=== PATIENT | female | born 1995 | race Caucasian/White ===

== ENCOUNTER 2020-04-13 20:21 | Emergency (ER) | payer OTHER, SELFPAY ==
[2020-04-13 20:23] VITALS: BP 130/91; PULSE 79; RESP 18; TEMP 36.7; O2SAT 99
--- NOTE | 2020-04-13 20:32 | ED.GENADULT ---
HPI - General Adult General Chief complaint: Dental/Oral Stated complaint: facial swelling Time Seen by Provider: 04/13/20 20:31 Source: patient Mode of arrival: ambulatory Limitations: no limitations History of Present Illness HPI narrative: Patient is here for evaluation of left jaw swelling after a lower molar extraction 8 days ago. She states she called her dentist and they told her they could not see her for a month and that swelling was normal. She has not had any fever but feels that there are bone fragments and excessive pain. She is been treating her pain with Tylenol and ibuprofen that was prescribed by the dentist. She states the tooth was abscess prior to the extraction. Onset (ago): day(s) Location: face Associated symptoms: denies other symptoms Treatments prior to arrival: NSAID Related Data Allergies Allergy/AdvReac Type Severity Reaction Status Date / Time amoxicillin Allergy Unknown Verified 12/09/18 13:06 codeine Allergy Unknown GI UPSET Verified 12/09/18 13:06 hydrocodone Allergy Unknown Verified 12/09/18 13:06 Penicillins Allergy Unknown Unverified 12/09/18 13:06 [place] Allergy Severe THROAT Uncoded 12/09/18 13:06 SWELLING [place] Allergy Severe THROAT Uncoded 12/09/18 13:06 SWELLING Review of Systems Review of Systems: All systems reviewed & are unremarkable except as noted in HPI and below PMFSH Social History Social History (Updated 04/13/20 @ 21:04 by Mignon Chen PA-C) Smoking status: Never smoker Alcohol intake: never Substance use: never Living arrangements: with family Occupation/Education: unemployed Exam Const: General: no acute distress and alert Orientation/consciousness: patient oriented x3 HENMT: Teeth and gingiva: caries Teeth image: 1. extracted. mild swelling of gum. Neck: Neck: no lymphadenopathy Resp: Effort & Inspection: normal respiratory effort Skin: General skin exam: normal color Psych: Mental Status: mental status grossly normal Course Course Emergency Course: Patient instructed to continue the ibuprofen every 6-8 hours as prescribed by the dentist, continue warm salt water swish and spit. We will do 5-day course of Keflex. Instructed to call the oral surgeon and as before and waiting was for cancellation if pain problem persists. Vital Signs Vital signs: Vital Signs Temperature 36.7 C 04/13/20 20:23 Pulse Rate 79 04/13/20 20:23 Respiratory Rate 18 11/04/20 20:23 Blood Pressure 130/91 H 04/13/20 20:23 Pulse Oximetry 99 04/13/20 20:23 Temperature 36.7 C 04/13/20 20:23 Pulse Rate 79 04/13/20 20:23 Respiratory Rate 18 04/13/20 20:23 Blood Pressure 130/91 H 04/13/20 20:23 Pulse Oximetry 99 04/13/20 20:23 Medical Decision Making Vital Signs Vital Signs: Vital Signs Temperature 36.7 C 04/13/20 20:23 Pulse Rate 79 04/13/20 20:23 Respiratory Rate 18 04/13/20 20:23 Blood Pressure 130/91 H 04/13/20 20:23 Pulse Oximetry 99 04/13/20 20:23 Temperature 36.7 C 04/13/20 20:23 Pulse Rate 79 04/13/20 20:23 Respiratory Rate 18 04/13/20 20:23 Blood Pressure 130/91 H 04/13/20 20:23 Pulse Oximetry 99 04/13/20 20:23 Discharge Plan Discharge Clinical Impression: Dental caries H/O tooth extraction Qualifiers: Tooth loss class: unspecified tooth loss Qualified Code(s): K08.409 - Partial loss of teeth, unspecified cause, unspecified class Patient Disposition: Home, Self-Care Condition: Stable Instructions: Antibiotic Form, Toothache (ED) Additional Instructions: Continue the ibuprofen as prescribed by the dentist, please take with food to avoid GI upset. Continue warm salt water swish and spit with 1/2 teaspoon of table salt and 4 ounces of warm water, do that 4 times a day. Do not drink with a straw in order to avoid causing a dry socket. Apply ice to your face 20 minutes at a time several times a day. Complete antibiotics as prescribed. Call t
== END 2020-04-13 21:25 | disposition home or self-care (01) ==
PROVIDERS: Emergency Provider Emergency Medicine; PCP Physician Assistant
DX: K02.9 Dental caries, unspecified (principal); Z98.818 Other dental procedure status
CPT/HCPCS: 99283

== ENCOUNTER 2020-05-26 18:05 | Emergency (ER) | payer OTHER, SELFPAY ==
[2020-05-26 18:06] VITALS: BP 158/96; PULSE 94; RESP 29; TEMP 37.2; O2SAT 99
[2020-05-26 18:13] VITALS: PULSE 88
[2020-05-26 18:14] VITALS: O2SAT 97
--- NOTE | 2020-05-26 18:15 | ECG_ITS ---
Measurements Intervals [place] Rate: 97 P: 25 [place]: 147 QRS: 36 QRSD: 93 T: 23 QT: 350 QTc: 446 Interpretive Statements SINUS RHYTHM BASELINE ARTIFACT- I, II, III, V1, V4 NORMAL ECG Electronically Signed On 05-27-2020 7:57:00 ELECTRICAL PRODUCTS ENGINEER by Mike Stallings D.O.
--- NOTE | 2020-05-26 18:16 | ED.GENADULT ---
HPI - General Adult General Chief complaint: Shortness of Breath/Dyspnea Stated complaint: SOB,CP,Anxiety Time Seen by Provider: 05/26/20 18:15 Source: patient and EMS Mode of arrival: EMS Limitations: no limitations History of Present Illness HPI narrative: Patient is 25 years old white female presents with anxiety related symptoms started in the last few days since her boyfriend on May 17. Patient complaining of hyperventilation, jittery feeling inside, shaking outside, lightheadedness, stomach upset, spasm and pain of the hands and toes. Patient reports having the above symptoms intermittently today Currently feeling much better. Patient denies any fever, chills, nausea, vomiting, sore throat, headache, back pain or chest pain. Patient denies exposure to anybody known having COVID-19 Currently patient on Celexa Related Data Allergies Allergy/AdvReac Type Severity Reaction Status Date / Time amoxicillin Allergy Unknown Verified 12/09/18 13:06 codeine Allergy Unknown GI UPSET Verified 12/09/18 13:06 hydrocodone Allergy Unknown Verified 12/09/18 13:06 Penicillins Allergy Unknown Unverified 12/09/18 13:06 [place] Allergy Severe THROAT Uncoded 12/09/18 13:06 SWELLING [place] Allergy Severe THROAT Uncoded 12/09/18 13:06 SWELLING Review of Systems Review of Systems: Narrative: CONSTITUTIONAL: Denies fever, chills, or sweats. EYES: Denies visual changes, redness, or discharge. ENT: Denies rhinorrhea, congestion, sore throat, or otalgia. CARDIOVASCULAR: Denies chest pain, palpitations, or edema. RESPIRATORY: Denies cough or dyspnea. GASTROINTESTINAL: Denies abdominal pain, nausea, vomiting, or diarrhea. GENITOURINARY: Denies dysuria or hematuria. SKIN: Denies rash or itching. MUSCULOSKELETAL: Denies back pain, joint pain, or myalgia. NEUROLOGIC: Denies headache, numbness, or weakness. PSYCHIATRIC: Anxiety and depression PMFSH Past Medical History Medical History (Updated 05/26/20 @ 18:32 by Perla Seals MD) Anxiety Depression Social History Social History Smoking status: Never smoker Alcohol intake: never Substance use: never Gender identity (if verbalized by the patient): Female Exam Narrative: Exam Narrative: General appearance: Well-developed, well-nourished, looks depressed Skin: Normal color Head: Normocephalic, nontraumatic Eyes: Clear conjunctiva ENT: Oropharynx normal, ears normal, nose normal Neck: Supple, nontender Chest and respiratory: Airway patent, no respiratory distress, no accessory muscle use Heart: Regular rate/rhythm Abdomen: Soft, nontender, no organomegaly, quiet bowel sounds Vascular: Normal peripheral pulses, normal capillary refill. 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 is normal as tested, no gross motor deficit Course Course Emergency Course: Improving Vital Signs Vital signs: Vital Signs Temperature 37.2 C 05/26/20 18:06 Pulse Rate 94 05/26/20 18:06 Respiratory Rate 29 H 05/26/20 18:06 Blood Pressure 158/96 H 05/26/20 18:06 Pulse Oximetry 99 05/26/20 18:06 Temperature 37.2 C 05/26/20 18:06 Pulse Rate 88 05/26/20 18:13 Respiratory Rate 29 H 05/26/20 18:06 Blood Pressure 158/96 H 05/26/20 18:06 Pulse Oximetry 97 05/26/20 18:14 Medical Decision Making [facility] Narrative Medical decision making narrative: Panic attack, grief reaction is my concern Ativan 1 mg orally ordered. Further plan to follow Differential Diagnosis Differential Diagnosis: Anxiety, depression, grief reaction Vital Signs Vital Signs: Vital Signs Temperature 3
[2020-05-26] MEDS: LORazepam (*CRX) 0.5 MG TABLET 1 MG PO (18:45)
--- NOTE | 2020-05-26 18:46 | PC.NURSE ---
patient medicated as ordered. alert. sitting on stretcher. family member in room. denies needs at this time but does want IVF. will discuss with provider.
== END 2020-05-26 19:30 | disposition home or self-care (01) ==
LOC: ANHED 18:48
PROVIDERS: Emergency Provider Emergency Medicine; PCP Physician Assistant
DX: F43.22 Adjustment disorder with anxiety (principal)
CPT/HCPCS: 93005; 99283; A9270

== ENCOUNTER 2020-06-16 02:37 | Emergency (ER) | payer OTHER, SELFPAY ==
--- NOTE | ~2020-06-16 | XR_ITS ---
EXAMINATION: XR chest 2V 06/16/2020 03:15 INDICATION: Chest pain PROCEDURE: PA and lateral views of the chest COMPARISON: 02/11/2019 FINDINGS: The lungs are clear. The cardiomediastinal silhouette is within normal limits. There are no pleural effusions. There is no pneumothorax suspected. IMPRESSION: 1: NO ACUTE CARDIOPULMONARY DISEASE. Reviewed, dictated and finalized at location [facility]. 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
[2020-06-16 02:36] VITALS: BP 157/93; PULSE 105; RESP 16; TEMP 36.5; O2SAT 99
--- NOTE | 2020-06-16 02:41 | ECG_ITS ---
Measurements Intervals [place] Rate: 109 P: 33 NE: 166 QRS: 18 QRSD: 89 T: -13 QT: 363 QTc: 489 Interpretive Statements SINUS TACHYCARDIA NONSPECIFIC ST & T-WAVE ABNORMALITY- ANT/INF LEADS BASELINE ARTIFACT- V1-V2 ABNORMAL ECG Electronically Signed On 06-16-2020 7:15:50 GIFTS OFFICER by Mike Stallings D.O.
[2020-06-16 03:04] VITALS: BP 125/74; PULSE 105; RESP 12; O2SAT 100
[2020-06-16] MEDS: KETOROLAC 30 MG/ML VIAL (*BKC) IV PUSH (03:09)
--- NOTE | 2020-06-16 03:10 | PC.NURSE ---
Pt. to XR
--- NOTE | 2020-06-16 03:45 | PC.NURSE ---
Pt. re-stuck for blood draw due to pulling arm away w/ needle in place
[2020-06-16 03:55] LABS: Basophils Percent Auto 0.4 % (0.2-1.2); Eosinophils Absolute Auto 0.3 K/mm3 (0-0.3); Eosinophils Percent Auto 4.1 % (0-4.4); Hematocrit 38.2 % (37.0-47.0); Immature Granulocyte Absolute 0.01 K/mm3 (0.00-0.031); Immature Granulocyte Percent A 0.1 % (0-0.5); Lymphocytes Absolute Auto 2.06 K/mm3 (0.9-3.2); Lymphocytes Percent Auto 25.8 % (18.3-44.2); Mean Corpuscular Volume 88.2 fl (80-100); Mean Platelet Volume 10.3 fl (7.4-10.4); Monocytes Absolute Auto 0.7 K/mm3 (0.1-0.6); Monocytes Percent Auto 8.5 % (2.6-8.5); Neutrophils Absolute Auto 4.9 K/mm3 (1.3-6.7); Neutrophils Percent Auto 61.1 % (45.5-73.1); Platelet Count Result 284 k/mm3 (150-375); Red Blood Count 4.33 M/mm3 (4.2-5.4); Red Cell Distribution Width 13.1 % (11.5-14.5)
--- NOTE | 2020-06-16 04:03 | ED.ARRPALP ---
HPI - Arrhythmia/Palpitations General Chief Complaint: Arrhythmia/Palpitations Stated Complaint: anxiety Time Seen by Provider: 06/16/20 02:39 History of Present Illness HPI narrative: Patient is a 25-year-old female who presents ER with chest pain. Ongoing for a week. Began in her left lateral chest and has moved across to the right anterior chest wall. Reports it feels like her heart is racing and is occasionally sharp. Typically gets better when she takes clonazepam. No fevers or chills or sweats. No productive cough. Reports she has seen a custom frame assembler in the past who told her that she does not have any cardiac issues. She does have diagnosis of POTS. She reports family history significant of mother dying from a cardiac issue although it is unknown what. Patient became more symptomatic at work tonight and opted to come to the hospital. Patient reports feeling significant stress due to her boyfriend/fianc? having recently. Related Data Allergies Allergy/AdvReac Type Severity Reaction Status Date / Time amoxicillin Allergy Unknown Unknown Verified 06/16/20 03:10 codeine Allergy Unknown GI UPSET Verified 06/16/20 03:10 hydrocodone Allergy Unknown Unknown Verified 06/16/20 03:10 Penicillins Allergy Unknown Unknown Verified 06/16/20 03:10 [place] Allergy Severe THROAT Uncoded 06/16/20 03:10 SWELLING [place] Allergy Severe THROAT Uncoded 06/16/20 03:10 SWELLING Review of Systems Review of Systems: All systems reviewed & are unremarkable except as noted in HPI and below Constitutional: Constitutional: Denies chills, Denies fever(s) and Denies weakness ENT: Denies nasal congestion and Denies sore throat Cardiovascular: Cardiovascular: Reports chest pain, Reports rapid heart rate and Denies radiating jaw, neck or arm pain Respiratory: Respiratory: Denies cough and Denies dyspnea Gastrointestinal: Gastrointestinal: Denies abdominal pain, Denies nausea and Denies vomiting Psychiatric: Psychiatric: Reports anxiety PMFSH Past Medical History Medical History (Updated 06/16/20 @ 05:09 by Jackson Lee MD) Anxiety Depression Social History Social History Smoking status: Never smoker Alcohol intake: never Substance use: never Gender identity (if verbalized by the patient): Female Exam Narrative: Exam Narrative: GENERAL: Well-appearing, well-nourished, and in no acute distress. HEAD: Normocephalic, atraumatic. CHEST: Clear to auscultation. No respiratory distress. HEART: Tachycardic and regular. Normal peripheral pulses. ABDOMEN: Soft, nontender, nondistended. EXTREMITIES: Normal range of motion. No edema. SKIN: Warm, dry, no rash. NEURO: Alert and oriented x3. PSYCH: Normal mood and affect. Course Course Emergency Course: Pain resolved with Toradol. Informed results. Discharge home. Vital Signs Vital signs: Vital Signs Temperature 97.7 F 06/16/20 02:36 Pulse Rate 105 H 06/16/20 02:36 Respiratory Rate 16 06/16/20 02:36 Blood Pressure 157/93 H 06/16/20 02:36 Pulse Oximetry 99 06/16/20 02:36 Temperature 97.7 F 06/16/20 02:36 Pulse Rate 94 06/16/20 04:33 Respiratory Rate 12 06/16/20 04:33 Blood Pressure 133/88 06/16/20 04:33 Pulse Oximetry 100 06/16/20 04:33 MDM - Arrhythmia/Palpitations Lab Data Result diagrams: 06/16/20 03:45 06/16/20 03:43 Labs: Lab Results 06/16/20 06/16/20 06/16/20 Range/Units 03:43 03:45 03:45 WBC 8.0 (4.5-10.0) K/mm3 RBC 4.33 (4.2-5.4) M/mm3 Hgb 13.0 (12.0-15.0) g/dL Hct 38.2 (37.0-47.0) % MCV 88.2 (80-100) fl MCH 30.0 (26-34) pg MCHC 34.0 (32-36) g/dl RDW 13.1 (11.5-14.5) % Plt Count 284 (150-375) k/mm3 MPV 10.3 (7.4-10.4) fl Immature Gran % (Auto) 0.1 (0-0.5) % Neut % (Auto) 61.1 (45.5-73.1) % Lymph % (Auto) 25.8 (18.3-44.2) % [place] % (Auto) 8.5 (2.6-8.5) %
[2020-06-16 04:05] LABS: D Dimer 0.32 ug/mL (<0.48)
[2020-06-16 04:07] LABS: Anion Gap 7 mmol/L (8-16); Blood Urea Nitrogen 12 mg/dL (7-17); Calcium 8.8 mg/dL (8.4-10.2); Carbon Dioxide 26 mmol/L (22-30); Chloride 108 mmol/L (98-107); Estimated CRCL calculation 125 ml/min; Estimated Glomerular Filt Rate > 60; Glucose 91 mg/dL (65-105); Potassium 3.6 mmol/L (3.4-5.0); Sodium 141 mmol/L (137-145)
[2020-06-16 04:19] LABS: Troponin I < 0.012 ng/mL (0.000-0.034)
[2020-06-16 04:33] VITALS: BP 133/88; PULSE 94; RESP 12; O2SAT 100
[2020-06-16 05:30] VITALS: BP 128/77; PULSE 88; RESP 14; O2SAT 99
== END 2020-06-16 05:30 | disposition home or self-care (01) ==
PROVIDERS: Emergency Provider Emergency Medicine; PCP Physician Assistant
DX: R07.89 Other chest pain (principal); F41.9 Anxiety disorder, unspecified; R94.31 Abnormal electrocardiogram [ECG] [EKG]
CPT/HCPCS: 36415; 71046; 80048; 84484; 85025; 85380; 93005; 96374; 99284; J1885

== ENCOUNTER 2020-09-07 22:50 | Emergency (ER) | payer OTHER, SELFPAY ==
--- NOTE | ~2020-09-07 | XR_ITS ---
EXAMINATION: XR chest 1V portable DATE: 09/08/2020 00:51 INDICATION: Left-sided chest pain TECHNIQUE: frontal view of the chest was obtained. COMPARISON: Chest radiograph dated 06/16/2020 FINDINGS: The lungs remain clear with no focal airspace opacities, pulmonary edema, pleural effusion or pneumot horax. The cardiomediastinal silhouette is normal. Visualized bones and soft tissues are unremarkable . IMPRESSION: 1. No acute cardiopulmonary disease. Reviewed, dictated and finalized at location A.
[2020-09-07 22:53] VITALS: BP 151/93; PULSE 79; RESP 18; TEMP 35.4; O2SAT 97
--- NOTE | 2020-09-07 23:03 | ECG_ITS ---
Measurements Intervals [place] Rate: 76 P: 28 [place]: 153 QRS: 55 QRSD: 88 T: 33 QT: 386 QTc: 435 Interpretive Statements SINUS RHYTHM WITH SINUS ARRHYTHMIA BASELINE ARTIFACT- I, II, AVR NORMAL ECG Electronically Signed On 09-08-2020 7:10:25 CDT by Mike Stallings D.O.
--- NOTE | 2020-09-08 00:04 | ED.GENADULT ---
HPI - General Adult General Chief complaint: Unspecified Stated complaint: chest tightness x 6 hours Time Seen by Provider: 09/07/20 23:09 History of Present Illness HPI narrative: 25 yo presents to the ED with multiple complaints. She reports that she has had sharp left sided chest pain radiating to the left shoulder for 6 hours. She has also had nausea and light headedness. Additionally she has urinry frequency and dysuria. Related Data Home Medications Medication Instructions Recorded Confirmed albuterol sulfate INHALATION 09/07/20 citalopram mg 09/07/20 clonazepam 09/07/20 ferrous sulfate mg 09/07/20 fludrocortisone mg 09/07/20 hydroxyzine HCl 09/07/20 ibuprofen 09/07/20 lamotrigine 09/07/20 rosuvastatin mg 09/07/20 Allergies Allergy/AdvReac Type Severity Reaction Status Date / Time amoxicillin Allergy Unknown Unknown Verified 09/07/20 22:56 codeine Allergy Unknown GI UPSET Verified 09/07/20 22:56 hydrocodone Allergy Unknown Unknown Verified 09/07/20 22:56 Penicillins Allergy Unknown Unknown Verified 09/07/20 22:56 [place] Allergy Difficulty Verified 09/07/20 22:56 Swallowing [place] Allergy Severe THROAT Uncoded 09/07/20 22:56 SWELLING [place] Allergy Severe THROAT Uncoded 09/07/20 22:56 SWELLING Review of Systems Review of Systems: All systems reviewed & are unremarkable except as noted in HPI and below Constitutional: Constitutional: Denies chills and Denies fever(s) Eyes: Eyes: Reports no additional eye complaints ENT: Reports system reviewed and no additional complaints, except as documented Cardiovascular: Cardiovascular: Reports chest pain Respiratory: Respiratory: Reports dyspnea Gastrointestinal: Gastrointestinal: Reports nausea Genitourinary: Genitourinary: Reports as per HPI Neurologic: Reports as per HPI [facility] Past Medical History Medical History Anxiety Depression Social History Social History Smoking status: Never smoker Alcohol intake: never Substance use: never Gender identity (if verbalized by the patient): Female Sexual Orientation (if Verbalized by the Patient): Straight or Heterosexual Exam Const: General: healthy appearing, no acute distress and alert Orientation/consciousness: patient oriented x3 HENMT: Head: normal to inspection Neck: Neck: normal visual inspection and no lymphadenopathy Chest: Chest palpation & inspection: tenderness Resp: Effort & Inspection: normal respiratory effort Auscultation: clear to auscultation bilaterally, no rales, no rhonchi and no wheezes Cardio: Jugular venous distension: no JVD Rate: regular rate Rhythm: regular rhythm Heart sounds: no murmurs GI: Inspection: non-distended GI Palp: Yes Soft to palpation and Yes Tenderness to palpation present (GI) (epigastric) Skin: General skin exam: normal color Neuro: General: patient oriented x3 and moves all extremities Speech: normal speech Extrem: General: no edema Psych: Appearance: well kempt Affect: normal affect Course Vital Signs Vital signs: Vital Signs Temperature 35.4 C L 09/07/20 22:53 Pulse Rate 79 09/07/20 22:53 Respiratory Rate 18 09/07/20 22:53 Blood Pressure 151/93 H 09/07/20 22:53 Pulse Oximetry 97 09/07/20 22:53 Temperature 36.8 C 09/08/20 02:56 Pulse Rate 76 09/08/20 02:56 Respiratory Rate 16 09/08/20 02:56 Blood Pressure 129/85 09/08/20 02:56 Pulse Oximetry 100 09/08/20 02:56 Medical Decision Making Vital Signs Vital Signs: Vital Signs Temperature 35.4 C L 09/07/20 22:53 Pulse Rate 79 09/07/20 22:53 Respiratory Rate 18 09/07/20 22:53 Blood Pressure 151/93 H 09/07/20 22:53 Pulse Oximetry 97 09/07/20 22:53 Temperature 36.8 C 09/08/20 02:56 Pulse Rate 76 09/08/20 02:56 Respiratory Rate 16 09/08/20 02:56 Blood Pressure 129/85
[2020-09-08] MEDS: KETOROLAC 30 MG/ML VIAL (*BKC) IV PUSH (00:22)
[2020-09-08 00:46] LABS: Alanine Aminotransferase 20 U/L (4-35); Albumin Level 4.5 g/dL (3.5-5.1); Alkaline Phosphatase 49 U/L (38-126); Anion Gap 5 mmol/L (8-16); Aspartate Amino Transferase 25 U/L (14-36); Bilirubin,Total 0.2 mg/dL (0.2-1.3); Blood Urea Nitrogen 11 mg/dL (7-17); Calcium 9.5 mg/dL (8.4-10.2); Carbon Dioxide 30 mmol/L (22-30); Chloride 107 mmol/L (98-107); Estimated CRCL calculation 102 ml/min; Estimated Glomerular Filt Rate > 60; Glucose 74 mg/dL (65-105); Sodium 142 mmol/L (137-145)
[2020-09-08 00:47] LABS: Basophils Percent Auto 0.4 % (0.2-1.2); Eosinophils Absolute Auto 0.4 K/mm3 (0-0.3); Eosinophils Percent Auto 4.3 % (0-4.4); Hematocrit 44.7 % (37.0-47.0); Hemoglobin 14.9 g/dL (12.0-15.0); Immature Granulocyte Absolute 0.01 K/mm3 (0.00-0.031); Immature Granulocyte Percent A 0.1 % (0-0.5); Lymphocytes Absolute Auto 2.43 K/mm3 (0.9-3.2); Lymphocytes Percent Auto 29.2 % (18.3-44.2); Mean Corpuscular HGB Conc 33.3 g/dl (32-36); Mean Corpuscular Volume 90.1 fl (80-100); Mean Platelet Volume 10.9 fl (7.4-10.4); Monocytes Absolute Auto 0.7 K/mm3 (0.1-0.6); Monocytes Percent Auto 7.9 % (2.6-8.5); Neutrophils Absolute Auto 4.8 K/mm3 (1.3-6.7); Neutrophils Percent Auto 58.1 % (45.5-73.1); Platelet Count Result 305 k/mm3 (150-375); Red Blood Count 4.96 M/mm3 (4.2-5.4); Red Cell Distribution Width 13.4 % (11.5-14.5); White Blood Count 8.3 K/mm3 (4.5-10.0)
[2020-09-08 00:56] LABS: Add Urine Microscopic? YES; Appearance Urine Cloudy (Clear); Bilirubin Urine Negative (Negative); Blood Urine Negative (Negative); Color Urine Yellow (Yellow); Glucose Urine UA Negative (Negative); Ketones Urine Negative (Negative); Leukocyte Esterase Ur 1+ LEU/UL (Negative); Mucus Urine Rare /lpf; Nitrate Urine Negative (Negative); Protein Urine 1+ mg/dL (Negative); Specific Grav Ur 1.027 (1.001-1.035); Squamous Epithelial Cell Urine Rare /hpf (Few); Urobilinogen Urine Negative mg/dL (<2.0); WBC Urine 21-30 /hpf
[2020-09-08 00:57] LABS: Troponin I < 0.012 ng/mL (0.000-0.034)
[2020-09-08] MEDS: NITROFURANTOIN MONOHYD MACROCR 100 MG CAP PO (01:38)
[2020-09-08 02:01] VITALS: BP 118/72; PULSE 78; RESP 16; O2SAT 99
[2020-09-08 02:56] VITALS: BP 129/85; PULSE 76; RESP 16; TEMP 36.8; O2SAT 100
== END 2020-09-08 02:57 | disposition home or self-care (01) ==
PROVIDERS: Emergency Provider Emergency Medicine; PCP Physician Assistant
DX: N30.90 Cystitis, unspecified without hematuria (principal); R07.89 Other chest pain; F41.9 Anxiety disorder, unspecified; F32.9 Major depressive disorder, single episode, unspecified
CPT/HCPCS: 36415; 71045; 80053; 81001; 84484; 85025; 87077; 87086; 87088; 87186; 93005; 96374; 99284; A9270; J1885

== ENCOUNTER 2020-09-29 23:14 | Emergency (ER) | payer OTHER, SELFPAY ==
--- NOTE | ~2020-09-29 | CT_ITS ---
EXAMINATION: CT brain wo con DATE: 09/30/2020 01:57 INDICATION: Dizziness. Head injury. TECHNIQUE: Computed tomography (CT) of the head was performed without intravenous contrast. The mA wa s adjusted according to patient size. Iterative reconstruction technique was employed. Exam dose: 60 5.33 mGy-cm total exam DLP. COMPARISON: 12/09/2018 CT head FINDINGS: No intracranial mass lesion or hemorrhage, midline shift or mass effect or cerebrovascular accident. Normal ventricular size. Normal hinds-white matter differentiation. No subdural or epidural hematoma. There is an approximately 1.5 cm polyp or mucous retention cyst of the lateral left maxillary sinus, mild mucoperiosteal thickening of the right maxillary sinus and patchy soft tissue thickening in the ethmoid air cells. The mastoid air cells are normally developed and aerated. IMPRESSION: No significant intracranial abnormality Reviewed, dictated and finalized at [facility]. Reviewed, dictated and finalized at location A.
[2020-09-29 23:44] VITALS: BP 137/103; PULSE 90; RESP 16; TEMP 36.4; O2SAT 100
[2020-09-30 01:04] VITALS: BP 122/71; PULSE 86; RESP 17; O2SAT 100
[2020-09-30] MEDS: SODIUM CHLORIDE 0.9% IV 1,000 ML 999 ML IV CONT (02:12)
[2020-09-30] MEDS: KETOROLAC 30 MG/ML VIAL (*BKC) IV PUSH (02:13)
[2020-09-30] MEDS: PROCHLORPERAZINE EDISYLATE 10 MG/2 ML VIAL IV PUSH (02:13)
[2020-09-30] MEDS: diphenhydrAMINE HCl INJ 50 MG/ML VIAL IV PUSH (02:13)
[2020-09-30] MEDS: MECLIZINE HCL 25 MG TABLET PO (02:14)
--- NOTE | 2020-09-30 02:29 | ED.GENADULT ---
HPI - General Adult General Chief complaint: Head Injury Stated complaint: head injury Time Seen by Provider: 09/30/20 01:37 History of Present Illness HPI narrative: Patient a 25-year-old female who presents the emergency department with chief complaint of headache and dizziness. Patient reports that she has prior history of pots syndrome and was feeling dizzy and struck her head. Patient states she fell 2 more times while was at work and struck her head patient reports that she has history of vertigo and also reports that she has episodes of POTS. Patient states that since then she has had a headache that she describes as diffuse worse in the front of her head where she had struck the back of her head. Patient reports is also had nausea and vomiting reports that she has photophobia. Patient states she also has a rotational vertigo type symptoms. Related Data Home Medications Medication Instructions Recorded Confirmed albuterol sulfate INHALATION 09/07/20 citalopram mg 09/07/20 clonazepam 09/07/20 ferrous sulfate mg 09/07/20 fludrocortisone mg 09/07/20 hydroxyzine HCl 09/07/20 ibuprofen 09/07/20 lamotrigine 09/07/20 rosuvastatin mg 09/07/20 Allergies Allergy/AdvReac Type Severity Reaction Status Date / Time amoxicillin Allergy Unknown Unknown Verified 09/30/20 02:37 codeine Allergy Unknown GI UPSET Verified 09/30/20 02:37 hydrocodone Allergy Unknown Unknown Verified 09/30/20 02:37 Penicillins Allergy Unknown Unknown Verified 09/30/20 02:37 [place] Allergy Difficulty Verified 09/30/20 02:37 Swallowing [place] Allergy Severe THROAT Uncoded 09/30/20 02:37 SWELLING [place] Allergy Severe THROAT Uncoded 09/30/20 02:37 SWELLING Review of Systems Review of Systems: Narrative: A 10 system review of systems was completed on the patient and is negative except for what is stated in the HPI. Nursing and ancillary documentation was reviewed. PMFSH Past Medical History Medical History Anxiety Depression Social History Social History Smoking status: Never smoker Alcohol intake: never Substance use: never Gender identity (if verbalized by the patient): Female Comments Patient has past medical history significant for pots Social history the patient denies illicit drug use Exam Narrative: Exam Narrative: GENERAL: Well-appearing, well-nourished, and in no acute distress. HEAD: Normocephalic, atraumatic. EYES: PERRLA and EOMI. ENT: Nares clear, no rhinorrhea or epistaxis. Mucous membranes moist. NECK: Supple. CHEST: Clear to auscultation. No respiratory distress. HEART: Regular rate and rhythm. No murmur heard. Normal peripheral pulses. ABDOMEN: Soft, nontender, nondistended, normal active bowel sounds. EXTREMITIES: Normal range of motion. No edema. SKIN: Warm, dry, no rash. NEURO: No focal deficits. Alert and oriented x3. PSYCH: Normal mood and affect. Course Vital Signs Vital signs: Vital Signs Temperature 36.4 C 09/29/20 23:44 Pulse Rate 90 09/29/20 23:44 Respiratory Rate 16 09/29/20 23:44 Blood Pressure 137/103 H 09/29/20 23:44 Pulse Oximetry 100 09/29/20 23:44 Temperature 36.8 C 09/30/20 02:36 Pulse Rate 88 09/30/20 02:36 Respiratory Rate 20 09/30/20 02:36 Blood Pressure 130/66 09/30/20 02:36 Pulse Oximetry 100 09/30/20 02:36 Medical Decision Making Vital Signs Vital Signs: Vital Signs Temperature 36.4 C 09/29/20 23:44 Pulse Rate 90 09/29/20 23:44 Respiratory Rate 16 09/29/20 23:44 Blood Pressure 137/103 H 09/29/20 23:44 Pulse Oximetry 100 09/29/20 23:44 Temperature 36.8 C 09/30/20 02:36 Pulse Rate 88 09/30/20 02:36 Respiratory Rate 20 09/30/20 02:36 Blood Pressure 130/66 09/30/20 02:36 Pulse Oximetry 100 09/30/20 02:36 Lab Data Result diagrams: 09/30/20 0
[2020-09-30 02:36] VITALS: BP 130/66; PULSE 88; RESP 20; TEMP 36.8; O2SAT 100
[2020-09-30 02:38] LABS: Basophils Percent Auto 0.3 % (0.2-1.2); Eosinophils Absolute Auto 0.4 K/mm3 (0-0.3); Eosinophils Percent Auto 4.3 % (0-4.4); Hematocrit 44.8 % (37.0-47.0); Hemoglobin 15.5 g/dL (12.0-15.0); Immature Granulocyte Absolute 0.02 K/mm3 (0.00-0.031); Immature Granulocyte Percent A 0.2 % (0-0.5); Lymphocytes Percent Auto 34.7 % (18.3-44.2); Mean Corpuscular HGB Conc 34.6 g/dl (32-36); Mean Corpuscular Hemoglobin 30.8 pg (26-34); Mean Corpuscular Volume 89.1 fl (80-100); Mean Platelet Volume 10.7 fl (7.4-10.4); Monocytes Absolute Auto 0.6 K/mm3 (0.1-0.6); Neutrophils Absolute Auto 5.2 K/mm3 (1.3-6.7); Neutrophils Percent Auto 54.5 % (45.5-73.1); Platelet Count Result 336 k/mm3 (150-375); Red Blood Count 5.03 M/mm3 (4.2-5.4); Red Cell Distribution Width 13.2 % (11.5-14.5); White Blood Count 9.5 K/mm3 (4.5-10.0)
[2020-09-30 02:46] LABS: Add Urine Microscopic? YES; Appearance Urine Cloudy (Clear); Bilirubin Urine Negative (Negative); Color Urine Amber (Yellow); Glucose Urine UA Negative (Negative); Ketones Urine Negative (Negative); Leukocyte Esterase Ur 1+ LEU/UL (Negative); Mucus Urine Moderate /lpf; Nitrate Urine Negative (Negative); Protein Urine 1+ mg/dL (Negative); Squamous Epithelial Cell Urine Few /hpf (Few)
[2020-09-30 02:47] LABS: Blood Urine Negative (Negative); Specific Grav Ur 1.031 (1.001-1.035)
[2020-09-30 02:50] LABS: Alanine Aminotransferase 32 U/L (4-35); Albumin Level 5.1 g/dL (3.5-5.1); Alkaline Phosphatase 75 U/L (38-126); Anion Gap 8 mmol/L (8-16); Aspartate Amino Transferase 35 U/L (14-36); Bilirubin,Total 0.3 mg/dL (0.2-1.3); Blood Urea Nitrogen 13 mg/dL (7-17); Calcium 9.8 mg/dL (8.4-10.2); Carbon Dioxide 29 mmol/L (22-30); Chloride 107 mmol/L (98-107); Estimated CRCL calculation 120 ml/min; Estimated Glomerular Filt Rate > 60; Glucose 84 mg/dL (65-105); Potassium 3.6 mmol/L (3.4-5.0); Sodium 144 mmol/L (137-145)
[2020-09-30 03:21] VITALS: BP 124/78; PULSE 98; RESP 20; O2SAT 100
== END 2020-09-30 03:25 | disposition home or self-care (01) ==
PROVIDERS: Emergency Provider Emergency Medicine; PCP Physician Assistant
DX: R51.9 Headache, unspecified (principal); R42 Dizziness and giddiness; S09.90XA Unspecified injury of head, initial encounter; F41.9 Anxiety disorder, unspecified; F32.9 Major depressive disorder, single episode, unspecified; I49.8 Other specified cardiac arrhythmias; W01.10XA Fall on same level from slipping, tripping and stumbling with subsequent striking against unspecified object, initial encounter
CPT/HCPCS: 36415; 70450; 80053; 81001; 81025; 85025; 87077; 87086; 87088; 87186; 96361; 96374; 96375; 99284; A9270; J0780; J1200; J1885; J7030

== ENCOUNTER 2020-10-15 20:29 | Emergency (ER) | payer OTHER, SELFPAY ==
--- NOTE | ~2020-10-15 | XR_ITS ---
XR hand RT min 3V 10/15/2020 21:40 INDICATION: Right hand pain PROCEDURE: 3 views right hand COMPARISON: 12/01/2009 FINDINGS: Fracture, dislocation or subluxation is not identified. The soft tissues appear within norm al limits. No foreign bodies are identified. IMPRESSION: 1: NO ACUTE BONE OR JOINT ABNORMALITY IDENTIFIED. Reviewed, dictated and finalized at location A.
--- NOTE | ~2020-10-15 | XR_ITS ---
XR ankle LT min 3V 10/15/2020 21:40 Indication: Status post fall down concrete stairs. Left ankle pain. Procedure: 4 views left ankle Comparison: 05/02/2010 Findings: No acute fracture or traumatic malalignment. There is a cannulated lag screw in the distal aspect of the tibia. Ankle mortise intact. No significant soft tissue abnormality. No radiopaque fore ign bodies. Impression: 1: No acute fracture. Reviewed, dictated and finalized at location A. Impression: 1: No acute fracture.
--- NOTE | ~2020-10-15 | XR_ITS ---
LUMBAR SPINE INDICATION: Low back pain after fall TECHNIQUE: 3 views lumbar spine COMPARISON: None FINDINGS: No fracture, subluxation or dislocation. No evidence for spondylolysis or spondylolisthesi s. Vertebral bodies and disk spaces are preserved. IMPRESSION: 1: No significant abnormality of the lumbar spine identified. Reviewed, dictated and finalized at location A.
--- NOTE | ~2020-10-15 | CT_ITS ---
EXAMINATION: CT cervical spine wo con DATE: 10/15/2020 21:22 INDICATION: Head injury. TECHNIQUE: Computed tomography (CT) of the cervical spine was performed without intravenous contrast. Automated exposure control and iterative reconstruction technique were employed. The dose-length pro duct was 184.92 mGy-cm. COMPARISON: CT cervical spine 11/28/2018 FINDINGS: There is mild kyphosis of cervical spine. Vertebral body heights and intervertebral disc he ights are normal. At C7-T1, there is mild bilateral facet joint osteoarthritis. No central canal sten osis or neural foraminal stenosis. IMPRESSION: 1. No fracture. Reviewed, dictated and finalized at location A. IMPRESSION: 1. No fracture.
--- NOTE | ~2020-10-15 | XR_ITS ---
EXAMINATION: XR chest 1V 10/15/2020 21:40 INDICATION: Chest pain after fall PROCEDURE: AP view of the chest COMPARISON: 09/08/2020 FINDINGS: The lungs are clear. The cardiomediastinal silhouette is within normal limits. There are no pleural effusions. There is no pneumothorax suspected. IMPRESSION: 1: NO ACUTE CARDIOPULMONARY DISEASE. Reviewed, dictated and finalized at location A.
--- NOTE | ~2020-10-15 | CT_ITS ---
EXAMINATION: CT brain wo con DATE: 10/15/2020 21:15 INDICATION: Head injury. TECHNIQUE: Computed tomography (CT) of the head was performed without intravenous contrast. The mA wa s adjusted according to patient size. Iterative reconstruction technique was employed. The dose-lengt h product was 605.33 mGy-cm. COMPARISON: Head CT 09/30/2020 FINDINGS: There is acute subarachnoid hemorrhage in right sylvian fissure and anterior interhemispher ic fissure. There is acute hemorrhage at the right cerebellar tentorium that may be subdural or subar achnoid. There is no acute ischemic infarct or abnormal mass lesion. The ventricles are normal in si ze. There is mild mucosal thickening in the paranasal sinuses. There is a trace right mastoid effusio n. There is a left posterior scalp hematoma. IMPRESSION: 1. Acute subarachnoid hemorrhage in right sylvian fissure and anterior interhemispheric fissure. 2. Acute hemorrhage at the right cerebellar tentorium that may be subdural or subarachnoid. 3. I discussed this case with Dr. Seals. Reviewed, dictated and finalized at location A. IMPRESSION: 1. Acute subarachnoid hemorrhage in right sylvian fissure and anterior interhem ispheric fissure. 2. Acute hemorrhage at the right cerebellar tentorium that may be subdural or s ubarachnoid. 3. I discussed this case with Dr. Seals.
--- NOTE | ~2020-10-15 | XR_ITS ---
XR thoracic spine 3V 10/15/2020 21:40 Indication: Back pain Procedure: 3 views thoracic spine Comparison: No prior studies for comparison. Findings: Vertebral body heights are maintained. Mild levoscoliosis. No fracture or traumatic malalig nment. Pedicles intact. Surrounding osseous structures within normal limits. No paraspinal soft tissu e abnormality. Impression: 1: No acute fracture. Reviewed, dictated and finalized at location A. Impression: 1: No acute fracture.
--- NOTE | ~2020-10-15 | XR_ITS ---
XR elbow RT min 3V 10/15/2020 21:40 INDICATION: Right elbow pain PROCEDURE: 3 views right elbow COMPARISON: No prior studies for comparison. FINDINGS: Fracture, dislocation or subluxation is not identified. The soft tissues appear within norm al limits. No foreign bodies are identified. IMPRESSION: 1: NO ACUTE BONE OR JOINT ABNORMALITY IDENTIFIED. Reviewed, dictated and finalized at location A.
--- NOTE | ~2020-10-15 | XR_ITS ---
XR pelvis 1-2V 10/15/2020 21:40 INDICATION: Pelvic pain PROCEDURE: AP pelvis COMPARISON: No prior studies for comparison. FINDINGS: Fracture, dislocation or subluxation is not identified. Pelvic rings are intact. Sacral for amen are symmetric. The soft tissues appear within normal limits. No foreign bodies are identified. IMPRESSION: 1: NO ACUTE BONE OR JOINT ABNORMALITY IDENTIFIED. Reviewed, dictated and finalized at location A.
[2020-10-15 20:35] VITALS: BP 167/100; PULSE 120; RESP 15; TEMP 36.8; O2SAT 99
--- NOTE | 2020-10-15 20:48 | PC.NURSE ---
CCollar placed on pt at this time.
--- NOTE | 2020-10-15 20:55 | ECG_ITS ---
Measurements Intervals [place] Rate: 84 P: 34 [place]: 145 QRS: 28 QRSD: 92 T: 32 QT: 355 QTc: 421 Interpretive Statements SINUS RHYTHM BASELINE ARTIFACT- I, II, III, AVR, AVL NORMAL ECG Electronically Signed On 10-16-2020 7:54:07 CDT by Mike Stallings D.O.
--- NOTE | 2020-10-15 21:02 | ED.FALL ---
HPI - Fall General Chief Complaint: Fall Stated Complaint: fell down stair and hit head Time Seen by Provider: 10/15/20 20:36 Source: patient and RN notes reviewed Limitations: no limitations History of Present Illness HPI Narrative: Patient is 25 years old white female brought to the emergency room by her boyfriend because of falling down flight of stairs of 15 steps prior to arrival to the emergency room. No loss of consciousness. Patient under the influence of alcohol, complaining of pain from head to toes. Related Data Home Medications Medication Instructions Recorded Confirmed albuterol sulfate INHALATION 09/07/20 citalopram mg 09/07/20 clonazepam 09/07/20 ferrous sulfate mg 09/07/20 fludrocortisone mg 09/07/20 hydroxyzine HCl 09/07/20 ibuprofen 09/07/20 lamotrigine 09/07/20 rosuvastatin mg 09/07/20 Allergies Allergy/AdvReac Type Severity Reaction Status Date / Time amoxicillin Allergy Unknown Unknown Verified 09/30/20 02:37 codeine Allergy Unknown GI UPSET Verified 09/30/20 02:37 hydrocodone Allergy Unknown Unknown Verified 09/30/20 02:37 Penicillins Allergy Unknown Unknown Verified 09/30/20 02:37 coconut Allergy Difficulty Verified 09/30/20 02:37 Swallowing [place] Allergy Severe THROAT Uncoded 09/30/20 02:37 SWELLING [place]ec[place] Allergy Severe THROAT Uncoded 09/30/20 02:37 SWELLING Review of Systems Review of Systems: Narrative: CONSTITUTIONAL: Denies fever, chills, or sweats. EYES: Denies visual changes, redness, or discharge. ENT: Denies rhinorrhea, congestion, sore throat, or otalgia. CARDIOVASCULAR: Denies chest pain, palpitations, or edema. RESPIRATORY: Denies cough or dyspnea. GASTROINTESTINAL: Denies abdominal pain, nausea, vomiting, or diarrhea. GENITOURINARY: Denies dysuria or hematuria. SKIN: Denies rash or itching. MUSCULOSKELETAL: Denies back pain, joint pain, or myalgia. NEUROLOGIC: Denies headache, numbness, or weakness. PSYCHIATRIC: Denies anxiety or depression. REPLACED BY [facility] Past Medical History Medical History Anxiety Depression Social History Social History Smoking status: Never smoker Alcohol intake: never Substance use: never Gender identity (if verbalized by the patient): Female Exam Narrative: Exam Narrative: General appearance: Well-developed, well-nourished Skin: Normal color Head: Normocephalic, occipital laceration Eyes: Clear conjunctiva ENT: Oropharynx normal, ears normal, nose normal Neck: Diffuse tenderness posteriorly Chest and respiratory: Airway patent, no respiratory distress, no accessory muscle use Heart: Regular rate/rhythm Abdomen: Soft, nontender, no organomegaly, quiet bowel sounds Vascular: Normal peripheral pulses, normal capillary refill. Musculoskeletal: Diffuse pain in the right elbow, with abrasion, diffuse pain left ankle laterally with limited range of motion, bruises and abrasion of the right hand are dorsally with pain mainly right index and limited range of motion. Neurologic: Alert and oriented ?3, [employer] is normal as tested, no gross motor deficit Course Course Emergency Course: Stable Vital Signs Vital signs: Vital Signs Temperature 36.8 C 10/15/20 20:35 Pulse Rate 120 H 10/15/20 20:35 Respiratory Rate 15 10/15/20 20:35 Blood Pressure 167/100 H 10/15/20 20:35 Pulse Oximetry 99 10/15/20 20:35 Temperature 36.8 C 10/15/20 20:35 Pulse Rate 120 H 10/15/20 20:35 Respiratory Rate 15 10/15/20 20:35 Blood Pressure 167/100 H 10/15/20 20:35 Pulse Oximetry 99 10/15/20 20:35 MDM - Fall MDM Narrative Medical d
--- NOTE | 2020-10-15 21:44 | PC.NURSE ---
called [facility] to request transport. ETA 2230 Called [facility] - they do not have any truck available for transfers tonight. Called [facility] - no trucks for transfers tonight. Called [facility] ETA would be 1 to 2 hours.
[2020-10-15] MEDS: SODIUM CHLORIDE 0.9% IV 1,000 ML 999 ML IV CONT (21:51)
--- NOTE | 2020-10-15 21:53 | PC.NURSE ---
Called [facility]. ETA 15 minutes.
--- NOTE | 2020-10-15 21:55 | PC.NURSE ---
C-collar removed per verbal order read back by Dr. Seals.
[2020-10-15 21:58] LABS: Basophils Percent Auto 0.2 % (0.2-1.2); Eosinophils Absolute Auto 0.2 K/mm3 (0-0.3); Eosinophils Percent Auto 2.3 % (0-4.4); Hematocrit 40.7 % (37.0-47.0); Hemoglobin 13.7 g/dL (12.0-15.0); Immature Granulocyte Absolute 0.03 K/mm3 (0.00-0.031); Immature Granulocyte Percent A 0.3 % (0-0.5); Lymphocytes Absolute Auto 2.06 K/mm3 (0.9-3.2); Lymphocytes Percent Auto 21.4 % (18.3-44.2); Mean Corpuscular HGB Conc 33.7 g/dl (32-36); Mean Corpuscular Volume 89.3 fl (80-100); Mean Platelet Volume 10.3 fl (7.4-10.4); Monocytes Absolute Auto 0.7 K/mm3 (0.1-0.6); Monocytes Percent Auto 7.3 % (2.6-8.5); Neutrophils Absolute Auto 6.6 K/mm3 (1.3-6.7); Neutrophils Percent Auto 68.5 % (45.5-73.1); Platelet Count Result 294 k/mm3 (150-375); Red Blood Count 4.56 M/mm3 (4.2-5.4); Red Cell Distribution Width 13.2 % (11.5-14.5); White Blood Count 9.6 K/mm3 (4.5-10.0)
[2020-10-15] MEDS: ONDANSETRON INJ 4 MG/2 ML VIAL IV PUSH (22:00)
[2020-10-15 22:04] LABS: Add Urine Microscopic? YES; Appearance Urine Cloudy (Clear); Bacteria Urine Trace /hpf; Bilirubin Urine Negative (Negative); Blood Urine Negative (Negative); Color Urine Yellow (Yellow); Glucose Urine UA Negative (Negative); Ketones Urine Negative (Negative); Leukocyte Esterase Ur 3+ LEU/UL (Negative); Mucus Urine Few /lpf; Nitrate Urine Negative (Negative); Protein Urine Negative (Negative); Specific Grav Ur 1.011 (1.001-1.035); Squamous Epithelial Cell Urine Many /hpf (Few); Urobilinogen Urine Negative mg/dL (<2.0); WBC Urine 31-50 /hpf
[2020-10-15 22:08] LABS: Alanine Aminotransferase 19 U/L (4-35); Albumin Level 4.3 g/dL (3.5-5.1); Alkaline Phosphatase 58 U/L (38-126); Anion Gap 7 mmol/L (8-16); Aspartate Amino Transferase 26 U/L (14-36); Bilirubin,Total 0.2 mg/dL (0.2-1.3); Blood Urea Nitrogen 6 mg/dL (7-17); Calcium 9.3 mg/dL (8.4-10.2); Carbon Dioxide 26 mmol/L (22-30); Chloride 110 mmol/L (98-107); Estimated Glomerular Filt Rate > 60; Glucose 101 mg/dL (65-105); Potassium 3.7 mmol/L (3.4-5.0); Sodium 143 mmol/L (137-145)
[2020-10-15 22:09] LABS: Ethanol < 10 mg/dL (<10)
== END 2020-10-15 22:25 | disposition short-term general hospital (02) ==
PROVIDERS: Emergency Provider Emergency Medicine; PCP Physician Assistant
DX: S06.6X0A Traumatic subarachnoid hemorrhage without loss of consciousness, initial encounter (principal); F41.9 Anxiety disorder, unspecified; F32.9 Major depressive disorder, single episode, unspecified; S50.311A Abrasion of right elbow, initial encounter; S60.221A Contusion of right hand, initial encounter; M25.572 Pain in left ankle and joints of left foot; W10.9XXA Fall (on) (from) unspecified stairs and steps, initial encounter
CPT/HCPCS: 36415; 70450; 71045; 72072; 72100; 72125; 72170; 73080; 73130; 73610; 80053; 80307; 81001; 81025; 85025; 87086; 87088; 93005; 96361; 96374; 99291; J2405; J7030; L0140

== ENCOUNTER 2020-12-07 19:36 | Emergency (ER) | payer OTHER, SELFPAY ==
--- NOTE | ~2020-12-07 | US_ITS ---
EXAMINATION: US OB <=14 wk fetus w TV EXAM DATE: 12/07/2020 22:45 INDICATION: Abdominal pain, . 1st trimester. TECHNIQUE: Pelvic obstetrical transabdominal and transvaginal sonogram was performed by a technologryan pimentel. There are multiple grayscale and Doppler images available for interpretation. There are no александр ier studies of this gestation for comparison. FINDINGS: Uterus measures 7.4 x 4.6 x 6.0 cm. There is intrauterine gestation sac with normal-appear ing yolk sac identified. No pole identified at this time. Technologist did not obtain a mean sa c diameter, but gestation sac is approximately 10 mm in size. There is no subchorionic hemorrhage. Right ovary has a complex cystic region most likely the corpus luteal cyst. Left ovary was morphologi hany normal. Technologist did note that patient demonstrated right adnexal tenderness. Ultrasound c an sometimes identify, but never exclude an ectopic in the setting of positive beta hCG. F ollow up as warranted clinically with serial beta hCG levels or ultrasound. IMPRESSION: 1. Early intrauterine gestation sac, could not confirm viability at this time. 2. Right ovarian complex cystic region probably corpus luteal cyst but technologist did report regio nal tenderness. Follow-up as indicated clinically. Reviewed, dictated and finalized at location A. IMPRESSION: 1. Early intrauterine gestation sac, could not confirm viability at this time. 2. Right ovarian complex cystic region probably corpus luteal cyst but technol ogist did report regional tenderness. Follow-up as indicated clinically.
[2020-12-07 19:38] VITALS: BP 107/74; PULSE 84; RESP 18; TEMP 36.6; O2SAT 98
--- NOTE | 2020-12-07 20:50 | ED.NAVMDI ---
HPI - Nausea/Vomiting/Diarrhea General Chief complaint: Nausea/Vomiting/Diarrhea Stated complaint: , N/V Time Seen by Provider: 12/07/20 20:44 Source: RN notes reviewed History of Present Illness HPI Narrative: Patient presents emergency department from home for nausea vomiting. Patient states symptoms been ongoing for the past 3 days. States she is approximately 6 weeks and is followed by Dr. Dial. States she has not had an ultrasound documenting intrauterine . Patient states that she has had a history of hyperemesis gravidarum with previous pregnancies she has any fevers or chills, chest pain, shortness of breath diarrhea vaginal bleeding vaginal discharge or any other symptoms. States that she had Zofran at home but was not sure if she could take it so did not take it Related Data Home Medications Medication Instructions Recorded Confirmed No Home Medications 12/07/20 12/07/20 Allergies Allergy/AdvReac Type Severity Reaction Status Date / Time amoxicillin Allergy Unknown Unknown Verified 12/07/20 21:19 codeine Allergy Unknown GI UPSET Verified 12/07/20 21:19 hydrocodone Allergy Unknown Unknown Verified 12/07/20 21:19 Penicillins Allergy Unknown Unknown Verified 12/07/20 21:19 coconut Allergy Difficulty Verified 12/07/20 21:19 Swallowing [place] Allergy Severe THROAT Uncoded 12/07/20 21:19 SWELLING [place]ecan Allergy Severe THROAT Uncoded 12/07/20 21:19 SWELLING Review of Systems Review of Systems: Narrative: Gen.: Denies fevers or chills ENT: Denies congestion Respiratory: Denies shortness of breath or cough CV: Denies chest pain or palpitations GI: See HPI reports Musculoskeletal: Denies back pain or muscle pain Neuro: Denies numbness, tingling, weakness or focal weakness Skin: Denies rash Except as documented, all other systems reviewed and negative PMFSH Past Medical History Medical History Anxiety Depression Social History Social History Smoking status: Never smoker Alcohol intake: never Substance use: never Gender identity (if verbalized by the patient): Female Exam Narrative: Exam Narrative: APPEARANCE: No acute distress, nontoxic, resting in bed EYES: EOMI HEENT: Normocephalic, atraumatic, OMM RESPIRATORY: No respiratory distress Clear to auscultation bilaterally with no rhonchi wheezing or rales. CARDIOVASCULAR: Regular rate and rhythm without murmurs rubs or gallops. ABDOMINAL: Soft, nondistended mild diffuse tenderness palpation no rebound or guarding MUSCULOSKELETAl: Moves all extremities. No clubbing, cyanosis or edema. NEURO: Awake and alert. Following commands, speech normal, no focal deficits SKIN:: Warm, dry. No rashes lesions or abrasions PSYCHIATRIC: Normal affect/mood, Course Course Emergency Course: Patient states she is doing much better at this time states abdominal pain has resolved Patient able to drink in ED with no emesis Called and discussed with Dr. Dial presentation work-up recommends patient be discharged with Reglan 10 mg every 6 hours as needed as well as to use the Zofran she has at home and will follow as an outpatient Patient states that they are feeling much better at this time. States abdominal pain has resolved. Repeat abdominal exam shows the patient's abdomen to be soft and nontender. Discussed with patient results of workup and diagnosis. Discussed need for follow-up with primary care physician, reasons to return to the emergency department in proper use of medication. Patient understands and agrees to current treatment plan. Patient states she does have Zofran at home Vital Signs Vital signs: Vital Signs Temperature 97.8 F 12/07/20 19:38 Pulse Rate 84 12/07/20 19:38 Respiratory Rate 18 12/07/20 19:38 Blood Pressure 107/74 12/07/20 19:38 Pulse Oximetry 98 12/07/20 19:3
[2020-12-07 21:02] VITALS: O2SAT 84
[2020-12-07 21:03] VITALS: BP 109/70; O2SAT 93
[2020-12-07 21:09] LABS: Basophils Percent Auto 0.6 % (0.2-1.2); Eosinophils Absolute Auto 0.2 K/mm3 (0-0.3); Eosinophils Percent Auto 3.3 % (0-4.4); Hematocrit 39.9 % (37.0-47.0); Hemoglobin 13.4 g/dL (12.0-15.0); Immature Granulocyte Absolute 0.01 K/mm3 (0.00-0.031); Immature Granulocyte Percent A 0.2 % (0-0.5); Lymphocytes Absolute Auto 1.49 K/mm3 (0.9-3.2); Lymphocytes Percent Auto 28.6 % (18.3-44.2); Mean Corpuscular HGB Conc 33.6 g/dl (32-36); Mean Corpuscular Hemoglobin 30.1 pg (26-34); Mean Corpuscular Volume 89.7 fl (80-100); Mean Platelet Volume 10.2 fl (7.4-10.4); Monocytes Absolute Auto 0.6 K/mm3 (0.1-0.6); Monocytes Percent Auto 11.9 % (2.6-8.5); Neutrophils Absolute Auto 2.9 K/mm3 (1.3-6.7); Neutrophils Percent Auto 55.4 % (45.5-73.1); Platelet Count Result 212 k/mm3 (150-375); Red Blood Count 4.45 M/mm3 (4.2-5.4); Red Cell Distribution Width 13.5 % (11.5-14.5); White Blood Count 5.2 K/mm3 (4.5-10.0)
[2020-12-07 21:15] VITALS: BP 107/68; PULSE 90; RESP 18; O2SAT 100
[2020-12-07] MEDS: PROMETHAZINE HCL 25 MG/ML AMPUL 12.5 MG IV PUSH (21:15)
[2020-12-07] MEDS: SODIUM CHLORIDE 0.9% IV 1,000 ML 999 ML IV CONT ×2 (21:15→22:43)
[2020-12-07 21:16] VITALS: BP 107/68; PULSE 90; RESP 18; TEMP 36.7; O2SAT 100
[2020-12-07 21:16] LABS: Add Urine Microscopic? YES; Appearance Urine Cloudy (Clear); Bilirubin Urine Negative (Negative); Blood Urine Negative (Negative); Color Urine Yellow (Yellow); Glucose Urine UA Negative (Negative); Ketones Urine Trace mg/dL (Negative); Leukocyte Esterase Ur Negative LEU/UL (Negative); Mucus Urine Heavy /lpf; Nitrate Urine Negative (Negative); Protein Urine Negative (Negative); RBC Urine 0-2 /hpf (0-2); Specific Grav Ur 1.021 (1.001-1.035); Squamous Epithelial Cell Urine Few /hpf (Few); Urobilinogen Urine Negative mg/dL (<2.0); WBC Urine 0-3 /hpf
[2020-12-07 21:19] LABS: Alanine Aminotransferase 53 U/L (4-35); Albumin Level 4.8 g/dL (3.5-5.1); Alkaline Phosphatase 59 U/L (38-126); Anion Gap 13 mmol/L (8-16); Aspartate Amino Transferase 42 U/L (14-36); Bilirubin,Total 0.7 mg/dL (0.2-1.3); Blood Urea Nitrogen 6 mg/dL (7-17); Calcium 9.6 mg/dL (8.4-10.2); Carbon Dioxide 23 mmol/L (22-30); Chloride 107 mmol/L (98-107); Estimated CRCL calculation 120 ml/min; Estimated Glomerular Filt Rate > 60; Glucose 89 mg/dL (65-105); Lipase 72 U/L (23-300); Sodium 143 mmol/L (137-145)
[2020-12-07 23:46] VITALS: BP 93/65; PULSE 80; RESP 18; O2SAT 100
== END 2020-12-07 23:53 | disposition home or self-care (01) ==
PROVIDERS: Emergency Provider Emergency Medicine; PCP Physician Assistant
DX: O21.9 Vomiting of pregnancy, unspecified (principal); N83.201 Unspecified ovarian cyst, right side; Z3A.01 Less than 8 weeks gestation of pregnancy
CPT/HCPCS: 36415; 76801; 76817; 80053; 81001; 81025; 83690; 84702; 85025; 96361; 96374; 96375; 99284; J0131; J2550; J7030

== ENCOUNTER 2021-01-17 11:45 | Emergency (ER) | payer OTHER, SELFPAY ==
[2021-01-17 11:52] VITALS: BP 113/68; PULSE 108; RESP 16; TEMP 37.1; O2SAT 99
[2021-01-17 11:56] VITALS: BP 113/68; PULSE 108; RESP 16; TEMP 37.1; O2SAT 99
--- NOTE | 2021-01-17 12:49 | ED.URI ---
HPI - URI/Sore Throat General Chief Complaint: Upper Respiratory Infection Stated Complaint: NASAL CONGESTION Time Seen by Provider: 01/17/21 12:02 Source: patient and RN notes reviewed Mode of arrival: ambulatory Limitations: no limitations History of Present Illness HPI Narrative: Patient presents today with a 3 to 4-day history of nasal congestion, cough, sneezing, postnasal drip, sore throat, chest wall pain. Denies shortness of breath, fever. She has been taking ibuprofen and using an inhaler. Currently rates her pain 02/17. Denies sick contacts. Denies asthma or COPD history. She is a non-smoker. MD elicited complaint: cough, sore throat and nasal congestion Related Data Home Medications Medication Instructions Recorded Confirmed citalopram mg 01/17/21 lamotrigine 01/17/21 Allergies Allergy/AdvReac Type Severity Reaction Status Date / Time amoxicillin Allergy Unknown Unknown Verified 12/07/20 21:19 codeine Allergy Unknown GI UPSET Verified 12/07/20 21:19 hydrocodone Allergy Unknown Unknown Verified 12/07/20 21:19 Penicillins Allergy Unknown Unknown Verified 12/07/20 21:19 coconut Allergy Difficulty Verified 12/07/20 21:19 Swallowing [place] Allergy Severe THROAT Uncoded 12/07/20 21:19 SWELLING Pecan Allergy Severe THROAT Uncoded 12/07/20 21:19 SWELLING Review of Systems Review of Systems: CONSTITUTIONAL: Denies body aches, fever, chills, or sweats. EYES: Denies visual changes, redness, or discharge. ENT: Denies rhinorrhea, or otalgia.+ Congestion, sneezing, postnasal drip, sore throat CARDIOVASCULAR: Denies chest pain, palpitations, or edema. RESPIRATORY: Denies dyspnea.+ Cough, chest wall pain GASTROINTESTINAL: Denies abdominal pain, nausea, vomiting, or diarrhea. GENITOURINARY: Denies dysuria or hematuria. SKIN: Denies rash, itching, or wounds. MUSCULOSKELETAL: Denies back pain, joint pain, or myalgia. NEUROLOGIC: Denies headache, numbness, tingling, or weakness. PSYCH: Denies depression or anxiety. [facility] Past Medical History Medical History (Updated 01/17/21 @ 12:55 by Josephine Bella, [facility], ) Anxiety Depression Subarachnoid hemorrhage Social History Social History Smoking status: Never smoker Alcohol intake: never Substance use: never Gender identity (if verbalized by the patient): Female Comments At time of signature, I have reviewed and agree with nursing past medical, surgical, social and family history unless otherwise noted. Please see nursing chart for further information. There is no relevant family history pertinent to the presenting complaint Exam Narrative: GENERAL: Well-appearing, well-nourished, and in no acute distress. HEAD: Normocephalic, atraumatic. EYES: EOMI. No redness or drainage. Conjunctivae normal. ENT: Mucous membranes pink and moist. Nares congested with rhinorrhea. TMs normal bilaterally. Throat without erythema or edema. Tonsils 3+ without exudate. Uvula midline. NECK: Normal AROM. Supple. Left posterior cervical chain lymphadenopathy. CHEST: No respiratory distress. Clear to auscultation. HEART: Regular rate and rhythm. No murmur appreciated. Normal peripheral pulses. EXTREMITIES: Normal range of motion. No edema. SKIN: Warm, dry, no rash. Capillary refill normal. Normal skin turgor. NEURO: No focal deficits. Alert and oriented x3. Gait steady. PSYCH: Normal affect. No signs of depression or anxiety. Course Vital Signs Vital signs: Vital Signs Temperature 98.7 F 01/17/21 11:52 Pulse Rate 108 H 01/17/21 11:52 Respiratory Rate 16 01/17/21 11:52 Blood Pressure 113/68 01/17/21 11:52 Pulse Oximetry 99 01/17/21 11:52 Temperature 98.7 F 01/17/21 11:56 Pulse Rate 108 H 01/17/21 11:56 Respiratory Rate 16 01/17/21 11:56 Blood Pressure 113/68 01/17/21 11:56 Pulse Oximetry 99 01/17/21 11:56 Reviewed MDM - URI/Sore Throat Differe
== END 2021-01-17 12:57 | disposition home or self-care (01) ==
PROVIDERS: Emergency Provider Nurse Practitioner; PCP Physician Assistant
DX: J40 Bronchitis, not specified as acute or chronic (principal); J06.9 Acute upper respiratory infection, unspecified; F41.9 Anxiety disorder, unspecified; F32.9 Major depressive disorder, single episode, unspecified
CPT/HCPCS: 87081; 87880; 99213; G0463

== ENCOUNTER 2021-01-21 23:12 | Emergency (ER) | payer OTHER, SELFPAY ==
--- NOTE | ~2021-01-21 | XR_ITS ---
EXAMINATION: XR chest 2V DATE: 01/21/2021 23:45 INDICATION: Shortness of breath TECHNIQUE: PA and lateral views of the chest are obtained. COMPARISON: 10/27/2020 FINDINGS: The lungs are free of acute opacities. There is no pleural effusion or pneumothorax. The ca rdiomediastinal silhouette is normal. The visualized bones and soft tissues are unremarkable. IMPRESSION: 1. No acute cardiopulmonary abnormality. Reviewed, dictated and finalized at location A.
--- NOTE | 2021-01-21 23:15 | ECG_ITS ---
Measurements Intervals [place] Rate: 108 P: 25 FL: 144 QRS: 27 QRSD: 94 T: 5 QT: 321 QTc: 432 Interpretive Statements SINUS TACHYCARDIA NONSPECIFIC T-WAVE ABNORMALITY- ANT/INF LEADS BASELINE ARTIFACT- I, III, AVL ABNORMAL ECG Electronically Signed On 01-22-2021 6:53:24 CDT by Mike Stallings D.O.
[2021-01-21 23:21] VITALS: BP 109/73; PULSE 107; RESP 18; TEMP 36.9; O2SAT 100
[2021-01-22 01:17] VITALS: BP 116/68; PULSE 107; RESP 20; O2SAT 100
[2021-01-22] MEDS: BENZONATATE 100 MG CAPSULE 200 MG PO (01:42)
[2021-01-22] MEDS: ALBUTEROL SULFATE (*SP) INHALER 2 PUFF INHALATION (01:45)
[2021-01-22 02:53] VITALS: BP 115/77; PULSE 118; RESP 20; O2SAT 98
--- NOTE | 2021-01-22 03:39 | ED.GENADULT ---
HPI - General Adult General Chief complaint: Shortness of Breath/Dyspnea Stated complaint: URI, seen at urgent care, cp, sob Time Seen by Provider: 01/22/21 01:16 History of Present Illness HPI narrative: Is a 25-year-old female presents to emergency department with chief complaint of cough. The patient reports she was seen at urgent care diagnosed with bronchitis given course of steroids and reports that she is still been coughing and not feeling well. Patient reports that she was not tested for Covid at that time reports has not been vaccinated for Covid. Patient reports that she is almost out of her inhaler at home. Patient states that she has had no fevers with this. Patient reports symptoms are not improved by anything or they worsened by. Related Data Home Medications Medication Instructions Recorded Confirmed citalopram mg 01/17/21 lamotrigine 01/17/21 Allergies Allergy/AdvReac Type Severity Reaction Status Date / Time amoxicillin Allergy Unknown Unknown Verified 12/07/20 21:19 codeine Allergy Unknown GI UPSET Verified 12/07/20 21:19 hydrocodone Allergy Unknown Unknown Verified 12/07/20 21:19 Penicillins Allergy Unknown Unknown Verified 12/07/20 21:19 coconut Allergy Difficulty Verified 12/07/20 21:19 Swallowing [place] Allergy Severe THROAT Uncoded 12/07/20 21:19 SWELLING Pecan Allergy Severe THROAT Uncoded 12/07/20 21:19 SWELLING Review of Systems Review of Systems: A 10 system review of systems was completed on the patient and is negative except for what is stated in the HPI. Nursing and ancillary documentation was reviewed. REPLACED BY [facility] Past Medical History Medical History Anxiety Depression Subarachnoid hemorrhage Social History Social History Smoking status: Never smoker Alcohol intake: never Substance use: never Gender identity (if verbalized by the patient): Female Exam Narrative: GENERAL: Well-appearing, well-nourished, and in no acute distress. HEAD: Normocephalic, atraumatic. EYES: PERRLA and EOMI. ENT: Nares clear, no rhinorrhea or epistaxis. Mucous membranes moist. NECK: Supple. CHEST: Clear to auscultation. No respiratory distress. HEART: Regular rate and rhythm. No murmur heard. Normal peripheral pulses. ABDOMEN: Soft, nontender, nondistended, normal active bowel sounds. EXTREMITIES: Normal range of motion. No edema. SKIN: Warm, dry, no rash. NEURO: No focal deficits. Alert and oriented x3. PSYCH: Normal mood and affect. Course Vital Signs Vital signs: Vital Signs Temperature 36.9 C 01/21/21 23:21 Pulse Rate 107 H 01/21/21 23:21 Respiratory Rate 18 01/21/21 23:21 Blood Pressure 109/73 01/21/21 23:21 Pulse Oximetry 100 01/21/21 23:21 Temperature 36.9 C 01/21/21 23:21 Pulse Rate 118 H 01/22/21 02:53 Respiratory Rate 20 01/22/21 02:53 Blood Pressure 115/77 01/22/21 02:53 Pulse Oximetry 98 01/22/21 02:53 Medical Decision Making Vital Signs Vital Signs: Vital Signs Temperature 36.9 C 01/21/21 23:21 Pulse Rate 107 H 01/21/21 23:21 Respiratory Rate 18 01/21/21 23:21 Blood Pressure 109/73 01/21/21 23:21 Pulse Oximetry 100 01/21/21 23:21 Temperature 36.9 C 01/21/21 23:21 Pulse Rate 118 H 01/22/21 02:53 Respiratory Rate 20 01/22/21 02:53 Blood Pressure 115/77 01/22/21 02:53 Pulse Oximetry 98 01/22/21 02:53 Lab Data Labs: Lab Results 01/22/21 Range/Units 02:52 SARS-CoV-2 RNA (RT-PCR) Pending Discharge Plan Discharge Clinical Impression: URI (upper respiratory infection) Qualifiers: URI type: unspecified viral URI Qualified Code(s): J06.9 - Acute upper respiratory infection, unspecified Patient Disposition: Home, Self-Care Condition: Stable Instructions: Antibiotic Form, Upper Respiratory Infection (ED) Prescriptions: New
[2021-01-22 04:49] VITALS: BP 112/69; PULSE 89; RESP 18; O2SAT 98
[2021-01-23 18:31] LABS: SARS-CoV-2 RNA PCR Positive
== END 2021-01-22 04:57 | disposition home or self-care (01) ==
PROVIDERS: Emergency Provider Emergency Medicine; PCP Physician Assistant
DX: U07.1 COVID-19 (principal); J06.9 Acute upper respiratory infection, unspecified; F41.9 Anxiety disorder, unspecified; F32.9 Major depressive disorder, single episode, unspecified; R00.0 Tachycardia, unspecified; R94.31 Abnormal electrocardiogram [ECG] [EKG]
CPT/HCPCS: 71046; 93005; 99284; A9270; C9803; U0003; U0005

== ENCOUNTER 2021-01-24 14:02 | Outpatient (CLI) | payer OTHER, SELFPAY ==
--- NOTE | ~2021-01-24 | CT_ITS ---
EXAMINATION: CT brain wo con DATE: 01/24/2021 14:21 INDICATION: Traumatic subarachnoid hemorrhage. TECHNIQUE: Computed tomography (CT) of the head was performed without intravenous contrast. The mA wa s adjusted according to patient size. Iterative reconstruction technique was employed. The dose-lengt h product was 605.33 mGy-cm. COMPARISON: Head CT 10/15/2020 FINDINGS: There is no intracranial hemorrhage, acute infarction, or abnormal intracranial mass lesion . The ventricles are normal in size. The orbits are normal. There is near complete opacification of t he paranasal sinuses and nasal cavity. The mastoid air cells are normal. The orbits are normal. IMPRESSION: 1. Normal brain. Reviewed, dictated and finalized at location B. IMPRESSION: 1. Normal brain.
== END 2021-01-24 14:03 | disposition home or self-care (01) ==
PROVIDERS: PCP Physician Assistant; Visit Provider Physician Assistant
DX: S06.6X0D Traumatic subarachnoid hemorrhage without loss of consciousness, subsequent encounter (principal)
CPT/HCPCS: 70450

== ENCOUNTER 2021-01-29 18:36 | Emergency (ER) | payer OTHER, SELFPAY ==
[2021-01-29 18:43] VITALS: BP 118/66; PULSE 91; RESP 16; TEMP 37.2; O2SAT 99
--- NOTE | 2021-01-29 18:45 | ED.DENTAL ---
HPI - Dental/Oral General Chief complaint: Dental/Oral Stated complaint: tooth inf Time Seen by Provider: 01/29/21 18:42 Source: patient and RN notes reviewed History of Present Illness HPI Narrative: Patient is a 26-year-old female who presents the urgent care with complaints of a 2-day history of right upper dental pain and facial swelling. Patient states that she has been taking ibuprofen for the pain without much improvement. Patient did test positive for Covid on January 22 and states that when she followed up on her testing through the emergency room that they told her she was negative . Patient has not been quarantined. Patient denies of any fever, chills, nausea, vomiting. No other acute complaints. No acute distress noted. Patient read the plan of care. Some parts of this dictation were generated by voice recognition software and may contain typographical and/or grammatical inaccuracies. Related Data Home Medications Medication Instructions Recorded Confirmed citalopram mg 01/17/21 lamotrigine 01/17/21 Allergies Allergy/AdvReac Type Severity Reaction Status Date / Time amoxicillin Allergy Unknown Unknown Verified 12/07/20 21:19 codeine Allergy Unknown GI UPSET Verified 12/07/20 21:19 hydrocodone Allergy Unknown Unknown Verified 12/07/20 21:19 Penicillins Allergy Unknown Unknown Verified 12/07/20 21:19 coconut Allergy Difficulty Verified 12/07/20 21:19 Swallowing [place] Allergy Severe THROAT Uncoded 12/07/20 21:19 SWELLING [place] Allergy Severe THROAT Uncoded 12/07/20 21:19 SWELLING Review of Systems Review of Systems: CONSTITUTIONAL: Denies fever, chills, or sweats. EYES: Denies visual changes, redness, or discharge. ENT: Denies rhinorrhea, congestion, sore throat, or otalgia. Reports of upper right dental pain and swelling CARDIOVASCULAR: Denies chest pain, palpitations, or edema. RESPIRATORY: Denies cough or dyspnea. GASTROINTESTINAL: Denies abdominal pain, nausea, vomiting, or diarrhea. GENITOURINARY: Denies dysuria or hematuria. SKIN: Denies rash or itching. MUSCULOSKELETAL: Denies back pain, joint pain, or myalgia. NEUROLOGIC: Denies headache, numbness, or weakness. All other systems reviewed are negative, except as documented in HPI. [facility] Past Medical History Medical History Anxiety Depression Subarachnoid hemorrhage Social History Social History Smoking status: Never smoker Alcohol intake: never Substance use: never Gender identity (if verbalized by the patient): Female Comments At the time of my signature, I reviewed and agree with the nursing past medical, surgical, social, and family history. There is no relevant family history pertinent to the patient complaint. Exam Narrative: GENERAL: This is a well-nourished, well-developed patient, in no apparent distress. HEAD: normocephalic, atraumatic. EYES: PERRL. Sclera clear/white. Vision is grossly intact. EARS: External ears normal NOSE: External nose normal with no obvious nasal discharge, nares without redness, no rhinorrhea. THROAT: Mucous membranes moist, posterior pharynx clear. DENTAL: Caries noted throughout dentition. Poor dental hygiene. Notable erythema and edema surrounding the upper right quadrant and more localized around the upper right first and second premolar NECK: Neck supple SKIN: warm, intact with no suspicious lesions or rash, good texture and turgor. NEURO: awake, alert, and oriented to person, place and time. There were no obvious focal neurologic abnormalities. EXTREMITIES: No clubbing, cyanosis, or edema. Course Vital Signs Vital signs: Vital Signs Temperature 99 F 01/29/21 18:43 Pulse Rate 91 01/29/21 18:43 Respiratory Rate 16 01/29/21 18:43 Blood Pressure 118/66 01/29/21 18:43 Pulse Oximetry 99 01/29/21 18:43 Temperature 99 F
== END 2021-01-29 18:59 | disposition home or self-care (01) ==
PROVIDERS: Emergency Provider Nurse Practitioner Family
DX: K02.9 Dental caries, unspecified (principal); K04.7 Periapical abscess without sinus; F32.9 Major depressive disorder, single episode, unspecified; F41.9 Anxiety disorder, unspecified
CPT/HCPCS: 99213; G0463

== ENCOUNTER 2021-05-05 12:31 | Emergency (ER) | payer OTHER, SELFPAY ==
[2021-05-05 12:39] VITALS: BP 114/69; PULSE 130; RESP 16; TEMP 36.7; O2SAT 100
--- NOTE | 2021-05-05 12:43 | ED.URI ---
HPI - URI/Sore Throat General Chief Complaint: Upper Respiratory Infection Stated Complaint: boogie,head pressure,chest pain Time Seen by Provider: 05/05/21 12:56 Source: patient, RN notes reviewed and old records reviewed Mode of arrival: ambulatory Limitations: no limitations History of Present Illness HPI Narrative: Mis is a 26-year-old female patient who ambulated into the [facility]. Patient states she has sinus congestion, runny nose, sore throat and pain with inspiration for the last 2 days. Patient states she has taken Tylenol at home without relief. Patient patient has a history of a subarachnoid hemorrhage, cook disease. Patient states she is 5 weeks ; patient states she had a miscarriage 6 weeks ago. MD elicited complaint: nasal congestion Related Data Home Medications Medication Instructions Recorded Confirmed lamotrigine 01/17/21 folic acid 1 mg PO DAILY 05/05/21 05/05/21 vit no.[id number] 1 tablet PO DAILY 05/05/21 [Classic ] progesterone micronized 200 mg PO DAILY 05/05/21 05/05/21 sertraline 50 mg PO DAILY 05/05/21 05/05/21 Allergies Allergy/AdvReac Type Severity Reaction Status Date / Time amoxicillin Allergy Unknown Unknown Verified 05/05/21 12:44 codeine Allergy Unknown GI UPSET Verified 05/05/21 12:44 hydrocodone Allergy Unknown Unknown Verified 05/05/21 12:44 Penicillins Allergy Unknown Unknown Verified 05/05/21 12:44 coconut Allergy Difficulty Verified 05/05/21 12:44 Swallowing [place] Allergy Severe THROAT Uncoded 05/05/21 12:44 SWELLING [place] Allergy Severe THROAT Uncoded 05/05/21 12:44 SWELLING Review of Systems Review of Systems: CONSTITUTIONAL: Denies body aches, fever, chills, or sweats. EYES: Denies visual changes, redness, or discharge. ENT: + rhinorrhea,+ congestion, +sore throat, denies otalgia. CARDIOVASCULAR: Denies chest pain, palpitations, or edema. RESPIRATORY: Denies cough or dyspnea. GASTROINTESTINAL: Denies abdominal pain, nausea, vomiting, or diarrhea. GENITOURINARY: Denies dysuria or hematuria. SKIN: Denies rash, itching, or wounds. MUSCULOSKELETAL: Denies back pain, joint pain, or myalgia. NEUROLOGIC: Denies headache, numbness, tingling, or weakness. PSYCH: Denies depression or anxiety. All systems reviewed & are unremarkable except as noted in HPI and below PMFSH Past Medical History Medical History Anxiety Depression Subarachnoid hemorrhage Social History Social History Smoking status: Never smoker Alcohol intake: never Substance use: never Gender identity (if verbalized by the patient): Female Sexual Orientation (if Verbalized by the Patient): Straight or Heterosexual Comments At time of signature, I have reviewed and agree with nursing past medical, surgical, social and family history unless otherwise noted. Please see nursing chart for further information. There is no relevant family history pertinent to the presenting complaint Exam Narrative: GENERAL: Well-appearing, well-nourished, and in no acute distress. HEAD: Normocephalic, atraumatic. EYES: EOMI. No redness or drainage. Conjunctivae normal. ENT: Mucous membranes pink and moist. Nasal membranes are erythemic with clear rhinorrhea. Bilateral tympanic membranes are dull with moderate bulging no erythema. Posterior pharynx is erythemic with mild edema and no exudate. Uvula midline. NECK: Normal AROM. Supple. No lymphadenopathy. CHEST: No respiratory distress. Clear to auscultation. HEART: Regular rate and rhythm. No murmur appreciated. Normal peripheral pulses. ABDOMEN: Soft, nontender, nondistended, normal active bowel sounds. MUSCULOSKELETAL: No bony tenderness. EXTREMITIES: Normal range of motion. No edema. SKIN: Warm, dry, no rash. Capillary refill normal. Normal skin turgor. NEURO: No focal deficits. Alert and orient
== END 2021-05-05 13:00 | disposition home or self-care (01) ==
PROVIDERS: Emergency Provider Nurse Practitioner Family; PCP Physician Assistant
DX: J06.9 Acute upper respiratory infection, unspecified (principal); F41.9 Anxiety disorder, unspecified; F32.9 Major depressive disorder, single episode, unspecified
CPT/HCPCS: 99211; G0463

== ENCOUNTER 2021-05-07 10:48 | Emergency (ER) | payer OTHER, SELFPAY ==
[2021-05-07 10:59] VITALS: BP 120/64; PULSE 102; RESP 16; TEMP 36.8; O2SAT 98
--- NOTE | 2021-05-07 11:08 | ED.FEMALEGU ---
HPI - Female Genitourinary General Chief complaint: Urogenital-Female Stated complaint: POS UTI Time Seen by Provider: 05/07/21 11:08 Source: patient, RN notes reviewed and old records reviewed Mode of arrival: ambulatory Limitations: no limitations History of Present Illness HPI Narrative: 26-year-old female who presents to [facility] with complaints of burning and feeling uncomfortable in the vaginal area for the past 2-3 weeks and reports burning with urination. Patient reports that she just finished Macrobid for UTI 2 days ago which she took for 10 days, Patient denies any fevers, chills or sweats, denies any nausea vomiting or diarrhea. She also reports that she has no supra pubic discomfort or any flank pain, denies any odor to urine. Patient denies any vaginal discharge or itching states she is changing OB doctor and has visit on the May with new physician. Patient reports that she is 5 weeks . MD elicited complaint: dysuria Related Data Home Medications Medication Instructions Recorded Confirmed lamotrigine 100 mg PO DAILY 01/17/21 05/05/21 folic acid 1 mg PO DAILY 05/05/21 05/05/21 vit no.[id number] 1 tablet PO DAILY 05/05/21 [Classic ] progesterone micronized 200 mg PO DAILY 05/05/21 05/05/21 sertraline 50 mg PO DAILY 05/05/21 05/05/21 Allergies Allergy/AdvReac Type Severity Reaction Status Date / Time amoxicillin Allergy Unknown Unknown Verified 05/05/21 12:44 codeine Allergy Unknown GI UPSET Verified 05/05/21 12:44 hydrocodone Allergy Unknown Unknown Verified 05/05/21 12:44 Penicillins Allergy Unknown Unknown Verified 05/05/21 12:44 [place] Allergy Difficulty Verified 05/05/21 12:44 Swallowing [place] Allergy Severe THROAT Uncoded 05/05/21 12:44 SWELLING [place] Allergy Severe THROAT Uncoded 05/05/21 12:44 SWELLING Review of Systems Review of Systems: CONSTITUTIONAL: Denies fever, chills, or sweats. EYES: Denies visual changes, redness, or discharge. ENT: Denies rhinorrhea, congestion, sore throat, or otalgia. CARDIOVASCULAR: Denies chest pain, palpitations, or edema. RESPIRATORY: Denies cough or dyspnea. GASTROINTESTINAL: Denies abdominal pain, nausea, vomiting, or diarrhea. GENITOURINARY: positive dysuria no hematuria.irritation in vaginal area SKIN: Denies rash or itching, burning with urination and in vaginal area. MUSCULOSKELETAL: Denies back pain, joint pain, or myalgia. NEUROLOGIC: Denies headache, numbness, or weakness. PSYCHIATRIC: Positive for anxiety or depression. All systems reviewed & are unremarkable except as noted in HPI and below PMFSH Past Medical History Medical History (Updated 05/07/21 @ 17:23 by Aishwarya Pope NP) ADHD (attention deficit hyperactivity disorder) Anxiety Depression Fracture of ankle, left, closed Fracture of right elbow Insomnia Subarachnoid hemorrhage Family History Family History (Updated 05/07/21 @ 17:22 by Aishwarya Pope NP) Mother Asthma Grandparent Cancer Social History Social History Smoking status: Never smoker Alcohol intake: never Substance use: never Gender identity (if verbalized by the patient): Female Sexual Orientation (if Verbalized by the Patient): Straight or Heterosexual Comments At time of signature, agree with nursing past medical, surgical, social and family history. There is no relevant family history pertinent to the presenting complaint Exam Narrative: GENERAL: Well-appearing, well-nourished, and in no acute distress. HEAD: Normocephalic, atraumatic. EYES: PERRLA and EOMI. ENT: Nares clear, no rhinorrhea or epistaxis. Mucous membranes moist.TM's normal with good light reflex, throat pink with no lesions or exudates, no tonsil enlargement. NECK: Supple.no lymphadenopathy CHEST: Clear to auscultation. No respiratory distress.SAO2 98% on room air HEART: Regular rate and rhythm. No murmur heard. Normal
== END 2021-05-07 11:35 | disposition home or self-care (01) ==
PROVIDERS: Emergency Provider Registered Nurse; PCP Physician Assistant
DX: O90.89 Other complications of the puerperium, not elsewhere classified (principal); R30.0 Dysuria; O99.341 Other mental disorders complicating pregnancy, first trimester; Z3A.01 Less than 8 weeks gestation of pregnancy; F90.9 Attention-deficit hyperactivity disorder, unspecified type; F41.9 Anxiety disorder, unspecified; F32.9 Major depressive disorder, single episode, unspecified
CPT/HCPCS: 81003; 99212; G0463

== ENCOUNTER 2021-05-12 04:41 | Emergency (ER) | payer OTHER, SELFPAY ==
--- NOTE | ~2021-05-12 | US_ITS ---
EXAMINATION: US OB <=14 wk fetus w TV DATE: 05/12/2021 08:35 INDICATION: Stricture of miscarriage. Rule out appendicitis. TECHNIQUE: Real-time transabdominal and transvaginal obstetric ultrasound. FINDINGS: No prior studies for comparison. The uterus measures 9.7 x 5.2 x 6.3 cm. There is an intrauterine gestational sac, with pole terrence ntified. The crown rump length measures 0.63 cm, which correlates with a estimated gestational age o f 6 weeks 3 days. heart tones are identified measuring 127 BPM. Small subchorionic hemorrhage measures 1.3 x 0.8 x 0.9 cm. Right ovary within normal limits. Left ovary not visualized. The append ix is not visualized. No right lower abdominal pain fluid collections or masses are seen. IMPRESSION: 1. SL IUP with an EGA of 6 weeks, 3 days (EDC by current ultrasound of 01/02/2022). 2: Small subchorionic hemorrhage. 3: No sonographic evidence for appendicitis, although the appendix is not identified. Reviewed, dictated and finalized at location A. [facility] IMPRESSION: 1. SL IUP with an EGA of 6 weeks, 3 days (EDC by current ultrasound of ). 2: Small subchorionic hemorrhage. 3: No sonographic evidence for appendicitis, although the appendix is not ident ified.
[2021-05-12 06:43] LABS: Basophils Percent Auto 0.3 % (0.2-1.2); Eosinophils Absolute Auto 0.1 K/mm3 (0-0.3); Eosinophils Percent Auto 1.6 % (0-4.4); Hematocrit 40.6 % (37.0-47.0); Hemoglobin 13.8 g/dL (12.0-15.0); Immature Granulocyte Absolute 0.03 K/mm3 (0.00-0.031); Immature Granulocyte Percent A 0.4 % (0-0.5); Lymphocytes Absolute Auto 1.95 K/mm3 (0.9-3.2); Lymphocytes Percent Auto 28.6 % (18.3-44.2); Mean Corpuscular Hemoglobin 30.7 pg (26-34); Mean Corpuscular Volume 90.2 fl (80-100); Mean Platelet Volume 10.4 fl (7.4-10.4); Monocytes Absolute Auto 0.5 K/mm3 (0.1-0.6); Monocytes Percent Auto 6.7 % (2.6-8.5); Neutrophils Absolute Auto 4.3 K/mm3 (1.3-6.7); Neutrophils Percent Auto 62.4 % (45.5-73.1); Platelet Count Result 230 k/mm3 (150-375); Red Cell Distribution Width 13.4 % (11.5-14.5); White Blood Count 6.8 K/mm3 (4.5-10.0)
[2021-05-12 06:53] LABS: Add Urine Microscopic? YES; Appearance Urine Cloudy (Clear); Bilirubin Urine Negative (Negative); Blood Urine Negative (Negative); Color Urine Yellow (Yellow); Glucose Urine UA Negative (Negative); Ketones Urine Negative (Negative); Leukocyte Esterase Ur Negative LEU/UL (Negative); Mucus Urine Rare /lpf; Nitrate Urine Negative (Negative); Protein Urine Negative (Negative); Specific Grav Ur 1.017 (1.001-1.035); Squamous Epithelial Cell Urine Moderate /hpf (Few); Urobilinogen Urine Negative mg/dL (<2.0); WBC Urine 0-3 /hpf
[2021-05-12 06:54] LABS: Alanine Aminotransferase 30 U/L (4-35); Albumin Level 4.8 g/dL (3.5-5.1); Alkaline Phosphatase 54 U/L (38-126); Anion Gap 8 mmol/L (8-16); Aspartate Amino Transferase 26 U/L (14-36); Bilirubin,Total 0.6 mg/dL (0.2-1.3); Blood Urea Nitrogen 10 mg/dL (7-17); Calcium 9.7 mg/dL (8.4-10.2); Carbon Dioxide 24 mmol/L (22-30); Chloride 102 mmol/L (98-107); Estimated CRCL calculation 144 ml/min; Estimated Glomerular Filt Rate > 60; Glucose 87 mg/dL (65-110); Potassium 4.2 mmol/L (3.4-5.0); Sodium 134 mmol/L (137-145)
--- NOTE | 2021-05-12 11:26 | ED.ABDPAIN ---
HPI - Abdominal Pain General Chief Complaint: Abdominal Pain Stated Complaint: 7 weeks , abdominal pain Time Seen by Provider: 05/12/21 07:27 Source: patient and RN notes reviewed Mode of arrival: ambulatory Limitations: no limitations History of Present Illness HPI narrative: Patient presents with sharp right lower quadrant pain started 3 PM last night, constant, worse with movement, better laying down still. Patient had similar pain 4 months ago with miscarriage at the same duration of her which is 6 weeks. Patient is 3 para 1 1. Patient denies any vaginal bleeding or discharge. Intermittent nausea and vomiting. Patient does not smoke or drink or uses drugs. Patient denies any fever, chills. Patient would like a prescription of Reglan because that was only medicine working for her vomiting with her previous pregnancies. Patient has been off sertraline since the beginning of her Related Data Home Medications Medication Instructions Recorded Confirmed lamotrigine 100 mg PO DAILY 01/17/21 05/05/21 folic acid 1 mg PO DAILY 05/05/21 05/05/21 vit no.[id number] 1 tablet PO DAILY 05/05/21 [Classic ] progesterone micronized 200 mg PO DAILY 05/05/21 05/05/21 sertraline 50 mg PO DAILY 05/05/21 05/05/21 Allergies Allergy/AdvReac Type Severity Reaction Status Date / Time amoxicillin Allergy Unknown Unknown Verified 05/05/21 12:44 codeine Allergy Unknown GI UPSET Verified 05/05/21 12:44 hydrocodone Allergy Unknown Unknown Verified 05/05/21 12:44 Penicillins Allergy Unknown Unknown Verified 05/05/21 12:44 coconut Allergy Difficulty Verified 05/05/21 12:44 Swallowing [place] Allergy Severe THROAT Uncoded 05/05/21 12:44 SWELLING [place] Allergy Severe THROAT Uncoded 05/05/21 12:44 SWELLING Review of Systems Review of Systems: CONSTITUTIONAL: Denies fever, chills, or sweats. EYES: Denies visual changes, redness, or discharge. ENT: Denies rhinorrhea, congestion, sore throat, or otalgia. CARDIOVASCULAR: Denies chest pain, palpitations, or edema. RESPIRATORY: Denies cough or dyspnea. GASTROINTESTINAL: Denies abdominal pain, nausea, vomiting, or diarrhea. GENITOURINARY: Denies dysuria or hematuria. SKIN: Denies rash or itching. MUSCULOSKELETAL: Denies back pain, joint pain, or myalgia. NEUROLOGIC: Denies headache, numbness, or weakness. PSYCHIATRIC: Denies anxiety or depression. [facility] Past Medical History Medical History ADHD (attention deficit hyperactivity disorder) Anxiety Depression Fracture of ankle, left, closed Fracture of right elbow Insomnia Subarachnoid hemorrhage Family History Family History Mother Asthma Grandparent Cancer Social History Social History Smoking status: Never smoker Alcohol intake: never Substance use: never Gender identity (if verbalized by the patient): Female Sexual Orientation (if Verbalized by the Patient): Straight or Heterosexual Exam Narrative: General appearance: Well-developed, well-nourished Skin: Normal color Head: Normocephalic, nontraumatic Eyes: Clear conjunctiva ENT: Oropharynx normal, ears normal, nose normal Neck: Supple, nontender Chest and respiratory: Airway patent, no respiratory distress, no accessory muscle use Heart: Regular rate/rhythm Abdomen: Soft, mild diffuse tenderness,, no organomegaly, quiet bowel sounds Vascular: Normal peripheral pulses, normal capillary refill. Musculoskeletal: Normal range of motion, nontender back Neurologic: Alert and oriented ?3, RECORD CHANGER is normal as tested, no gross motor deficit
[2021-05-12 11:54] VITALS: BP 111/76; PULSE 98; RESP 18; O2SAT 100
== END 2021-05-12 12:45 | disposition home or self-care (01) ==
PROVIDERS: Emergency Medicine; Emergency Provider Emergency Medicine; PCP Physician Assistant
DX: O26.891 Other specified pregnancy related conditions, first trimester (principal); R10.9 Unspecified abdominal pain; O99.341 Other mental disorders complicating pregnancy, first trimester; F41.9 Anxiety disorder, unspecified; F32.A Depression, unspecified; Z3A.01 Less than 8 weeks gestation of pregnancy; Z87.59 Personal history of other complications of pregnancy, childbirth and the puerperium
CPT/HCPCS: 36415; 76801; 76817; 80053; 81001; 81025; 84702; 85025; 85461; 99284

== ENCOUNTER 2021-05-28 12:27 | Emergency (ER) | payer OTHER, SELFPAY ==
[2021-05-28 12:36] VITALS: BP 118/69; PULSE 96; RESP 16; TEMP 36.7; O2SAT 100
--- NOTE | 2021-05-28 12:58 | ED.FEMALEGU ---
HPI - Female Genitourinary General Chief complaint: Urogenital-Female Stated complaint: UTI Source: patient and RN notes reviewed Limitations: no limitations History of Present Illness HPI Narrative: The gravid patient, EDC mid December by ultrasound, presents with urinary symptoms. Patient states she has had prior E. coli UTIs in the past. She now has a 1 week history of typical urinary frequency and dysuria; no fever, vomiting/diarrhea, blood, back pain. Symptoms are mild most most noticeable with micturition; no vaginal bleeding, pelvic pain-but she does have suprapubic discomfort, and a.m. vomiting-no worse than usual. [id number] urinalysis remarkable only for mild leukocytosis; she comments she has unknown childhood penicillin allergy Related Data Home Medications Medication Instructions Recorded Confirmed folic acid 1 mg PO DAILY 05/05/21 05/28/21 vit no.[id number] 1 tablet PO DAILY 05/05/21 05/28/21 [Classic ] progesterone micronized 200 mg PO DAILY 05/05/21 05/28/21 Allergies Allergy/AdvReac Type Severity Reaction Status Date / Time amoxicillin Allergy Unknown Unknown Verified 05/28/21 12:34 codeine Allergy Unknown GI UPSET Verified 05/28/21 12:34 hydrocodone Allergy Unknown Unknown Verified 05/28/21 12:34 Penicillins Allergy Unknown Unknown Verified 05/28/21 12:34 coconut Allergy Difficulty Verified 05/28/21 12:34 Swallowing fentanyl Allergy Rash Verified 05/28/21 12:34 [place] Allergy Severe THROAT Uncoded 05/28/21 12:34 SWELLING [place] Allergy Severe THROAT Uncoded 05/28/21 12:34 SWELLING Review of Systems Review of Systems: General/Constitutional: No weight loss,fever Eyes: N0: Redness,discharge Ears/Nose/Throat: No: Epistaxis,ear discharge Respiratory: Denies: Hemoptysis Gastrointestinal: No Vomiting, Bleeding-rectal Skin: No Lumps, eruption Neurologic: No Focal Weakness,Sz Hematologic: Denies: Petechiae/Purpura Psychiatric: No: Suicida ideationl All Other Systems: Reviewed and Negative [facility] Past Medical History Medical History (Updated 05/28/21 @ 13:19 by Omar Cerda MD) ADHD (attention deficit hyperactivity disorder) Anemia Anxiety Asthma Depression Fracture of ankle, left, closed Fracture of right elbow History of miscarriage Insomnia Migraine POTS (postural orthostatic tachycardia syndrome) Seasonal allergies Subarachnoid hemorrhage Surgical History Surgical History (Updated 05/17/21 @ 15:29 by Federica Monet MD) H/O elbow surgery History of delivery History of laparoscopy Family History Family History (Updated 05/17/21 @ 11:38 by Katie Heath MA) Mother Asthma Hypertension Depression Heart disease Grandparent Cancer Malignant neoplasm of prostate Cerebrovascular accident Father Alcoholism Heart disease Social History Social History Smoking status: Never smoker Alcohol intake: never Substance use: never Gender identity (if verbalized by the patient): Female Sexual Orientation (if Verbalized by the Patient): Straight or Heterosexual Comments At time of signature, agree with nursing past medical, surgical, social and family history. There is no relevant family history pertinent to the presenting complaint Exam Narrative: General Appearance: Well appearing, No distress EYE: PERRLA, Conjunctiva clear Ears: External ear normal Nose: Normal nose Mouth/Throat: Normal appearing, Normal lips Neck: Supple Respiratory: Airway patent, No respiratory distress Cardiovascular: RRR Abdomen: Soft, no CVAT, mild suprapubic tenderness Musculoskeletal: Full ROM Skin: Warm, Dry Neurological: A&O x3, CN II-X intact Psychiatric: Normal mood, Normal affect Course Vital Signs Vital signs: Vital Signs Temperature 98.1 F 05/28/21 12:36 Pulse Rate 96 05/28/21 12:36 Respiratory Rate 16 05/28/21 12:36 Blood Pre
== END 2021-05-28 13:13 | disposition home or self-care (01) ==
PROVIDERS: Emergency Provider Emergency Medicine; PCP Physician Assistant
DX: O23.10 Infections of bladder in pregnancy, unspecified trimester (principal); N30.00 Acute cystitis without hematuria; Z3A.00 Weeks of gestation of pregnancy not specified
CPT/HCPCS: 81003; 87077; 87086; 87088; 87186; 99213; G0463

== ENCOUNTER 2021-06-06 18:06 | Emergency (ER) | payer OTHER, SELFPAY ==
--- NOTE | 2021-06-06 18:08 | ED.URI ---
HPI - URI/Sore Throat General Chief Complaint: Nausea/Vomiting/Diarrhea Stated Complaint: vomiting/headache/chest pain Time Seen by Provider: 06/06/21 18:10 Source: patient and RN notes reviewed Mode of arrival: ambulatory Limitations: no limitations History of Present Illness HPI Narrative: 26-year-old female who is 10 weeks presents with concern for cough, pain with breathing, rhinorrhea, nasal congestion, sore throat, postnasal drainage, vomiting. She denies known sick contacts. Reports she tried Robitussin without relief. MD elicited complaint: cough, sore throat and other (Vomiting) Related Data Home Medications Medication Instructions Recorded Confirmed folic acid 1 mg PO DAILY 05/05/21 05/28/21 vit no.[id number] 1 tablet PO DAILY 05/05/21 05/28/21 [Classic ] progesterone micronized 200 mg PO DAILY 05/05/21 05/28/21 Allergies Allergy/AdvReac Type Severity Reaction Status Date / Time amoxicillin Allergy Unknown Unknown Verified 05/28/21 12:34 codeine Allergy Unknown GI UPSET Verified 05/28/21 12:34 hydrocodone Allergy Unknown Unknown Verified 05/28/21 12:34 Penicillins Allergy Unknown Unknown Verified 05/28/21 12:34 [place] Allergy Difficulty Verified 05/28/21 12:34 Swallowing fentanyl Allergy Rash Verified 05/28/21 12:34 [place] Allergy Severe THROAT Uncoded 05/28/21 12:34 SWELLING [place] Allergy Severe THROAT Uncoded 05/28/21 12:34 SWELLING Review of Systems Review of Systems: CONSTITUTIONAL: Reports malaise. Denies chills, sweats, or fever. EYES: Denies visual changes, redness, or discharge. ENT: Reports rhinorrhea, congestion, and sore throat. Denies sinus pain, otalgia CARDIOVASCULAR: Denies chest pain, palpitations, or edema. RESPIRATORY: Reports cough, pain with coughing. Denies dyspnea. GASTROINTESTINAL: Denies abdominal pain, diarrhea. Reports vomiting and diarrhea SKIN: Denies rash or itching. MUSCULOSKELETAL: Denies myalgia. NEUROLOGIC: Denies headache. All systems reviewed & are unremarkable except as noted in HPI and below PMFSH Past Medical History Medical History (Updated 06/06/21 @ 18:38 by Christa Leyva NP) ADHD (attention deficit hyperactivity disorder) Anemia Anxiety Asthma Depression Fracture of ankle, left, closed Fracture of right elbow History of miscarriage Insomnia Migraine POTS (postural orthostatic tachycardia syndrome) Seasonal allergies Subarachnoid hemorrhage Surgical History Surgical History (Updated 05/17/21 @ 15:29 by Federica Monet MD) H/O elbow surgery History of delivery History of laparoscopy Family History Family History (Updated 05/17/21 @ 11:38 by Katie Heath MA) Mother Asthma Hypertension Depression Heart disease Grandparent Cancer Malignant neoplasm of prostate Cerebrovascular accident Father Alcoholism Heart disease Social History Social History Smoking status: Never smoker Alcohol intake: never Substance use: never Gender identity (if verbalized by the patient): Female Sexual Orientation (if Verbalized by the Patient): Straight or Heterosexual Comments At time of signature, agree with nursing past medical, surgical, social and family history. There is no relevant family history pertinent to the presenting complaint Exam Narrative: GENERAL: Well-appearing, well-nourished, and in no acute distress. HEAD: Normocephalic EYES: PERRLA, conjunctivae clear ENT: Nares clear, clear discharge. Mucous membranes moist. TM pearly hinds with sharp light reflex bilaterally; no tragal tenderness. Oropharynx not erythematous without lesions. Tonsils not enlarged and without exudate, no drooling, no hoarseness, no trismus, uvula midline. NECK: Supple. No lymphadenopathy CHEST: Clear to auscultation, breath sounds equal. No wheezing, rhonchi, rales, or stridor. No respiratory distress, speaks in full sentences. HEART: Re
[2021-06-06 18:09] VITALS: BP 108/64; PULSE 112; RESP 16; TEMP 37.7; O2SAT 99
== END 2021-06-06 18:49 | disposition home or self-care (01) ==
PROVIDERS: Emergency Provider Nurse Practitioner
DX: B34.9 Viral infection, unspecified (principal); Z20.822 Contact with and (suspected) exposure to COVID-19
CPT/HCPCS: 87081; 87426; 87880; 99213; C9803; G0463

== ENCOUNTER 2021-06-10 07:10 | Emergency (ER) | payer OTHER, SELFPAY ==
--- NOTE | ~2021-06-10 | XR_ITS ---
EXAMINATION: XR chest 1V portable DATE: 06/10/2021 09:04 INDICATION: Cough. TECHNIQUE: A single frontal view of the chest was obtained. COMPARISON: Chest 2 views 01/21/2021 FINDINGS: There is no pneumonia, pleural effusion, or pneumothorax. The heart size is normal. IMPRESSION: 1. No acute cardiopulmonary disease. Reviewed, dictated and finalized at location A. [employer]
[2021-06-10 07:24] VITALS: BP 112/63; PULSE 102; RESP 16; TEMP 36.5; O2SAT 99
--- NOTE | 2021-06-10 10:31 | ED.GENADULT ---
HPI - General Adult General Chief complaint: Upper Respiratory Infection Stated complaint: congestion, sore throat Time Seen by Provider: 06/10/21 07:53 Source: RN notes reviewed History of Present Illness HPI narrative: Patient presents emergency department from home for sore throat and sinus pain. Patient states for the past 2 weeks she has had a sore throat has been associated with sinus congestion and pressure in the bilateral face states is been associate with a cough this been nonproductive she denies any fevers or chills chest pain shortness of breath states she is approximately [address] weeks is followed by Dr. Monet states she has a subchorionic hemorrhage that they are following she notes some intermittent left lower quadrant dull pain is been ongoing for the past several weeks she denies any new pain she denies any vaginal bleeding states she had a negative Covid test at urgent care approximately 3 days ago Related Data Home Medications Medication Instructions Recorded Confirmed folic acid 1 mg PO DAILY 05/05/21 05/28/21 vit no.[id number] 1 tablet PO DAILY 05/05/21 05/28/21 [Classic ] progesterone micronized 200 mg PO DAILY 05/05/21 05/28/21 Allergies Allergy/AdvReac Type Severity Reaction Status Date / Time amoxicillin Allergy Unknown Unknown Verified 05/28/21 12:34 codeine Allergy Unknown GI UPSET Verified 05/28/21 12:34 hydrocodone Allergy Unknown Unknown Verified 05/28/21 12:34 Penicillins Allergy Unknown Unknown Verified 05/28/21 12:34 coconut Allergy Difficulty Verified 05/28/21 12:34 Swallowing fentanyl Allergy Rash Verified 05/28/21 12:34 [place] Allergy Severe THROAT Uncoded 05/28/21 12:34 SWELLING Pecan Allergy Severe THROAT Uncoded 05/28/21 12:34 SWELLING Review of Systems Review of Systems: Gen.: Denies fevers or chills Eyes: Denies eye pain or visual change ENT: See HPI Respiratory: Denies shortness of breath reports cough CV: Denies chest pain or palpitations GI: Denies abdominal pain nausea, emesis or diarrhea Musculoskeletal: Denies back pain or muscle pain Neuro: Denies numbness, tingling, weakness or focal weakness Skin: Denies rash Except as documented, all other systems reviewed and negative PMFSH Past Medical History Medical History ADHD (attention deficit hyperactivity disorder) Anemia Anxiety Asthma Depression Fracture of ankle, left, closed Fracture of right elbow History of miscarriage Insomnia Migraine POTS (postural orthostatic tachycardia syndrome) Seasonal allergies Subarachnoid hemorrhage Surgical History Surgical History (Updated 05/17/21 @ 15:29 by Federica Monet MD) H/O elbow surgery History of delivery History of laparoscopy Family History Family History (Updated 05/17/21 @ 11:38 by Katie Heath MA) Mother Asthma Hypertension Depression Heart disease Grandparent Cancer Malignant neoplasm of prostate Cerebrovascular accident Father Alcoholism Heart disease Social History Social History Smoking status: Never smoker Alcohol intake: never Substance use: never Gender identity (if verbalized by the patient): Female Sexual Orientation (if Verbalized by the Patient): Straight or Heterosexual Exam Narrative: APPEARANCE: No acute distress, nontoxic, resting in bed EYES: EOMI HEENT: Normocephalic, atraumatic, TMs clear bilaterally bilateral turbinates boggy mild tenderness over the bilateral maxillary sinuses oromucosa moist erythema the posterior pharynx bilateral tonsils no exudate tonsils 3+ uvula midline tolerating own secretions voice normal RESPIRATORY: No respiratory distress Clear to auscultation bilaterally with no rhonchi wheezing or rales. CARDIOVASCULAR: Regular rate and rhythm without murmurs rubs or gallops. ABDOMINAL: Soft, nontender, nondistended, no leonila
== END 2021-06-10 11:58 | disposition home or self-care (01) ==
PROVIDERS: Emergency Provider Emergency Medicine; PCP Physician Assistant
DX: O26.891 Other specified pregnancy related conditions, first trimester (principal); J06.9 Acute upper respiratory infection, unspecified; Z3A.10 10 weeks gestation of pregnancy
CPT/HCPCS: 71045; 87081; 87804; 87880; 99283

== ENCOUNTER 2021-06-16 11:15 | Outpatient (CLI) | payer OTHER, SELFPAY ==
[2021-06-16 18:51] LABS: Add Urine Microscopic? YES; Appearance Urine Clear (Clear); Bacteria Urine Trace /hpf; Bilirubin Urine Negative (Negative); Blood Urine Negative (Negative); Calcium Oxalate Crystals Urine Present /hpf; Color Urine Yellow (Yellow); Glucose Urine UA Negative (Negative); Ketones Urine Negative (Negative); Leukocyte Esterase Ur Negative LEU/UL (NEGATIVE); Mucus Urine Heavy /lpf; Nitrate Urine Negative (Negative); Protein Urine 1+ mg/dL (Negative); Specific Grav Ur 1.024 (1.001-1.035); Squamous Epithelial Cell Urine Moderate /hpf (Few); Urobilinogen Urine Negative mg/dL (<2.0); WBC Urine 0-3 /hpf (0-3)
[2021-06-16 19:12] LABS: Basophils Percent Auto 0.2 % (0.2-1.2); Eosinophils Absolute Auto 0.2 K/mm3 (0-0.3); Eosinophils Percent Auto 2.7 % (0-4.4); Hematocrit 38.3 % (37.0-47.0); Hemoglobin 13.1 g/dL (12.0-15.0); Immature Granulocyte Absolute 0.04 K/mm3 (0.00-0.031); Immature Granulocyte Percent A 0.5 % (0-0.5); Lymphocytes Absolute Auto 1.98 K/mm3 (0.9-3.2); Lymphocytes Percent Auto 24.3 % (18.3-44.2); Mean Corpuscular HGB Conc 34.2 g/dl (32-36); Mean Corpuscular Hemoglobin 30.4 pg (26-34); Mean Corpuscular Volume 88.9 fl (80-100); Mean Platelet Volume 10.2 fl (7.4-10.4); Monocytes Absolute Auto 0.5 K/mm3 (0.1-0.6); Monocytes Percent Auto 6.4 % (2.6-8.5); Neutrophils Absolute Auto 5.4 K/mm3 (1.3-6.7); Neutrophils Percent Auto 65.9 % (45.5-73.1); Platelet Count Result 318 k/mm3 (150-375); Red Blood Count 4.31 M/mm3 (4.2-5.4); Red Cell Distribution Width 13.2 % (11.5-14.5); White Blood Count 8.2 K/mm3 (4.5-10.0)
[2021-06-16 19:40] LABS: Vitamin D 25 Hydroxy 38.8 ng/mL
[2021-06-16 19:47] LABS: Thyroid Stimulating Hormone 0.029 uIU/mL (0.465-4.680)
[2021-06-16 19:56] LABS: Hepatitis B Surface Antigen Negative (Negative); Rubella IgG Antibody 12.9 IU/ML
[2021-06-16 20:04] LABS: HIV 1/2 Ab P24 Ag Result Negative (Negative)
[2021-06-16 20:12] LABS: Hepatitis C Virus Antibody Negative (Negative)
[2021-06-19 11:22] LABS: Rapid Plasma Reagin Non-Reactive (NonReactive)
[2021-06-20 04:47] LABS: Amphetamines NEGATIVE ng/mL (<500); Barbiturates NEGATIVE ng/mL (<300); Benzodiazepines NEGATIVE ng/mL (<100); Cocaine Metabolite NEGATIVE ng/mL (<100); Marijuana Metabolite NEGATIVE ng/mL (<20); Methadone Metabolite NEGATIVE ng/mL (<100); Opiates NEGATIVE ng/mL (<100); Oxidant NEGATIVE mcg/mL (<200); pH 7.5 (4.5-9.0)
[2021-06-21 20:03] LABS: Hematocrit 38.4 % (35.0-45.0); Hemoglobin 12.8 g/dL (11.7-15.5); MCH 30.7 pg (27.0-33.0); MCV 92.1 fL (80.0-100.0); RDW 14.4 % (11.0-15.0); Red Blood Cell Count 4.17 Mill/uL (3.80-5.10)
[2021-06-29 18:41] LABS: CF Result NEGATIVE (NEGATIVE); Ethnicity NG
== END 2021-06-16 11:16 | disposition home or self-care (01) ==
PROVIDERS: PCP Physician Assistant; Visit Provider Student in an Organized Health Care Education/Training Program
DX: Z34.91 Encounter for supervision of normal pregnancy, unspecified, first trimester (principal); Z3A.09 9 weeks gestation of pregnancy
CPT/HCPCS: 36415; 80299; 81001; 81220; 81243; 82306; 83021; 84443; 85025; 86592; 86703; 86762; 86787; 86803; 86850; 86900; 86901; 87077; 87086; 87088; 87186; 87340; G0432

== ENCOUNTER 2021-06-20 09:22 | Outpatient (CLI) | payer OTHER, SELFPAY ==
[2021-06-20 11:31] LABS: Free T4 Free Thyroxine 0.96 ng/mL (0.78-2.19)
== END 2021-06-20 09:23 | disposition home or self-care (01) ==
LOC: ANHLAB 09:24
PROVIDERS: PCP Physician Assistant; Visit Provider Obstetrics & Gynecology
DX: R79.89 Other specified abnormal findings of blood chemistry (principal)
CPT/HCPCS: 36415; 84439

== ENCOUNTER 2021-07-02 17:12 | Emergency (ER) | payer OTHER, SELFPAY ==
--- NOTE | 2021-07-02 17:15 | ED.GENADULT ---
HPI - General Adult General Chief complaint: Urogenital-Female Stated complaint: BURNING URINATION Time Seen by Provider: 07/02/21 17:15 Source: patient Mode of arrival: ambulatory Limitations: no limitations History of Present Illness HPI narrative: 26-year-old female patient presents to the [facility] with complaints of burning with urination. Patient was seen on June 19 by her OB and was placed on Macrobid for UTI. Patient states that she finished the antibiotics but feels like her symptoms did not resolve. Patient is 14 weeks . Patient states she does get UTIs frequently. Patient did have a miscarriage last year. Patient denies fevers, body aches or chills. Denies any low back pain. Denies any abdominal pain. Related Data Home Medications Medication Instructions Recorded Confirmed folic acid 1 mg PO DAILY 05/05/21 07/02/21 vit no.[id number] 1 tablet PO DAILY 05/05/21 07/02/21 [Classic ] polyethylene glycol 3350 17 17 g PO DAILY 06/16/21 07/02/21 gram/dose oral powder Allergies Allergy/AdvReac Type Severity Reaction Status Date / Time amoxicillin Allergy Unknown Unknown Verified 07/02/21 17:25 codeine Allergy Unknown GI UPSET Verified 07/02/21 17:25 hydrocodone Allergy Unknown Unknown Verified 07/02/21 17:25 Penicillins Allergy Unknown Unknown Verified 07/02/21 17:25 coconut Allergy Difficulty Verified 07/02/21 17:25 Swallowing fentanyl Allergy Rash Verified 07/02/21 17:25 [place] Allergy Severe THROAT Uncoded 07/02/21 17:25 SWELLING Pecan Allergy Severe THROAT Uncoded 07/02/21 17:25 SWELLING Review of Systems Review of Systems: CONSTITUTIONAL: Denies fever, chills, or sweats. EYES: Denies visual changes, redness, or discharge. ENT: Denies rhinorrhea, congestion, sore throat, or otalgia. CARDIOVASCULAR: Denies chest pain, palpitations, or edema. RESPIRATORY: Denies cough or dyspnea. GASTROINTESTINAL: Denies abdominal pain, nausea, vomiting, or diarrhea. GENITOURINARY: Positive dysuria denies hematuria. SKIN: Denies rash or itching. MUSCULOSKELETAL: Denies back pain, joint pain, or myalgia. NEUROLOGIC: Denies headache, numbness, or weakness. PSYCHIATRIC: Denies anxiety or depression. [facility] Past Medical History Medical History ADHD (attention deficit hyperactivity disorder) Anemia Anxiety Asthma Depression Fracture of ankle, left, closed Fracture of right elbow History of miscarriage Insomnia Migraine POTS (postural orthostatic tachycardia syndrome) Seasonal allergies Subarachnoid hemorrhage Surgical History Surgical History H/O elbow surgery History of delivery History of laparoscopy Family History Family History Mother Asthma Hypertension Depression Heart disease Grandparent Cancer Malignant neoplasm of prostate Cerebrovascular accident Father Alcoholism Heart disease Social History Social History Smoking status: Never smoker Alcohol intake: never Substance use: never Gender identity (if verbalized by the patient): Female Sexual Orientation (if Verbalized by the Patient): Straight or Heterosexual Comments At the time of my signature I agree with nursing past medical history, surgical, social, and family history. There is no relevant family history pertinent to the presenting complaint. Exam Narrative: GENERAL: Well-appearing, well-nourished, and in no acute distress. HEAD: Normocephalic, atraumatic. EYES: PERRLA and EOMI. ENT: Nares clear, no rhinorrhea or epistaxis. Mucous membranes moist. NECK: Supple. No lymphadenopathy CHEST: Clear to auscultation. No respiratory distress. HEART: Regular rate and rhythm. No murmur heard. Normal peripheral pulses. ABDOMEN: Soft, nontender, nondis
[2021-07-02 17:16] VITALS: BP 129/70; PULSE 94; RESP 16; TEMP 35.9; O2SAT 100
== END 2021-07-02 17:50 | disposition home or self-care (01) ==
PROVIDERS: Emergency Provider Nurse Practitioner Family
DX: O23.42 Unspecified infection of urinary tract in pregnancy, second trimester (principal); N39.0 Urinary tract infection, site not specified; Z3A.14 14 weeks gestation of pregnancy
CPT/HCPCS: 81003; 87077; 87086; 87088; 87186; 99213; G0463

== ENCOUNTER 2021-07-02 19:48 | Emergency (ER) | payer OTHER, SELFPAY ==
[2021-07-02 19:54] VITALS: BP 116/75; PULSE 94; RESP 18; TEMP 36.5; O2SAT 100
--- NOTE | 2021-07-02 21:18 | ED.GENADULT ---
HPI - General Adult General Chief complaint: Urogenital-Female Stated complaint: UTI symptoms, 14 weeks Time Seen by Provider: 07/02/21 20:10 Source: patient Mode of arrival: ambulatory Limitations: no limitations History of Present Illness HPI narrative: Patient presents for evaluation of urinary symptoms for last 3 weeks. She reports burning, urinary frequency, hesitancy, incomplete emptying. She indicates she contacted her [employer] WORK[employer] HELPER was placed on Macrobid. She did take the medication but missed doses and took doses late. She states she had no improvement in her symptoms while or after taking medication. She has experienced lower abdominal pain for the last 6 weeks that is constant, sometimes alleviated after having a bowel movement. Typical bowel pattern is once every 1-1.5 weeks. Last bowel movement was today. She has experienced nausea and vomiting. No fever or chills. She is currently , 14 weeks gestation. . She had U/S during this on 05/12/21 that showed single live IUP with small subchorionic hemorrhage. She informs me that she went to urgent care earlier today for her abdominal pain and urinary symptoms. She states she was told that she had protein in her urine, she was high risk , and was directed to come to the ER. Upon chart review, it appears that she was told to take keflex, call her OBGYN tomorrow and go to ER for worsening symptoms. It appears that I am the tenth provider evaluating pt within the [place] system in the past two months. Pt states she has underlying anxiety, depression and bipolar disorder. She states her anxiety has not been well controlled as she miscarried with her last and is concerned that she may miscarry again. She states she did note some blood on tissue when wiping after urinating earlier, however this did occur after she had receptive vaginal intercourse. She has otherwise not had any vaginal bleeding. She denies any vaginal discharge. Blood type is B negative. No additional complaints or concerns. Surgical history positive for c section. Related Data Home Medications Medication Instructions Recorded Confirmed folic acid 1 mg PO DAILY 05/05/21 07/02/21 vit no.[id number] 1 tablet PO DAILY 05/05/21 07/02/21 [Classic ] polyethylene glycol 3350 17 17 g PO DAILY 06/16/21 07/02/21 gram/dose oral powder Allergies Allergy/AdvReac Type Severity Reaction Status Date / Time amoxicillin Allergy Unknown Unknown Verified 07/02/21 17:25 codeine Allergy Unknown GI UPSET Verified 07/02/21 17:25 hydrocodone Allergy Unknown Unknown Verified 07/02/21 17:25 Penicillins Allergy Unknown Unknown Verified 07/02/21 17:25 coconut Allergy Difficulty Verified 07/02/21 17:25 Swallowing fentanyl Allergy Rash Verified 07/02/21 17:25 [place] Allergy Severe THROAT Uncoded 07/02/21 17:25 SWELLING Pecan Allergy Severe THROAT Uncoded 07/02/21 17:25 SWELLING Review of Systems Review of Systems: CONSTITUTIONAL: Denies fever, chills, or sweats. EYES: Denies visual changes, redness, or discharge. ENT: Denies rhinorrhea, congestion, sore throat, or otalgia. CARDIOVASCULAR: Denies chest pain, palpitations, or edema. RESPIRATORY: Denies cough or dyspnea. GASTROINTESTINAL: Reports abdominal pain. Reports nausea and vomiting during , but not currently GENITOURINARY: Reports urinary frequency, hesitancy, incomplete emptying and dysuria. Reports light pink tinge on tissue when wiping after urination s/p receptive vaginal intercourse. Denies vaginal bleeding otherwise. SKIN: Denies rash or itching. MUSCULOSKELETAL: Denies back pain, joint pain, or myalgia. NEUROLOGIC: Denies headache, numbness, dizziness, or weakness. PSYCHIATRIC: Denies anxiety or depression. [facility] Past Medical History Medical History ADHD (attention deficit hyperactivity disorder) Anemia Anxiety Asthma De
[2021-07-02 22:01] LABS: Basophils Percent Auto 0.2 % (0.2-1.2); Eosinophils Absolute Auto 0.2 K/mm3 (0-0.3); Eosinophils Percent Auto 2.6 % (0-4.4); Hematocrit 36.4 % (37.0-47.0); Hemoglobin 12.8 g/dL (12.0-15.0); Immature Granulocyte Absolute 0.02 K/mm3 (0.00-0.031); Immature Granulocyte Percent A 0.2 % (0-0.5); Lymphocytes Absolute Auto 2.44 K/mm3 (0.9-3.2); Lymphocytes Percent Auto 28.8 % (18.3-44.2); Mean Corpuscular HGB Conc 35.2 g/dl (32-36); Mean Corpuscular Hemoglobin 31.2 pg (26-34); Mean Corpuscular Volume 88.8 fl (80-100); Mean Platelet Volume 9.8 fl (7.4-10.4); Monocytes Absolute Auto 0.5 K/mm3 (0.1-0.6); Neutrophils Absolute Auto 5.3 K/mm3 (1.3-6.7); Neutrophils Percent Auto 62.2 % (45.5-73.1); Platelet Count Result 219 k/mm3 (150-375); Red Cell Distribution Width 13.9 % (11.5-14.5); White Blood Count 8.5 K/mm3 (4.5-10.0)
[2021-07-02 22:12] LABS: Alanine Aminotransferase 16 U/L (4-35); Albumin Level 4.1 g/dL (3.5-5.1); Alkaline Phosphatase 58 U/L (38-126); Anion Gap 8 mmol/L (8-16); Aspartate Amino Transferase 22 U/L (14-36); Bilirubin,Total 0.4 mg/dL (0.2-1.3); Blood Urea Nitrogen 7 mg/dL (7-17); Calcium 9.4 mg/dL (8.4-10.2); Carbon Dioxide 24 mmol/L (22-30); Chloride 105 mmol/L (98-107); Estimated Glomerular Filt Rate > 60; Glucose 102 mg/dL (65-110); Lipase 58 U/L (23-300); Potassium 3.7 mmol/L (3.4-5.0); Sodium 137 mmol/L (137-145)
[2021-07-02] MEDS: CEPHALEXIN 500 MG CAPSULE PO (23:39)
[2021-07-03 00:29] VITALS: BP 112/71; PULSE 90; RESP 18; TEMP 36.6; O2SAT 100
[2021-07-03] MEDS: RHO(D) IMMUNE GLOBULIN 300 MCG/2 ML SYRINGE IM (00:39)
--- NOTE | 2021-07-03 01:06 | PC.NURSE ---
c/o feeling dizzy pos rhophylac injection erp notified request patient rest for a little while
[2021-07-03 01:08] VITALS: BP 125/84; PULSE 68; RESP 18; O2SAT 100
[2021-07-03 02:08] VITALS: BP 100/62; PULSE 88; RESP 18; O2SAT 100
--- NOTE | 2021-07-03 02:08 | PC.NURSE ---
states feels better denies any dizziness at this time
== END 2021-07-03 02:09 | disposition home or self-care (01) ==
PROVIDERS: Emergency Provider Nurse Practitioner; PCP Physician Assistant
DX: O23.42 Unspecified infection of urinary tract in pregnancy, second trimester (principal); O26.892 Other specified pregnancy related conditions, second trimester; R10.9 Unspecified abdominal pain; O12.12 Gestational proteinuria, second trimester; O99.012 Anemia complicating pregnancy, second trimester; Z3A.14 14 weeks gestation of pregnancy; D64.9 Anemia, unspecified; O99.512 Diseases of the respiratory system complicating pregnancy, second trimester; J45.909 Unspecified asthma, uncomplicated
CPT/HCPCS: 36415; 80053; 81003; 83690; 85025; 85461; 87077; 87086; 87088; 87186; 90384; 96372; 99213; 99284; A9270; G0463; J2790

== ENCOUNTER 2021-09-08 19:42 | Emergency (ER) | payer OTHER, SELFPAY ==
--- NOTE | 2021-09-08 19:45 | ED.URI ---
HPI - URI/Sore Throat General Chief Complaint: Upper Respiratory Infection Stated Complaint: URI SYMPTOMS Time Seen by Provider: 09/08/21 19:45 Source: patient, RN notes reviewed and old records reviewed Mode of arrival: ambulatory Limitations: no limitations History of Present Illness HPI Narrative: 26-year-old female who presents to [facility] with complaints of 4-day history of nasal congestion, cough,and sneezing with stated burning in chest with cough and some wheezing. Patient is 23 weeks and states history of asthma, reports has used her inhaler a couple of times for the cough but present inhaler is low and also has taken Robitussin, Benadryl and Tylenol for her symptoms. Patient states she called her doctor 2 days ago and never received return call about her symptoms. Patient states that she had CIVUD in fall of 2020, has not had COVID vaccinations or flu shot. Patient denies any known fevers, chills or sweats or any body aches. MD elicited complaint: cough, rhinorrhea and nasal congestion Pertinent past history: asthma Related Data Home Medications Medication Instructions Recorded Confirmed folic acid 1 mg PO DAILY 05/05/21 07/02/21 vit no.[id number] 1 tablet PO DAILY 05/05/21 07/02/21 [Classic ] Allergies Allergy/AdvReac Type Severity Reaction Status Date / Time amoxicillin Allergy Unknown Unknown Verified 08/16/21 10:17 codeine Allergy Unknown GI UPSET Verified 08/16/21 10:17 hydrocodone Allergy Unknown Unknown Verified 08/16/21 10:17 Penicillins Allergy Unknown Unknown Verified 08/16/21 10:17 coconut Allergy Difficulty Verified 08/16/21 10:17 Swallowing fentanyl Allergy Rash Verified 08/16/21 10:17 [place] Allergy Severe THROAT Uncoded 07/18/21 12:40 SWELLING Pecan Allergy Severe THROAT Uncoded 07/18/21 12:40 SWELLING Review of Systems Review of Systems: CONSTITUTIONAL: Denies fever, chills, or sweats. EYES: Denies visual changes, redness, or discharge. ENT: positive for rhinorrhea, congestion,no sore throat, or otalgia. CARDIOVASCULAR: Denies chest pain, palpitations, or edema. RESPIRATORY: Positive cough denies any acute dyspnea., reports some wheezing and states burning in chest with cough GASTROINTESTINAL: Denies abdominal pain, nausea, vomiting, or diarrhea. GENITOURINARY: Denies dysuria or hematuria. SKIN: Denies rash or itching. MUSCULOSKELETAL: Denies back pain, joint pain, or myalgia. NEUROLOGIC: Denies headache, numbness, or weakness. PSYCHIATRIC: Positive for history of anxiety or depression. All systems reviewed & are unremarkable except as noted in HPI and below PMFSH Past Medical History Medical History ADHD (attention deficit hyperactivity disorder) Anemia Anxiety Asthma Depression Fracture of ankle, left, closed Fracture of right elbow History of miscarriage Insomnia Migraine POTS (postural orthostatic tachycardia syndrome) Seasonal allergies Subarachnoid hemorrhage Surgical History Surgical History H/O elbow surgery History of delivery History of laparoscopy Family History Family History Mother Asthma Hypertension Depression Heart disease Grandparent Cancer Malignant neoplasm of prostate Cerebrovascular accident Father Alcoholism Heart disease Social History Social History Smoking status: Never smoker Alcohol intake: never Substance use: never Gender identity (if verbalized by the patient): Female Sexual Orientation (if Verbalized by the Patient): Straight or Heterosexual Spiritual care concerns: No Comments At time of signature, agree with nursing past medical, surgical, social and family history. There is no relevant family history pertinent to the presenting complaint
[2021-09-08 19:47] VITALS: BP 121/69; PULSE 107; RESP 16; TEMP 36.4; O2SAT 97
== END 2021-09-08 20:02 | disposition home or self-care (01) ==
PROVIDERS: Emergency Provider Registered Nurse
DX: O99.512 Diseases of the respiratory system complicating pregnancy, second trimester (principal); Z3A.23 23 weeks gestation of pregnancy; J06.9 Acute upper respiratory infection, unspecified; O90.89 Other complications of the puerperium, not elsewhere classified; R05.9 Cough, unspecified; J45.909 Unspecified asthma, uncomplicated
CPT/HCPCS: 99213; G0463

== ENCOUNTER 2021-09-20 08:58 | Observation (INO) | payer OTHER, SELFPAY ==
[2021-09-20 09:05] VITALS: TEMP 36.6
[2021-09-20 09:26] VITALS: PULSE 94; O2SAT 99
--- NOTE | 2021-09-20 09:30 | PC.NURSE ---
Patient states she has had pain in low abdomen since a short time ago Pt states she is 25 weeks gestation and that 2 days ago she had sharp pain in right low abdomen every 20-30 sec which lasted 6 seconds. States pain went away on its own but noted to start having pain again this AM so decided to get checked out. Pt states was also feeling like she increase in vaginal discharge which was like clear fluid. Pt was seen in [facility] care 2 days ago and diagnosed with UTI.
[2021-09-20 09:31] VITALS: BP 107/60; PULSE 83; PULSE 86; O2SAT 100
--- NOTE | 2021-09-20 09:32 | PC.NURSE ---
Spoke with Dr. Monet regarding pt admission and assessment. WIll monitor and if no contractions and appropriate FHT discharge home.
[2021-09-20 09:36] VITALS: PULSE 90; O2SAT 100
[2021-09-20 09:41] VITALS: PULSE 91; O2SAT 100
--- NOTE | 2021-09-20 09:42 | PC.NURSE ---
FHT appropriate for gestational age. No contractions seen. Monitor off.
--- NOTE | 2021-09-20 10:00 | PC.NURSE ---
Went to room to take pt water and pt is making a whining sound as if she is crying. Pt states she is having pain. Abdomen palpated and is soft. NO contractions noted palpated. Pt almost immediately states Will you hand me my purse and is no longer crying or appear to be in pain.
--- NOTE | 2021-10-16 10:42 | PM.OBTRLD ---
OB - Triage/Final Diagnosis Visit Information Comments/Additional reasons for admission: I have assessed the risk for this patient, Faustina Montielrand, and determined that she would benefit from observation care. Final Diagnosis (1) Lower abdominal pain: Code(s): R10.30 - Lower abdominal pain, unspecified Status: Acute
== END 2021-09-20 10:40 | disposition home or self-care (01) ==
PROVIDERS: Admitting Provider Student in an Organized Health Care Education/Training Program; Visit Provider Student in an Organized Health Care Education/Training Program
DX: O26.892 Other specified pregnancy related conditions, second trimester (principal); Z3A.24 24 weeks gestation of pregnancy; R10.30 Lower abdominal pain, unspecified
CPT/HCPCS: 84112; G0378; G0379

== ENCOUNTER 2021-10-10 09:45 | Outpatient (RCR) | payer OTHER, SELFPAY ==
[2021-10-10 11:01] LABS: Basophils Percent Auto 0.3 % (0.2-1.2); Eosinophils Absolute Auto 0.2 K/mm3 (0-0.3); Eosinophils Percent Auto 2.6 % (0-4.4); Hematocrit 34.6 % (37.0-47.0); Immature Granulocyte Absolute 0.05 K/mm3 (0.00-0.031); Immature Granulocyte Percent A 0.7 % (0-0.5); Lymphocytes Absolute Auto 1.39 K/mm3 (0.9-3.2); Lymphocytes Percent Auto 18.7 % (18.3-44.2); Mean Corpuscular HGB Conc 31.8 g/dl (32-36); Mean Corpuscular Hemoglobin 28.6 pg (26-34); Mean Corpuscular Volume 90.1 fl (80-100); Mean Platelet Volume 10.3 fl (7.4-10.4); Monocytes Absolute Auto 0.4 K/mm3 (0.1-0.6); Monocytes Percent Auto 5.2 % (2.6-8.5); Neutrophils Absolute Auto 5.4 K/mm3 (1.3-6.7); Neutrophils Percent Auto 72.5 % (45.5-73.1); Platelet Count Result 225 k/mm3 (150-375); Red Blood Count 3.84 M/mm3 (4.2-5.4); Red Cell Distribution Width 12.7 % (11.5-14.5); White Blood Count 7.5 K/mm3 (4.5-10.0)
[2021-10-10 11:12] LABS: Glucose 1 Hour PP 50gm Dose 121 mg/dL
[2021-10-11] MEDS: RHO(D) IMMUNE GLOBULIN 300 MCG/2 ML SYRINGE IM (10:00)
== END 2022-01-08 23:59 | disposition home or self-care (01) ==
LOC: ANHLAB 09:45
PROVIDERS: PCP Physician Assistant; Visit Provider Student in an Organized Health Care Education/Training Program
DX: Z29.13 Encounter for prophylactic Rho(D) immune globulin (principal); O36.0190 Maternal care for anti-D [Rh] antibodies, unspecified trimester, not applicable or unspecified; Z3A.00 Weeks of gestation of pregnancy not specified
CPT/HCPCS: 36415; 82947; 85025; 85461; 90384; 96372; J2790

== ENCOUNTER 2021-11-06 10:05 | Observation (INO) | payer OTHER, SELFPAY ==
[2021-11-06 10:36] VITALS: TEMP 36.6
[2021-11-06 10:37] VITALS: BP 116/68; PULSE 108
--- NOTE | 2021-11-06 10:40 | OBADM ---
This patient, Faustina Hoffman, admitted to the OB room 117 for observation for diarrhea, back, abdominal, and leg pain. Patient/family oriented to hospital policies and general routines including ID bracelet, bed and alarms, visiting hours, pain management, procedures, bathroom and other care routines, personal items, smoking policy, room service/diet, and visiting hours. Patient/Family are encouraged to report perceived risks to care and to ask questions if they do not understand what they are told or what they should do.
[2021-11-06 10:45] VITALS: BP 102/73; PULSE 101
[2021-11-06 11:00] VITALS: BP 111/70; PULSE 93
[2021-11-06 11:15] VITALS: BP 105/69; PULSE 95
[2021-11-06] MEDS: LOPERAMIDE HCL 2 MG CAPSULE PO (11:20)
[2021-11-06 11:30] VITALS: BP 111/73; PULSE 93
[2021-11-06 11:30] LABS: Appearance Urine Slightly Cloudy (Clear); Bilirubin Urine Negative (Negative); Blood Urine Negative (Negative); Color Urine Yellow (Yellow); Glucose Urine UA Negative (Negative); Ketones Urine Negative (Negative); Leukocyte Esterase Ur 1+ LEU/UL (Negative); Nitrate Urine Negative (Negative); Protein Urine Negative (Negative); Urobilinogen Urine 0.2 mg/dL (<2.0); pH Urine 6.5 (5.0-9.0)
[2021-11-06 11:33] LABS: Add Urine Microscopic? YES; Bacteria Urine Trace /hpf; RBC Urine 0-2 /hpf (0-2); Squamous Epithelial Cell Urine Moderate /hpf (Few); WBC Urine 16-20 /hpf
[2021-11-06 12:09] VITALS: BMI 29.7
--- NOTE | 2021-11-06 12:54 | PC.NURSE ---
Spoke with Kaley VINES in ED and informed this pt has been evaluated in OB for her diarrhea and abdominal pain. Pt is not in labor, cervix is closed, Imodium was given for her diarrhea. Dr. Monet aware of pt's UA with 16-20 WBC's, but waiting on culture results to know what antibiotic to given. Dr. Monet sending pt to ED for further evaluation of her back and leg pain that also causes some intermittent heaviness, numbness, and tingling in her right foot.
--- NOTE | 2021-12-07 08:33 | PN_ITS ---
This report was moved to the correct visit on 12/07/21. Original report was signed by Federica Monet MD on 12/07/21832. OB - Triage/Final Diagnosis Visit Information Comments/Additional reasons for admission: I have assessed the risk for this patient, Faustina Hoffman, and determined that she would benefit from observation care. Evaluation Laboratory results: Laboratory Tests 11/06/21 11/06/21 14:09 14:09 WBC 8.7 RBC 3.78 L Hgb 10.3 L Hct 32.7 L MCV 86.5 MCH 27.2 MCHC 31.5 L RDW 13.7 Plt Count 205 MPV 10.9 H Immature Gran % (Auto) 0.7 H Neut % (Auto) 67.7 Lymph % (Auto) 21.1 Bowman % (Auto) 7.1 Eos % (Auto) 3.2 Baso % (Auto) 0.2 Lymph # (Auto) 1.83 [place]man # (Auto) 0.6 Eos # (Auto) 0.3 Baso # (Auto) 0.0 Abs Immat Gran (auto) 0.06 H Absolute Neuts (auto) 5.9 Absolute Nucleated RBC 0.0 Nucleated RBC % 0.0 Sodium 137 Potassium 3.5 Chloride 110 H Carbon Dioxide 22 Anion Gap 5 L BUN 3 L Creatinine 0.30 L Estim Creat Clear Calc 221 Estimated GFR > 60 Glucose 83 Calcium 8.4 Total Bilirubin 0.4 AST 21 ALT 12 Alkaline Phosphatase 119 Total Protein 7.0 Albumin 3.5 Final Diagnosis (1) Back pain affecting : Code(s): O99.891 - Other specified diseases and conditions complicating ; M54.9 - Dorsalgia, unspecified Status: Acute This dictation may have been done utilizing a voice recognition system. Attempts have been made to correct errors. However, there may be uncorrected grammatical, spelling, and recognition errors present. Report Initialized date/time: Federica Monet MD 12/07/21832 Electronically signed by: Federica Monet MD 12/07/21832 [facility]
== END 2021-11-06 12:59 | disposition home or self-care (01) ==
PROVIDERS: Admitting Provider Student in an Organized Health Care Education/Training Program; PCP Physician Assistant; Visit Provider Student in an Organized Health Care Education/Training Program
DX: O99.891 Other specified diseases and conditions complicating pregnancy (principal); R10.9 Unspecified abdominal pain; R19.7 Diarrhea, unspecified; M79.606 Pain in leg, unspecified; Z3A.00 Weeks of gestation of pregnancy not specified
CPT/HCPCS: 81001; 87086; 87088; A9270; G0378; G0379

== ENCOUNTER 2021-11-06 13:06 | Emergency (ER) | payer OTHER, SELFPAY ==
[2021-11-06 13:08] VITALS: BP 127/64; PULSE 104; RESP 20; TEMP 36.4; O2SAT 100
[2021-11-06 13:24] VITALS: BP 132/89; PULSE 86; RESP 18; TEMP 36.6
--- NOTE | 2021-11-06 13:53 | ED.FALL ---
HPI - Fall General Chief Complaint: Fall Stated Complaint: back and right leg pain Time Seen by Provider: 11/06/21 13:27 History of Present Illness HPI Narrative: 26-year-old female here for evaluation of low back pain for the past week, progressing in severity. Patient states the pain came on about 10 days ago after she fell down a flight of 10-15 stairs. States that she noted severe, right sided low back pain since incident, it is making it difficult to walk. The pain has progressed in severity since. Has been ambulatory since the incident. No saddle anesthesia but does note 3-4 episodes of incontinence of stool today, which is new for her. Denies incontinence of urine, vaginal bleeding, sudden leakage of fluids. Does note some intermittent abdominal pain over the past week that was attributed to round ligament pain by her OB. She was reportedly seen by OB today and normal there was no evidence of demise. Related Data Home Medications Medication Instructions Recorded Confirmed vits no.126-ferrous fum 1 tablet PO DAILY 05/05/21 11/06/21 28 mg iron-folic acid 800 mcg tablet (Classic ) cholecalciferol (vitamin D3) 1,250 50,000 unit PO WEEKLY 11/06/21 11/06/21 mcg (50,000 unit) capsule famotidine 20 mg tablet 20 mg PO DAILY PRN Heartburn 11/06/21 11/06/21 ferrous sulfate 325 mg (65 mg 325 mg PO DAILY 11/06/21 11/06/21 iron) tablet metoclopramide HCl 10 mg tablet 10 mg PO Q6H PRN Nausea And 11/06/21 11/06/21 Vomiting Allergies Allergy/AdvReac Type Severity Reaction Status Date / Time almond Allergy Severe Swelling Verified 11/06/21 11:08 of Lip/Tongue/Throat pecan nut Allergy Severe Swelling Verified 11/06/21 11:08 of Lip/Tongue/Throat codeine Allergy Unknown GI UPSET Verified 10/25/21 10:07 hydrocodone Allergy Unknown Unknown Verified 10/25/21 10:07 amoxicillin Allergy Swelling Verified 11/06/21 12:12 of Lip/Tongue/Throat coconut Allergy Difficulty Verified 10/25/21 10:07 Swallowing fentanyl Allergy Rash Verified 10/25/21 10:07 iodine Allergy Rash Verified 11/06/21 12:12 latex Allergy Rash Verified 11/06/21 12:12 Penicillins Allergy Swelling Verified 11/06/21 12:12 of Lip/Tongue/Throat Review of Systems Review of Systems: Gen.: Denies fevers or chills Eyes: Denies eye pain or visual change ENT: Denies congestion Respiratory: Denies shortness of breath or cough CV: Denies chest pain or palpitations GI: Reports incontinence of stool. Denies abdominal pain nausea, emesis denies burning, urgency, frequency or hematuria Musculoskeletal: Reports low back pain. Neuro: Denies numbness, tingling, weakness or focal weakness Skin: Denies rash Except as documented, all other systems reviewed and negative [facility] Past Medical History Medical History ADHD (attention deficit hyperactivity disorder) Anemia Anxiety Asthma Depression Fracture of ankle, left, closed Fracture of right elbow History of miscarriage Insomnia Migraine POTS (postural orthostatic tachycardia syndrome) Seasonal allergies Subarachnoid hemorrhage Surgical History Surgical History H/O elbow surgery History of delivery History of laparoscopy Family History Family History Mother Asthma Hypertension Depression Heart disease Grandparent Cancer Malignant neoplasm of prostate Cerebrovascular accident Father Alcoholism Heart disease Social History Social History Smoking status: Never smoker Alcohol intake: never Substance use: never Gender identity (if verbalized by the patient): Female Sexual Orientation (if Verbalized by the Patient): Straight or Heterosexual Spiritual care concerns: No
[2021-11-06 14:18] LABS: Basophils Percent Auto 0.2 % (0.2-1.2); Eosinophils Absolute Auto 0.3 K/mm3 (0-0.3); Eosinophils Percent Auto 3.2 % (0-4.4); Hematocrit 32.7 % (37.0-47.0); Hemoglobin 10.3 g/dL (12.0-15.0); Immature Granulocyte Absolute 0.06 K/mm3 (0.00-0.031); Immature Granulocyte Percent A 0.7 % (0-0.5); Lymphocytes Absolute Auto 1.83 K/mm3 (0.9-3.2); Lymphocytes Percent Auto 21.1 % (18.3-44.2); Mean Corpuscular HGB Conc 31.5 g/dl (32-36); Mean Corpuscular Hemoglobin 27.2 pg (26-34); Mean Corpuscular Volume 86.5 fl (80-100); Mean Platelet Volume 10.9 fl (7.4-10.4); Monocytes Absolute Auto 0.6 K/mm3 (0.1-0.6); Monocytes Percent Auto 7.1 % (2.6-8.5); Neutrophils Absolute Auto 5.9 K/mm3 (1.3-6.7); Neutrophils Percent Auto 67.7 % (45.5-73.1); Platelet Count Result 205 k/mm3 (150-375); Red Blood Count 3.78 M/mm3 (4.2-5.4); Red Cell Distribution Width 13.7 % (11.5-14.5); White Blood Count 8.7 K/mm3 (4.5-10.0)
[2021-11-06 14:27] LABS: Alanine Aminotransferase 12 U/L (6-35); Albumin Level 3.5 g/dL (3.5-5.1); Alkaline Phosphatase 119 U/L (38-126); Anion Gap 5 mmol/L (8-16); Aspartate Amino Transferase 21 U/L (14-36); Bilirubin,Total 0.4 mg/dL (0.2-1.3); Blood Urea Nitrogen 3 mg/dL (7-17); Calcium 8.4 mg/dL (8.4-10.2); Carbon Dioxide 22 mmol/L (22-30); Chloride 110 mmol/L (98-107); Estimated CRCL calculation 221 ml/min; Estimated Glomerular Filt Rate > 60; Glucose 83 mg/dL (65-110); Potassium 3.5 mmol/L (3.4-5.0); Sodium 137 mmol/L (137-145)
--- NOTE | 2021-11-06 16:27 | PC.NURSE ---
upon waiting for transport, patient states they need to use RR. pt refuses bedpan. pt refused to use bedside commode. discussion with mid-level about concerns. risks discussed with patient. patient adamant about using RR. voiced an understanding of risks. pt taken per WC to use RR
[2021-11-06 17:57] VITALS: BP 113/78; PULSE 82; RESP 18; O2SAT 98
--- NOTE | 2021-12-07 08:33 | PM.OBTRLD ---
OB - Triage/Final Diagnosis Visit Information Comments/Additional reasons for admission: I have assessed the risk for this patient, Faustina Hoffman, and determined that she would benefit from observation care. Evaluation Laboratory results: Laboratory Tests 11/06/21 11/06/21 14:09 14:09 WBC 8.7 RBC 3.78 L Hgb 10.3 L Hct 32.7 L MCV 86.5 MCH 27.2 MCHC 31.5 L RDW 13.7 Plt Count 205 MPV 10.9 H Immature Gran % (Auto) 0.7 H Neut % (Auto) 67.7 Lymph % (Auto) 21.1 [place] % (Auto) 7.1 Eos % (Auto) 3.2 Baso % (Auto) 0.2 Lymph # (Auto) 1.83 [place]ides # (Auto) 0.6 Eos # (Auto) 0.3 Baso # (Auto) 0.0 Abs Immat Gran (auto) 0.06 H Absolute Neuts (auto) 5.9 Absolute Nucleated RBC 0.0 Nucleated RBC % 0.0 Sodium 137 Potassium 3.5 Chloride 110 H Carbon Dioxide 22 Anion Gap 5 L BUN 3 L Creatinine 0.30 L Estim Creat Clear Calc 221 Estimated GFR > 60 Glucose 83 Calcium 8.4 Total Bilirubin 0.4 AST 21 ALT 12 Alkaline Phosphatase 119 Total Protein 7.0 Albumin 3.5 Final Diagnosis (1) Back pain affecting : Code(s): O99.891 - Other specified diseases and conditions complicating ; M54.9 - Dorsalgia, unspecified Status: Acute
== END 2021-11-06 17:58 | disposition short-term general hospital (02) ==
LOC: ANHED 13:41
PROVIDERS: Physician Assistant; Emergency Provider Emergency Medicine; PCP Student in an Organized Health Care Education/Training Program
DX: O26.92 Pregnancy related conditions, unspecified, second trimester (principal); G83.4 Cauda equina syndrome; Z3A.20 20 weeks gestation of pregnancy
CPT/HCPCS: 36415; 80053; 85025; 99285

== ENCOUNTER 2021-11-15 08:47 | Outpatient (CLI) | payer OTHER, SELFPAY ==
[2021-11-15 09:12] LABS: Basophils Percent Auto 0.2 % (0.2-1.2); Eosinophils Absolute Auto 0.3 K/mm3 (0-0.3); Eosinophils Percent Auto 3.6 % (0-4.4); Hematocrit 32.2 % (37.0-47.0); Hemoglobin 9.9 g/dL (12.0-15.0); Immature Granulocyte Absolute 0.06 K/mm3 (0.00-0.031); Immature Granulocyte Percent A 0.7 % (0-0.5); Lymphocytes Absolute Auto 1.66 K/mm3 (0.9-3.2); Lymphocytes Percent Auto 20.7 % (18.3-44.2); Mean Corpuscular HGB Conc 30.7 g/dl (32-36); Mean Corpuscular Hemoglobin 26.6 pg (26-34); Mean Corpuscular Volume 86.6 fl (80-100); Mean Platelet Volume 11.1 fl (7.4-10.4); Monocytes Absolute Auto 0.7 K/mm3 (0.1-0.6); Monocytes Percent Auto 9.1 % (2.6-8.5); Neutrophils Absolute Auto 5.3 K/mm3 (1.3-6.7); Neutrophils Percent Auto 65.7 % (45.5-73.1); Platelet Count Result 200 k/mm3 (150-375); Red Blood Count 3.72 M/mm3 (4.2-5.4)
[2021-11-15 10:03] LABS: HIV 1/2 Ab P24 Ag Result Negative (Negative)
[2021-11-16 07:29] LABS: Rapid Plasma Reagin Non-Reactive (NonReactive)
== END 2021-11-15 08:48 | disposition home or self-care (01) ==
LOC: ANHLAB 08:49
PROVIDERS: PCP Student in an Organized Health Care Education/Training Program; Visit Provider Student in an Organized Health Care Education/Training Program
DX: Z34.93 Encounter for supervision of normal pregnancy, unspecified, third trimester (principal); Z3A.35 35 weeks gestation of pregnancy
CPT/HCPCS: 36415; 85025; 86592; 86703; G0432

== ENCOUNTER 2021-12-28 07:32 | Inpatient (IN) | payer OTHER, SELFPAY ==
--- NOTE | 2021-12-25 16:16 | PC.NURSE ---
Verified with OR schedule and patient ---C/S on 12/28/21 at 0730 Patient instructed nothing by mouth at midnight the night before surgery, get pre-op labs drawn the day before surgery and be in OB 2 hours before surgery time. Patient states Dr Monet told her to be in OB at 0600 the day of surgery. Patient verbalized understanding of instructions
--- NOTE | 2021-12-27 13:15 | WPDANESEPPF ---
Anes - Initial Pre Proc Eval Procedure: Operation Date: 12/28/21 09:00 Proposed Procedures p Repeat Section - Federica Monet MD Date/Time: 12/27/21 13:15 Surgeon: Federica Monet MD Pre Op Diagnosis: c/s Patient Data Age: 26 Gender: F Height: Weight: Allergies Allergy/AdvReac Type Severity Reaction Status Date / Time almond Allergy Severe Swelling Verified 12/27/21 08:58 of Lip/Tongue/Throat pecan nut Allergy Severe Swelling Verified 12/27/21 08:58 of Lip/Tongue/Throat codeine Allergy Unknown GI UPSET Verified 12/27/21 08:58 hydrocodone Allergy Unknown Swelling Verified 12/27/21 08:58 of Lip/Tongue/Throat adhesive tape Allergy Rash Verified 12/27/21 08:58 amoxicillin Allergy Swelling Verified 12/27/21 08:58 of Lip/Tongue/Throat coconut Allergy Difficulty Verified 12/27/21 08:58 Swallowing fentanyl Allergy Rash Verified 12/27/21 08:58 iodine Allergy Rash Verified 12/27/21 08:58 latex Allergy Rash Verified 12/27/21 08:58 Penicillins Allergy Swelling Verified 12/27/21 08:58 of Lip/Tongue/Throat Home Medications Medication Instructions Recorded Confirmed Type vits no.126-ferrous fum 1 tablet PO DAILY 05/05/21 11/06/21 History 28 mg iron-folic acid 800 mcg tablet (Classic ) albuterol sulfate 90 mcg/actuation 2 puff inhalation QID PRN 09/08/21 11/06/21 Rx aerosol inhaler shortness of breath or wheezing #6.7 grams cholecalciferol (vitamin D3) 1,250 50,000 unit PO WEEKLY 11/06/21 11/06/21 History mcg (50,000 unit) capsule famotidine 20 mg tablet 20 mg PO DAILY PRN Heartburn 11/06/21 11/06/21 History ferrous sulfate 325 mg (65 mg 325 mg PO DAILY 11/06/21 11/06/21 History iron) tablet metoclopramide HCl 10 mg tablet 10 mg PO Q6H PRN Nausea And 11/06/21 11/06/21 History Vomiting Patient hx anesthesia problems: none Family hx anesthesia problems: none Results Review: All pre-operative results and documents have been reviewed as part of the pre-operative evaluation. PMFSH Past Medical History Medical History ADHD (attention deficit hyperactivity disorder) Anemia Anxiety Asthma Depression Fracture of ankle, left, closed Fracture of right elbow History of miscarriage Insomnia Migraine POTS (postural orthostatic tachycardia syndrome) Seasonal allergies Subarachnoid hemorrhage Surgical History Surgical History H/O elbow surgery History of delivery History of laparoscopy Family History Family History Mother Depression Heart disease Hypertension Asthma Bipolar 1 disorder Heart attack Grandparent Malignant neoplasm of prostate Cancer Cerebrovascular accident Father Alcoholism Heart disease Other Patient's mother is Social History Social History Smoking status: Never smoker Alcohol intake: never Substance use: never Gender identity (if verbalized by the patient): Female Sexual Orientation (if Verbalized by the Patient): Straight or Heterosexual Spiritual care concerns: No Anes - Eval Final PreProcedure Day of Procedure 12/27/21 13:15 Patient weight: obese Heart: regular rate and rhythm Lungs: clear to auscultation and normal air movement Airway: Mallampati scale class II Neurological: alert and oriented Last oral intake: >/= 8 hours ASA classification: III Emergent: no Anesthetic plan: proceed Anesthesia type and monitoring: regional spinal Results Review: All pre-operative results and documents have been reviewed as part of the pre-operative evaluation. Informed Consent: The patient's anesthetic plan and its attendant risks and benefits were discussed with the patient/family/POA. Questions were solicited
--- NOTE | 2021-12-27 16:05 | PM.IMHP ---
H&P: HPI History of Present Illness Date/Time: 12/28/2021 8:17 a.m. Chief Complaint: Repeat section Narrative: Patient 26-year-old LMP 03/28/2021 currently 39 weeks 2 days gestation with LOUIE 01/02/2022. Patient is dated by LMP consistent with ultrasound on 05/12/2021 at 6 weeks gestation. Patient presents for scheduled repeat section. Patient declined TOLAC and requested repeat section. In general, patient doing well. Reports occasional contractions. Denies any vaginal bleeding or leakage of fluid. Reports good movement. Review of Systems Review of Systems: All systems reviewed & are unremarkable except as noted in HPI and below Constitutional: Constitutional: Reports as per HPI and Reports no additional constitutional complaints Eyes: Eyes: Reports as per HPI and Reports no additional eye complaints ENT: Reports system reviewed and no additional complaints, except as documented and Reports as per HPI Cardiovascular: Cardiovascular: Reports as per HPI and Reports no additional cardiovascular complaints Respiratory: Respiratory: Reports as per HPI and Reports no additional respiratory complaints Gastrointestinal: Gastrointestinal: Reports as per HPI and Reports no additional gastrointestinal complaints Genitourinary: Genitourinary: Reports no additional female genitourinary complaints and Reports as per HPI Musculoskeletal: Musculoskeletal: Reports no additional musculoskeletal complaints and Reports as per HPI Integumentary/Breasts: Skin/Breast: Reports system reviewed and no additional complaints, except as docu and Reports as per HPI Neurologic: Reports system reviewed and no additional complaints, except as documented and Reports as per HPI Psychiatric: Psychiatric: Reports no additional psychiatric complaints and Reports as per HPI Endocrine: Endocrine: Reports no additional endocrine complaints and Reports as per HPI Hematologic/Lymphatic: Hematologic/Lymphatic: Reports no additional hematologic/lymphatic complaints and Reports as per HPI Allergic/Immunologic: Allergic/Immunologic: Reports no additional allergic/immunologic complaints and Reports as per HPI PMFSH Past Medical History Medical History ADHD (attention deficit hyperactivity disorder) Anemia Anxiety Asthma Depression Fracture of ankle, left, closed Fracture of right elbow History of miscarriage Insomnia Migraine POTS (postural orthostatic tachycardia syndrome) Seasonal allergies Subarachnoid hemorrhage Surgical History Surgical History H/O elbow surgery History of delivery History of laparoscopy Family History Family History Mother Depression Heart disease Hypertension Asthma Bipolar 1 disorder Heart attack Grandparent Malignant neoplasm of prostate Cancer Cerebrovascular accident Father Alcoholism Heart disease Other Patient's mother is Social History Social History Smoking status: Never smoker Alcohol intake: never Substance use: never Gender identity (if verbalized by the patient): Female Sexual Orientation (if Verbalized by the Patient): Straight or Heterosexual Spiritual care concerns: No Meds Home Medications and Allergies Home Medications Medication Instructions Recorded Confirmed Type vits no.126-ferrous fum 1 tablet PO DAILY 05/05/21 11/06/21 History 28 mg iron-folic acid 800 mcg tablet (Classic ) albuterol sulfate 90 mcg/actuation 2 puff inhalation QID PRN 09/08/21 11/06/21 Rx aerosol inhaler shortness of breath or wheezing #6.7 grams cholecalciferol (vitamin D3) 1,250 50,000 unit PO WEEKLY 11/06/21 11/06/21 History mcg (50,000 unit) capsule famotidine 20 mg tablet 20 mg PO TAYLOR
[2021-12-28] VITALS (48 sets, daily range): BP systolic 90–127; BP diastolic 49–82; PULSE 69–113; RESP 13–23; TEMP 36.1–37.5; O2SAT 85–100; BMI 30.2
[2021-12-28] MEDS: LACTATED RINGERS 1,000 ML 999 ML IV CONT (08:11)
[2021-12-28 08:13] LABS: Basophils Percent Auto 0.2 % (0.2-1.2); Eosinophils Absolute Auto 0.3 K/mm3 (0-0.3); Hematocrit 34.8 % (37.0-47.0); Hemoglobin 10.5 g/dL (12.0-15.0); Lymphocytes Absolute Auto 1.88 K/mm3 (0.9-3.2); Lymphocytes Percent Auto 18.8 % (18.3-44.2); Mean Corpuscular HGB Conc 30.2 g/dl (32-36); Mean Corpuscular Hemoglobin 23.7 pg (26-34); Mean Corpuscular Volume 78.6 fl (80-100); Mean Platelet Volume 10.9 fl (7.4-10.4); Monocytes Absolute Auto 0.9 K/mm3 (0.1-0.6); Monocytes Percent Auto 8.6 % (2.6-8.5); Neutrophils Absolute Auto 6.9 K/mm3 (1.3-6.7); Neutrophils Percent Auto 68.4 % (45.5-73.1); Platelet Count Result 236 k/mm3 (150-375); Red Blood Count 4.43 M/mm3 (4.2-5.4); Red Cell Distribution Width 15.4 % (11.5-14.5)
--- NOTE | 2021-12-28 08:17 | WPDHPUPDATE1 ---
History and Physical Update Update Date/Time: 12/28/21 08:17 History and Physical has been reviewed, including an updated exam of the patient. There are NO changes in the patient's condition. Risks, benefits, and alternatives have been discussed and questions answered. Patient agrees to proceed with procedure.
--- NOTE | 2021-12-28 08:27 | LDADM ---
This patient, Faustina Hoffman, was admitted to Labor/Delivery/Recovery 120 on 12/28/21 at 07:32. Plans for labor, pain management and were discussed with patient. Patient/family oriented to hospital policies and general routines including ID bracelet, bed and alarms, visiting hours, pain management, procedures, bathroom and other care routines, personal items, smoking policy, room service/diet and guest tray routines, infant security routines, and visiting hours. Patient/Family are encouraged to report perceived risks to care and to ask questions if they do not understand what they are told or what they should do. See OBIX for further documentation.
[2021-12-28] MEDS: CLINDAMYCIN 900 MG/D5W 50 ML 900 MG/50 ML PIGGYBACK 50 MG IVPB (09:29)
[2021-12-28] MEDS: ONDANSETRON INJ 4 MG/2 ML VIAL IV PUSH (10:33)
--- NOTE | 2021-12-28 10:36 | W.PM.PROC2 ---
Procedure Note - Detailed Date of Procedure 12/28/21 Pre-op Diagnosis Intrauterine at 39 weeks 2 days gestation Previous section x 1 Post-op Diagnosis Same Procedure Performed Repeat low transverse section via Pfannenstiel Surgeon Federica Monet MD Corporate Legal Manager Gisele Steiner Anesthesia Spinal Findings Live female in cephalic presentation, apgars 8/9, weighing 7 lbs. 7 oz., nuchal cord x 1, clear amniotic fluid; normal appearing uterus, ovaries, and fallopian tubes bilaterally Description of Procedure The patient was taken to the operating room, where she self-transferred to the operating room table. Spinal anesthesia was administered and found to be adequate. The patient was placed in dorsal supine position with a leftward tilt. She was prepped and draped in the usual sterile fashion. Spinal anesthesia was tested and found to be adequate. A Pfannenstiel skin incision was made with a scalpel and carried through to underlying layer of fascia with the Bovie. The fascia was incised in the midline and the incision was extended laterally with the use of forceps and Lei scissors. The inferior aspect of the fascial incision was grasped with Aron clamps, elevated, and the underlying rectus muscle were dissected off with Lei scissors. Attention was then turned to the superior aspect of the fascial incision, which in a similar manner, was grasped with Aron clamps, elevated, and the underlying rectus muscles were also dissected off with Lei scissors. The rectus muscles were in the midline and the peritoneal cavity was entered bluntly. This incision was extended superiorly and inferiorly with good visualization of the bladder and care was taken to avoid blood vessels. A bladder blade was inserted. The vesicouterine peritoneum was identified and incised sharply with Metzenbaum scissors. This incision was extended laterally with Metzenbaum scissors and a bladder flap was created digitally. The bladder blade was replaced. A low-transverse uterine incision was made with a scalpel. This incision was extended laterally with bandage scissors. Amniotomy was performed. Clear amniotic fluid was noted. The 's head was grasped and gently guided to the level of the uterine incision. The 's head was delivered easily and atraumatically without difficulty followed by the neck, shoulders, and rest of body with gentle fundal pressure. A nuchal cord x 1 was noted and reduced. The infant's nose and mouth were suctioned with bulb suction. The was crying spontaneously. The cord was clamped and cut and the was handed off to awaiting nursing staff. A segment of cord was collected for cord gases. Cord blood was also collected. The placenta was then delivered manually with gentle uterine massage. Uterus was exteriorized and cleared of all clots and debris. The uterine incision was reapproximated with 0 Vicryl in a running, locked fashion. A second imbricating layer using 0 Monocryl performed. Excellent hemostasis was noted. On inspection, the uterus, ovaries, and fallopian tubes appeared to be normal bilaterally. The uterus was replaced into the abdominal cavity. The gutters were cleared of all clots and debris. The uterine incision was inspected again and noted to be hemostatic. Hemaderm was applied across the uterine incision. Interceed was also applied across the uterine incision and anterior surface of the uterus. The peritoneum was reapproximated with 2-0 Monocryl. The fascia was then closed with 0 Vicryl in a running fashion. The subcutaneous layer was irrigated with water. Pinpoint areas of bleeding were made hemostatic with Bovie. The subcutaneous layer was reapproximated with 2-0 plain and the skin was then closed with 4-0 Monocryl in a subcuticular fashion. The skin was cleansed and dried. The remainder of the patient was cleansed and dried. The patient was transferred to the recovery room in stable condition. gina Jordan an
--- NOTE | 2021-12-28 10:43 | PM.OBPRVD ---
OB - Delivery Note Procedure Delivery date: 12/28/21 Procedure: Procedures Operation Date: 12/28/21 09:00 <No data on this case meets the specified criteria> Delivery monitor: External FHT and External Uterine Route of delivery: Prior to decision for section, ACOG/SMFM labor guidelines were considered and discussed with the patient and staff. Decision made to proceed with the section.: Yes Specimen: Yes (cord blood and cord gases) Quantitative Blood Loss (ml): 450 Anesthesia type: Spinal Disposition: PACU Complications: No immediate complications [place] Baby Date of : 12/28/21 Time of : 09:44 Weeks of gestation at delivery: 39 (39.2) gender: Female Weight (pounds): 7 Weight (ounces): 7 presentation: vertex Placenta delivery description: Manual Removal Cord Vessel Description: 3 Vessels and Nuchal Cord (x1) score one minute: 8 score five minutes: 9 AMG Delivery Billing Delivery Delivery: Delivery Charge
[2021-12-28] MEDS: KETOROLAC 30 MG/ML VIAL (*BKC) IV PUSH ×2 (11:32→17:08)
[2021-12-28] MEDS: LORATADINE 10 MG TABLET PO (11:35)
--- NOTE | 2021-12-28 13:11 | OBPPTRN ---
Patient transferred to post room # 290 via stretcher. Support person present. Oriented to unit, room, information board, rooming in, admission packet and security measures. Patient verbalizes understanding.
[2021-12-28] MEDS: DEXTROSE 5%/0.45% SOD CHL 1,000 ML 125 ML IV CONT (15:25)
--- NOTE | 2021-12-28 16:48 | PC.NURSE ---
1440 - Electric pump, kit, and wash basin were handed to primary RN Janet to take to the patient for educating related to separation from her and desires to breastfeed and/or make human milk.
[2021-12-28] MEDS: DOCUSATE SODIUM 100 MG CAPSULE PO (17:08)
[2021-12-29] MEDS: KETOROLAC 30 MG/ML VIAL (*BKC) IV PUSH ×2 (01:32→07:59)
[2021-12-29 05:10] VITALS: BP 86/46; PULSE 97; RESP 16; TEMP 36.9
[2021-12-29 05:36] LABS: Basophils Percent Auto 0.1 % (0.2-1.2); Eosinophils Absolute Auto 0.1 K/mm3 (0-0.3); Eosinophils Percent Auto 1.4 % (0-4.4); Hematocrit 23.5 % (37.0-47.0); Hemoglobin 7.4 g/dL (12.0-15.0); Immature Granulocyte Absolute 0.07 K/mm3 (0.00-0.031); Immature Granulocyte Percent A 0.8 % (0-0.5); Lymphocytes Absolute Auto 1.26 K/mm3 (0.9-3.2); Lymphocytes Percent Auto 13.8 % (18.3-44.2); Mean Corpuscular HGB Conc 31.5 g/dl (32-36); Mean Corpuscular Hemoglobin 24.4 pg (26-34); Mean Corpuscular Volume 77.6 fl (80-100); Mean Platelet Volume 11.3 fl (7.4-10.4); Monocytes Absolute Auto 0.9 K/mm3 (0.1-0.6); Monocytes Percent Auto 9.7 % (2.6-8.5); Neutrophils Absolute Auto 6.8 K/mm3 (1.3-6.7); Neutrophils Percent Auto 74.2 % (45.5-73.1); Platelet Count Result 153 k/mm3 (150-375); Red Blood Count 3.03 M/mm3 (4.2-5.4); Red Cell Distribution Width 15.2 % (11.5-14.5); White Blood Count 9.1 K/mm3 (4.5-10.0)
--- NOTE | 2021-12-29 06:21 | WPDANLDPN2 ---
Anes-Prog Note L&D Date/Time: 12/29/21 06:21 Comfortable throughout: labor and section Neuraxial method: epidural Epidural/Spinal procedure site: clean & non-tender Neuro status: Neuro function grossly intact. Cardiovascular status: normal Respiratory status: normal Airway patency: baseline Mental status: baseline Post-Op hydration status: normal Vital Signs: Last Vital Signs Temp 36.9 C 12/29/21 05:10 Pulse 97 12/29/21 05:10 Resp 16 12/29/21 05:10 BP 86/46 L 12/29/21 05:10 Pulse Ox 100 12/28/21 17:00 O2 Del Method Room Air 12/28/21 12:30 Pain score (VAS): 0 I/O: Intake & Output 12/28/21 12/28/21 12/29/21 15:59 23:59 07:59 Intake Total 800 1740 500 Output Total 853 753 6791 Balance -74 1315 -700 Post-procedural complaints: none Patient feedback: Patient satisfied with anesthetic care.
--- NOTE | 2021-12-29 06:24 | WPDANLDNPN2 ---
Anes-Prog Note L&D-Neuraxial Date/Time: 12/29/21 06:24 Neuraxial medications: epidural PF morphine Opiod-related complaints: none Patient feedback: Patient satisfied with post-operative pain management.
[2021-12-29 07:30] VITALS: BP 90/50; PULSE 96; RESP 16; TEMP 36.9; O2SAT 100
[2021-12-29 08:40] LABS: Rapid Plasma Reagin Non-Reactive (NonReactive)
[2021-12-29] MEDS: DOCUSATE SODIUM 100 MG CAPSULE PO ×2 (08:54→16:55)
[2021-12-29] MEDS: POLYSACCHARIDE IRON COMPLEX 150 MG CAPSULE PO ×2 (08:54→16:55)
[2021-12-29] MEDS: LORATADINE 10 MG TABLET PO (08:55)
[2021-12-29] MEDS: MULTIVIT/MIN/PREN/FOL AC/IRON TABLET 1 TAB PO (08:55)
--- NOTE | 2021-12-29 10:19 | PM.OBPNVD ---
OB - PN: Subj Subjective Date/time seen: 12/29/21 10:19 Patient doing well. Pain well controlled medication. Patient denies any headache, chest pain, shortness of breath, nausea, vomiting. Tolerating p.o. diet. Duff catheter removed. Voiding without difficulty. No flatus yet. Ambulating without difficulty. OB - PN: Obj Data Labs CBC & Chem 7: 12/29/21 05:08 Labs: Laboratory Results - last 24 hr 12/28/21 12/28/21 12/29/21 08:04 08:04 05:08 WBC RBC Hgb Hct MCV MCH MCHC RDW Plt Count MPV Immature Gran % (Auto) Neut % (Auto) Lymph % (Auto) [place] % (Auto) Eos % (Auto) Baso % (Auto) Lymph # (Auto) [place] # (Auto) Eos # (Auto) Baso # (Auto) Abs Immat Gran (auto) Absolute Neuts (auto) Absolute Nucleated RBC Nucleated RBC % RPR Non-reactive Blood Type B Negative Antibody Screen Negative Antibody Identification Inconclusive Antigen Identification TNP LYLE, IgG Interpret Not Performed LYLE, Poly Interpret Negative LYLE, Complement Interp Not Performed Screen Negative Baby's Blood Type A pos Baby's LYLE Negative Doses of RhIg Required 1 12/29/21 05:08 WBC 9.1 RBC 3.03 L Hgb 7.4 L D Hct 23.5 L MCV 77.6 L MCH 24.4 L MCHC 31.5 L RDW 15.2 H Plt Count 153 MPV 11.3 H Immature Gran % (Auto) 0.8 H Neut % (Auto) 74.2 H Lymph % (Auto) 13.8 L Vernon % (Auto) 9.7 H Eos % (Auto) 1.4 Baso % (Auto) 0.1 L Lymph # (Auto) 1.26 [place] # (Auto) 0.9 H Eos # (Auto) 0.1 Baso # (Auto) 0.0 Abs Immat Gran (auto) 0.07 H Absolute Neuts (auto) 6.8 H Absolute Nucleated RBC 0.0 Nucleated RBC % 0.0 RPR Blood Type Antibody Screen Antibody Identification Antigen Identification LYLE, IgG Interpret LYLE, Poly Interpret LYLE, Complement Interp Screen Baby's Blood Type Baby's LYLE Doses of RhIg Required OB - PN A/P Assessment and Plan (1) delivery delivered: Code(s): O82 - Encounter for delivery without indication Status: Acute Assessment and Plan: POD#1 doing well continue routine postoperative care encourage ambulation and use of IS (2) Anemia: Code(s): D64.9 - Anemia, unspecified Status: Acute Assessment and Plan: Hgb 7.4 asymptomatic iron supplementation Time Spent With Patient Time: Total time spent is greater than 50% in coordination of care (as documented) at patient's floor/unit and/or counseling patient: Exam Const: General: cooperative, healthy appearing, comfortable and no acute distress GI: Inspection: non-distended GI Palp: Yes Soft to palpation and No Tenderness to palpation present (GI) Other: inc c/d/i Extrem: Right lower extremity: no edema Left lower extremity: no edema Other: no calf tenderness
[2021-12-29] MEDS: ACETAMINOPHEN 325 MG TABLET 650 MG PO ×2 (11:41→18:43)
[2021-12-29] MEDS: RHO(D) IMMUNE GLOBULIN 300 MCG/2 ML SYRINGE IM (14:32)
[2021-12-29] MEDS: IBUPROFEN 600 MG TABLET PO ×2 (14:32→19:54)
--- NOTE | 2021-12-29 15:11 | PC.NURSE ---
[id number] RN returned to the room introduce and consult with patient to assess needs related to . Mother led the conversation with her experience feeding her so far. Mother states I just finished (referring to bottle feeding her infant). Mother works well with her infant and demonstrates interest in working with infant to attempt to breastfeed. Encouraged understanding of the benefits of skin to skin (unwrapping infant and placing vertically on her chest) and mother declines. Mother states she rotated breastfeed and bottle fed her first child. Reviewed how to watch for feeding signs, frequency of feeding on demand about every 8-12 times in 24 hours (every 2-3 hours), milk production, and signs of adequate intake/output. Reviewed supporting the breast and leading with the chin with a big open side gape.Assisted mother with football hold for practice and mother is not motivated at this time. Mother uses a nonconventional cradle hold, places nipple to infants mouth and states she isn't interested, then ask the father of the baby to get a bottle ready. Nipple care reviewed with optimal latch and good positioning. Reviewed milk production with , hand expression, or pumping. There is a pump in the room provided by another RN. Reviewed use, care and frequency of pumping for milk supply. Father of the baby states she pumped every two hours last night . Mother stopped pumping due to not seeing milk come out . Mother states she will pump when she gets home . Resources used to facilitate learning were used with the mom and baby guide and community resources provided. Mother voiced understanding of responsive feedings and to encourage if it has been 2 -3 hours since the start of the last , to call if does not latch or there is discomfort with .
[2021-12-29] MEDS: SIMETHICONE 80 MG TAB.CHEW PO ×2 (16:55→19:53)
[2021-12-29 19:00] VITALS: BP 115/66; PULSE 108; RESP 18; TEMP 36.4
--- NOTE | 2021-12-29 23:35 | PC.NURSE ---
Reviewed and verified medication allergies.
[2021-12-30] MEDS: HYDROmorphone HCL (*CRX) 2 MG TABLET PO ×4 (00:25→14:42)
[2021-12-30] MEDS: IBUPROFEN 600 MG TABLET PO (04:46)
[2021-12-30 09:00] VITALS: BP 104/73; PULSE 108; RESP 18; TEMP 36.3
[2021-12-30] MEDS: ACETAMINOPHEN 325 MG TABLET 650 MG PO (09:19)
[2021-12-30] MEDS: SIMETHICONE 80 MG TAB.CHEW PO (09:19)
[2021-12-30] MEDS: POLYSACCHARIDE IRON COMPLEX 150 MG CAPSULE PO (09:22)
[2021-12-30] MEDS: DOCUSATE SODIUM 100 MG CAPSULE PO (09:22)
[2021-12-30] MEDS: MULTIVIT/MIN/PREN/FOL AC/IRON TABLET 1 TAB PO (09:22)
--- NOTE | 2021-12-30 10:07 | P.PNOB_ITS ---
OB - PN: Subj Subjective Date/time seen: 12/30/21 10:07 Interval history: She states positive flatus. She has ambulated no problems. No lightheadedness or dizziness. Has adequate pain control with Dilaudid. She is tolerating regular food. No leg pain. Lochia decreasing. OB - PN: Obj Data Labs CBC & Chem 7: 12/29/21 05:08 Labs: Laboratory Results - last 24 hr 12/29/21 05:08 Blood Type B Negative Antibody Screen Negative Screen Negative Baby's Blood Type A pos Baby's LYLE Negative Doses of RhIg Required 1 OB - PN A/P Assessment and Plan (1) delivery delivered: Code(s): O82 - Encounter for delivery without indication Status: Acute Assessment and Plan: She is doing well. Adequate pain control. She request discharge. Discharge precautions discussed. Time Spent With Patient Time: Total time spent is greater than 50% in coordination of care (as documented) at patient's floor/unit and/or counseling patient: Exam 2 Const: General: comfortable and no acute distress Eyes: General: appearance normal, both eyes and all related structures Resp: Effort & Inspection: normal respiratory effort Cardio: Rate: regular rate GI: Inspection: normal to inspection Other: incision intact no drainage, fundus -1 umb firm appropriate tenderness Neuro: General: oriented to person, oriented to place and oriented to time Psych: Mental Status: mental status grossly normal Affect: normal affect
--- NOTE | 2021-12-30 15:50 | PC.NURSE ---
Patient left unit with wheel chair to personal car with spouse and baby. Abdominal binder in place. Discharge instructions reviewed. All patient questions answered.
--- NOTE | 2022-01-05 14:43 | PC.NURSE ---
1430--Patient came in to OB because she felt bumps in her incision. States she call Dr Monet's office and was told to come to OB and have the incision looked at. Incision well approximated,no redness,no drainage seen, directly under the incision line--feels hard like scar tissue. Patient states does not hurt when pressing on the incision. Call Dr Johnson ,informed of patient c/o and that the incision looks good but below the incision line feels hard, no drainage,no redness,no c/o pain and incision well approximated, Dr Johnson states sounds like just scar tissue forming. Explained to patient what Dr Johnson stated about the incision. Patient verbalized her understanding
--- NOTE | 2022-02-05 20:42 | PM.OBDSVD ---
DS: Admitting Diagnosis Discharge Date 12/30/21 Admitting Diagnosis Elective repeat section DS: Discharge Diagnosis Discharge Diagnosis (1) delivery delivered: Code(s): O82 - Encounter for delivery without indication Status: Acute OB - DS: Summary Hospital Course Hospital Course: She was admitted and had an uncomplicated repeat section. On POD1 she was doing well. Had adequate pain control. Hemoglobin 7.4, asymptomatic. On POD 2 she was ambulating, she did complain of headache, she had gotten evaluated by anesthesia per report on POD1 and headache was not attributed to spinal headache. Her headache did improve with Dilaudid. She was able to ambulate. She was tolerating regular food, no emesis, positive flatus. She was discharged to home. Dischare precautions discussed. OB Procedures : Ultrasound OB Procedures Intrapartum: OB Procedures: : None Peripartum Data Infant Delivery Method: Section Procedures: Procedures Operation Date: 12/28/21 09:00 Actual Procedure Side Surgeon p Repeat Section Not Applicable Federica Monet MD complications: none Status at Discharge Functional status at discharge: independent ambulation Time Spent with Patient Time attestation: Total time spent providing and/or coordinating discharge services: Exam Const: General: cooperative Orientation/consciousness: oriented to person, oriented to place and oriented to time HENMT: General nose exam: Normal external nose present Eyes: General: appearance normal, both eyes and all related structures Resp: Effort & Inspection: normal respiratory effort GI: Inspection: normal to inspection Skin: General skin exam: normal color Neuro: General: oriented to person, oriented to place and oriented to time Extrem: General: normal to inspection and no calf tenderness Psych: Appearance: grossly normal Mental Status: mental status grossly normal DS: Data Data Completed and Pending Completed studies during hospitalization: Pending at discharge 12/28/21 09:46 Surgical [PTH] Routine Discharge Plan Discharge Attending physician on discharge: Federica Moent Consulting providers: Diamond Prescott ; Eduard Saucedo Discharging Clinician: Polo Johnson Anticipated Discharge Date/Time: 12/30/21 12:00 Patient Disposition: Home, Self-Care Activity: may shower, no straining, may drive after 2 weeks and pelvic rest Diet: regular Discharge Instructions: Education: Mom and Baby Guide Given to: Mother Follow-Up: Call your delivering provider's office for an appointment to be seen in: 2 Weeks Mom and baby should come to the [facility] for the follow-up appointment. Appointment Date/Time: January 02, 2022 at 10:00 am What to expect at your follow-up visit: Blood Pressure Check Physical Assessment Call [phone] if you are unable to keep your appointment time. BREAST CARE: * Wear a snug supportive bra. * For engorgement discomfort: Breast Feeding: * Apply warm moist washcloths * Express milk as needed to relieve engorgement * Wear loose clothing Bottle Feeding: * May apply ice packs * For sore nipples: * Identify correct latch-on * Apply warm moist washcloths before and after nursing * Air dry nipples after nursing * May apply Lansinoh cream to nipples ABDOMINAL INCISION: (if applicable) * Allow incision to air dry * Do NOT use lotions for powders on your incision * When showering, allow soap and water to run over the incision, but do not wash incision PERINEAL CARE: * Until bleeding stops, use your river bottle after urinating * Change your pad frequently throughout the day * You may take sitz baths several times a day (fill your bathtub with warm water and soak for 20 minutes.) Do NOT ba
== END 2021-12-30 15:50 | disposition home or self-care (01) | DRG 540 ==
LOC: ANHOB2 12-30 14:28 → ANHLDR 01-02 08:11 → ANHOB2 01-02 08:11
PROVIDERS: Admitting Provider Student in an Organized Health Care Education/Training Program; Visit Provider Obstetrics & Gynecology
PROC: 10D00Z1 Extraction of Products of Conception, Low, Open Approach (ICD-10-PCS; CPT 59514; principal; 2021-12-28 09:00)
DX: O34.211 Maternal care for low transverse scar from previous cesarean delivery (principal); Z37.0 Single live birth; Z3A.39 39 weeks gestation of pregnancy; O69.81X0 Labor and delivery complicated by cord around neck, without compression, not applicable or unspecified; O99.02 Anemia complicating childbirth; D64.9 Anemia, unspecified
CPT/HCPCS: 36415; 85025; 85461; 86592; 86850; 86880; 86900; 86901; 86902; 88307; 90384; A9270; J1580; J1885; J2274; J2370; J2405; J2590; J2790; J7120

== ENCOUNTER 2022-02-02 11:10 | Outpatient (RCR) | payer OTHER, SELFPAY ==
--- NOTE | 2022-02-02 16:32 | PC.NURSE ---
In- 1110 Out- 1210 Reason for visit: Deep breast pain with and infant having a white tongue. History: AB 1. ADHD, anemia, anxiety, asthma, depression, fracture of the left ankle and right elbow, miscarriage, insomnia, migraine, POTS, allergies, and subarachnoid hemorrhage. Repeat C/S was completed on 12/28/2021. Per Dr's note. Infant History: Delivered by C/S at 39 2/7 weeks. Infant had been attempted at the breast in the hospital, then bottle fed, and resumed at home. TTN and CXR at . Blood culture negative per Dr's note. Observations: There's a white coating on the infants tongue prior to . breastfeeds with verbalizing during attaching on/off the breast. Mother takes the off the breast and RN encouraged without a time limit. 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 Mother educated on washing clothes with color safe bleach and vinegar. Follow up plans: Patient has appointments made with her HCP and the ICP. Patient voiced understanding of education, to follow up with RN with concerns and when to call the doctor per discharge instructions and the mom/baby guide.
== END 2022-05-03 23:59 | disposition home or self-care (01) ==
LOC: ANHOBOP 11:10
PROVIDERS: Visit Provider Pediatrics
DX: Z39.1 Encounter for care and examination of lactating mother (principal)
CPT/HCPCS: 99214; G0463

== ENCOUNTER 2022-06-27 08:09 | Emergency (ER) | payer OTHER, SELFPAY ==
[2022-06-27 08:26] VITALS: BP 108/73; PULSE 85; RESP 16; TEMP 36.9; O2SAT 100
--- NOTE | 2022-06-27 08:43 | ED.SKABFB ---
HPI - Skin/Abscess/Foreign Bdy General Chief complaint: Skin/Abscess/Foreign Body Stated complaint: RECTAL ITCHING/BURNING Time Seen by Provider: 06/27/22 08:44 Source: patient Mode of arrival: ambulatory Limitations: no limitations History of Present Illness HPI narrative: 27 y/o female presented for c/o anal itching for about one week. Itching worse at night. Spoke with her doctor and was instructed to perform the 'tape test' to check for pinworms, but states she did not find anything. Denies seeing any changes in undergarments such as strings or worms. Endorses hard stools prior to the itching, and endorses a few drops of blood on tissue after BMs the last couple of days. States her partner looked at her skin and thought he saw a 'tear.' Patient has applied hydrocortisone 2% to the site without significant change. She denies history of HSV or warts, denies changes to soap, detergent or products. Denies abdominal pain, nausea, vomiting, diarrhea or hemorrhoids. Denies urinary complaints. Related Data Home Medications Medication Instructions Recorded Confirmed vits no.[id number]-ferrous fum 1 tablet PO DAILY 05/05/21 11/06/21 28 mg iron-folic acid 800 mcg tablet (Classic ) cholecalciferol (vitamin D3) 1,250 50,000 unit PO WEEKLY 11/06/21 11/06/21 mcg (50,000 unit) capsule ferrous sulfate 325 mg (65 mg 325 mg PO DAILY 11/06/21 12/28/21 iron) tablet sertraline 50 mg tablet 50 mg PO DAILY 02/09/22 Allergies Allergy/AdvReac Type Severity Reaction Status Date / Time almond Allergy Severe Swelling Verified 06/27/22 08:25 of Lip/Tongue/Throat pecan nut Allergy Severe Swelling Verified 06/27/22 08:25 of Lip/Tongue/Throat codeine Allergy Unknown GI UPSET Verified 06/27/22 08:25 hydrocodone Allergy Unknown Swelling Verified 06/27/22 08:25 of Lip/Tongue/Throat adhesive tape Allergy Rash Verified 06/27/22 08:25 amoxicillin Allergy Swelling Verified 06/27/22 08:25 of Lip/Tongue/Throat coconut Allergy Difficulty Verified 06/27/22 08:25 Swallowing fentanyl Allergy Rash Verified 06/27/22 08:25 iodine Allergy Rash Verified 01/18/23 08:25 latex Allergy Rash Verified 06/27/22 08:25 Penicillins Allergy Swelling Verified 02/09/22 09:32 of Lip/Tongue/Throat Review of Systems Review of Systems: CONSTITUTIONAL: Denies body aches, fever, chills, or sweats. EYES: Denies visual changes, redness, or discharge. ENT: Denies rhinorrhea, congestion CARDIOVASCULAR: Denies chest pain, palpitations, or edema. RESPIRATORY: Denies cough or dyspnea. GASTROINTESTINAL: Denies abdominal pain, nausea, vomiting, or diarrhea. SKIN: per HPI MUSCULOSKELETAL: Denies back pain, joint pain, or myalgia. NEUROLOGIC: Denies headache, numbness, tingling, or weakness. [facility] Past Medical History Medical History ADHD (attention deficit hyperactivity disorder) Anemia Anxiety Asthma Depression Fracture of ankle, left, closed Fracture of right elbow History of miscarriage Insomnia Migraine POTS (postural orthostatic tachycardia syndrome) Seasonal allergies Subarachnoid hemorrhage Surgical History Surgical History H/O elbow surgery History of delivery History of laparoscopy Family History Family History Mother Depression Heart disease Hypertension Asthma Bipolar 1 disorder Heart attack Grandparent Malignant neoplasm of prostate Cancer Cerebrovascular accident Father Alcoholism Heart disease Other Patient's mother is Social History Social History Smoking status: Never smoker Alcohol intake: never Substance use: never Gender identity (if verbalized by the patient): Female Sexual Orientation (if Verb
== END 2022-06-27 09:13 | disposition home or self-care (01) ==
PROVIDERS: Emergency Provider Nurse Practitioner Family; PCP Physician Assistant
DX: L29.0 Pruritus ani (principal); D64.9 Anemia, unspecified; J45.909 Unspecified asthma, uncomplicated
CPT/HCPCS: 99211; G0463

== ENCOUNTER 2022-07-13 08:52 | Outpatient (CLI) | payer OTHER, SELFPAY ==
[2022-07-13 09:49] LABS: Appearance Urine Slightly Cloudy (Clear); Bilirubin Urine Negative (Negative); Blood Urine Trace-intact (Negative); Color Urine Yellow (Yellow); Glucose Urine UA Negative (Negative); Ketones Urine Negative (Negative); Leukocyte Esterase Ur 2+ LEU/UL (NEGATIVE); Nitrate Urine Positive (Negative); Protein Urine Negative (Negative); Specific Grav Ur 1.025 (1.001-1.035); Urobilinogen Urine 0.2 mg/dL (<2.0); pH Urine 5.5 (5.0-9.0)
[2022-07-13 10:05] LABS: Bacteria Urine Trace /hpf; Mucus Urine Rare /lpf; Squamous Epithelial Cell Urine Many /hpf (Few); WBC Urine 51-75 /hpf (0-3)
[2022-07-13 10:24] LABS: Add Urine Microscopic? YES
== END 2022-07-13 08:53 | disposition home or self-care (01) ==
PROVIDERS: PCP Physician Assistant; Visit Provider Obstetrics & Gynecology
DX: R39.9 Unspecified symptoms and signs involving the genitourinary system (principal)
CPT/HCPCS: 81001; 87077; 87086; 87186

== ENCOUNTER 2022-09-15 10:03 | Emergency (ER) | payer OTHER, SELFPAY ==
--- NOTE | 2022-09-15 10:11 | ED.URI ---
HPI - URI/Sore Throat General Chief Complaint: Upper Respiratory Infection Stated Complaint: SWOLLEN THROAT Source: patient, RN notes reviewed and old records reviewed Mode of arrival: ambulatory Limitations: no limitations History of Present Illness HPI Narrative: 27 year old female who presents to [facility] care with complaints of sore throat and feels like throat is swollen since yesterday. Patient reports that she has had some chills and sweats and has felt feverish has been taking Ibuprofen for her symptoms. Patient denies any sinus congestion or drainage or any cough or shortness of breath. Reports that throat is especially sore with swallowing. MD elicited complaint: sore throat and other (feels like throat swollen) Pertinent past history: asthma Onset (ago): day(s) (since yesterday) Pain scale (0-10): 8 Able to tolerate fluids by mouth: Yes Exacerbating factors: swallowing Treatments prior to arrival: ibuprofen Related Data Home Medications Medication Instructions Recorded Confirmed cholecalciferol (vitamin D3) 1,250 50,000 unit PO WEEKLY 11/06/21 09/15/22 mcg (50,000 unit) capsule ferrous sulfate 325 mg (65 mg 325 mg PO DAILY 11/06/21 09/15/22 iron) tablet sertraline 50 mg tablet 50 mg PO DAILY 02/09/22 09/15/22 fludrocortisone 0.1 mg tablet 0.1 mg PO DAILY 09/15/22 09/15/22 ibuprofen 800 mg tablet 800 mg PO Q6H PRN Pain 09/15/22 09/15/22 meclizine 25 mg tablet 25 mg PO USEASDIRECTD 09/15/22 09/15/22 Allergies Allergy/AdvReac Type Severity Reaction Status Date / Time almond Allergy Severe Swelling Verified 06/27/22 08:25 of Lip/Tongue/Throat pecan nut Allergy Severe Swelling Verified 06/27/22 08:25 of Lip/Tongue/Throat codeine Allergy Unknown GI UPSET Verified 06/27/22 08:25 hydrocodone Allergy Unknown Swelling Verified 06/27/22 08:25 of Lip/Tongue/Throat adhesive tape Allergy Rash Verified 06/27/22 08:25 amoxicillin Allergy Swelling Verified 06/27/22 08:25 of Lip/Tongue/Throat coconut Allergy Difficulty Verified 06/27/22 08:25 Swallowing fentanyl Allergy Rash Verified 06/27/22 08:25 iodine Allergy Rash Verified 06/27/22 08:25 latex Allergy Rash Verified 06/27/22 08:25 penicillin G Allergy Rash Verified 09/15/22 10:12 Penicillins Allergy Swelling Verified 02/09/22 09:32 of Lip/Tongue/Throat Review of Systems Review of Systems: CONSTITUTIONAL: Reports malaise, chills, sweats, has felt feverish EYES: Denies visual changes, redness, or discharge. ENT: Reports no rhinorrhea, congestion, sinus pain, no otalgia positive sore throat feels like throat swollen CARDIOVASCULAR: Denies chest pain, palpitations, or edema. RESPIRATORY: Reports no cough.? Denies dyspnea. GASTROINTESTINAL: Denies abdominal pain, nausea, vomiting, diarrhea SKIN: Denies rash or itching. MUSCULOSKELETAL: Denies myalgia. NEUROLOGIC: Denies headache. All systems reviewed & are unremarkable except as noted in HPI and below PMFSH Past Medical History Medical History ADHD (attention deficit hyperactivity disorder) Anemia Anxiety Asthma Depression Fracture of ankle, left, closed Fracture of right elbow History of miscarriage Insomnia Migraine POTS (postural orthostatic tachycardia syndrome) Seasonal allergies Subarachnoid hemorrhage Surgical History Surgical History H/O elbow surgery History of delivery History of laparoscopy Family History Family History Mother Depression Heart disease Hypertension Asthma Bipolar 1 disorder Heart attack Grandparent Malignant neoplasm of prostate Cancer Cerebrovascular accident Father Alcoholism Heart disease Other Patient's mother is Social History Social History (Reviewed 09/16/22 @ 20:00 by Aishwarya Pope
[2022-09-15 10:27] VITALS: BP 129/85; PULSE 107; RESP 16; TEMP 36.9; O2SAT 100
== END 2022-09-15 10:45 | disposition home or self-care (01) ==
PROVIDERS: Emergency Provider Registered Nurse; PCP Physician Assistant
DX: J02.0 Streptococcal pharyngitis (principal); F90.9 Attention-deficit hyperactivity disorder, unspecified type; J45.909 Unspecified asthma, uncomplicated; F41.9 Anxiety disorder, unspecified; F32.A Depression, unspecified
CPT/HCPCS: 87880; 99213; G0463

== ENCOUNTER 2022-10-06 08:05 | Emergency (ER) | payer OTHER, SELFPAY ==
--- NOTE | 2022-10-06 08:18 | ED.URI ---
HPI - URI/Sore Throat General Chief Complaint: Upper Respiratory Infection Stated Complaint: sore throat Time Seen by Provider: 10/06/22 08:30 Source: patient, RN notes reviewed and old records reviewed Mode of arrival: ambulatory Limitations: no limitations History of Present Illness HPI Narrative: 27 year old female who presents to [facility] care with complaints of sore throat, nasal congestion and drainage of greenish tinged mucous, headache since yesterday. Patient has not had any fevers is tolerated liquids and foods with no complaints of nausea, vomiting or diarrhea. Patient reports that throat is burning rates her pain 01/17, has not taken any OTC medications. MD elicited complaint: sore throat, rhinorrhea, nasal congestion and other (headache) Onset (ago): day(s) (since yesterday) Pain scale (0-10): 8 Treatments prior to arrival: none Related Data Home Medications Medication Instructions Recorded Confirmed cholecalciferol (vitamin D3) 1,250 50,000 unit PO WEEKLY 11/06/21 10/06/22 mcg (50,000 unit) capsule ferrous sulfate 325 mg (65 mg 325 mg PO DAILY 11/06/21 10/06/22 iron) tablet sertraline 50 mg tablet 50 mg PO DAILY 02/09/22 10/06/22 fludrocortisone 0.1 mg tablet 0.1 mg PO DAILY 09/15/22 10/06/22 ibuprofen 800 mg tablet 800 mg PO Q6H PRN Pain 09/15/22 10/06/22 meclizine 25 mg tablet 25 mg PO USEASDIRECTD 09/15/22 10/06/22 cetirizine 10 mg tablet 10 mg DAILY 10/06/22 10/06/22 Allergies Allergy/AdvReac Type Severity Reaction Status Date / Time almond Allergy Severe Swelling Verified 10/06/22 08:26 of Lip/Tongue/Throat pecan nut Allergy Severe Swelling Verified 10/06/22 08:26 of Lip/Tongue/Throat codeine Allergy Unknown GI UPSET Verified 10/06/22 08:26 hydrocodone Allergy Unknown Swelling Verified 10/06/22 08:26 of Lip/Tongue/Throat adhesive tape Allergy Rash Verified 10/06/22 08:26 amoxicillin Allergy Swelling Verified 10/06/22 08:26 of Lip/Tongue/Throat coconut Allergy Difficulty Verified 10/06/22 08:26 Swallowing fentanyl Allergy Rash Verified 10/06/22 08:26 iodine Allergy Rash Verified 10/06/22 08:26 latex Allergy Rash Verified 10/06/22 08:26 penicillin G Allergy Rash Verified 10/06/22 08:26 Penicillins Allergy Swelling Verified 10/06/22 08:26 of Lip/Tongue/Throat Review of Systems Review of Systems: CONSTITUTIONAL: Denies malaise, chills, sweats, or fever. EYES: Denies visual changes, redness, or discharge. ENT: Reports rhinorrhea, congestion, sinus pain, no otalgia, reports sore throat. CARDIOVASCULAR: Denies chest pain, palpitations, or edema. RESPIRATORY: Reports no cough.? Denies dyspnea. GASTROINTESTINAL: Denies abdominal pain, nausea, vomiting, diarrhea SKIN: Denies rash or itching. MUSCULOSKELETAL: Denies myalgia. NEUROLOGIC:Reports headache. All systems reviewed & are unremarkable except as noted in HPI and below PMFSH Past Medical History Medical History ADHD (attention deficit hyperactivity disorder) Anemia Anxiety Asthma Depression Fracture of ankle, left, closed Fracture of right elbow History of miscarriage Insomnia Migraine POTS (postural orthostatic tachycardia syndrome) Seasonal allergies Subarachnoid hemorrhage Surgical History Surgical History H/O elbow surgery History of delivery History of laparoscopy Family History Family History Mother Depression Heart disease Hypertension Asthma Bipolar 1 disorder Heart attack Grandparent Malignant neoplasm of prostate Cancer Cerebrovascular accident Father Alcoholism Heart disease Other Patient's mother is Social History Social History Smoking status: Never smoker Alcohol intake: nev
[2022-10-06 08:22] VITALS: BP 138/82; PULSE 102; RESP 16; TEMP 36.2; O2SAT 100
== END 2022-10-06 09:15 | disposition home or self-care (01) ==
PROVIDERS: Emergency Provider Registered Nurse; PCP Physician Assistant
DX: J02.9 Acute pharyngitis, unspecified (principal); J06.9 Acute upper respiratory infection, unspecified; J45.909 Unspecified asthma, uncomplicated; D64.9 Anemia, unspecified; F32.A Depression, unspecified; F41.9 Anxiety disorder, unspecified
CPT/HCPCS: 87081; 87880; 99213; G0463

== ENCOUNTER 2023-05-01 08:54 | Emergency (ER) | payer OTHER, SELFPAY ==
[2023-05-01 09:03] VITALS: BP 134/81; PULSE 98; RESP 16; TEMP 37; O2SAT 97
--- NOTE | 2023-05-01 09:16 | ED.URI ---
HPI - URI/Sore Throat General Chief Complaint: Upper Respiratory Infection Stated Complaint: cough/congestion Time Seen by Provider: 05/01/23 09:05 Source: patient Mode of arrival: ambulatory Limitations: no limitations History of Present Illness HPI Narrative: Rosa is a 28-year-old female patient presenting to the clinic today with complaints of coughing, sore throat, fever, chills, and congestion. She reports she does have a history of asthma. Is bringing up some green phlegm when she is coughing. MD elicited complaint: fever, cough, sore throat and nasal congestion Related Data Home Medications Medication Instructions Recorded Confirmed cholecalciferol (vitamin D3) 1,250 50,000 unit PO WEEKLY 11/06/21 05/01/23 mcg (50,000 unit) capsule ferrous sulfate 325 mg (65 mg 325 mg PO DAILY 11/06/21 05/01/23 iron) tablet epinephrine 0.3 mg/0.3 mL 0.3 mg IM ONCE 01/31/23 05/01/23 injection, auto-injector Allergies Allergy/AdvReac Type Severity Reaction Status Date / Time almond Allergy Severe Swelling Verified 05/01/23 09:18 of Lip/Tongue/Throat pecan nut Allergy Severe Swelling Verified 05/01/23 09:18 of Lip/Tongue/Throat codeine Allergy Unknown GI UPSET Verified 05/01/23 09:18 hydrocodone Allergy Unknown Swelling Verified 05/01/23 09:18 of Lip/Tongue/Throat adhesive tape Allergy Rash Verified 05/01/23 09:18 amoxicillin Allergy Swelling Verified 05/01/23 09:18 of Lip/Tongue/Throat coconut Allergy Difficulty Verified 05/01/23 09:18 Swallowing fentanyl Allergy Rash Verified 05/01/23 09:18 iodine Allergy Rash Verified 05/01/23 09:18 latex Allergy Rash Verified 05/01/23 09:18 penicillin G Allergy Rash Verified 01/31/23 10:03 Penicillins Allergy Swelling Verified 01/31/23 10:03 of Lip/Tongue/Throat Review of Systems Review of Systems: Pertinent positives per HPI. Patient denies any rash, headache, visual changes, dizziness, shortness of breath, chest pain, palpitations, nausea, vomiting, diarrhea, constipation, abdominal pain, or any urinary issues. [facility] Past Medical History Medical History ADHD (attention deficit hyperactivity disorder) Anemia Anxiety Asthma Depression Fracture of ankle, left, closed Fracture of right elbow History of miscarriage Insomnia Migraine POTS (postural orthostatic tachycardia syndrome) Seasonal allergies Subarachnoid hemorrhage Surgical History Surgical History H/O elbow surgery History of delivery History of laparoscopy Family History Family History Mother Depression Heart disease Hypertension Asthma Bipolar 1 disorder Heart attack Grandparent Malignant neoplasm of prostate Cancer Cerebrovascular accident Father Alcoholism Heart disease Other Patient's mother is Social History Social History Smoking status: Never smoker Alcohol intake: never Substance use: never Living arrangements: with family Occupation/Education: unemployed Gender identity (if verbalized by the patient): Female Sexual Orientation (if Verbalized by the Patient): Straight or Heterosexual Spiritual care concerns: No Comments At the time of my signature, I reviewed and agree with the nursing past medical, surgical, social, and family history. There is no relevant family history pertinent to the patient complaint. Exam Narrative: General: Well-developed, well nourished, in no apparent distress Head: Normocephalic, atraumatic Eyes: Pupils equally round and reactive to light bilaterally, EOM intact, sclera and conjunctive clear, no discharge, lids normal Ears: TMs intact and congested, ear canals clear, no drainage, grossly hearing normal. Nose: Nares patent, c
== END 2023-05-01 09:20 | disposition home or self-care (01) ==
PROVIDERS: Emergency Provider Nurse Practitioner Family; PCP Physician Assistant
DX: J40 Bronchitis, not specified as acute or chronic (principal); J02.9 Acute pharyngitis, unspecified; Z79.899 Other long term (current) drug therapy
CPT/HCPCS: 99213; G0463

== ENCOUNTER 2023-05-21 18:18 | Emergency (ER) | payer OTHER, SELFPAY ==
--- NOTE | ~2023-05-21 | XR_ITS ---
EXAM: XR ankle LT min 3V DATE: 05/21/2023 18:48 HISTORY: KNI. LAT. PAIN X 3 DAYS. PRIOR SURGERY. . COMPARISON: 10/15/2020. FINDINGS: Normal mineralization. Uncomplicated appearing distal tibial screw. No fracture or disloca tion. No lytic or blastic lesion. Joint spaces are maintained. No erosion or periosteal change. Soft tissues within normal limits. IMPRESSION: No acute osseous finding in the left ankle RT. Reviewed, dictated and finalized at location K. [employer]
[2023-05-21 18:26] VITALS: BP 142/86; PULSE 93; RESP 20; TEMP 36.8; O2SAT 98
--- NOTE | 2023-05-21 19:12 | ED.GENADULT ---
HPI - General Adult General Chief complaint: Extremity Problem,Nontraumatic Stated complaint: Left Ankle Pain Time Seen by Provider: 05/21/23 19:13 Source: patient, RN notes reviewed and old records reviewed Mode of arrival: ambulatory Limitations: no limitations History of Present Illness HPI narrative: 28 year old female who presents to [facility] care with complaints of pain to her left lateral ankle for the past 3 days with no recent trauma or injury known. Patient reports that she had fracture to left ankle and has screw to the ankle when she was 17 years old. 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 Patient reports that the pain in her ankle increases with weight bearing, She states that she has been taking Ibuprofen for her discomfort. MD complaint: left ankle pain Onset (ago): day(s) (3) Location: left and lower extremity (lateral ankle) Severity scale (1-10): 6 Exacerbating factors: other (weigt bearing) Treatments prior to arrival: NSAID Related Data Home Medications Medication Instructions Recorded Confirmed ferrous sulfate 325 mg (65 mg 325 mg PO DAILY 11/06/21 05/21/23 iron) tablet epinephrine 0.3 mg/0.3 mL 0.3 mg IM ONCE 01/31/23 05/21/23 injection, auto-injector norelgestromin 150 mcg-e.estradiol 1 patch topical WEEKLY 05/21/23 05/21/23 35 mcg/24 hr weekly transderm patch (Xulane) Allergies Allergy/AdvReac Type Severity Reaction Status Date / Time almond Allergy Severe Swelling Verified 05/21/23 18:39 of Lip/Tongue/Throat pecan nut Allergy Severe Swelling Verified 05/21/23 18:39 of Lip/Tongue/Throat codeine Allergy Unknown GI UPSET Verified 05/21/23 18:39 hydrocodone Allergy Unknown Swelling Verified 05/21/23 18:39 of Lip/Tongue/Throat adhesive tape Allergy Rash Verified 05/21/23 18:39 amoxicillin Allergy Swelling Verified 05/21/23 18:39 of Lip/Tongue/Throat coconut Allergy Difficulty Verified 05/21/23 18:39 Swallowing fentanyl Allergy Rash Verified 05/21/23 18:39 iodine Allergy Rash Verified 05/21/23 18:39 latex Allergy Rash Verified 05/21/23 18:39 penicillin G Allergy Rash Verified 05/21/23 18:40 Penicillins Allergy Swelling Verified 05/21/23 18:39 of Lip/Tongue/Throat Review of Systems Review of Systems: CONSTITUTIONAL: Denies fever, chills, or sweats. EYES: Denies visual changes, redness, or discharge. ENT: Denies rhinorrhea, congestion, sore throat, or otalgia. CARDIOVASCULAR: Denies chest pain, palpitations, or edema. RESPIRATORY: Denies cough or dyspnea. GASTROINTESTINAL: Denies abdominal pain, nausea, vomiting, or diarrhea. GENITOURINARY: Denies dysuria or hematuria. SKIN: Denies rash or itching. MUSCULOSKELETAL: Denies back pain,positive for pain to left lateral ankle , or myalgia. NEUROLOGIC: Denies headache, numbness, or weakness. PSYCHIATRIC: Reports history of anxiety or depression All systems reviewed & are unremarkable except as noted in HPI and below PMFSH Past Medical History Medical History ADHD (attention deficit hyperactivity disorder) Anemia Anxiety Asthma Depression Fracture of ankle, left, closed Fracture of right elbow History of miscarriage Insomnia Migraine POTS (postural orthostatic tachycardia syndrome) Seasonal allergies Subarachnoid hemorrhage Surgical History Surgical History H/O elbow surgery History of delivery History of laparoscopy Family History Family History Mother Depression Heart disease Hypertension Asthma Bipolar 1 disorder Heart attack Grandparent Malignant neoplasm of prostate Cancer Cerebrovascular accident Father Alcoholism Heart disease Other Patient's mother is Social History Social Histor
== END 2023-05-21 19:30 | disposition home or self-care (01) ==
PROVIDERS: Emergency Provider Registered Nurse; PCP Physician Assistant
DX: M25.572 Pain in left ankle and joints of left foot (principal); J45.909 Unspecified asthma, uncomplicated; D64.9 Anemia, unspecified
CPT/HCPCS: 73610; 99213; G0463

== ENCOUNTER 2023-07-02 08:08 | Emergency (ER) | payer OTHER, SELFPAY ==
[2023-07-02 08:16] VITALS: BP 135/71; PULSE 83; RESP 20; TEMP 36.9; O2SAT 100
--- NOTE | 2023-07-02 08:35 | ED.FEMALEGU ---
HPI - Female Genitourinary General Chief complaint: Urogenital-Female Stated complaint: Poss UTI Time Seen by Provider: 07/02/23 08:35 Source: patient, RN notes reviewed and old records reviewed Mode of arrival: ambulatory Limitations: no limitations History of Present Illness HPI Narrative: 28 year old female presents to [facility] care with complaints of vaginal itching about one week ago which has resolved. Patient reports that she also has had pain with intercourse, denies any vaginal drainage. Patient states that for the past few days she has pain and burning with urination and some burning to clitoris area. Patient denies any fevers, nausea or vomiting or any back pain. Patient has not taken any OTC medication for her symptoms. MD elicited complaint: UTI Onset (ago): day(s) (2) Location of symptoms: external genitalia and urethra Severity: mild Quality of pain: burning Vaginal discharge: none Treatment prior to arrival: none Related Data Home Medications Medication Instructions Recorded Confirmed norelgestromin 150 mcg-e.estradiol 1 patch topical WEEKLY 05/21/23 07/02/23 35 mcg/24 hr weekly transderm patch (Xulane) sertraline 25 mg tablet (Zoloft) 25 mg PO DAILY 07/02/23 07/02/23 Allergies Allergy/AdvReac Type Severity Reaction Status Date / Time almond Allergy Severe Swelling Verified 07/02/23 08:41 of Lip/Tongue/Throat pecan nut Allergy Severe Swelling Verified 07/02/23 08:41 of Lip/Tongue/Throat codeine Allergy Unknown GI UPSET Verified 07/02/23 08:41 hydrocodone Allergy Unknown Swelling Verified 07/02/23 08:41 of Lip/Tongue/Throat adhesive tape Allergy Rash Verified 07/02/23 08:41 amoxicillin Allergy Swelling Verified 07/02/23 08:41 of Lip/Tongue/Throat coconut Allergy Difficulty Verified 07/02/23 08:41 Swallowing fentanyl Allergy Rash Verified 07/02/23 08:41 iodine Allergy Rash Verified 07/02/23 08:41 latex Allergy Rash Verified 07/02/23 08:41 penicillin G Allergy Rash Verified 07/02/23 08:41 Penicillins Allergy Swelling Verified 07/02/23 08:41 of Lip/Tongue/Throat Review of Systems Review of Systems: CONSTITUTIONAL: Denies fever, chills, or sweats. CARDIOVASCULAR: Denies chest pain, palpitations, or edema. RESPIRATORY: Denies cough or dyspnea. GASTROINTESTINAL: Denies abdominal pain, nausea, vomiting, or diarrhea. GENITOURINARY: Reports dysuria,no frequency, urgency. Denies flank pain or hematuria. reports clitoris burning, denies any vaginal discharge SKIN: Denies rash or itching. MUSCULOSKELETAL: Denies back pain or myalgia. Denies CVA tenderness NEUROLOGIC: Denies headache All systems reviewed & are unremarkable except as noted in HPI and below PMFSH Past Medical History Medical History ADHD (attention deficit hyperactivity disorder) Anemia Anxiety Asthma Depression Fracture of ankle, left, closed Fracture of right elbow History of miscarriage Insomnia Migraine POTS (postural orthostatic tachycardia syndrome) Seasonal allergies Subarachnoid hemorrhage Surgical History Surgical History H/O elbow surgery History of delivery History of laparoscopy Family History Family History Mother Depression Heart disease Hypertension Asthma Bipolar 1 disorder Heart attack Grandparent Malignant neoplasm of prostate Cancer Cerebrovascular accident Father Alcoholism Heart disease Other Patient's mother is Social History Social History Smoking status: Never smoker Alcohol intake: never Substance use: never Living arrangements: with family Occupation/Education: unemployed Gender identity (if verbalized by the patient): Female Sexual Orientation (if Verbalized
== END 2023-07-02 08:48 | disposition home or self-care (01) ==
PROVIDERS: Emergency Provider Registered Nurse
DX: R30.0 Dysuria (principal); F41.9 Anxiety disorder, unspecified; J45.909 Unspecified asthma, uncomplicated; F32.A Depression, unspecified
CPT/HCPCS: 81003; 87086; 87088; 99213; G0463

== ENCOUNTER 2023-08-28 08:06 | Emergency (ER) | payer OTHER, SELFPAY ==
[2023-08-28 08:15] VITALS: BP 132/74; PULSE 125; RESP 20; TEMP 38.3; O2SAT 100
--- NOTE | 2023-08-28 08:19 | ED.URI ---
HPI - URI/Sore Throat General Chief Complaint: Upper Respiratory Infection Stated Complaint: Sore Throat Time Seen by Provider: 08/28/23 08:30 Source: patient and RN notes reviewed Mode of arrival: ambulatory Limitations: no limitations History of Present Illness HPI Narrative: 28-year-old female presents concern for sore throat, headache, fever for 3 days. Reports painful swallowing neck pain. MD elicited complaint: sore throat Related Data Home Medications Medication Instructions Recorded Confirmed sertraline 25 mg tablet (Zoloft) 25 mg PO DAILY 07/02/23 08/28/23 prazosin 5 mg capsule 5 mg PO HS 08/28/23 08/28/23 Allergies Allergy/AdvReac Type Severity Reaction Status Date / Time almond Allergy Severe Swelling Verified 08/28/23 08:26 of Lip/Tongue/Throat pecan nut Allergy Severe Swelling Verified 08/28/23 08:26 of Lip/Tongue/Throat codeine Allergy Unknown GI UPSET Verified 08/28/23 08:26 hydrocodone Allergy Unknown Swelling Verified 08/28/23 08:26 of Lip/Tongue/Throat adhesive tape Allergy Rash Verified 08/28/23 08:26 amoxicillin Allergy Swelling Verified 08/28/23 08:26 of Lip/Tongue/Throat coconut Allergy Difficulty Verified 08/28/23 08:26 Swallowing fentanyl Allergy Rash Verified 08/28/23 08:26 iodine Allergy Rash Verified 08/28/23 08:26 latex Allergy Rash Verified 08/28/23 08:26 penicillin G Allergy Rash Verified 07/02/23 08:41 Penicillins Allergy Swelling Verified 07/02/23 08:41 of Lip/Tongue/Throat Review of Systems Review of Systems: CONSTITUTIONAL: Reports malaise, fever. EYES: Denies visual changes, redness, or discharge. ENT: Reports rhinorrhea, and sore throat. CARDIOVASCULAR: Denies chest pain, palpitations, or edema. RESPIRATORY: Denies cough. Denies dyspnea. GASTROINTESTINAL: Denies abdominal pain, nausea, vomiting, diarrhea SKIN: Denies rash or itching. MUSCULOSKELETAL: Denies myalgia. NEUROLOGIC: Reports headache. All systems reviewed & are unremarkable except as noted in HPI and below PMFSH Past Medical History Medical History ADHD (attention deficit hyperactivity disorder) Anemia Anxiety Asthma Depression Fracture of ankle, left, closed Fracture of right elbow History of miscarriage Insomnia Migraine POTS (postural orthostatic tachycardia syndrome) Seasonal allergies Subarachnoid hemorrhage Surgical History Surgical History H/O elbow surgery History of delivery History of laparoscopy Family History Family History Mother Depression Heart disease Hypertension Asthma Bipolar 1 disorder Heart attack Grandparent Malignant neoplasm of prostate Cancer Cerebrovascular accident Father Alcoholism Heart disease Other Patient's mother is Social History Social History Smoking status: Never smoker Alcohol intake: never Substance use: never Living arrangements: with family Occupation/Education: unemployed Gender identity (if verbalized by the patient): Female Sexual Orientation (if Verbalized by the Patient): Straight or Heterosexual Spiritual care concerns: No Comments At time of signature, agree with nursing past medical, surgical, social and family history. There is no relevant family history pertinent to the presenting complaint Exam Narrative: GENERAL: Well-appearing, well-nourished, and in no acute distress. HEAD: Normocephalic EYES: PERRLA, conjunctivae clear ENT: Nares clear, turbinates edematous and erythematous, clear discharge. Mucous membranes moist. TM pearly hinds with dull light reflex bilaterally; no tragal tenderness. Oropharynx erythematous without lesions. Tonsils enlarged with exudate, no drooling, no hoarseness, no tr
== END 2023-08-28 08:44 | disposition home or self-care (01) ==
PROVIDERS: Emergency Provider Nurse Practitioner; PCP Physician Assistant
DX: J02.0 Streptococcal pharyngitis (principal); J45.909 Unspecified asthma, uncomplicated; F41.9 Anxiety disorder, unspecified; F32.A Depression, unspecified
CPT/HCPCS: 87880; 99213; G0463

== ENCOUNTER 2023-11-12 08:46 | Emergency (ER) | payer OTHER, SELFPAY ==
[2023-11-12 08:51] VITALS: BP 120/73; PULSE 101; RESP 16; TEMP 37.2; O2SAT 99
--- NOTE | 2023-11-12 09:03 | ED.GENADULT ---
HPI - General Adult General Chief complaint: Urogenital-Female Stated complaint: Urinary Problem Source: patient Mode of arrival: ambulatory Limitations: no limitations History of Present Illness HPI narrative: Presents for evaluation of urinary symptoms for last 3 days. Symptoms include dysuria, urinary frequency, hesitancy, and incomplete emptying. She denies any fever, chills, abdominal pain, low back pain, vaginal bleeding or discharge. She is not on contraception. LMP on 10/21/23. She is not taking OTC meds for her symptoms. She has had similar symptoms in the past with UTI. Related Data Home Medications Medication Instructions Recorded Confirmed sertraline 25 mg tablet (Zoloft) 25 mg PO DAILY 07/02/23 08/28/23 prazosin 5 mg capsule 5 mg PO HS 08/28/23 08/28/23 buspirone 15 mg tablet mg 11/12/23 venlafaxine 150 mg mg PO 11/12/23 capsule,extended release 24 hr Allergies Allergy/AdvReac Type Severity Reaction Status Date / Time almond Allergy Severe Swelling Verified 08/28/23 08:26 of Lip/Tongue/Throat pecan nut Allergy Severe Swelling Verified 08/28/23 08:26 of Lip/Tongue/Throat codeine Allergy Unknown GI UPSET Verified 08/28/23 08:26 hydrocodone Allergy Unknown Swelling Verified 08/28/23 08:26 of Lip/Tongue/Throat adhesive tape Allergy Rash Verified 08/28/23 08:26 amoxicillin Allergy Swelling Verified 08/28/23 08:26 of Lip/Tongue/Throat coconut Allergy Difficulty Verified 08/28/23 08:26 Swallowing fentanyl Allergy Rash Verified 08/28/23 08:26 iodine Allergy Rash Verified 08/28/23 08:26 latex Allergy Rash Verified 08/28/23 08:26 penicillin G Allergy Rash Verified 07/02/23 08:41 Penicillins Allergy Swelling Verified 07/02/23 08:41 of Lip/Tongue/Throat Review of Systems Review of Systems: CONSTITUTIONAL: Denies fever, chills, or sweats. EYES: Denies visual changes, redness, or discharge. ENT: Denies rhinorrhea, congestion, sore throat, or otalgia. CARDIOVASCULAR: Denies chest pain, palpitations, or edema. RESPIRATORY: Denies cough or dyspnea. GASTROINTESTINAL: Denies abdominal pain, nausea, vomiting, or diarrhea. GENITOURINARY: Reports urinary frequency, hesitancy, incomplete emptying and dysuria. Denies any vaginal bleeding/discharge or hematuria. SKIN: Denies rash or itching. MUSCULOSKELETAL: Denies back pain, joint pain, or myalgia. NEUROLOGIC: Denies headache, numbness, dizziness, or weakness. PSYCHIATRIC: Denies anxiety or depression. PMF Past Medical History Medical History ADHD (attention deficit hyperactivity disorder) Anemia Anxiety Asthma Depression Fracture of ankle, left, closed Fracture of right elbow History of miscarriage Insomnia Migraine POTS (postural orthostatic tachycardia syndrome) Seasonal allergies Subarachnoid hemorrhage Surgical History Surgical History H/O elbow surgery History of delivery History of laparoscopy Family History Family History Mother Depression Heart disease Hypertension Asthma Bipolar 1 disorder Heart attack Grandparent Malignant neoplasm of prostate Cancer Cerebrovascular accident Father Alcoholism Heart disease Other Patient's mother is Social History Social History Smoking status: Never smoker Alcohol intake: never Substance use: never Living arrangements: with family Occupation/Education: unemployed Gender identity (if verbalized by the patient): Female Sexual Orientation (if Verbalized by the Patient): Straight or Heterosexual Spiritual care concerns: No Exam Narrative: GENERAL: Well-appearing, well-nourished, and in no acute distress. HEAD: Normocephalic, atraumatic.
== END 2023-11-12 09:12 | disposition home or self-care (01) ==
PROVIDERS: Emergency Provider Nurse Practitioner
DX: N39.0 Urinary tract infection, site not specified (principal); B96.20 Unspecified Escherichia coli [E. coli] as the cause of diseases classified elsewhere; J45.909 Unspecified asthma, uncomplicated; F41.9 Anxiety disorder, unspecified; F32.A Depression, unspecified; F90.9 Attention-deficit hyperactivity disorder, unspecified type
CPT/HCPCS: 81003; 81025; 87077; 87086; 87088; 87186; 99213; G0463

== ENCOUNTER 2023-11-27 08:59 | Outpatient (CLI) | payer OTHER, SELFPAY ==
[2023-11-28 06:44] LABS: Progesterone 25.7 ng/mL
== END 2023-11-27 09:00 | disposition home or self-care (01) ==
LOC: ANHLAB 09:01
PROVIDERS: Visit Provider Nurse Practitioner Obstetrics & Gynecology
DX: O09.299 Supervision of pregnancy with other poor reproductive or obstetric history, unspecified trimester (principal); Z3A.00 Weeks of gestation of pregnancy not specified
CPT/HCPCS: 36415; 84144; 84702

== ENCOUNTER 2023-11-29 09:22 | Outpatient (CLI) | payer OTHER, SELFPAY | END 2023-11-29 09:23 | disposition home or self-care (01) | LOC: ANHLAB 09:24 | PROVIDERS: Visit Provider Nurse Practitioner Obstetrics & Gynecology | DX: O09.299 Supervision of pregnancy with other poor reproductive or obstetric history, unspecified trimester (principal); Z3A.00 Weeks of gestation of pregnancy not specified | CPT/HCPCS: 36415; 84702 ==

== ENCOUNTER 2023-12-10 18:48 | Emergency (ER) | payer OTHER, SELFPAY ==
[2023-12-10] VITALS (10 sets, daily range): BP systolic 110–124; BP diastolic 63–73; PULSE 68–98; RESP 14–16; TEMP 36.6; O2SAT 96–100
--- NOTE | ~2023-12-10 | US_ITS ---
EXAMINATION: US OB <= 14 weeks fetus INDICATION: abdominal pain, TECHNIQUE: Sonography of the pelvis was performed by transabdominal and transvaginal techniques. COMPARISON: None. RESULT: Uterus: 9.5 x 5.5 x 6.9 cm. Anteverted. Homogenous myometrium. Intrauterine gestational sac: Single present. Mean Sac Diameter: cm, corresponding gestational age w chemehuevi days. Yolk sac: 0.3 cm . Embryo: Single present. New Site rump length: 0.8 cm, corresponding gestational age 6 weeks, 5 days. G estational heart rate: present 138 bpm. Subgestational hematoma: 1.2 x 1.1 x 0.6 cm . Right ovary: 4.3 x 2.5 x 2.5 cm. Vascular flow is present. No adnexal mass. Left ovary: 2.9 x 1.6 x 1.6 cm. Vascular flow is present. No adnexal mass. Pelvis free fluid: Small volume free fluid is likely physiologic. IMPRESSION: Single, live intrauterine gestation. Estimated Gestational Age: 6 weeks, 5 days by crown rump length. LOUIE by ultrasound 07/12/2024. Small subchorionic hemorrhage. Reviewed, dictated and finalized at location [facility]. IMPRESSION: Single, live intrauterine gestation. Estimated Gestational Age: 6 weeks, 5 days by crown rump length. LOUIE by ultras ound 07/12/2024. Small subchorionic hemorrhage.
--- NOTE | 2023-12-10 19:08 | ED.PREGNANCY ---
HPI - General Chief complaint: Nausea/Vomiting/Diarrhea Stated complaint: 7 wks preg, vomiting Time Seen by Provider: 12/10/23 18:59 History of Present Illness HPI Narrative: Patient is a 28 year old female , LMP 10/22/23, estimated 7 weeks gestational age here with lower abdominal pain x3 days. Patient notes abdominal pain is located in the lower abdomen bilaterally, worse on the right than the left. She notes the pain is worse with standing and movement. She has been dealing with nausea and vomiting all day throughout this and having difficulty tolerating any PO intake at this time. She attempted Unisom and B6 at home per recommendations of her OBGYN Lotus Gaxiola without any relief of her nausea. She has noted decreased urinary output over the last couple of days. She contacted her OBGYN this morning who recommended she come into the ER for IVF. Patient denies diarrhea, cough, congestion, fever, chills. She notes some significant nausea similar to his during her first years ago. She has not had an ultrasound yet during this . No vaginal bleeding. She has had a slight increase in her vaginal discharge from baseline, it remains white without any associated pruritus. Related Data Home Medications Medication Instructions Recorded Confirmed prazosin 5 mg capsule 5 mg PO HS 08/28/23 12/04/23 buspirone 15 mg tablet mg 11/12/23 12/04/23 ferrous sulfate 325 mg (65 mg 325 mg PO DAILY 12/04/23 12/04/23 iron) tablet,delayed release folic acid 20 mg capsule 20 mg PO DAILY 12/04/23 12/04/23 vitamin#30 30 mg iron-10 cap PO 12/04/23 12/04/23 mg iron-folic acid 1 mg-omg3 capsule venlafaxine 225 mg tablet,extended 225 mg PO DAILY 12/04/23 12/04/23 release 24 hr Allergies Allergy/AdvReac Type Severity Reaction Status Date / Time almond Allergy Severe Swelling Verified 12/10/23 19:07 of Lip/Tongue/Throat pecan nut Allergy Severe Swelling Verified 12/10/23 19:07 of Lip/Tongue/Throat codeine Allergy Unknown GI UPSET Verified 12/10/23 19:07 hydrocodone Allergy Unknown Swelling Verified 12/10/23 19:07 of Lip/Tongue/Throat adhesive tape Allergy Rash Verified 12/10/23 19:07 amoxicillin Allergy Swelling Verified 12/10/23 19:07 of Lip/Tongue/Throat coconut Allergy Difficulty Verified 12/10/23 19:07 Swallowing fentanyl Allergy Rash Verified 12/10/23 19:07 iodine Allergy Rash Verified 12/10/23 19:07 latex Allergy Rash Verified 12/10/23 19:07 penicillin G Allergy Rash Verified 12/10/23 19:07 Penicillins Allergy Swelling Verified 12/10/23 19:07 of Lip/Tongue/Throat Review of Systems Review of Systems: All systems reviewed & are unremarkable except as noted in HPI and below PMFSH Past Medical History Medical History ADHD (attention deficit hyperactivity disorder) Anemia Anxiety Asthma Depression Fracture of ankle, left, closed Fracture of right elbow History of miscarriage Insomnia Migraine POTS (postural orthostatic tachycardia syndrome) Seasonal allergies Subarachnoid hemorrhage Surgical History Surgical History H/O elbow surgery History of delivery History of laparoscopy Family History Family History Mother Depression Heart disease Hypertension Asthma Bipolar 1 disorder Heart attack Grandparent Malignant neoplasm of prostate Cancer Cerebrovascular accident Father Alcoholism Heart disease Other Patient's mother is Social History Social History Smoking status: Never smoker Alcohol intake: never Substance use: never Living arrangements: with family Occupation/Education: unemployed Gender identity (if verbalized by the patient): Female Sexual René
[2023-12-10 19:13] LABS: Basophils Percent Auto 0.3 % (0.2-1.2); Eosinophils Absolute Auto 0.2 K/mm3 (0-0.3); Eosinophils Percent Auto 1.7 % (0-4.4); Hematocrit 38.5 % (37.0-47.0); Hemoglobin 12.6 g/dL (12.0-15.0); Immature Granulocyte Absolute 0.03 K/mm3 (0.00-0.031); Immature Granulocyte Percent A 0.3 % (0-0.5); Lymphocytes Absolute Auto 2.52 K/mm3 (0.9-3.2); Lymphocytes Percent Auto 25.8 % (18.3-44.2); Mean Corpuscular HGB Conc 32.7 g/dl (32-36); Mean Corpuscular Hemoglobin 27.7 pg (26-34); Mean Corpuscular Volume 84.6 fl (80-100); Mean Platelet Volume 10.8 fl (7.4-10.4); Monocytes Absolute Auto 0.6 K/mm3 (0.1-0.6); Monocytes Percent Auto 6.5 % (2.6-8.5); Neutrophils Absolute Auto 6.4 K/mm3 (1.3-6.7); Neutrophils Percent Auto 65.4 % (45.5-73.1); Platelet Count Result 253 k/mm3 (150-375); Red Blood Count 4.55 M/mm3 (4.2-5.4); Red Cell Distribution Width 16.7 % (11.5-14.5); White Blood Count 9.8 K/mm3 (4.5-10.0)
[2023-12-10 19:24] LABS: Alanine Aminotransferase 20 U/L (6-35); Albumin Level 4.5 g/dL (3.5-5.1); Alkaline Phosphatase 50 U/L (38-126); Anion Gap 9 mmol/L (4-12); Aspartate Amino Transferase 21 U/L (14-36); Bilirubin,Total 0.7 mg/dL (0.2-1.3); Blood Urea Nitrogen 7 mg/dL (7-17); Calcium 9.1 mg/dL (8.4-10.2); Carbon Dioxide 21 mmol/L (22-30); Chloride 109 mmol/L (98-107); Estimated CRCL calculation 172 ml/min; Estimated Glomerular Filt Rate > 60; Glucose 88 mg/dL (65-110); Lipase 57 U/L (23-300); Potassium 4.1 mmol/L (3.4-5.0); Sodium 139 mmol/L (137-145)
[2023-12-10 19:35] LABS: Appearance Urine Clear (Clear); Bacteria Urine None Seen /hpf; Bilirubin Urine Negative (Negative); Blood Urine Negative (Negative); Color Urine Yellow (Yellow); Glucose Urine UA Negative (Negative); Ketones Urine Negative (Negative); Leukocyte Esterase Ur Negative LEU/UL (Negative); Nitrate Urine Negative (Negative); Non Pathogenic Casts 0-2; Protein Urine Trace mg/dL (Negative); RBC Urine 0-2 /hpf (0-2); Specific Grav Ur 1.021 (1.001-1.035); Squamous Epithelial Cell Urine Occasional /hpf (Few); WBC Urine 0-5 /hpf (0-3); pH Urine 8.5 (5.0-9.0)
[2023-12-10 19:36] LABS: Add Urine Microscopic? YES
[2023-12-10] MEDS: METOCLOPRAMIDE HCL INJ 10 MG/2 ML VIAL 5 MG IV PUSH (20:00)
[2023-12-10] MEDS: DEXTROSE 5%/0.9% SOD CHL 1,000 ML 1000 ML IV CONT (20:01)
[2023-12-10 21:13] LABS: Trichomonas Vag PCR NOT DETECTED (NOT DETECTE)
[2023-12-10 21:35] LABS: Chlamydia trachomatis NOT DETECTED (NOT DETECTE); Neisseria gonorrhoeae PCR NOT DETECTED (NOT DETECTE)
== END 2023-12-10 22:49 | disposition home or self-care (01) ==
PROVIDERS: Emergency Provider Student in an Organized Health Care Education/Training Program
DX: O26.891 Other specified pregnancy related conditions, first trimester (principal); R10.32 Left lower quadrant pain; R10.31 Right lower quadrant pain; O21.9 Vomiting of pregnancy, unspecified; Z3A.01 Less than 8 weeks gestation of pregnancy; O99.511 Diseases of the respiratory system complicating pregnancy, first trimester; J45.909 Unspecified asthma, uncomplicated; O99.341 Other mental disorders complicating pregnancy, first trimester; F90.9 Attention-deficit hyperactivity disorder, unspecified type; F41.9 Anxiety disorder, unspecified; F32.A Depression, unspecified; Z86.2 Personal history of diseases of the blood and blood-forming organs and certain disorders involving the immune mechanism; Z79.899 Other long term (current) drug therapy
CPT/HCPCS: 36415; 76801; 80053; 81001; 81025; 83690; 84702; 85025; 86850; 86900; 86901; 87491; 87591; 87661; 96361; 96374; 99284; J2765; J7042

== ENCOUNTER 2023-12-18 08:41 | Emergency (ER) | payer OTHER, SELFPAY ==
[2023-12-18 08:49] VITALS: BP 127/67; PULSE 97; RESP 18; TEMP 36.8; O2SAT 100
--- NOTE | 2023-12-18 09:05 | ED.FEMALEGU ---
HPI - Female Genitourinary General Chief complaint: Urogenital-Female Stated complaint: uti symptoms Time Seen by Provider: 12/18/23 09:05 Source: patient, RN notes reviewed and old records reviewed Mode of arrival: ambulatory Limitations: no limitations History of Present Illness HPI Narrative: 28-year-old female who [facility] complaints of urinary tract infection symptoms which includes burning with urination, frequency, voiding in small amounts for the past 3 days.Patient states that she is 8 weeks and is having a lot of nausea and vomiting with her , has been to hospital twice for IV fluids. Patient reports some left lower suprapubic discomfort denies any CVA tenderness. MD elicited complaint: UTI Pertinent past history: other (patient is 8 weeks ) Onset (ago): day(s) (3) Quality of pain: burning and aching Vaginal discharge: none Vaginal bleeding: none Patient : Yes Date of Last Menstrual Period: 10/22/23 Expected Date of Delivery: 07/28/24 Related Data Home Medications Medication Instructions Recorded Confirmed buspirone 15 mg tablet 15 mg PO BID 11/12/23 12/18/23 ferrous sulfate 325 mg (65 mg 325 mg PO DAILY 12/04/23 12/18/23 iron) tablet,delayed release vitamin#30 30 mg iron-10 1 cap PO DAILY 12/04/23 12/18/23 mg iron-folic acid 1 mg-omg3 capsule budesonide-formoterol HFA 160 2 puff inhalation DAILY 12/18/23 12/18/23 mcg-4.5 mcg/actuation aerosol inhaler (Symbicort) folic acid 1 mg tablet 1 mg PO DAILY 12/18/23 12/18/23 prazosin 1 mg capsule 1 mg PO QHS 12/18/23 12/18/23 venlafaxine 150 mg 150 mg PO DAILY 12/18/23 12/18/23 capsule,extended release 24 hr Allergies Allergy/AdvReac Type Severity Reaction Status Date / Time almond Allergy Severe Swelling Verified 12/10/23 19:07 of Lip/Tongue/Throat pecan nut Allergy Severe Swelling Verified 12/18/23 08:56 of Lip/Tongue/Throat codeine Allergy Unknown GI UPSET Verified 12/18/23 08:56 hydrocodone Allergy Unknown Swelling Verified 12/18/23 08:56 of Lip/Tongue/Throat adhesive tape Allergy Rash Verified 12/18/23 08:56 amoxicillin Allergy Swelling Verified 12/18/23 08:56 of Lip/Tongue/Throat coconut Allergy Difficulty Verified 12/18/23 08:56 Swallowing fentanyl Allergy Rash Verified 12/18/23 08:56 iodine Allergy Rash Verified 12/18/23 08:56 latex Allergy Rash Verified 12/18/23 08:56 penicillin G Allergy Rash Verified 12/18/23 08:56 Penicillins Allergy Swelling Verified 12/18/23 08:56 of Lip/Tongue/Throat Review of Systems Review of Systems: CONSTITUTIONAL: Denies fever, chills, or sweats. CARDIOVASCULAR: Denies chest pain, palpitations, or edema. RESPIRATORY: Denies cough or dyspnea. GASTROINTESTINAL: Denies abdominal pain some left suprapubic discomfort, nausea, vomiting, no diarrhea. GENITOURINARY: Reports dysuria, frequency, urgency. Denies flank pain or hematuria. SKIN: Denies rash or itching. MUSCULOSKELETAL: Denies back pain or myalgia. Denies CVA tenderness NEUROLOGIC: Denies headache All systems reviewed & are unremarkable except as noted in HPI and below PMFSH Past Medical History Medical History ADHD (attention deficit hyperactivity disorder) Anemia Anxiety Asthma Depression Fracture of ankle, left, closed Fracture of right elbow History of miscarriage Insomnia Migraine POTS (postural orthostatic tachycardia syndrome) Seasonal allergies Subarachnoid hemorrhage Surgical History Surgical History H/O elbow surgery History of delivery History of laparoscopy Family History Family History Mother Depression Heart disease Hypertension Asthma Bipolar 1 disorder Heart attack Grandparent Malignant neoplasm of prostate Can
[2023-12-18 09:20] LABS: EDUAAPPEAR Cloudy; EDUABILI Negative; EDUABLOOD Trace; EDUACOLOR1 Tea Colored; EDUAGLUCOSE Negative; EDUAKETONE Negative; EDUALEUKO 2+; EDUANITRATE Positive; EDUAPH 5.5; EDUAPROTEIN Negative; EDUAUROBILI 0.2
== END 2023-12-18 09:25 | disposition home or self-care (01) ==
PROVIDERS: Emergency Provider Registered Nurse
DX: O23.91 Unspecified genitourinary tract infection in pregnancy, first trimester (principal); B96.20 Unspecified Escherichia coli [E. coli] as the cause of diseases classified elsewhere; Z3A.08 8 weeks gestation of pregnancy; O99.341 Other mental disorders complicating pregnancy, first trimester; F90.9 Attention-deficit hyperactivity disorder, unspecified type; F41.9 Anxiety disorder, unspecified; F32.A Depression, unspecified; O99.511 Diseases of the respiratory system complicating pregnancy, first trimester; J45.909 Unspecified asthma, uncomplicated; O99.891 Other specified diseases and conditions complicating pregnancy; D64.9 Anemia, unspecified
CPT/HCPCS: 81003; 87077; 87086; 87186; 99213; G0463

== ENCOUNTER 2023-12-20 08:22 | Outpatient (CLI) | payer OTHER, SELFPAY ==
--- NOTE | ~2023-12-20 | US_ITS ---
EXAMINATION: US OB <=14 wk fetus w TV DATE: 12/20/2023 09:02 INDICATION: Amenorrhea, unspecified. TECHNIQUE: Real-time transabdominal and transvaginal pelvic ultrasound was performed. COMPARISON: Ultrasound 12/10/2023 FINDINGS: TRANSABDOMINAL ULTRASOUND: The uterus measures 10.0 x 6.0 x 6.6 cm. TRANSVAGINAL ULTRASOUND: There is an intrauterine gestational sac. A yolk sac is identified. The fet al crown rump length measures 1.9 cm, which correlates with an estimated gestational age of 8 weeks a nd 2 day(s) (+/-) 5 day(s). heart motion is identified measuring 162 beats per minute (bpm) by M-mode Doppler. The right ovary measures 2.5 x 2.0 x 2.8 cm. The left ovary measures 2.1 x 1.5 x 1.4 cm. There is no free fluid in the pelvis. IMPRESSION: 1. Single living intrauterine gestation with estimated date of delivery of 07/30/2024 based on the ul trasound from 07/30/2024. Reviewed, dictated and finalized at location [facility]. IMPRESSION: 1. Single living intrauterine gestation with estimated date of delivery of 07/12 based on the ultrasound from 07/30/2024.
== END 2023-12-20 08:23 | disposition home or self-care (01) ==
PROVIDERS: PCP Nurse Practitioner Obstetrics & Gynecology; Visit Provider Nurse Practitioner Obstetrics & Gynecology
DX: N91.2 Amenorrhea, unspecified (principal)
CPT/HCPCS: 76801; 76817

== ENCOUNTER 2024-02-12 10:23 | Outpatient (CLI) | payer OTHER, SELFPAY ==
[2024-02-12 10:47] LABS: Basophils Percent Auto 0.4 % (0.2-1.2); Eosinophils Absolute Auto 0.2 K/mm3 (0-0.3); Eosinophils Percent Auto 2.9 % (0-4.4); Hematocrit 37.2 % (37.0-47.0); Hemoglobin 12.7 g/dL (12.0-15.0); Immature Granulocyte Absolute 0.04 K/mm3 (0.00-0.031); Immature Granulocyte Percent A 0.5 % (0-0.5); Lymphocytes Absolute Auto 2.28 K/mm3 (0.9-3.2); Lymphocytes Percent Auto 27.3 % (18.3-44.2); Mean Corpuscular HGB Conc 34.1 g/dl (32-36); Mean Corpuscular Hemoglobin 30.2 pg (26-34); Mean Corpuscular Volume 88.6 fl (80-100); Mean Platelet Volume 10.6 fl (7.4-10.4); Monocytes Absolute Auto 0.5 K/mm3 (0.1-0.6); Monocytes Percent Auto 5.9 % (2.6-8.5); Neutrophils Absolute Auto 5.3 K/mm3 (1.3-6.7); Platelet Count Result 247 k/mm3 (150-375); Red Cell Distribution Width 13.8 % (11.5-14.5); White Blood Count 8.4 K/mm3 (4.5-10.0)
[2024-02-12 10:55] LABS: Add Urine Microscopic? NO; Appearance Urine Clear (Clear); Bilirubin Urine Negative (Negative); Blood Urine Negative (Negative); Color Urine Yellow (Yellow); Glucose Urine UA Negative (Negative); Ketones Urine Negative (Negative); Leukocyte Esterase Ur Negative LEU/UL (Negative); Nitrate Urine Negative (Negative); Protein Urine Negative (Negative); Specific Grav Ur 1.032 (1.001-1.035); Urobilinogen Urine 0.2 mg/dL (<2.0); pH Urine 5.5 (5.0-9.0)
[2024-02-12 11:38] LABS: HIV 1/2 Ab P24 Ag Result Negative (Negative)
[2024-02-12 11:42] LABS: Hepatitis B Surface Antigen Negative (Negative); Rubella IgG Antibody 11.8 IU/ML
[2024-02-12 11:58] LABS: Hepatitis C Virus Antibody Negative (Negative)
[2024-02-12 18:31] LABS: Rapid Plasma Reagin Non-Reactive (NonReactive)
[2024-02-13 20:54] LABS: Hemoglobin 12.8 g/dL (11.7-15.5); MCH 29.6 pg (27.0-33.0); MCV 92.4 fL (80.0-100.0); RDW 14.1 % (11.0-15.0); Red Blood Cell Count 4.33 Million/uL (3.80-5.10)
== END 2024-02-12 10:24 | disposition home or self-care (01) ==
LOC: ANHLAB 10:24
PROVIDERS: PCP Nurse Practitioner Obstetrics & Gynecology; Visit Provider Obstetrics & Gynecology
DX: Z34.90 Encounter for supervision of normal pregnancy, unspecified, unspecified trimester (principal); Z3A.00 Weeks of gestation of pregnancy not specified
CPT/HCPCS: 36415; 81003; 83021; 85025; 86592; 86703; 86762; 86787; 86803; 86850; 86900; 86901; 87086; 87340; G0432

== ENCOUNTER 2024-04-10 13:43 | Outpatient (CLI) | payer OTHER, SELFPAY ==
[2024-04-10 15:07] LABS: Basophils Percent Auto 0.1 % (0.2-1.2); Eosinophils Absolute Auto 0.3 K/mm3 (0-0.3); Eosinophils Percent Auto 3.7 % (0-4.4); Hematocrit 34.5 % (37.0-47.0); Hemoglobin 11.2 g/dL (12.0-15.0); Immature Granulocyte Absolute 0.04 K/mm3 (0.00-0.031); Immature Granulocyte Percent A 0.5 % (0-0.5); Lymphocytes Absolute Auto 1.71 K/mm3 (0.9-3.2); Lymphocytes Percent Auto 19.9 % (18.3-44.2); Mean Corpuscular HGB Conc 32.5 g/dl (32-36); Mean Corpuscular Hemoglobin 28.2 pg (26-34); Mean Corpuscular Volume 86.9 fl (80-100); Mean Platelet Volume 10.8 fl (7.4-10.4); Monocytes Absolute Auto 0.5 K/mm3 (0.1-0.6); Monocytes Percent Auto 6.2 % (2.6-8.5); Neutrophils Percent Auto 69.6 % (45.5-73.1); Platelet Count Result 203 k/mm3 (150-375); Red Blood Count 3.97 M/mm3 (4.2-5.4); Red Cell Distribution Width 13.1 % (11.5-14.5); White Blood Count 8.6 K/mm3 (4.5-10.0)
[2024-04-10 15:18] LABS: Glucose 1 Hour PP 50gm Dose 135 mg/dL
== END 2024-04-10 13:44 | disposition home or self-care (01) ==
LOC: ANHLAB 13:44
PROVIDERS: PCP Nurse Practitioner Obstetrics & Gynecology; Visit Provider Obstetrics & Gynecology
DX: Z34.90 Encounter for supervision of normal pregnancy, unspecified, unspecified trimester (principal); Z3A.00 Weeks of gestation of pregnancy not specified
CPT/HCPCS: 36415; 82947; 85025

== ENCOUNTER 2024-04-18 07:52 | Outpatient (RCR) | payer OTHER, SELFPAY ==
[2024-04-17 09:47] LABS: Glucose Fasting Gestational 78 mg/dL (>/=95)
[2024-04-17 11:16] LABS: Glucose 1 Hour Gest 128 mg/dL (>/=180)
[2024-04-17 12:18] LABS: Glucose 2 Hour Gest 111 mg/dL (>/= 155)
[2024-04-17 13:17] LABS: Glucose 3 Hour Gest 105 mg/dL (>/=140)
[2024-04-18] MEDS: RHO(D) IMMUNE GLOBULIN 300 MCG/2 ML SYRINGE IM (14:35)
== END 2024-04-18 08:00 | disposition home or self-care (01) ==
LOC: ANHLAB 07:52
PROVIDERS: PCP Nurse Practitioner Obstetrics & Gynecology; Visit Provider Nurse Practitioner Family
DX: Z34.90 Encounter for supervision of normal pregnancy, unspecified, unspecified trimester (principal); Z3A.00 Weeks of gestation of pregnancy not specified
CPT/HCPCS: 36415; 82951; 82952; 85461; 86850; 86900; 86901; 90384; 96372; J2790

== ENCOUNTER 2024-07-21 09:14 | Outpatient (CLI) | payer OTHER, SELFPAY ==
[2024-07-21 09:47] LABS: Basophils Percent Auto 0.4 % (0.2-1.2); Eosinophils Absolute Auto 0.1 K/mm3 (0-0.3); Eosinophils Percent Auto 0.8 % (0-4.4); Hematocrit 32.5 % (37.0-47.0); Hemoglobin 9.5 g/dL (12.0-15.0); Immature Granulocyte Absolute 0.12 K/mm3 (0.00-0.031); Immature Granulocyte Percent A 1.5 % (0-0.5); Lymphocytes Absolute Auto 1.64 K/mm3 (0.9-3.2); Lymphocytes Percent Auto 19.9 % (18.3-44.2); Mean Corpuscular HGB Conc 29.2 g/dl (32-36); Mean Corpuscular Hemoglobin 22.4 pg (26-34); Mean Corpuscular Volume 76.7 fl (80-100); Mean Platelet Volume 10.6 fl (7.4-10.4); Monocytes Absolute Auto 0.6 K/mm3 (0.1-0.6); Monocytes Percent Auto 7.8 % (2.6-8.5); Neutrophils Absolute Auto 5.7 K/mm3 (1.3-6.7); Neutrophils Percent Auto 69.6 % (45.5-73.1); Platelet Count Result 186 k/mm3 (150-375); Red Blood Count 4.24 M/mm3 (4.2-5.4); Red Cell Distribution Width 17.1 % (11.5-14.5); White Blood Count 8.2 K/mm3 (4.5-10.0)
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
--- OUTSIDE RECORDS SUMMARY | 2024-07-21 09:57 | XMS_ITS | Clinical Summary ---
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 Name Role Phone Unavailable Primary Care Provider Unavailabl e Encounters Date Type Department Care Team Description 07/07/2024 External Device Data STL ABSTRACTION Provider, Abstract 07/01/2024 External Device Data [facility] ABSTRACTION Provider, Abstract 07/01/2024 External Device Data [facility] ABSTRACTION Provider, Abstract 06/22/2024 4:00 PM SPEECH LANGUAGE PATHOLOGY ASSISTANT - 06/22/2024 11:59 PM SPEECH LANGUAGE PATHOLOGY ASSISTANT Hospital Encounter [facility] and [facility] [address] [place] [address] Polo Mcintosh MD Discharge Disposition: Home or Self Care from Last 3 Months Social History Tobacco Use Types Packs/Day Years Used Date Smoking Tobacco: Never Assessed Comments Unknown Sex and Gender Information Value Date Recorded Sex Assigned at Not on file Legal Sex Female 2:17 PM CDT Gender Identity Not on file Sexual Orientation Not on file Plan of Treatment Health Maintenance Due Date Last Done Comments DTAP/TDAP/TD VACCINES (1 - Tdap) 01/29/2015 HEPATITIS B VACCINES (1 of 3 - 19+ 3-dose series) 01/29/2015 Preventative Visit-Managed Medicaid 01/29/2015 CERVICAL CANCER SCREENING 01/29/2017 INFLUENZA VACCINE (#1) 2024 HPV VACCINES Aged Out No longer eligi ble based on patient's age to complete this topic PNEUMOCOCCAL VACCINE 0-64 YEARS Aged Out No longer eligible based on patient's age to complete this topic Procedures Procedure Name Priority Date/Time Associated Diagnosis Comments US OB FOLLOW UP PER FETUS Routine 06/22/2024 5:05 PM SPEECH LANGUAGE PATHOLOGY ASSISTANT Encounter for ultrasound to assess anatomy and growth in twin , antepartum Obesity during , antepartum from Last 3 Months Results * US OB FOLLOW UP PER FETUS (06/22/2024 5:05 PM SPEECH LANGUAGE PATHOLOGY ASSISTANT) Anatomical Region Laterality Modality Pelvis Ultrasound 06/22/2024 4:28 PM SPEECH LANGUAGE PATHOLOGY ASSISTANT Narrative 06/22/2024 5:09 PM SPEECH LANGUAGE PATHOLOGY ASSISTANT STL FOLLOW UP ----- Pat. Name: FAUSTINA LUNDBERG Study Date: 06/22/2024 4:28pm Pat. NO: [id number] Referring MD: POLO MCINTOSH MD Site: [facility]ist: Fernanda Craig RDMS : 1995 Age: 29 ----- INDICATION ----- Screening Follow-Up Bipolar Disease Maternal Care for Low Transverse Scar from Previous Delivery (Previous ) Maternal Obesity (BMI<40) Complicating CODING ----- Diagnoses Z3A.34: Weeks of gestation O34.211: Maternal care for low transverse scar from previous delivery O99.343: Other mental disorders complicating Z36.3: Encounter for screening for malformations Z3A.34: Weeks of gestation O99.213: Obesity complicating O99.343: Other mental disorders complicating Z3A.34: Weeks of gestation O99.213: Obesity complicating O99.343: Other mental disorders complicating Z36.2: Encounter for other screening follow-up Procedures [id number]: Ultrasound, uterus, real time with image documentation, follow up, transabdominal approach per fetus HISTORY ----- OB History 4. Para 2 T2A1L2 METHOD ----- Transabdominal ultrasound examination ----- Weaver . Number of fetuses: 1 DATING ----- Cycle: regular cycle GA by prior assessment 34 w + 6 d LOUIE by prior assessment: 07/28/2024 Ultrasound examination on: 06/22/2024 GA by U/S based upon: AC, BPD, EFW, Femur, HC GA by U/S 35 w + 6 d LOUIE by U/S: 07/21/2024 Method of dating: Restore dating from previous exam Assigned: based on stated LOUIE, selected on 03/09/2024 Assigned GA 34 w + 6 d Assigned LOUIE: 07/28/2024 BIOMETRY ----- BPD 89.4 mm 36w 1d 85% Hadlock OFD 114.5 mm 39w 4d 98% Yessica HC 325.0 mm 36w 6d 65% Hadlock AC 313.2 mm 35w 2d 68% Hadlock Femur 68.9 mm 35w 3d 56% Hadlock HC / AC 1.04 54% Nicolaides Weight Calculation: EFW 2,706 g 35w 4d 66% Hadlock EFW (lb,oz) 5 lb 15 oz EFW by Hadlock ([id number]) Head / Face / Neck Biometry: Kineseologist 2.2 mm Extremities / Bony Struc Biometry: FL / BPD 0.77 FL / HC 0.21 FL / AC 0.22 GENERAL EVALUATION ----- Cardiac activity present. FHR 135 bpm. movements: present. Presentation: cephalic Placenta: Placental site: posterior Umbilical cord: Cord vessels: 3 vessel cord. Insertion site: placental insertion: normal Amniotic fluid: Amount of AF: normal amount. MVP 3.8 cm. MARIAH 13.5 cm. Q1 2.7 cm, Q2 3.7 cm, Q3 3.8 cm, Q4 3.4 cm ANATOMY ----- The following structures appear normal: Head / Neck Cranium. Lateral ventricles. Choroid plexus. Midline falx. Cavum septi pellucidi. Cerebellum. Cisterna magna. Heart / Thorax Diaphragm. Abdomen Stomach. Kidneys. Bladder. GROWTH OVERVIEW ----- Exam date GA BPD (mm) HC (mm) AC (mm) FL (mm) HL (mm) EFW (g) 03/09/2024 19w 6d 46.0 52% 173.6 44% 151.1 61% 33.1 61% 32.9 90% 344 69% 04/13/2024 24w 6d 60.5 34% 235.6 57% 201.3 38% 45.8 47% 757 46% 06/22/2024 34w 6d 89.4 85% 325.0 65% 313.2 68% 68.9 56% 2,706 66% COMMENT ----- Patient's name and date of were verified by the asbestos remover prior to the exam IMPRESSION ----- -Single living fetus with a gestational age of 34w 6d based on the reported dates. -cephalic presentation. -The EFW is 2706 g which is at the 66%. The abdominal circumference is at the 68%. -Unremarkable limited anatomy noted to extent of ultrasound views. -The amniotic fluid is normal for gestational age. (MARIAH of 13.5 cm, MVP of 3.8 cm) -The placenta is posterior Further sonogram follow up as clinically indicated Thank you for allowing us to participate in the care of this patient. Procedure Note Alice Naylor MD - 06/22/2024 STL FOLLOW UP ----- Pat. Name:Caleb LUNDBERG Date:06/22/2024 4:28pm Pat. NO: [id number] MD:POLO MCINTOSH MD [facility] [facility]:Fernanda Craig RDMS :1995Age:29 ----- INDICATION ----- Screening Follow-Up Bipolar Disease Maternal Care for Low Transverse Scar from Previous Delivery (Previous ) Maternal Obesity (BMI<40) Complicating CODING ----- Diagnoses Z3A.34: Weeks of gestation O34.211: Maternal care for low transverse scarfrom previous delivery O99.343: Other mental disorders complicatingpregnancy Z36.3: Encounter for screening formalformations Z3A.34: Weeks of gestation O99.213: Obesity complicating O99.343: Other mental disorders complicatingpregnancy Z3A.34: Weeks of gestation O99.213: Obesity complicating O99.343: Other mental disorders complicatingpregnancy Z36.2: Encounter for other screeningfollow-up Procedures [id number]: Ultrasound, uterus, real time withimage documentation, follow up, transabdominal approach per fetus HISTORY ----- OB History 4. Para 2 T2A1L2 METHOD ----- Transabdominal ultrasound examination ----- Weaver . Number of fetuses: 1 DATING ----- Cycle:regular cycle GA by prior [id number] w + 6 d LOUIE by prior assessment:07/28/2024 Ultrasound examination on:06/22/2024 GA by U/S based upon:AC, BPD, EFW, Femur, HC GA by U/S35 w + 6 d LOUIE by U/S:07/21/2024 Method of dating:Restore dating from previous exam Assigned:based on stated LOUIE, selected on 03/09/2024 Assigned GA34 w + 6 d Assigned LOUIE:07/28/2024 BIOMETRY ----- BPD 89.4 mm 36w 1d 85%Hadlock OFD 114.5 mm 39w 4d 98%Yessica HC 325.0 mm 36w 6d 65%Hadlock AC 313.2 mm 35w 2d 68%Hadlock Femur 68.9 mm 35w 3d 56%Hadlock HC / AC 1.04 54%Nicolaides Weight Calculation: EFW 2,706 g 35w 4d66% Hadlock EFW (lb,oz) 5 lb 15 oz EFW by Selena ([id number]) Head / Face / Neck Biometry: Kineseologist 2.2mm Extremities / Bony Struc Biometry: FL / BPD 0.77 FL / HC 0.21 FL / AC 0.22 GENERAL EVALUATION ----- Cardiac activity present. FHR 135 bpm. movements: present.Presentation: cephalic Placenta: Placental site: posterior Umbilical cord: Cord vessels: 3 vessel cord. Insertion site: placentalinsertion: normal Amniotic fluid: Amount of AF: normal amount. MVP 3.8 cm. MARIAH 13.5 cm. Q12.7 cm, Q2 3.7 cm, Q3 3.8 cm, Q4 3.4 cm ANATOMY ----- The following structures appear normal: Head / Neck Cranium. Lateral ventricles. Choroid plexus.Midline falx. Cavum septi pellucidi. Cerebellum. Cisterna magna. Heart / Thorax Diaphragm. Abdomen Stomach. Kidneys. Bladder. GROWTH OVERVIEW ----- Exam date GA BPD (mm) HC (mm) AC (mm) FL(mm) HL (mm) EFW (g) 03/09/2024 19w 6d 46.0 52% 173.6 44% 151.1 61%33.1 61% 32.9 90% 344 69% 04/13/2024 24w 6d 60.5 34% 235.6 57% 201.3 38%45.8 47% 757 46% 06/22/2024 34w 6d 89.4 85% 325.0 65% 313.2 68%68.9 56% 2,706 66% COMMENT ----- Patient's name and date of were verified by the asbestos remover prior tothe exam IMPRESSION ----- -Single living fetus with a gestational age of 34w 6d based on thereported dates. -cephalic presentation. -The EFW is 2706 g which is at the 66%. The abdominal circumference is atthe 68%. -Unremarkable limited anatomy noted to extent of ultrasound views. -The amniotic fluid is normal for gestational age. (MARIAH of 13.5 cm, MVP of3.8 cm) -The placenta is posterior Further sonogram follow up as clinically indicated Thank you for allowing us to participate in the care of this patient. us Polo Elizabeth MD ORDERABLES Final Result from Last 3 Months Insurance [employer]
--- OUTSIDE RECORDS SUMMARY | 2024-07-21 09:58 | XMS_ITS | Patient Health Record ---
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 11/26/2023 examinatio n or test, positive result (ICD-10 - Z32.01) 07/15/2024 Medication managemen t (ICD-10 - Z79.899) May self-administer medications or be administered own oral medications per [facility] protocols. Provided informed consent with understanding of side effects, adverse effects, risks and benefits as well as alternative treatments as previously discussed and with the above recommended medications & other aspects of the treatment program. Agrees to return sooner if symptoms worsen or suicidal or homicidal ideations occur. 11/26/2023 Hypercholesterolemia (ICD-10 - E78.00) 11/26/2023 Dorsalgia (ICD-10 - M54.9) 11/26/2023 Constipation (ICD-10 - K59.00) 11/26/2023 (ICD-10 - Z33.1) SEE FRANSISCO, OB, ENMANUEL DUE TO GLYCOSURIA 11/26/2023 UTI (urinary tract infection) (ICD-10 - N39.0) STOP CIPRO NOT SAFE DURING . NO SIGN OF INFECTION TODAY. 11/26/2023 Glucosuria (ICD-10 - R81) 07/23/2023 Other Continue couples counseling as scheduled. May self-administer medications or be administered own oral medications per [facility] protocols. Provided informed consent with understanding of side effects, adverse effects, risks and benefits as well as alternative treatments as previously discussed and with the above recommended medications & other aspects of the treatment program. Agrees to return sooner if symptoms worsen or suicidal or homicidal ideations occur. 08/06/2023 Other Continue psychotherapy as scheduled. May self-administer medications or be administered own oral medications per [facility] protocols. Provided informed consent with understanding of side effects, adverse effects, risks and benefits as well as alternative treatments as previously discussed and with the above recommended medications & other aspects of the treatment program. Agrees to return sooner if symptoms worsen or suicidal or homicidal ideations occur. 08/21/2023 Other Continue psychotherapy as scheduled. May self-administer medications or be administered own oral medications per [facility] protocols. Provided informed consent with understanding of side effects, adverse effects, risks and benefits as well as alternative treatments as previously discussed and with the above recommended medications & other aspects of the treatment program. Agrees to return sooner if symptoms worsen or suicidal or homicidal ideations occur. 09/18/2023 Other Continue psychotherapy as scheduled. May self-administer medications or be administered own oral medications per [facility] protocols. Provided informed consent with understanding of side effects, adverse effects, risks and benefits as well as alternative treatments as previously discussed and with the above recommended medications & other aspects of the treatment program. Agrees to return sooner if symptoms worsen or suicidal or homicidal ideations occur. 10/01/2023 Other Continue psychotherapy as scheduled. May self-administer medications or be administered own oral medications per [facility] protocols. Provided informed consent with understanding of side effects, adverse effects, risks and benefits as well as alternative treatments as previously discussed and with the above recommended medications & other aspects of the treatment program. Agrees to return sooner if symptoms worsen or suicidal or homicidal ideations occur. 10/08/2023 Other Continue psychotherapy as scheduled. May self-administer medications or be administered own oral medications per [facility] protocols. Provided informed consent with understanding of side effects, adverse effects, risks and benefits as well as alternative treatments as previously discussed and with the above recommended medications & other aspects of the treatment program. Agrees to return sooner if symptoms worsen or suicidal or homicidal ideations occur. 10/22/2023 Other Continue psychotherapy as scheduled. May self-administer medications or be administered own oral medications per [facility] protocols. Provided informed consent with understanding of side effects, adverse effects, risks and benefits as well as alternative treatments as previously discussed and with the above recommended medications & other aspects of the treatment program. Agrees to return sooner if symptoms worsen or suicidal or homicidal ideations occur. 11/06/2023 Other Continue psychotherapy as scheduled. May self-administer medications or be administered own oral medications per [facility] protocols. Provided informed consent with understanding of side effects, adverse effects, risks and benefits as well as alternative treatments as previously discussed and with the above recommended medications & other aspects of the treatment program. Agrees to return sooner if symptoms worsen or suicidal or homicidal ideations occur. 11/15/2023 Other Continue psychotherapy as scheduled. May self-administer medications or be administered own oral medications per [facility] protocols. Provided informed consent with understanding of side effects, adverse effects, risks and benefits as well as alternative treatments as previously discussed and with the above recommended medications & other aspects of the treatment program. Agrees to return sooner if symptoms worsen or suicidal or homicidal ideations occur. 11/29/2023 Other Continue psychotherapy as scheduled. May self-administer medications or be administered own oral medications per [facility] protocols. Provided informed consent with understanding of side effects, adverse effects, risks and benefits as well as alternative treatments as previously discussed and with the above recommended medications & other aspects of the treatment program. Agrees to return sooner if symptoms worsen or suicidal or homicidal ideations occur. 12/18/2023 Other Continue psychotherapy as scheduled. May self-administer medications or be administered own oral medications per [facility] protocols. Provided informed consent with understanding of side effects, adverse effects, risks and benefits as well as alternative treatments as previously discussed and with the above recommended medications & other aspects of the treatment program. Agrees to return sooner if symptoms worsen or suicidal or homicidal ideations occur. Hyperemesis gravidarum - [icd10: o21.0] - the patient is advised to continue taking her prescribed medications, including zofran, vitamin b6, and unisom. she should also ensure she stays hydrated and eats small, frequent meals. she should avoid triggers of nausea and vomiting, such as certain smells or foods. she should seek immediate medical attention if she is unable to keep anything down, if her symptoms worsen, or if she experiences severe abdominal pain or bleeding. Dehydration - [icd10: e86.0] - the patient should ensure she stays hydrated by drinking plenty of fluids. she should also avoid triggers of dehydration, such as excessive heat or strenuous exercise. she should seek immediate medical attention if she experiences symptoms of severe dehydration, such as extreme thirst, dark urine, or dizziness. Depression - [icd10: f32] - the patient should continue meeting with her counselor weekly. she should also consider joining a support group or seeking a mentor at her restoration. she should seek immediate medical attention if she experiences thoughts of self-harm or suicide. Anxiety - [icd10: f41] - the patient should continue meeting with her counselor weekly. she should also consider joining a support group or seeking a mentor at her restoration. she should seek immediate medical attention if her anxiety becomes unmanageable or if she experiences panic attacks. Urinary tract infection - [icd10: n39.0] - the patient should continue taking her prescribed medication for the uti. she should also ensure she stays hydrated and urinates regularly. she should seek immediate medical attention if her symptoms worsen or if she experiences severe abdominal pain or blood in her urine. 01/27/2024 Other Continue psychotherapy as scheduled. May self-administer medications or be administered own oral medications per [facility] protocols. Provided informed consent with understanding of side effects, adverse effects, risks and benefits as well as alternative treatments as previously discussed and with the above recommended medications & other aspects of the treatment program. Agrees to return sooner if symptoms worsen or suicidal or homicidal ideations occur. 02/19/2024 Other Continue curren t medications. Continue services as scheduled. Labs completed recently. May self-administer medications or be administered own oral medications per [facility] protocols. Provided informed consent with understanding of side effects, adverse effects, risks and benefits as well as alternative treatments as previously discussed and with the above recommended medications & other aspects of the treatment program. Agrees to return sooner if symptoms worsen or suicidal or homicidal ideations occur. 03/05/2024 Other May self-administer medications or be administered own oral medications per [facility] protocols. Provided informed consent with understanding of side effects, adverse effects, risks and benefits as well as alternative treatments as previously discussed and with the above recommended medications & other aspects of the treatment program. Agrees to return sooner if symptoms worsen or suicidal or homicidal ideations occur. 03/24/2024 Other Continue psychotherapy as scheduled. May self-administer medications or be administered own oral medications per [facility] protocols. Provided informed consent with understanding of side effects, adverse effects, risks and benefits as well as alternative treatments as previously discussed and with the above recommended medications & other aspects of the treatment program. Agrees to return sooner if symptoms worsen or suicidal or homicidal ideations occur. 04/07/2024 Other May self-administer medications or be administered own oral medications per [facility] protocols. Provided informed consent with understanding of side effects, adverse effects, risks and benefits as well as alternative treatments as previously discussed and with the above recommended medications & other aspects of the treatment program. Agrees to return sooner if symptoms worsen or suicidal or homicidal ideations occur. 04/21/2024 Other Continue psychotherapy as scheduled. May self-administer medications or be administered own oral medications per [facility] protocols. Provided informed consent with understanding of side effects, adverse effects, risks and benefits as well as alternative treatments as previously discussed and with the above recommended medications & other aspects of the treatment program. Agrees to return sooner if symptoms worsen or suicidal or homicidal ideations occur. Plan Of Treatment No Information Insurance Providers Payer Name Payer Address Payer Phone Subscriber Number Group Number Insured Name Patient Relationship to Insured Coverage Start Date Coverage End Date [facility] [employer] [facility] Att Claims Department [address] [place] [address] [phone] [id number] Faustina Hoffman Self - patient is the insured 1 [employer] [facility] Claims Department [address] [place] [address] [phone] [id number] Faustina Hoffman Self - patient is the insured 1 Medical (General) History Medical History History ICD Code POTS syndrome asthma multiple concussions throughout life nausea/vomiting diarrhea/constipation Surgical History Surgery Date(Month/Year) C section- 12/2021, 10/2017 Hospitalization History Reason Date(Month/Year) Hospital stays for of children in 2017 and 2021
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
[2024-07-21 10:36] LABS: HIV 1/2 Ab P24 Ag Result Negative (Negative)
[2024-07-21 11:05] LABS: Anisocytosis 1+; Hypochromasia 1+; Platelet Estimate Adequate (Adequate)
[2024-07-21 11:06] LABS: Schistocytes None Seen
[2024-07-21 13:33] LABS: Rapid Plasma Reagin Non-Reactive (NonReactive)
== END 2024-07-21 09:15 | disposition home or self-care (01) ==
LOC: ANHLAB 09:16
PROVIDERS: Visit Provider Obstetrics & Gynecology
DX: Z01.818 Encounter for other preprocedural examination (principal)
CPT/HCPCS: 36415; 85025; 86592; 86703; 86850; 86900; 86901; G0432

== ENCOUNTER 2024-07-22 09:10 | Inpatient (IN) | payer OTHER, SELFPAY ==
[2024-07-22] VITALS (56 sets, daily range): BP systolic 72–123; BP diastolic 41–78; PULSE 64–120; RESP 14–20; TEMP 36.4–36.7; O2SAT 85–100; BMI 30.2
--- OUTSIDE RECORDS SUMMARY | 2024-07-22 00:28 | XMS_ITS ---
Author Organization [facility] Address [address] [place] [address] Care Team Providers Care Fellmongery Worker Name Role Phone Bert Gómez Primary Care Provider [phone] Stephanie Novoa [phone] Allergies Allergen (clinical drug ingredient) Drug/Non Drug Allergy documented on EMR Reaction Allergy Type Onset Date Status amoxicillin Amoxicillin Unknown Drug Allergy Act nelsy codeine Codeine Sulfate Unknown Drug Allergy A ctive PENICILLIN Unknown Drug Allergy Active fentanyl Fentanyl Unknown Drug Allergy Active Tree Nuts Unknown Allergy Active REASON FOR VISIT 2 Week F/U Medications Medication SIG (Take, Route, Frequency, Duration) Notes Start Date End Date Status Folic Acid 1 MG TAKE 1 TABLET BY SANGEETHA EVERY DAY for 30 Active Famotidine 20 MG 1 tablet at bedtime as needed Orally Once a day for 30 days As needed HEARTBURN Active Venlafaxine HCl ER 75 MG 1 capsule with food (total 225 mg) Orally Once a day for 30 days 04/21/2024 Active Fluticasone Propionate 50 MCG/ACT 2 SPRAYS DAILY EACH NOSTRIL Nasally at night 03/02/2024 Active Cetirizine HCl 10 MG 1 tablet as needed Orally Once a day for 30 days 03/02/2024 Active QUEtiapine Fumarate 50 MG 0.5 - [...] hrs As needed SHORT OF BREATH Active Venlafaxine HCl ER 150 MG 1 capsule with food (total 225 mg) Orally Once a day for 30 days Active Melatonin 5 MG 1-2 tablets at bedti me as needed with food Orally Once a day for 30 days Active Fludrocortisone Acetate 0.1 MG 1 tablet Orally Once a day Unknown Budesonide-Formoterol Fumarate 160-4.5 MCG/ACT 2 PUFFS Inhalation DAILY 11/26/2023 Unknown Social History Sex Assigned At : Social History Observation Description Sex Assigned At Female Encounters Encounter Location Date Provider Diagnosis [address] [address] 04/21/2024 Stephanie Novoa PTSD (post-traumatic stress disorder) F43.10 ; MDD (major depressive disorder) F32.9 ; VIVIAN (generalized anxiety disorder) F41.1 ; Z33.1 and Sleep disturbances G47.9 Assessments Encounter Date Diagnosis (ICD Code) Assessment Notes Treatment Notes Treatment Clinical Notes Section Notes 04/21/2024 PTSD (post-traumatic stress disorder) (ICD-10 - F43.10) Continue psychotherapy as scheduled. 04/21/2024 MDD (major depressive disorder) (ICD-10 - F32.9) Sertraline and citalopram not effective for depression and anxiety. 04/21/2024 VIVIAN (generalized anxiety disorder) (ICD-10 - F41.1) Take venlafaxine as prescribed. 04/21/2024 (ICD-10 - Z33.1) Follow all recommendations of OB physician. 04/21/2024 Sleep disturbances (ICD-10 - G47.9) 04/21/2024 Other Continue psychotherapy as scheduled. May self-administer medications or be administered own oral medications per [facility] protocols. Provided informed consent with understanding of side effects, adverse effects, risks and benefits as well as alternative treatments as previously discussed and with the above recommended medications & other aspects of the treatment program. Agrees to return sooner if symptoms worsen or suicidal or homicidal ideations occur. Plan Of Treatment Medication Medication Name Sig Start Date Stop Date Notes Venlafaxine HCl ER 75 MG 1 capsule with food (total 225 mg) Orally Once a day for 30 days 04/21/2024 QUEtiapine Fumarate 50 MG 0.5 - 1 [...] Follow all recommend ations of OB physician. Other Continue psychotherapy as scheduled. May self-administer medications or be administered own oral medications per [facility] protocols. Provided informed consent with understanding of [...] Follow-up & Medication Management Progress Notes * Idalia DONATOYosefOB: [birth year] (29 yo F)Acc No.[id number]:04/21/2024 Patient: Faustina TIRADO Provider: Blanca Novoa DNP, DRY KILN LOADER, PMHNP- :1995 A ge:29 Y S ex:Female Date:04/21/2024 Address[id number] Pcp:Bert Gómez Check In:02:08 PM ORDER PACKER Subjective: * Chief Complaints: * 2 Week F/U * HPI: D epression Screening: PHQ-9 L ittle interest or pleasure in doing things?Several days F eeling down, depressed, or hopeless S everal days T rouble falling or staying asleep, or sleeping too much N ot at all F eeling tired or having little energy S everal days P oor appetite or overeating N ot at all F eeling bad about yourself or that you are a failure, or have let yourself or your family down S everal days T rouble concentrating on things, such as [...] or of hurting yourself in some way S everal days (Consider Suicide Assessment Risk) T otal Score 5 I nterpretation M ild Depression S creening: [place] Suicide Severity Rating Scale (LF) D o [...] sleep and not wake up? N o - Denies any currently, was having passive, intrusive SI last week. C SSRS Interpretation and Follow Up Plan: CSSRS Interpretation and Follow Up Plan C SSRS Screen documented using SF Y es M oderate or High risk requires selection of a follow up plan C SSRS No/Low: intervention not needed at this time P sych F/U: 28-year-old female client presents for follow-up psychiatric and medication management appointment. Client is being followed for the management of MDD and PTSD. She has a history of ADHD and being on Vyvanse but is not currently on ADHD medications. Client is amenable to appointment today. Client is currently at 26 weeks gestation in her . The patient, a 29-year-old female, has been experiencing anxiety and depression. She reported feeling better after her Venlafaxine dosage was increased to 150 mg. She rated her depression at 2 and her anxiety at 8 out of 10 at its highest. Rates anger/irritability at 5-6/10. She has been sleeping better after starting Quetiapine. She also mentioned being more patient with her children. She reported that her appetite is out of whack and she mostly snacks throughout the day with one large meal a day. She denied having any suicidal or homicidal thoughts. No reports or observations of psychotic symptoms/behaviors, manic behaviors, obsessive/compulsive behaviors or trauma/PTSD. She reported no substance use and no new medical concerns. She confirmed that she is still in therapy. * ROS: P sych ROS: Constitutional A ll systems negative unless indicated otherwise, No recent illness reported. R espiratory H x of A sthma. C ardiovascular P OTS Syndrome . G I R eports nausea/vomiting. G U C urrently . 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 MOOD: d ysthymic, anxious, irritable - but overall getting better. SPEECH: c lear , normal/R/V/R. PSYCHOMOTOR ACTIVITY: [...] a day, 30 days, 30, Refills 0; S tart Venlafaxine HCl ER Capsule Extended Release 24 [...] for sleep, 30 days, 30, Refills 0. 6. O thers Notes: Continue psychotherapy as scheduled. May self-administer medications or be administered own oral medications per [facility] protocols. Provided informed consent with understanding of [...] Psychiatric Follow-up & Medication Management) * * R PACKER Sign off status: Completed true * Provider: Blanca Novoa, JACINTA, DRY KILN LOADER, PMHNP-BC Date: 1 06/21/2023 Generated for Printing/Faxing/eTransmitting on: 0 07/22/2024 12:27 AM ORDER PACKER History and Physical Notes * HPI (History of Present Illness) Category Sub-Category Detail Notes Category Not es Depression Screening PHQ-9 Little inte rest or pleasure in doing things: Several days Feeling down, depressed, or hopeless: Se veral days Trouble falling or staying asleep, or sl eeping too much: Not at all Feeling tired or having little energy: S everal days Poor appetite or overeating: Not at all Feeling bad about yourself o r that you are a failure, or have let yourself or your family down: Several days Trouble concentrating on thi ngs, such as [...] or of hurting yourself in some way: Several days (Consider Suicide Assessment Risk) Total Score: 5 Interpretation: Mild Depression Psych F/U 28-year-old female client presents for follow-up psychiatric and medication management appointment. Client is being followed for the management of MDD and PTSD. She has a history of ADHD and being on Vyvanse but is not currently on ADHD medications. Client is amenable to appointment today. Client is currently at 26 weeks gestation in her . The patient, a 29-year-old female, has been experiencing anxiety and depression. She reported feeling better after her Venlafaxine dosage was increased to 150 mg. She rated her depression at 2 and her anxiety at 8 out of 10 at its highest. Rates anger/irritability at 5-6/10. She has been sleeping better after starting Quetiapine. She also mentioned being more patient with her children. She reported that her appetite is out of whack and she mostly snacks throughout the day with one large meal a day. She denied having any suicidal or homicidal thoughts. No reports or observations of psychotic symptoms/behaviors, manic behaviors, obsessive/compulsive behaviors or trauma/PTSD. She reported no substance use and no new medical concerns. She confirmed that she is still in therapy. Screening [place] Suicide Severity Rating Scale (LF) Do you [...] to sleep and not wake up?: No - Denies any currently, was having passive, intrusive SI last week. Do Not Use CSSRS Interpretation and Follow Up Plan CSSRS Interpretation and Follow Up Plan CSSRS Screen documented using SF: Yes Moderate or High risk requir es selection of a follow up plan: CSSRS No/Low: intervention not needed at this time Examination Category Sub-Category Detail Notes Category Not [...] - t elephone appointment, verbally full MOOD: dysthymic, anxious, irritable - but overall getting better SPEECH: clear , normal/R/V/R INSIGHT: fair JUDGEMENT: fair THOUGHT PROCESS: linear, goal-directe d THOUGHT CONTENT: unremarkable PERCEPTUAL DISORDERS: no perceptual diso rder noted CURRENT SUICIDALITY: denies CURRENT HOMICIDALITY: none INTELLIGENCE (estimate): average
--- OUTSIDE RECORDS SUMMARY | 2024-07-22 00:28 | XMS_ITS ---
Author Organization [facility] Address [address] [place] [address] Care Team Providers Care Map Editor Name Role Phone Bert Gómez Primary Care Provider [phone] Stephanie Novoa [phone] Allergies Allergen (clinical drug ingredient) Drug/Non Drug [...] Female Encounters Encounter Location Date Provider Diagnosis [address] [address] 07/15/2024 Stephanie Novoa PTSD (post-traumatic stress disorder) [...] or be administered own oral medications per [place] protocols. Provided informed consent with understanding of [...] or be administered own oral medications per [place] protocols. 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 D enies substance use. 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 Denies substance use. Denies any medical concerns at this time. Client is not currently engaged in individual therapy services. Screening Mora Suicide Severity Rating Scale (LF) Do you [...]
--- OUTSIDE RECORDS SUMMARY | 2024-07-22 00:28 | XMS_ITS | Clinical Summary ---
Author Organization [facility] Address [address] [place] [id number] Phone Care Team Providers Care Creative Services Designer Name Role Phone Unavailable Primary Care Provider Unavailabl e Encounters Date Type Department Care Team Description 07/07/2024 External Device Data [facility] ABSTRACTION Provider, Abstract 07/01/2024 External Device Data [facility] ABSTRACTION Provider, Abstract 07/01/2024 External Device Data [facility] ABSTRACTION Provider, Abstract 06/22/2024 4:00 PM MANAGER PAYMENT - 06/22/2024 11:59 PM MANAGER PAYMENT Hospital Encounter [facility] [address] [place] [address] Polo Mcintosh MD Discharge Disposition: [...] UP PER FETUS Routine 06/22/2024 5:05 PM MANAGER PAYMENT Encounter for ultrasound to assess anatomy and growth in twin , antepartum Obesity during , antepartum from Last 3 Months Results * US OB FOLLOW UP PER FETUS (06/22/2024 5:05 PM MANAGER PAYMENT) Anatomical Region Laterality Modality Pelvis Ultrasound 06/22/2024 4:28 PM MANAGER PAYMENT Narrative 06/22/2024 5:09 PM MANAGER PAYMENT STL FOLLOW UP ----- Pat. Name: FAUSTINA LUNDBERG Study Date: 06/22/2024 4:28pm Pat. NO: [id number] Referring MD: POLO MCINTOSH MD Site: [facility] Lab Technician: Fernanda Craig RDMS : 1995 Age: 29 [...] Z36.2: Encounter for other screening follow-up Procedures 89384: Ultrasound, uterus, real time with image documentation, [...] 5 lb 15 oz EFW by [employer] ([id number]) Head / Face / Neck Biometry: Instructional Technology Coordinator 2.2 mm Extremities / Bony Struc Biometry: [...] and date of were verified by the package liner prior to the exam IMPRESSION ----- -Single [...] Pat. Name:Caleb LUNDBERG Date:06/22/2024 4:28pm Pat. NO: [id number] MD:POLO MCINTOSH [facility]Fernanda Craig RDMS :1995Age:29 ----- INDICATION ----- [...] complicatingpregnancy Z36.2: Encounter for other screeningfollow-up Procedures [id number]: Ultrasound, uterus, real time withimage documentation, follow up, transabdominal approach per fetus HISTORY ----- OB History 4. Para 2 T2A1L2 METHOD ----- Transabdominal ultrasound examination ----- Weaver . Number of fetuses: 1 DATING ----- Cycle:regular cycle GA by prior w + 6 d LOUIE by prior [...] (lb,oz) 5 lb 15 oz EFW by eSlena ([id number]) Head / Face / Neck Biometry: Instructional Technology Coordinator 2.2mm Extremities / Bony Struc Biometry: FL [...] and date of were verified by the package liner prior tothe exam IMPRESSION ----- -Single living [...]
[2024-07-22] MEDS: ACETAMINOPHEN 500 MG TABLET 1000 MG PO (10:44)
[2024-07-22] MEDS: LACTATED RINGERS 1,000 ML 125 ML IV CONT ×2 (10:45→12:02)
[2024-07-22 10:51] LABS: Rapid Plasma Reagin Non-Reactive (NonReactive)
[2024-07-22 11:08] LABS: HIV 1/2 Ab P24 Ag Result Negative (Negative)
--- NOTE | 2024-07-22 12:06 | PM.IMHP ---
H&P: HPI History of Present Illness Date/Time: 07/22/24 12:06 Chief Complaint: Elective section Narrative: patient is a 29-year-old at 39 weeks with an EDC of 07/28/2024. She is admitted for elective repeat section and also sterilization due to satisfied parity and request sterilization. History significant for 2 prior C-sections. course also significant for history of anxiety and depression. She is under the care of a psychiatrist and is doing well on her medication. She is also in counseling. She has been counseled regarding nonpermanent options of contraception and risks benefits of those options to include vasectomy and continues to request permanent sterilization. she has been counseled regarding risks benefits of repeat section and also sterilization procedure. Review of Systems Review of Systems: All systems reviewed & are unremarkable except as noted in HPI and below Constitutional: Constitutional: Reports no additional constitutional complaints and Denies headache(s) Eyes: Eyes: Denies spots in vision ENT: Reports system reviewed and no additional complaints, except as documented and Denies headache(s) Cardiovascular: Cardiovascular: Denies chest pain and Denies dyspnea Respiratory: Respiratory: Denies dyspnea Gastrointestinal: Gastrointestinal: Reports no additional gastrointestinal complaints Genitourinary: Genitourinary: Reports amenorrhea Musculoskeletal: Musculoskeletal: Reports no additional musculoskeletal complaints Integumentary/Breasts: Skin/Breast: Denies breast mass and Denies rash Neurologic: Denies headache(s) Psychiatric: Psychiatric: Reports no additional psychiatric complaints [facility] Past Medical History Medical History History of miscarriage Migraine Anemia Asthma Seasonal allergies POTS (postural orthostatic tachycardia syndrome) Insomnia Fracture of right elbow Fracture of ankle, left, closed ADHD (attention deficit hyperactivity disorder) Subarachnoid hemorrhage Depression Anxiety Surgical History Surgical History History of laparoscopy History of delivery H/O elbow surgery Family History Family History Mother Depression Heart disease Hypertension Asthma Bipolar 1 disorder Heart attack Grandparent Malignant neoplasm of prostate Cancer Cerebrovascular accident Father Alcoholism Heart disease Other Patient's mother is Social History Social History Smoking status: Never smoker Second hand tobacco smoke exposure: No Alcohol intake: never Substance use: never Do You Feel Safe in your Home?: Yes Lack of Transportation: No Lack of Food: Never True Current Housing: Decline to Answer Concerned About Future Housing: No Difficulty Paying Gas/Electric Bills: No Difficulty Paying for Meds: No Currently Unemployed: No Education: High School Diploma/GED Difficulty w/ Childcare or Family Care: No Living arrangements: with family Occupation/Education: unemployed Gender identity (if verbalized by the patient): Female Sexual Orientation (if Verbalized by the Patient): Straight or Heterosexual Spiritual care concerns: No Meds Home Medications and Allergies Home Medications ?Medication ?Instructions ?Recorded ?Confirmed ?Type vitamin#30 30 mg iron-10 1 cap PO DAILY 12/04/23 07/16/24 History mg iron-folic acid 1 mg-omg3 capsule budesonide-formoterol HFA 160 2 puff inhalation DAILY 12/18/23 07/16/24 History mcg-4.5 mcg/actuation aerosol inhaler (Symbicort) folic acid 1 mg tablet 1 mg PO DAILY 12/18/23 07/16/24 History prazosin 1 mg capsule 1 mg PO QHS 12/18/23 07/16/24 History promethazine 12.5 mg rectal 12.5 mg RECTAL Q4H PRN nausea and 01/09/24 07/16/24 Rx suppository vomiting #12 ea ondansetron 4 mg disintegrating See Rx Instructions .Route 02/17/24 07/16/24 Rx tablet .COMPLEX #20 tabs docusate sodium 100 mg capsule 100 mg PO DAILY 03/17/24 07/16/24 History (Colace) polyethylene glycol 3350 17 17 g PO DAILY 03/17/24 07/16/24 History gram/dose oral powder (Miralax) venlafaxine 225 mg tablet,extended 225 mg PO DAILY 05/05/24 07/16/24 History release 24 hr ferrous sulfate 325 mg (65 mg 325 mg PO BID 06/30/24 07/16/24 History iron) tablet,delayed release Allergies Allergy/AdvReac Type Severity Reaction Status Date / Time almond Allergy Severe Swelling Verified 07/22/24 10:25 of Lip/Tongue/Throat pecan nut Allergy Severe Swelling Verified 07/22/24 10:25 of Lip/Tongue/Throat codeine Allergy Unknown GI UPSET Verified 07/22/24 10:25 hydrocodone Allergy Unknown Vomiting Verified 07/22/24 10:25 adhesive tape Allergy Rash Verified 07/22/24 10:25 amoxicillin Allergy Swelling Verified 07/22/24 10:25 of Lip/Tongue/Throat coconut Allergy Difficulty Verified 07/22/24 10:25 Swallowing fentanyl Allergy vomiting, Verified 07/22/24 10:25 increase in bp iodine Allergy Rash Verified 07/22/24 10:25 latex Allergy Rash Verified 07/22/24 10:25 penicillin G Allergy Rash Verified 07/22/24 10:25 Penicillins Allergy Swelling Verified 07/22/24 10:25 of Lip/Tongue/Throat Vital Signs Vital Signs - 24 hr 07/22/24 10:29 07/22/24 10:32 07/22/24 10:46 Pulse Rate 110 H 103 H Blood Pressure 115/62 98/60 L Oxygen Delivery Room Air 07/22/24 11:01 07/22/24 11:15 07/22/24 11:30 Pulse Rate 100 107 H 100 Blood Pressure 102/60 108/58 L 123/64 Oxygen Delivery 07/22/24 11:46 07/22/24 12:01 Pulse Rate 103 H 119 H Blood Pressure 111/64 121/62 Oxygen Delivery Exam Const: General: no acute distress Eyes: General: appearance normal, both eyes and all related structures Resp: Effort & Inspection: normal respiratory effort Cardio: Rate: regular rate GI: Other: Gravid no fundal tenderness no right upper quadrant pain Skin: General skin exam: no rashes or lesions noted Neuro: Cognition (Neuro): normal cognition Extrem: General: normal to inspection Psych: Mental Status: mental status grossly normal Assessment and Plan Assessment and plan (1) Delivery by elective section: Code(s): O82 - Encounter for delivery without indication Status: Acute Assessment and Plan: Will proceed with repeat section and tubal sterilization. (2) Request for sterilization: Code(s): Z30.2 - Encounter for sterilization Status: Acute
[2024-07-22 12:47] LABS: Glucose Point of Care 64 mg/dl (65-105)
[2024-07-22] MEDS: DEXTROSE 5%/LACTATED RINGERS 1,000 ML 125 ML IV CONT (13:04)
[2024-07-22] MEDS: FAMOTIDINE 20 MG/2 ML VIAL IV PUSH (13:05)
[2024-07-22] MEDS: ONDANSETRON INJ 4 MG/2 ML VIAL IV PUSH (13:05)
[2024-07-22] MEDS: ceFAZolin 2 GM/D5W 50 ML 2 GM/50 ML BAG IVPB (13:13)
--- NOTE | 2024-07-22 13:13 | WPDANESEPPF ---
Anes - Initial Pre Proc Eval Procedure: Operation Date: 07/22/24 12:00 Proposed Procedures p Repeat Section with Tubal Ligation - Polo Johnson MD Date/Time: 07/22/24 13:13 Surgeon: Polo Johnson MD Pre Op Diagnosis: c/s Patient Data Age: 29 Gender: F Height: 1.63 m Weight: 80 kg Last Vital Signs Pulse 91 07/22/24 12:45 BP 117/78 07/22/24 12:45 O2 Del Method Room Air 07/22/24 10:29 Allergies Allergy/AdvReac Type Severity Reaction Status Date / Time almond Allergy Severe Swelling Verified 07/22/24 10:25 of Lip/Tongue/Throat pecan nut Allergy Severe Swelling Verified 07/22/24 10:25 of Lip/Tongue/Throat codeine Allergy Unknown GI UPSET Verified 07/22/24 10:25 hydrocodone Allergy Unknown Vomiting Verified 07/22/24 10:25 adhesive tape Allergy Rash Verified 07/22/24 10:25 amoxicillin Allergy Swelling Verified 07/22/24 10:25 of Lip/Tongue/Throat coconut Allergy Difficulty Verified 07/22/24 10:25 Swallowing fentanyl Allergy vomiting, Verified 07/22/24 10:25 increase in bp iodine Allergy Rash Verified 07/22/24 10:25 latex Allergy Rash Verified 07/22/24 10:25 penicillin G Allergy Rash Verified 07/22/24 10:25 Penicillins Allergy Swelling Verified 07/22/24 10:25 of Lip/Tongue/Throat Home Medications ?Medication ?Instructions ?Recorded ?Confirmed ?Type vitamin#30 30 mg iron-10 1 cap PO DAILY 12/04/23 07/16/24 History mg iron-folic acid 1 mg-omg3 capsule budesonide-formoterol HFA 160 2 puff inhalation DAILY 12/18/23 07/16/24 History mcg-4.5 mcg/actuation aerosol inhaler (Symbicort) folic acid 1 mg tablet 1 mg PO DAILY 12/18/23 07/16/24 History prazosin 1 mg capsule 1 mg PO QHS 12/18/23 07/16/24 History promethazine 12.5 mg rectal 12.5 mg RECTAL Q4H PRN nausea and 01/09/24 07/16/24 Rx suppository vomiting #12 ea ondansetron 4 mg disintegrating See Rx Instructions .Route 02/17/24 07/16/24 Rx tablet .COMPLEX #20 tabs docusate sodium 100 mg capsule 100 mg PO DAILY 03/17/24 07/16/24 History (Colace) polyethylene glycol 3350 17 17 g PO DAILY 03/17/24 07/16/24 History gram/dose oral powder (Miralax) venlafaxine 225 mg tablet,extended 225 mg PO DAILY 05/05/24 07/16/24 History release 24 hr ferrous sulfate 325 mg (65 mg 325 mg PO BID 06/30/24 07/16/24 History iron) tablet,delayed release Laboratory Tests 07/22/24 07/22/24 09:56 12:44 POC Capillary Glucose 64 L mg/dl (65-105) RPR Non-reactive (NonReactive) HIV 1&2 Ab/P24 Ag 4thGn Negative (Negative) Patient hx anesthesia problems: none Family hx anesthesia problems: none Results Review: All pre-operative results and documents have been reviewed as part of the pre-operative evaluation. [facility] Past Medical History Medical History History of miscarriage Migraine Anemia Asthma Seasonal allergies POTS (postural orthostatic tachycardia syndrome) Insomnia Fracture of right elbow Fracture of ankle, left, closed ADHD (attention deficit hyperactivity disorder) Subarachnoid hemorrhage Depression Anxiety Surgical History Surgical History History of laparoscopy History of delivery H/O elbow surgery Family History Family History Mother Depression Heart disease Hypertension Asthma Bipolar 1 disorder Heart attack Grandparent Malignant neoplasm of prostate Cancer Cerebrovascular accident Father Alcoholism Heart disease Other Patient's mother is Social History Social History Smoking status: Never smoker Second hand tobacco smoke exposure: No Alcohol intake: never Substance use: never Do You Feel Safe in your Home?: Yes Lack of Transportation: No Lack of Food: Never True Current Housing: Decline to Answer Concerned About Future Housing: No Difficulty Paying Gas/Electric Bills: No Difficulty Paying for Meds: No Currently Unemployed: No Education: High School Diploma/GED Difficulty w/ Childcare or Family Care: No Living arrangements: with family Occupation/Education: unemployed Gender identity (if verbalized by the patient): Female Sexual Orientation (if Verbalized by the Patient): Straight or Heterosexual Spiritual care concerns: No Anes - Eval Final PreProcedure Day of Procedure 07/22/24 13:13 Patient weight: normal Lungs: normal air movement Airway: Mallampati scale class II and special considerations (L upper tooth w black chip noted. ) Neurological: alert and oriented Last oral intake: >/= 8 hours ASA classification: II Emergent: no Anesthetic plan: proceed Anesthesia type and monitoring: regional spinal and standard monitoring Results Review: All pre-operative results and documents have been reviewed as part of the pre-operative evaluation. Plts nml. Informed Consent: The patient's anesthetic plan and its attendant risks and benefits were discussed with the patient/family/POA. Questions were solicited and answers provided to the satisfaction of the patient/family/POA.
--- NOTE | 2024-07-22 16:03 | W.PM.OBCSD ---
OB - Delivery Note Procedure Delivery date: 07/22/24 Pre-op diagnosis: Previous Delivery and Other (request sterilization) Post-op Diagnosis: Same Prior to decision for section, ACOG/SMFM labor guidelines were considered and discussed with the patient and staff. Decision made to proceed with the section.: Yes Procedure Performed: Repeat and Tubal Ligation (bilateral salpingectomy) Surgeon: Polo Johnson MD Anesthesia type: Spinal Description of Procedure/Findings: Findings: female infant, normal fallopian tubes and ovaries bilaterally After informed consent, risks and benefits of the procedure was discussed with the patient. The patient was taken to the operating room where she was placed in the dorsal lithotomy position with leftward tilt. Spinal analgesia was placed. After anesthesia was found to be adequate, she was then prepped and draped in the usual sterile fashion. A Pfannenstiel skin incision was made with a scalpel and carried through to the underlying layer of fascia. The fascia was then nicked in the midline, extending bilaterally. The fascia was dissected off the rectus muscles bluntly and using cautery, superiorly and inferiorly. The rectus muscles were in the midline, and peritoneum was identified and entered bluntly. The pelvic organs were visualized. The bladder blade was then inserted. The low transverse uterine incision was then made with the scalpel and extended with bilateral index fingers in a crescent-shaped fashion. The head was delivered and the rest of the was delivered. The nose and mouth suctioned. The cord was clamped twice and cut. The infant was then handed off to the awaiting pediatric staff. The placenta was then delivered manually. The uterine cavity was sponge curetted. There was initial hypotonia of uterus which improved with uterine massage. The uterus was then exteriorized. The uterine incision was then closed with 0 vicryl in a running locked fashion. A second layer of closure with interrupted figure of eight with 0 vicryl. Hemostasis noted. The ligature was used to ligate the right and then the left fallopian tube to near its insertion in the uterus. The posterior cul de sac was irrigated and debris removed. The uterus was then returned to the abdomen. Bilateral gutters were cleared off all clots and debris. The uterine incision was inspected and noted to be hemostatic. The muscle bellies were inspected and noted to be hemostatic. The subfascial layer was noted to be hemostatic, and the fascia was closed with 0 Vicryl in a running fashion. The subcutaneous layer was irrigated and then approximated with 3.0 vicryl. The skin was closed with will. The incision was dressed. All instruments, needle, and lap counts were correct x3. The patient was taken to the recovery room in stable condition. Specimen: No Estimated Blood Loss: 500 Drains: No Packing: No Pathology: Yes (fallopian tubes right and left) Complications: No immediate complications Condition: Stable Disposition: Floor [place] Baby Date of : 07/22/24 Gestational Age by Date: 39 gender: Female Weight (pounds): 7 Weight (ounces): 1 presentation: vertex position: Right Occiput Transverse Placenta delivery description: Manual Removal
[2024-07-22] MEDS: OXYTOCIN 30 UNITS/NS 500 ML 30 UNITS/500 ML BAG 125 UNITS IV CONT (16:04)
[2024-07-22] MEDS: LORATADINE 10 MG TABLET PO (16:05)
--- NOTE | 2024-07-22 17:41 | PC.NURSE ---
pt significant other had a TBI during this . 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 Pt appears to be overwhelmed with the significant other being around the baby. Pt is very anxious herself. Pt stated there are more pros than cons to his TBI. (in reference to his behavior towards her)
--- NOTE | 2024-07-22 17:52 | OBPPTRN ---
1701-Patient transferred to post room #287 via stretcher. Support person present. Oriented to unit, room, information board, rooming in, admission packet and security measures. Patient verbalizes understanding.
[2024-07-22] MEDS: KETOROLAC 15 MG/ML VIAL (*BKC) IV PUSH (18:34)
[2024-07-22] MEDS: ACETAMINOPHEN 325 MG TABLET 650 MG PO (18:35)
[2024-07-22] MEDS: POLYSACCHARIDE IRON COMPLEX 150 MG CAPSULE PO (18:36)
[2024-07-22] MEDS: SIMETHICONE 80 MG TAB.CHEW PO (18:36)
[2024-07-22] MEDS: DEXTROSE 5%/0.45% SOD CHL 1,000 ML 125 ML IV CONT (20:30)
--- NOTE | 2024-07-22 20:40 | PC.NURSE ---
2039- pt stated she hadn't eaten and wasn't sure if her blood sugar needed to be checked. Pt stated it was checked earlier in the day and was low so she was concerned it might be low at this time. Pt asymptomatic at this time but BS checked to ease pt's mind. BS 130 at this time.
[2024-07-22 20:43] LABS: Glucose Point of Care 130 mg/dl (65-105)
[2024-07-23] MEDS: ACETAMINOPHEN 325 MG TABLET 650 MG PO ×4 (00:15→19:15)
[2024-07-23] MEDS: KETOROLAC 15 MG/ML VIAL (*BKC) IV PUSH ×3 (00:15→12:12)
[2024-07-23 03:20] VITALS: BP 96/57; PULSE 85; RESP 18; TEMP 36.3; O2SAT 98
[2024-07-23] MEDS: ONDANSETRON INJ 4 MG/2 ML VIAL IV PUSH (03:55)
[2024-07-23] MEDS: DEXTROSE 5%/0.45% SOD CHL 1,000 ML 125 ML IV CONT (03:57)
[2024-07-23 05:35] LABS: Basophils Percent Auto 0.2 % (0.2-1.2); Eosinophils Percent Auto 0.1 % (0-4.4); Hematocrit 24.3 % (37.0-47.0); Hemoglobin 7.1 g/dL (12.0-15.0); Immature Granulocyte Absolute 0.11 K/mm3 (0.00-0.031); Immature Granulocyte Percent A 0.8 % (0-0.5); Lymphocytes Absolute Auto 1.36 K/mm3 (0.9-3.2); Mean Corpuscular HGB Conc 29.2 g/dl (32-36); Mean Corpuscular Hemoglobin 22.9 pg (26-34); Mean Corpuscular Volume 78.4 fl (80-100); Mean Platelet Volume 11.7 fl (7.4-10.4); Monocytes Absolute Auto 1.3 K/mm3 (0.1-0.6); Monocytes Percent Auto 9.6 % (2.6-8.5); Neutrophils Absolute Auto 10.8 K/mm3 (1.3-6.7); Neutrophils Percent Auto 79.3 % (45.5-73.1); Platelet Count Result 175 k/mm3 (150-375); Red Cell Distribution Width 17.1 % (11.5-14.5); White Blood Count 13.6 K/mm3 (4.5-10.0)
[2024-07-23 06:28] LABS: Hypochromasia 1+; Large Platelets Present; Platelet Estimate Adequate (Adequate)
[2024-07-23 06:29] LABS: Anisocytosis 1+; Schistocytes None Seen
[2024-07-23 08:00] VITALS: PULSE 85; RESP 18; O2SAT 98
[2024-07-23] MEDS: POLYSACCHARIDE IRON COMPLEX 150 MG CAPSULE PO ×2 (08:13→17:06)
[2024-07-23] MEDS: MULTIVIT/MIN/PREN/FOL AC/IRON TABLET 1 TAB PO (08:13)
[2024-07-23] MEDS: VENLAFAXINE HCL XR 75 MG CAP.ER.24H 225 MG PO (08:13)
[2024-07-23] MEDS: SIMETHICONE 80 MG TAB.CHEW PO ×3 (08:13→17:06)
[2024-07-23 08:40] VITALS: BP 111/61; PULSE 92; RESP 18; TEMP 36.4; O2SAT 100
--- NOTE | 2024-07-23 11:14 | WPDANLDPN2 ---
Anes-Prog Note L&D Date/Time: 07/23/24 11:14 Comfortable throughout: section Neuraxial method: spinal Epidural/Spinal procedure site: clean & non-tender Neuro status: Neuro function grossly intact. Cardiovascular status: normal Respiratory status: normal Airway patency: baseline Mental status: baseline Post-Op hydration status: normal Vital Signs: Last Vital Signs Temp 97.3 F L 07/23/24 03:20 Pulse 85 07/23/24 08:00 Resp 18 07/23/24 08:00 BP 96/57 L 07/23/24 03:20 Pulse Ox 98 07/23/24 08:00 O2 Del Method Room Air 07/23/24 08:00 Pain score (VAS): 0/10 I/O: Intake & Output 07/22/24 07/23/24 07/23/24 23:59 07:59 15:59 Intake Total 740 1467.1 Output Total 650 950 Balance 90 517.1 Post-procedural complaints: none Patient feedback: Patient satisfied with anesthetic care.
--- NOTE | 2024-07-23 11:15 | WPDANLDNPN2 ---
Anes-Prog Note L&D-Neuraxial Date/Time: 07/23/24 11:15 Neuraxial medications: intrathecal PF morphine Opiod-related complaints: none Patient feedback: Patient satisfied with post-operative pain management.
[2024-07-23] MEDS: FLUTICASONE/SALMETEROL 115-21 MCG INHALER 1 PUFF 2 PUFF INHALATION ×2 (11:16→20:24)
--- NOTE | 2024-07-23 12:21 | PCCCNOTE ---
Care Coordination. Patient referred to CC for financial. Met with pt. and FOB. She reports FOB not working, but are able to qualify for some assistance with food. She is on maternity, but plans to return back to work. She reports having some money coming in from tax return to get them through until she can get back to work. Dad had TBI Apr and has not been able to get back to work due to TBI. She reports his family is supportive, but she doesn't talk with her own family. She has a former MIL figure that they call TT from her ex that who helps with baby supplies and cares for children many times while pt. works. Pt. reports they have 4 kids now with infant. Provided pt. with center resources and basket of baby care items. She is planning to also establish with WIC. She denies further needs.
[2024-07-23 12:50] VITALS: BP 103/57; PULSE 105; RESP 18; TEMP 37.2; O2SAT 100
[2024-07-23] MEDS: IRON SUCROSE COMPLEX 400 MG, IRON SUCROSE COMPLEX 100 MG in SODIUM CHLORIDE 0.9% IV 250 ML 78.57 MG IVPB (13:15)
[2024-07-23] MEDS: IBUPROFEN 600 MG TABLET PO (19:15)
--- NOTE | 2024-07-23 21:53 | PM.OBPNVD ---
OB - PN: Subj Subjective Date/time seen: 07/23/24 0900 Interval history: She states she has ambulated to restroom without problems. Baby is doing well. She tolerated regular food. No flatus. Denies chest pain or SOB. No dizziness. Lochia decreasing. OB - PN: Obj Data Labs 07/23/24 03:22 Labs: Laboratory Results - last 24 hr 07/23/24 03:22 WBC 13.6 H RBC 3.10 L Hgb 7.1 L Hct 24.3 L MCV 78.4 L MCH 22.9 L MCHC 29.2 L RDW 17.1 H Plt Count 175 MPV 11.7 H Immature Gran % (Auto) 0.8 H Neut % (Auto) 79.3 H Lymph % (Auto) 10.0 L [place] % (Auto) 9.6 H Eos % (Auto) 0.1 Baso % (Auto) 0.2 Lymph # (Auto) 1.36 [place] # (Auto) 1.3 H Eos # (Auto) 0.0 Baso # (Auto) 0.0 Abs Immat Gran (auto) 0.11 H Absolute Neuts (auto) 10.8 H Absolute Nucleated RBC 0.000 Nucleated RBC % 0.0 Platelet Estimate Adequate Large Platelets Present Hypochromasia 1+ Anisocytosis 1+ Schistocytes None seen OB - PN A/P Assessment and Plan (1) Delivery by section: Status: Acute Assessment and Plan: POD1 rpt c/s and btl. She is doing well. Asymptomatic anemia. Will give iron infusion. Continue routine post care. Continue oral iron. Time Spent With Patient Time: Total time spent is greater than 50% in coordination of care (as documented) at patient's floor/unit and/or counseling patient: Exam Const: General: comfortable Resp: Effort & Inspection: normal respiratory effort GI: Other: fundus firm -2umb, dressing removed, will intact, no drainage or erythema Neuro: General: patient oriented x3 Extrem: General: normal to inspection, no calf tenderness and edema (1+ LE bilat)
--- NOTE | 2024-07-23 21:59 | P.DS_ITS ---
DS: Admitting Diagnosis Discharge Date July 24, 2024. Admitting Diagnosis Repeat section Satisfied parity, request sterilization. DS: Discharge Diagnosis Discharge Diagnosis (1) Delivery by section: Status: Acute (2) Request for sterilization: Code(s): Z30.2 - Encounter for sterilization Status: Acute (3) Post-op pain: Code(s): G89.18 - Other acute postprocedural pain Status: Acute OB - DS: Summary Hospital Course Hospital Course: She was admitted for repeat section and sterilization. She had uncomplicated section. Post operatively she did well. She had pre and post delivery severe anemia. She was asymptomatic. She received iron infusion and was continued on oral iron therapy. Hemoglobin stable. She did complain of constant headache. It did improve with Sudafed. She requested discharge to home on day 2. Her kids are with a sitter and she wanted to get them home. She was informed of post section precautions. OB Procedures : Ultrasound OB Procedures Intrapartum: and Tubal ligation OB Procedures: : Other (iron infusion) Peripartum Data Delivery Method: Section Procedures: Procedures Operation Date: 07/22/24 13:00 Actual Procedure Side Surgeon p Section with bilateral tubal ligation Polo Johnson MD complications: none Status at Discharge Functional status at discharge: independent ambulation Time Spent with Patient Time attestation: Total time spent providing and/or coordinating discharge services: Exam Const: General: cooperative Orientation/consciousness: oriented to person, oriented to place and oriented to time HENMT: Face/Nose/Sinus: Normal external nose present Eyes: General: appearance normal, both eyes and all related structures Resp: Effort & Inspection: normal respiratory effort GI: Inspection: normal to inspection Skin: General skin exam: normal color Neuro: General: oriented to person, oriented to place and oriented to time Extrem: General: normal to inspection and no calf tenderness Psych: Appearance: grossly normal Mental Status: mental status grossly normal DS: Data Data Completed and Pending Pending studies at discharge: Pending at discharge 07/22/24 17:15 Surgical [PTH] Routine Labs on day of discharge: Labs from last 24 hours 07/23/24 03:22 WBC 13.6 H RBC 3.10 L Hgb 7.1 L Hct 24.3 L MCV 78.4 L MCH 22.9 L MCHC 29.2 L RDW 17.1 H Plt Count 175 MPV 11.7 H Immature Gran % (Auto) 0.8 H Neut % (Auto) 79.3 H Lymph % (Auto) 10.0 L [place] % (Auto) 9.6 H Eos % (Auto) 0.1 Baso % (Auto) 0.2 Lymph # (Auto) 1.36 [place] # (Auto) 1.3 H Eos # (Auto) 0.0 Baso # (Auto) 0.0 Abs Immat Gran (auto) 0.11 H Absolute Neuts (auto) 10.8 H Absolute Nucleated RBC 0.000 Nucleated RBC % 0.0 Platelet Estimate Adequate Large Platelets Present Hypochromasia 1+ Anisocytosis 1+ Schistocytes None seen Discharge Plan Discharge Attending physician on discharge: Polo Johnson Consulting providers: Suellen Burr Discharging Clinician: Polo Johnson Anticipated Discharge Date/Time: 07/24/24 15:52 Patient Disposition: Home, Self-Care Activity: may shower, no straining, no driving and pelvic rest Diet: regular Wound Care Instructions: incision open to air Discharge Instructions: She can make appointment for office in one week for staple removal. Education: Mom and Baby Guide Given to: Mother Follow-Up: Call your delivering provider's office for an appointment: Call office for appoi ntment in a week (appt. after 08/02/24) Mom and baby should come to the [facility] for the follow-up appointment. Appointment Date/Time: July 27, 2024 at 11:00 am What to expect at your follow-up visit: Physical Assessment and Removal of Ullin Call [phone] if you are unable to keep your appointment time. BREAST CARE: * Wear a snug supportive bra. * For engorgement discomfort: Bottle Feeding: * May apply ice packs * For sore nipples: * Identify correct latch-on * Apply warm moist washcloths before and after nursing * Air dry nipples after nursing * May apply Lansinoh cream to nipples ABDOMINAL INCISION: * Allow incision to air dry * Do NOT use lotions for powders on your incision * When showering, allow soap and water to run over the incision, but do not wash incision PERINEAL CARE: * Until bleeding stops, use your river bottle after urinating * Change your pad frequently throughout the day * No tub baths until seen by your physician - You may shower ACTIVITY: * Rest as much as possible. * Do not exercise or lift anything heavier than your baby (such as laundry or other children.) * Avoid stairs or driving as much as possible. * Do not put anything into the vagina. No douching, tampons, or sexual activity until seen by physician. NOTIFY PHYSICIAN IF YOU HAVE ANY QUESTIONS OR IF ANY OF THE FOLLOWING SYMPTOMS OCCUR: * If your incision becomes red, swollen, or more painful than what you have experienced in the hospital. * If your vaginal bleeding becomes foul smelling. * If your vaginal bleeding becomes more heavy than a period or if your bleeding changes from pink to bright red. However, you may pass an occasional walnut- sized clot once or twice for the first week . * If you experience a sharp, shooting pain in you calves. * If you discover a hard, reddened area on your breast or if you experience flu- like symptoms. DIET: * Eat regular, well-balanced meals. * Drink plenty of fluids daily. Patient Instructions: Antibiotic Form Patient Language: Welsh Stand Alone Forms: General Discharge Information Follow-up/Referrals: Polo Johnson MD [Physician] - 1 Week (Call for appointment) Discharge Medications: New acetaminophen 325 mg Tablet 650 mg PO Q6H Qty: 20 0RF hydromorphone [Dilaudid] 2 mg tablet 2 mg PO Q6H PRN (Reason: pain) Qty: 10 0RF Continued budesonide-formoterol [Symbicort] 160-4.5 mcg/actuation HFA aerosol inhaler 2 puff INHALATION DAILY prazosin 1 mg capsule 1 mg PO QHS PNV #[id number] 30 mg iron-10 mg iron-1 mg capsule 1 cap PO DAILY docusate sodium [Colace] 100 mg capsule 100 mg PO DAILY polyethylene glycol 3350 [Miralax] 17 gram/dose powder 17 g PO DAILY venlafaxine 225 mg tablet extended release 24hr 225 mg PO DAILY ferrous sulfate 325 mg (65 mg iron) tablet,delayed release (DR/EC) 325 mg PO BID Discontinued folic acid 1 mg tablet 1 mg PO DAILY promethazine 12.5 mg suppository 12.5 mg RECTAL Q4H PRN (Reason: nausea and vomiting) Qty: 12 0RF ondansetron 4 mg tablet,disintegrating See Rx Instructions .ROUTE .COMPLEX Qty: 20 0RF Dose Instruction: DISSOLVE 1 TABLET ON THE TONGUE EVERY 8 HOURS NEEDED FOR NAUSEA OR VOMITING Rx Instructions: DISSOLVE 1 TABLET ON THE TONGUE EVERY 8 HOURS NEEDED FOR NAUSEA OR VOMITING Date of admission: 07/22/24 09:10 Primary Care Provider: PHYSICIAN,HOME FURNISHINGS SALES REPRESENTATIVE Admitting Provider: Polo Johnson Attending physician on admission: Polo Johnson Condition: Stable
[2024-07-24 01:50] VITALS: BP 125/73; PULSE 94; RESP 18; TEMP 36.5; O2SAT 100
[2024-07-24] MEDS: ACETAMINOPHEN 325 MG TABLET 650 MG PO ×3 (01:50→14:22)
[2024-07-24] MEDS: IBUPROFEN 600 MG TABLET PO ×3 (01:50→14:23)
[2024-07-24] MEDS: VENLAFAXINE HCL XR 75 MG CAP.ER.24H 225 MG PO (08:19)
[2024-07-24] MEDS: POLYSACCHARIDE IRON COMPLEX 150 MG CAPSULE PO (08:19)
[2024-07-24 08:20] VITALS: BP 117/78; PULSE 110; RESP 20; TEMP 37.1; O2SAT 100
[2024-07-24] MEDS: SIMETHICONE 80 MG TAB.CHEW PO ×2 (08:20→13:31)
[2024-07-24 09:02] VITALS: RESP 16
[2024-07-24] MEDS: FLUTICASONE/SALMETEROL 115-21 MCG INHALER 1 PUFF 2 PUFF INHALATION (09:02)
--- NOTE | 2024-07-24 10:14 | P.PNOB_ITS ---
OB - PN: Subj Subjective Date/time seen: 07/24/24 10:14 Interval history: She states she has ambulated to restroom without problems. Baby is doing well. She tolerated regular food. No She has had flatus. Denies chest pain or SOB. No dizziness. Lochia decreasing. She has headache. She has lower back cramping. She has not taken any narcotic medication. Has mild swelling at IV site, nontender. OB - PN: Obj Data Labs 07/23/24 03:22 OB - PN A/P Assessment and Plan (1) Previous section: Code(s): Z98.891 - History of uterine scar from previous surgery Status: Acute Assessment and Plan: POD2. doing well. s/p iron infustion yestereday. CBC today. No signs of phlebitis. Will apply warm to IV site. Continue Ibuprofen and Tylenol as needed. Discussed that headache may be due to anemia. It takes several weeks to see results from iron infusion. I will recheck CBC, will consider blood transfusion if lower. No signs of active bleeding. (2) Request for sterilization: Code(s): Z30.2 - Encounter for sterilization Status: Acute Time Spent With Patient Time: Total time spent is greater than 50% in coordination of care (as documented) at patient's floor/unit and/or counseling patient: Exam 2 Const: General: comfortable and no acute distress Resp: Effort & Inspection: normal respiratory effort Cardio: Rate: regular rate GI: Other: incision intact, no drainage or erythema, will intact, fundus below umbilicus, firm Neuro: General: patient oriented x3 Extrem: General: normal to inspection, no calf tenderness and edema (trace bilateral) Other: right arm mild swelling at IV site, no warmth or tender Psych: Mental Status: mental status grossly normal Affect: normal affect
[2024-07-24] MEDS: HYDROmorphone HCL (*CRX) 2 MG TABLET PO (11:06)
[2024-07-24 11:28] LABS: Hematocrit 24.8 % (37.0-47.0); Hemoglobin 7.2 g/dL (12.0-15.0); Mean Corpuscular Hemoglobin 22.9 pg (26-34); Mean Corpuscular Volume 78.7 fl (80-100); Mean Platelet Volume 11.2 fl (7.4-10.4); Platelet Count Result 182 k/mm3 (150-375); Red Blood Count 3.15 M/mm3 (4.2-5.4); Red Cell Distribution Width 18.8 % (11.5-14.5); White Blood Count 9.2 K/mm3 (4.5-10.0)
--- NOTE | 2024-07-24 11:52 | PC.NURSE ---
Spoke with Pat from anesthesia regarding pt's SRIVASTAVA. Described pt's symptoms (SRIVASTAVA worsening in back and front of head) when she sits up and goes away when she lays down. Pat mentioned that she evaluated the pt and believes that it is not a spinal headache because pt mentioned that she has headaches like this sometimes at home from sinus problems. Pat suggested that the pt take a decongestant for the SRIVASTAVA.
[2024-07-24] MEDS: PSEUDOEPHEDRINE HCL 30 MG TABLET PO (12:11)
[2024-07-24] MEDS: MULTIVIT/MIN/PREN/FOL AC/IRON TABLET 1 TAB PO (13:30)
[2024-07-24 16:15] VITALS: PULSE 80
[2024-07-27 10:39] VITALS: BP 111/69; PULSE 82; RESP 18; TEMP 36.7; O2SAT 100
--- NOTE | 2024-07-27 13:42 | WPDANESPN ---
Anes - Prog Note Post-Op Date/Time: 07/27/24 13:42 Cardiovascular status: normal Respiratory status: normal Airway patency: baseline Mental status: baseline Post-Op hydration status: normal Vital Signs: Last Vital Signs Temp 36.7 C 07/27/24 10:39 Pulse 82 07/27/24 10:39 Resp 18 07/27/24 10:39 BP 111/69 07/27/24 10:39 Pulse Ox 100 07/27/24 10:39 O2 Del Method Room Air 07/23/24 08:00 Pain Score (VAS): 10/10 when sitting Laboratory Tests 07/24/24 11:06 Post-procedural complaints: none Patient Feedback: Patient satisfied with anesthetic care. Other Findings: Patient had with spinal anesthesia 5 days ago on the . She reports neck pain and forehead pain 10/10 when sitting. However she states this has improved compared to the post op day 1 where she also had photophobia. I discussed blood patch with her however she opted to attempt conservative measures first. So I instructed her to drink over a gallon of water a day and caffeine until dura heals itself however if pain because unbearable and she wishes to undergo blood patch to [facility].
== END 2024-07-24 17:40 | disposition home or self-care (01) | DRG 541 ==
LOC: ANHLDR 09:13 → ANHOB2 17:08
PROVIDERS: Admitting Provider Obstetrics & Gynecology; Visit Provider Obstetrics & Gynecology
PROC: 10E0XZZ Delivery of Products of Conception, External Approach (ICD-10-PCS; CPT 59514; principal; 2024-07-22 12:00)
DX: O34.219 Maternal care for unspecified type scar from previous cesarean delivery (principal); O99.344 Other mental disorders complicating childbirth; F41.8 Other specified anxiety disorders; Z30.2 Encounter for sterilization; O69.81X0 Labor and delivery complicated by cord around neck, without compression, not applicable or unspecified; Z3A.39 39 weeks gestation of pregnancy; Z37.0 Single live birth
CPT/HCPCS: 36415; 82948; 85025; 85027; 86592; 86703; 88302; 94640; A9270; G0432; J0690; J1100; J1756; J1885; J2274; J2405; J2590; J7050; J7120; J7121

== ENCOUNTER 2024-09-02 08:05 | Emergency (ER) | payer OTHER, SELFPAY ==
--- OUTSIDE RECORDS SUMMARY | 2024-09-02 08:13 | XMS_ITS ---
Author Organization [facility] Address [address] [place] [address] Care Team Providers Care Recovery Coordinator Name Role Phone Bert Gómez Primary Care Provider [phone] Stephanie Novoa [phone] Allergies Allergen (clinical drug ingredient) Drug/Non Drug [...] Female Encounters Encounter Location Date Provider Diagnosis [address] [address] 07/15/2024 Stephanie Novoa PTSD (post-traumatic stress disorder) [...] or be administered own oral medications per [facility] protocols. Provided informed consent with understanding of [...] or be administered own oral medications per [facility] protocols. Provided informed consent with understanding of [...] * Rut DONATOOB: [birth year] (29 yo F)Acc No.[id number]:07/15/2024 Patient: Violet VELÁSQUEZWALEMayraFaustina Provider: Blanca Novoa DNP, REAL ESTATE SPECIALIST, PMHNP- :1995 A ge:29 Y S ex:Female Date:07/15/2024 Address:[facility] [address] [id number] Pcp:Bert Gómez Check In:05:53 PM ASSOCIATE PROFESSOR OF LIBRARY MEDIA Subjective: * Chief Complaints: * 4 week [...] I nterpretation M inimal Depression S creening: [place] Suicide Severity Rating Scale (LF) D o [...] system, which includes her ex's mother and catholic community. D enies substance use. 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 Provided informed consent with understanding of [...] Psychiatric Follow-up & Medication Management) * * CIATE PROFESSOR OF LIBRARY MEDIA Sign off status: Completed true * Provider: Blanca Novoa DNP, YVETTE, PMMELANIEP- Date: 0 07/15/2024 Generated for Printing/Faxing/eTransmitting on: 0 09/02/2024 08:12 AM CDT History and Physical Notes * HPI (History [...] system, which includes her ex's mother and catholic community. Denies substance use. Denies any medical concerns at this time. Client is not currently engaged in individual therapy services. Screening [place] Suicide Severity Rating Scale (LF) Do you [...]
--- OUTSIDE RECORDS SUMMARY | 2024-09-02 08:13 | XMS_ITS ---
Author Organization [facility] Address [address] [place] [address] Care Team Providers Care Car Wash Attendant Automatic Name Role Phone Bert Gómez Primary Care Provider ValerianoivethStephanie wang Frank [phone] REASON FOR VISIT refill Medications Medication SIG (Take, Route, Frequency, Duration) Notes Start Date End Date Status EpiPen 2-Garrett 0.3 MG/0.3ML 0.3 mg Injecti on subcutaneous for 30 days 08/20/2024 Active Social History Sex Assigned At : Social History Observation Description Sex Assigned At Female Encounters Encounter Location Date Provider Diagnosis [address] [place] [address] 08/17/2024 Bert Gómez Plan Of Treatment Medication Medication Name Sig Start Date Stop Date Notes EpiPen 2-Garrett 0.3 MG/0.3ML 0.3 mg Injecti on subcutaneous for 30 days 08/20/2024 Progress Notes * Rut DONATOOB: [birth year] (29 yo F)Acc No.[id number]:08/17/2024 Patient: Violet VELÁSQUEZWALE Faustina :1995 A ge:29 Y S ex:Female Address:[facility] [place], [address] * Refills Start EpiPen 2-Garrett Solution Auto-injector, 0.3 MG/0.3ML, Injection, 1, 0.3 mg, subcutaneous, 30 days, Refills=1 * true * Date: Generated for Tony branham/Lissy/Hailey on: 0 09/02/2024 08:13 AM CDT
--- OUTSIDE RECORDS SUMMARY | 2024-09-02 08:13 | XMS_ITS | Clinical Summary ---
Author Organization [facility] Address [address] [place] [phone] Phone Care Team Providers Care Director Treasurer Name Role Phone Unavailable Primary Care Provider Unavailabl e Encounters Date Type Department Care Team Description 08/15/2024 External Device Data ST[facility] ABSTRACTION Provider, Abstract 08/14/2024 External Device Data [facility] ABSTRACTION Provider, Abstract 08/12/2024 External Device Data [facility] ABSTRACTION Provider, Abstract 07/29/2024 External Device Data ST[facility] ABSTRACTION Provider, Abstract 07/07/2024 External Device Data [facility] ABSTRACTION Provider, Abstract 07/01/2024 External Device Data [facility] ABSTRACTION Provider, Abstract 07/01/2024 External Device Data [facility] ABSTRACTION Provider, Abstract 06/22/2024 4:00 PM ENVIRONMENTAL RESTORATION PLANNER - 06/22/2024 11:59 PM ENVIRONMENTAL RESTORATION PLANNER Hospital Encounter [facility] [address] [place] [address] Polo Mcintosh MD Discharge Disposition: [...] Visit-Managed Medicaid 01/29/2015 CERVICAL CANCER SCREENING 01/29/2017 PAP SMEAR 01/29/2017 PAP SMEAR 01/29/2017 INFLUENZA VACCINE (#1) 2024 HPV VACCINES Aged Out No longer eligi ble based on patient's age to complete this topic PNEUMOCOCCAL VACCINE 0-49 YEARS Aged Out No longer eligible based on patient's age to complete this topic Procedures Procedure Name Priority Date/Time Associated Diagnosis Comments US OB FOLLOW UP PER FETUS Routine 06/22/2024 5:05 PM ENVIRONMENTAL RESTORATION PLANNER Encounter for ultrasound to assess anatomy and growth in twin , antepartum Obesity during , antepartum from Last 3 Months Results * US OB FOLLOW UP PER FETUS (06/22/2024 5:05 PM ENVIRONMENTAL RESTORATION PLANNER) Anatomical Region Laterality Modality Pelvis Ultrasound 06/22/2024 4:28 PM ENVIRONMENTAL RESTORATION PLANNER Narrative 06/22/2024 5:09 PM ENVIRONMENTAL RESTORATION PLANNER STL FOLLOW UP ----- Pat. Name: FAUSTINA LUNDBERG Study Date: 06/22/2024 4:28pm Pat. NO: [id number] Referring MD: POLO MCINTOSH MD Site: [facility]: Fernanda Craig RDMS : 1995 Age: 29 [...] Z36.2: Encounter for other screening follow-up Procedures 42132: Ultrasound, uterus, real time with image documentation, [...] 5 lb 15 oz EFW by Hadlock ([id number]) Head / Face / Neck Biometry: Scarfer Operator 2.2 mm Extremities / Bony Struc Biometry: [...] and date of were verified by the doctor of nurse anesthesia prior to the exam IMPRESSION ----- -Single [...] Pat. Name:Caleb LUNDBERG Date:06/22/2024 4:28pm Pat. NO: [id number] MD:POLO MCINTOSH [facility]Fernanda Craig RDMS :1995Age:29 ----- INDICATION ----- Screening [...] complicatingpregnancy Z36.2: Encounter for other screeningfollow-up Procedures 28762: Ultrasound, uterus, real time withimage documentation, follow up, transabdominal approach per fetus HISTORY ----- OB History 4. Para 2 [id number] METHOD ----- Transabdominal ultrasound examination ----- Weaver . Number of fetuses: 1 DATING ----- Cycle:regular cycle GA by prior [id number] w + 6 d LOUIE by prior [...] 5 lb 15 oz EFW by Hadlock ([id number]) Head / Face / Neck Biometry: Scarfer Operator 2.2mm Extremities / Bony Struc Biometry: FL [...] and date of were verified by the doctor of nurse anesthesia prior tothe exam IMPRESSION ----- -Single living [...] the care of this patient. us Polo Mcintosh MD US ORDERABLES Final Result from Last 3 Months Insurance MEDICAID
--- OUTSIDE RECORDS SUMMARY | 2024-09-02 08:13 | XMS_ITS ---
Author Organization [facility] Address [address] [place] [address] Care Team Providers Care Teacher Tutor Name Role Phone Bert Gómez Primary Care Provider Stephanie Novoa [phone] Allergies Allergen (clinical drug ingredient) Drug/Non Drug Allergy documented on EMR Reaction Allergy Type Onset Date Status amoxicillin Amoxicillin Unknown Drug Allergy Act nelsy codeine Codeine Sulfate Unknown Drug Allergy A ctive PENICILLIN Unknown Drug Allergy Active fentanyl Fentanyl Unknown Drug Allergy Active Tree Nuts Unknown Allergy Active REASON FOR VISIT 1 month f u Medications Medication SIG (Take, Route, Frequency, Duration) Notes Start Date End Date Status Fludrocortisone Acetate 0.1 MG 1 tablet Orally Once a day Unknown Cetirizine HCl 10 MG 1 tablet as needed Orally Once a day for 30 days 03/02/2024 Active Fluticasone Propionate 50 MCG/ACT 2 SPRAYS DAILY EACH NOSTRIL Nasally at night 03/02/2024 Active Venlafaxine HCl ER 75 MG 1 capsule with food (total 225 mg) Orally Once a day for 30 days Active Budesonide-Formoterol Fumarate 160-4.5 MCG/ACT 2 PUFFS Inhalation DAILY 11/26/2023 Unknown Famotidine 20 MG 1 tablet at bedtime as needed Orally Once a day for 30 days As needed HEARTBURN Active QUEtiapine Fumarate 50 MG 0.5 - 1 tablet at bedtime Orally Once a day for 30 days As needed for sleep Active Ferrous Sulfate 325 (65 Fe) MG 1 tablet Orally Three times a Week Active Venlafaxine HCl ER 150 MG 1 capsule with food (total 225 mg) Orally Once a day for 30 days Active Folic Acid 1 MG TAKE 1 TABLET BY SANGEETHA TH EVERY DAY for 30 Active Ventolin HFA 108 (90 Base) MCG/ACT 2 puffs Inhalation every 4 hrs As needed SHORT OF BREATH Active Ondansetron HCl 4 MG 1 tablet Orally every 8 hours As needed 12/18/2023 Active (w/Iron & FA) 27-0.8 MG 1 tablet Orally Once a day Active Melatonin 5 MG 1-2 tablets at bedti me as needed with food Orally Once a day for 30 days Active Social History Sex Assigned At : Social History Observation Description Sex Assigned At Female Encounters Encounter Location Date Provider Diagnosis [address] [address] 08/05/2024 Stephanie Novoa PTSD (post-traumatic stress disorder) F43.10 ; MDD (major depressive disorder) F32.9 ; VIVIAN (generalized anxiety disorder) F41.1 ; Sleep disturbances G47.9 and Medication management Z79.899 Assessments Encounter Date Diagnosis (ICD Code) Assessment Notes Treatment Notes Treatment Clinical Notes Section Notes 08/05/2024 PTSD (post-traumatic stress disorder) (ICD-10 - F43.10) 08/05/2024 MDD (major depressive disorder) (ICD-10 - F32.9) Sertraline and citalopram not effective for depression and anxiety. 08/05/2024 VIVIAN (generalized anxiety disorder) (ICD-10 - F41.1) Take venlafaxine as prescribed. 08/05/2024 Sleep disturbances (ICD-10 - G47.9) 08/05/2024 Medication management (ICD-10 - Z79.899) May self-administer medications or be administered own oral medications per [place] protocols. Provided informed consent with understanding of side effects, adverse effects, risks and benefits as well as alternative treatments as previously discussed and with the above recommended medications & other aspects of the treatment program. Agrees to return sooner if symptoms worsen or suicidal or homicidal ideations occur. 08/05/2024 Other Follow all recommendations of OB physician. Plan Of Treatment Medication Medication Name Sig [...] (generalized anxiety disorder) Take venlafaxine as prescribed. Medication management May self-administe r medications or be administered own oral medications per [place] protocols. Provided informed consent with understanding of side effects, adverse effects, risks and benefits as well as alternative treatments as previously discussed and with the above recommended medications & other aspects of the treatment program. Agrees to return sooner if symptoms worsen or suicidal or homicidal ideations occur. Other Follow all recommend ations of OB physician. 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 Suicide Behavior Question: Have you ever done [...] Follow Up Plan required at this time. S ummary: Faustina Donato is a 29-year-old female client who presents for follow-up psychiatric and medication management appointment. Client is being followed for the management of MDD and PTSD. She has a history of ADHD and being on Vyvanse but is not currently on ADHD medications. Client is amenable to appointment today. Faustina recently gave and is experiencing challenges. She reports having a spinal tap leak, which causes intermittent pain in her back, head, and neck. She is hesitant to undergo the recommended treatment due to previous negative experiences with similar procedures. Additionally, Faustina's infant daughter, Rosa Isela, seems to be have problems with lactose intolerance, leading to multiple formula changes. The current formula, which is lactose-free, seems to be effective, as Rosa Isela is calmer after feedings. Her other children like the new baby and are adjusting to her being in the home. Faustina describes her mood as having random crying spells without a clear trigger, which is most likely attributable to hormonal changes. She rates her anxiety at a 6 or 7 out of 10, and her anger and irritability are similarly rated. She denies depression and any suicidal or homicidal thoughts. Sleep has been inconsistent due to the 's schedule, but it has improved with the new formula. Faustina's appetite is reduced, and she eats small portions once or twice a day, often prioritizing her children's needs over her own. No reports or observations of psychotic symptoms/behaviors, manic behaviors, obsessive/compulsive behaviors or trauma/PTSD. No reports of side effects from medications. Denies substance use. Faustina is currently taking venlafaxine and feels it is effective for her. She attributes her anxiety to the adjustments of adding a new baby to the family. She agrees to continue with her current medication regimen and plans to check in with her doctor in a month. * ROS: P sych ROS: Constitutional A ll systems negative unless indicated otherwise, No recent illness reported. R espiratory H x of A sthma. C ardiovascular P OTS Syndrome . G I R eports nausea/vomiting. M usculoskeletal D enies problems. N eurological D enies problems/concerns. E ndocrine D enies problems/concerns. P sych D enies HI/AH/VH,Reports anxiety/irritability,Reports sleep disturbances. * Medical History: * Surgical [...] is an alcoholic. * Social History: P [facility] Social History: L iving Arrangement L iving Arrangement: D ependent Living L iving with: Leonel briceno(s) Alcohol Use A lcohol Use Frequency: N ever Illicit Substance Usage I llicit Substance Usage: N o Employment Status E mployment Status: E mployed [employer] Tobacco Use - do not use T [...] AD (generalized anxiety disorder) - F41.1 ?4. S leep disturbances - G47.9 5 . M edication management - Z79.899? Plan: * Treatment: 2. G AD (generalized anxiety disorder) Notes: Take venlafaxine as prescribed. 3. S leep disturbances Continue Melatonin Tablet, 5 MG, 1-2 tablets at bedtime as needed with food, Orally, Once a day, 30 days, Refills 0; R efill QUEtiapine Fumarate Tablet, 50 MG, 0.5 - 1 tablet at bedtime, Orally, Once a day As needed for sleep, 30 days, 30, Refills 0. 4. M edication management Notes: May self-administer medications or be administered own oral medications per [place] protocols. Provided informed consent with understanding of side effects, adverse effects, risks and benefits as well as alternative treatments as previously discussed and with the above recommended medications & other aspects of the treatment program. Agrees to return sooner if symptoms worsen or suicidal or homicidal ideations occur. 5. O thers Notes: Follow all recommendations of OB physician. * Procedure Codes: * Follow Up: 4 Weeks (Reason: Psych F/U - In-Person or Telehealth) * * NDITURE REQUISITION CLERK Sign off status: Completed true * Provider: Blanca Novoa, JACINTA, YVETTE, PMMELANIEP-JESSICA Date: 0 08/05/2024 Generated for Printing/Faxing/eTransmitting on: 0 09/02/2024 08:13 AM CDT History and Physical Notes * [...] all Total Score: 2 Interpretation: Minimal Depression Summary Faustina Donato is a 29-year-old female client who presents for follow-up psychiatric and medication management appointment. Client is being followed for the management of MDD and PTSD. She has a history of ADHD and being on Vyvanse but is not currently on ADHD medications. Client is amenable to appointment today. Faustina recently gave and is experiencing challenges. She reports having a spinal tap leak, which causes intermittent pain in her back, head, and neck. She is hesitant to undergo the recommended treatment due to previous negative experiences with similar procedures. Additionally, Faustina's daughter, Rosa Isela, seems to be have problems with lactose intolerance, leading to multiple formula changes. The current formula, which is lactose-free, seems to be effective, as Rosa Isela is calmer after feedings. Her other children like the new baby and are adjusting to her being in the home. Faustina describes her mood as having random crying spells without a clear trigger, which is most likely attributable to hormonal changes. She rates her anxiety at a 6 or 7 out of 10, and her anger and irritability are similarly rated. She denies depression and any suicidal or homicidal thoughts. Sleep has been inconsistent due to the 's schedule, but it has improved with the new formula. Faustina's appetite is reduced, and she eats small portions once or twice a day, often prioritizing her children's needs over her own. No reports or observations of psychotic symptoms/behaviors, manic behaviors, obsessive/compulsive behaviors or trauma/PTSD. No reports of side effects from medications. Denies substance use. Faustina is currently taking venlafaxine and feels it is effective for her. She attributes her anxiety to the adjustments of adding a new baby to the family. She agrees to continue with her current medication regimen and plans to check in with her doctor in a month. Screening [place] Suicide Severity Rating Scale (LF) Do you [...]
--- OUTSIDE RECORDS SUMMARY | 2024-09-02 08:14 | XMS_ITS | Patient Health Record ---
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 consent with understanding of [...] group or seeking a mentor at her faith. she should seek immediate medical attention if she experiences thoughts of self-harm or suicide. Anxiety - [icd10: f41] - the patient should continue meeting with her counselor weekly. she should also consider joining a support group or seeking a mentor at her faith. she should seek immediate medical attention if [...] or be administered own oral medications per [place] protocols. Provided informed consent with understanding of [...] or be administered own oral medications per [place] protocols. Provided informed consent with understanding of side effects, adverse effects, risks and benefits as well as alternative treatments as previously discussed and with the above recommended medications & other aspects of the treatment program. Agrees to return sooner if symptoms worsen or suicidal or homicidal ideations occur. 03/05/2024 Other May self-administer medications or be administered own oral medications per [place] protocols. Provided informed consent with understanding of [...] or be administered own oral medications per [place] protocols. Provided informed consent with understanding of side effects, adverse effects, risks and benefits as well as alternative treatments as previously discussed and with the above recommended medications & other aspects of the treatment program. Agrees to return sooner if symptoms worsen or suicidal or homicidal ideations occur. 04/07/2024 Other May self-administer medications or be administered own oral medications per [place] protocols. Provided informed consent with understanding of [...] or be administered own oral medications per [place] protocols. Provided informed consent with understanding of side effects, adverse effects, risks and benefits as well as alternative treatments as previously discussed and with the above recommended medications & other aspects of the treatment program. Agrees to return sooner if symptoms worsen or suicidal or homicidal ideations occur. 08/05/2024 Other Follow all recommendations of OB physician. Plan Of Treatment No Information Insurance Providers Payer Name Payer Address Payer Phone Subscriber Number Group Number Insured Name Patient Relationship to Insured Coverage Start Date Coverage End Date [facility] [employer] [facility] Attn Claims Department [address] [place] [address] [phone] [id number] Faustina Hoffman Self - patient is the insured 1 [employer] Attn Claims Department [address] [place] [address] [phone] [id number] Faustina Hoffman Self - patient is the insured 1 Medical (General) History Medical History History ICD Code POTS syndrome asthma multiple concussions throughout life nausea/vomiting diarrhea/constipation Surgical History Surgery Date(Month/Year) C section- 12/2021, 10/2017 Hospitalization History Reason Date(Month/Year) Hospital stays for of children in 2017 and 2021
--- NOTE | 2024-09-02 08:17 | ED.URI ---
HPI - URI/Sore Throat General Chief Complaint: Upper Respiratory Infection Stated Complaint: Sore Throat/Body Pain Time Seen by Provider: 09/02/24 08:20 History of Present Illness HPI Narrative: 29-year-old female presented for complaint of sore throat and body aches. Onset last night. Says the right side of the throat hurts worse. Endorses generalized weakness and mucus production. She denies cough, shortness of breath, wheezing, nausea vomiting, diarrhea or lethargy. She is not taking medicine because it hurts to swallow. Related Data Home Medications ?Medication ?Instructions ?Recorded ?Confirmed ?Last Taken ?Type budesonide-formoterol HFA 160 2 puff inhalation DAILY 12/18/23 07/16/24 Unknown History mcg-4.5 mcg/actuation aerosol inhaler (Symbicort) prazosin 1 mg capsule 1 mg PO QHS 12/18/23 07/16/24 Unknown History docusate sodium 100 mg capsule 100 mg PO DAILY 03/17/24 07/16/24 07/06/24 History (Colace) polyethylene glycol 3350 17 17 g PO DAILY 03/17/24 07/16/24 Unknown History gram/dose oral powder (Miralax) venlafaxine 225 mg tablet,extended 225 mg PO DAILY 05/05/24 07/16/24 07/06/24 History release 24 hr ferrous sulfate 325 mg (65 mg 325 mg PO BID 06/30/24 07/16/24 07/06/24 History iron) tablet,delayed release Allergies Allergy/AdvReac Type Severity Reaction Status Date / Time almond Allergy Severe Swelling Verified 08/06/24 10:55 of Lip/Tongue/Throat pecan nut Allergy Severe Swelling Verified 08/06/24 10:55 of Lip/Tongue/Throat codeine Allergy Unknown GI UPSET Verified 08/06/24 10:55 hydrocodone Allergy Unknown Vomiting Verified 08/06/24 10:55 adhesive tape Allergy Rash Verified 08/06/24 10:55 amoxicillin Allergy Swelling Verified 08/06/24 10:55 of Lip/Tongue/Throat coconut Allergy Difficulty Verified 08/06/24 10:55 Swallowing fentanyl Allergy vomiting, Verified 08/06/24 10:55 increase in bp iodine Allergy Rash Verified 08/06/24 10:55 latex Allergy Rash Verified 08/06/24 10:55 penicillin G Allergy Rash Verified 08/06/24 10:55 Penicillins Allergy Swelling Verified 08/06/24 10:55 of Lip/Tongue/Throat Review of Systems Review of Systems: CONSTITUTIONAL: reports body aches, denies fever, chills, or sweats. EYES: Denies visual changes, redness, or discharge. ENT: Reports sore throat Denies rhinorrhea, congestion, or otalgia. CARDIOVASCULAR: Denies chest pain, palpitations, or edema. RESPIRATORY: Denies dyspnea. GASTROINTESTINAL: Denies abdominal pain, nausea, vomiting, or diarrhea. SKIN: Denies rash, itching, or wounds. NEUROLOGIC: Denies headache PMFSH Past Medical History Medical History History of miscarriage Migraine Anemia Asthma Seasonal allergies POTS (postural orthostatic tachycardia syndrome) Insomnia Fracture of right elbow Fracture of ankle, left, closed ADHD (attention deficit hyperactivity disorder) Subarachnoid hemorrhage Depression Anxiety Surgical History Surgical History History of laparoscopy History of delivery H/O elbow surgery Family History Family History Mother Depression Heart disease Hypertension Asthma Bipolar 1 disorder Heart attack Grandparent Malignant neoplasm of prostate Cancer Cerebrovascular accident Father Alcoholism Heart disease Other Patient's mother is Social History Social History Smoking status: Never smoker Second hand tobacco smoke exposure: No Alcohol intake: never Substance use: never Do You Feel Safe in your Home?: Yes Lack of Transportation: No Lack of Food: Never True Current Housing: Decline to Answer Concerned About Future Housing: No Difficulty Paying Gas/Electric Bills: No Difficulty Paying for Meds: No Currently Unemployed: No Education: High School Diploma/GED Difficulty w/ Childcare or Family Care: No Living arrangements: with family Occupation/Education: unemployed Gender identity (if verbalized by the patient): Female Sexual Orientation (if Verbalized by the Patient): Straight or Heterosexual Spiritual care concerns: No Exam Narrative: GENERAL: Ill-appearing, nontoxic no acute distress. EYES: conjunctivae clear ENT: Mucous membranes moist. TM pearly hinds with normal light reflex bilaterally; no tragal tenderness. Oropharynx severelyerythematous without lesions. Tonsils enlarged 3+ with exudate. No drooling, no hoarseness, no trismus, uvula midline. No tripod positioning, hot potato voice, or soft palate swelling. NECK: Supple. bilateral anterior cervical lymphadenopathy CHEST: Clear to auscultation, breath sounds equal. No respiratory distress, speaks in full sentences. HEART: Regular rate and rhythm. No murmur heard. SKIN: Warm, dry, no rash. NEURO: Alert and oriented x3. Course Course Emergency Course: Patient is aware of diagnosis, understands and agrees to treatment plan. Anticipatory guidance given. Patient agrees to follow-up as directed and is aware of reasons to seek care at the emergency department. Portions of this record may have been created with voice recognition software Level of Care: Express Care Visit Vital Signs Vital signs: Vital Signs Temperature 100.6 F H 09/02/24 08:21 Pulse Rate 125 H 09/02/24 08:21 Respiratory Rate 18 09/02/24 08:21 Blood Pressure 137/71 09/02/24 08:21 Pulse Oximetry 100 09/02/24 08:21 Oxygen Delivery Room Air 09/02/24 08:21 Temperature 100.6 F H 09/02/24 08:21 Pulse Rate 125 H 09/02/24 08:21 Respiratory Rate 18 09/02/24 08:21 Blood Pressure 137/71 09/02/24 08:21 Pulse Oximetry 100 09/02/24 08:21 Oxygen Delivery Room Air 09/02/24 08:21 MDM - URI/Sore Throat MDM Narrative Medical decision making narrative: POS strep result reviewed with pt.PCN allergy. Advise supportive treatments and s/s to go to the ER. Patient is appropriate for outpatient treatment and follow-up. Differential Diagnosis Differential diagnosis: Likely upper respiratory infection, viral infection and pharyngitis Lab Data Labs: Lab Results 09/02/24 Range/Units 08:40 POC Grp A Strep Screen Positive (Negative) Discharge Plan Discharge Clinical Impression: Strep pharyngitis Patient Disposition: Home, Self-Care Condition: Stable Instructions: Antibiotic Form, Strep Throat (ED) Additional Instructions: - Take the antibiotic as directed. Fever and sore throat typically resolve within one to three days. Most patients can return to work after 12 to 24 hours of antibiotic therapy, provided you are fever free and otherwise well. -Eat and drink things that are easy to swallow, like soft foods, cool liquids, tea with honey, or popsicles . -Salt water gargles and/or may use topical anesthetic ( Chloraseptic spray) or lozenges to relieve dryness or throat pain -Alternate Tylenol and ibuprofen as needed for pain and fever as directed. -Frequent hand washing or hand research advisor is one of the best ways to prevent spread of infection. Throw away the toothbrush after 24hours of antibiotic. -Follow up with primary care provider in 2-3 days if condition is not improving -Go to the ER if you have trouble breathing, cannot drink enough fluids, have muffled voice or drooling, difficulty opening your mouth, or severe swelling. Patient Language: Persian Prescriptions: New azithromycin [Zithromax Z-Garrett] 250 mg tablet See Rx Instructions .ROUTE .COMPLEX Qty: 6 0RF Rx Instructions: For 250 mg dose pack: take 500 mg today (day 1), then 250 mg for 4 days (days 2-5) ibuprofen 800 mg tablet 800 mg PO TID PRN (Reason: pain) Qty: 15 0RF No Action budesonide-formoterol [Symbicort] 160-4.5 mcg/actuation HFA aerosol inhaler 2 puff INHALATION DAILY prazosin 1 mg capsule 1 mg PO QHS docusate sodium [Colace] 100 mg capsule 100 mg PO DAILY polyethylene glycol 3350 [Miralax] 17 gram/dose powder 17 g PO DAILY venlafaxine 225 mg tablet extended release 24hr 225 mg PO DAILY acetaminophen 325 mg Tablet 650 mg PO Q6H Qty: 20 0RF hydromorphone [Dilaudid] 2 mg tablet 2 mg PO Q6H PRN (Reason: pain) Qty: 10 0RF ferrous sulfate 325 mg (65 mg iron) tablet,delayed release (DR/EC) 325 mg PO BID Follow-up/Referrals: UNKNOWN,DOCTOR [Primary Care Provider] - Time of Disposition: 08:44
[2024-09-02 08:21] VITALS: BP 137/71; PULSE 125; RESP 18; TEMP 38.1; O2SAT 100
[2024-09-02 08:42] LABS: EDSTREPNEGPOS1 Positive (Negative)
== END 2024-09-02 08:52 | disposition home or self-care (01) ==
PROVIDERS: Emergency Provider Nurse Practitioner Family
DX: J02.0 Streptococcal pharyngitis (principal); J45.909 Unspecified asthma, uncomplicated; F41.9 Anxiety disorder, unspecified; F32.A Depression, unspecified; D64.9 Anemia, unspecified
CPT/HCPCS: 87880; 99213; G0463

== ENCOUNTER 2024-11-14 09:09 | Emergency (ER) | payer OTHER, SELFPAY ==
--- OUTSIDE RECORDS SUMMARY | 2024-11-14 09:11 | XMS_ITS | Clinical Summary ---
Author Organization [facility] Address [address] [place] [phone] Phone Care Team Providers Care Motor Runner Name Role Phone Unavailable Primary Care Provider Unavailabl e Encounters Date Type Department Care Team Description 09/08/2024 External Device Data [facility] ABSTRACTION Provider, Abstract 08/15/2024 External Device Data [facility]CTION Provider, Abstract 08/14/2024 External Device Data [facility] ABSTRACTION Provider, Abstract from Last 3 Months Social History Tobacco [...] of 3 - 19+ 3-dose series) 01/29/2015 CERVICAL CANCER SCREENING 01/29/2017 HPV/Cotest (21-29) 01/29/2017 PAP SMEAR 01/29/2017 INFLUENZA VACCINE (#1) 2024 HPV VACCINES Aged Out No longer eligi ble based on patient's age to complete this topic [place] [address] [place] [address] PLAN MEDICAID
--- OUTSIDE RECORDS SUMMARY | 2024-11-14 09:11 | XMS_ITS | Patient Health Record ---
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 [place] protocols. Provided informed consent with understanding of side effects, adverse effects, risks and benefits as well as alternative treatments as previously discussed and with the above recommended medications & other aspects of the treatment program. Agrees to return sooner if symptoms worsen or suicidal or homicidal ideations occur. 04/07/2024 Other May self-administer medications or be administered own oral medications per [place] protocols. Provided informed consent with understanding of [...] or be administered own oral medications per [place] protocols. Provided informed consent with understanding of side effects, adverse effects, risks and benefits as well as alternative treatments as previously discussed and with the above recommended medications & other aspects of the treatment program. Agrees to return sooner if symptoms worsen or suicidal or homicidal ideations occur. 08/05/2024 Other Follow all recommendations of OB physician. Plan Of Treatment Next Appt Details Provider Name:Stephanie Quiroga mn, 11/17/2024 01:00:00 PM, [address] [facility], [place], [address], Insurance Providers Payer Name Payer Address Payer Phone Subscriber Number Group Number Insured Name Patient Relationship to Insured Coverage Start Date Coverage End Date Delivery [facility] [employer] Claims Department [address] [place] [address] [phone] [id number] Faustina Hoffman Self - patient is the insured 1 [employer] Att[employer] Claims Department [address] [place] [address] [phone] [id number] Faustina Hoffman Self - patient is the insured 1 Medical (General) History Medical History History ICD Code POTS syndrome asthma multiple concussions throughout life nausea/vomiting diarrhea/constipation Surgical History Surgery Date(Month/Year) C section- 12/2021, 10/2017 Hospitalization History Reason Date(Month/Year) Hospital stays for of children in 2017 and 2021
[2024-11-14 09:16] VITALS: BP 104/62; PULSE 86; RESP 16; TEMP 36.4; O2SAT 98
[2024-11-14 09:32] LABS: EDUAAPPEAR Cloudy; EDUABILI Negative (Negative); EDUABLOOD Trace (Negative); EDUACOLOR1 Dark; EDUAGLUCOSE Negative (Negative); EDUAKETONE Negative (Negative); EDUALEUKO 3+ (Negative); EDUANITRATE Negative (Negative); EDUAPROTEIN Trace (Negative); EDUASPGRAVITY 1.025; EDUAUROBILI 0.2
--- NOTE | 2024-11-14 09:55 | ED_ITS ---
HPI - General Adult General Chief complaint: Urogenital-Female Stated complaint: Urinary Problem Source: patient Mode of arrival: ambulatory Limitations: no limitations History of Present Illness HPI narrative: Pt presents for evaluation of urinary symptoms for the past two weeks. Symptoms include dysuria, urinary frequency, hesitancy, urgency and low back pain. No fever, chills, nausea, vomiting, vaginal bleeding or discharge. States no chance of due to history of tubal ligation. Related Data Home Medications ?Medication ?Instructions ?Recorded ?Confirmed ?Last Taken ?Type budesonide-formoterol HFA 160 2 puff inhalation DAILY 12/18/23 10/06/24 Unknown History mcg-4.5 mcg/actuation aerosol inhaler (Symbicort) polyethylene glycol 3350 17 17 g PO DAILY 03/17/24 10/06/24 Unknown History gram/dose oral powder (Miralax) venlafaxine 225 mg tablet,extended 225 mg PO DAILY 05/05/24 11/14/24 07/06/24 History release 24 hr ferrous sulfate 325 mg (65 mg 325 mg PO BID 06/30/24 10/06/24 07/06/24 History iron) tablet,delayed release buspirone 5 mg tablet 5 mg PO BID 10/06/24 11/14/24 Unknown History atorvastatin 40 mg tablet mg 11/14/24 Unknown History buspirone 10 mg tablet mg 11/14/24 Unknown History cetirizine 10 mg tablet mg 11/14/24 Unknown History ferrous sulfate 325 mg (65 mg mg 11/14/24 Unknown History iron) tablet (FeroSul) fluticasone propionate 50 intranasal 11/14/24 Unknown History mcg/actuation nasal spray,suspension quetiapine 50 mg tablet mg 11/14/24 Unknown History venlafaxine 150 mg mg PO 11/14/24 Unknown History capsule,extended release 24 hr venlafaxine 75 mg capsule,extended mg PO 11/14/24 Unknown History release 24 hr Allergies Allergy/AdvReac Type Severity Reaction Status Date / Time almond Allergy Severe Swelling Verified 11/14/24 09:11 of Lip/Tongue/Throat pecan nut Allergy Severe Swelling Verified 11/14/24 09:11 of Lip/Tongue/Throat codeine Allergy Unknown GI UPSET Verified 11/14/24 09:11 hydrocodone Allergy Unknown Vomiting Verified 11/14/24 09:11 adhesive tape Allergy Rash Verified 11/14/24 09:11 amoxicillin Allergy Swelling Verified 11/14/24 09:11 of Lip/Tongue/Throat coconut Allergy Difficulty Verified 11/14/24 09:11 Swallowing fentanyl Allergy vomiting, Verified 11/14/24 09:11 increase in bp iodine Allergy Rash Verified 11/14/24 09:11 latex Allergy Rash Verified 11/14/24 09:11 penicillin G Allergy Rash Verified 11/14/24 09:11 Penicillins Allergy Swelling Verified 11/14/24 09:11 of Lip/Tongue/Throat Review of Systems Review of Systems: CONSTITUTIONAL: Denies fever, chills, or sweats. EYES: Denies visual changes, redness, or discharge. ENT: Denies rhinorrhea, congestion, sore throat, or otalgia. CARDIOVASCULAR: Denies chest pain, palpitations, or edema. RESPIRATORY: Denies cough or dyspnea. GASTROINTESTINAL: Denies abdominal pain, nausea, vomiting, or diarrhea. GENITOURINARY: Reports urinary hesitancy, urgency, dysuria. Denies vaginal bleeding or discharge SKIN: Denies rash or itching. MUSCULOSKELETAL: Reports low back pain. Denies joint pain, or myalgia. NEUROLOGIC: Denies headache, numbness, dizziness, or weakness. PSYCHIATRIC: Denies anxiety or depression. [facility] Past Medical History Medical History History of miscarriage Migraine Anemia Asthma Seasonal allergies POTS (postural orthostatic tachycardia syndrome) Insomnia Fracture of right elbow Fracture of ankle, left, closed ADHD (attention deficit hyperactivity disorder) Subarachnoid hemorrhage Depression Anxiety Surgical History Surgical History History of laparoscopy History of delivery H/O elbow surgery Family History Family History Mother Depression Heart disease Hypertension Asthma Bipolar 1 disorder Heart attack Grandparent Malignant neoplasm of prostate Cancer Cerebrovascular accident Father Alcoholism Heart disease Other Patient's mother is Social History Social History Smoking status: Never smoker Second hand tobacco smoke exposure: No Alcohol intake: never Substance use: never Do You Feel Safe in your Home?: Yes Lack of Transportation: No Lack of Food: Never True Current Housing: Decline to Answer Concerned About Future Housing: No Difficulty Paying Gas/Electric Bills: No Difficulty Paying for Meds: No Currently Unemployed: No Education: High School Diploma/GED Difficulty w/ Childcare or Family Care: No Living arrangements: with family Occupation/Education: unemployed Gender identity (if verbalized by the patient): Female Sexual Orientation (if Verbalized by the Patient): Straight or Heterosexual Spiritual care concerns: No Exam Narrative: GENERAL: Well-appearing, well-nourished, and in no acute distress. HEAD: Normocephalic, atraumatic. EYES: PERRLA and EOMI. ENT: Nares clear, no rhinorrhea or epistaxis. Mucous membranes moist. Oropharynx without tonsillar hypertrophy exudate or other lesions. Bilateral TMs pearly hinds nonbulging NECK: Supple. No adenopathy or masses. No carotid bruits or JVD CHEST: Clear to auscultation. No respiratory distress. No wheezes rales or rhonchi HEART: Regular rate and rhythm. No murmur heard. Normal peripheral pulses. ABDOMEN: Soft, nontender, nondistended, normal active bowel sounds. EXTREMITIES: Normal range of motion. No edema. BACK: No CVA tenderness SKIN: Warm, dry, no rash. NEURO: No focal deficits. Alert and oriented x3. PSYCH: Normal mood and affect. Course Course Emergency Course: This is a 29 year old female who presented for evaluation of urinary symptoms. Leukocytes present today. Will send urine culture. DC with macrobid and pyridium. Follow up with primary provider. Go to the ER for worsening symptoms. Pt in agreement with plan of care. Level of Care: Express Care Visit Vital Signs Vital signs: Vital Signs Temperature 36.4 C 11/14/24 09:16 Pulse Rate 86 11/14/24 09:16 Respiratory Rate 16 11/14/24 09:16 Blood Pressure 104/62 11/14/24 09:16 Pulse Oximetry 98 11/14/24 09:16 Oxygen Delivery Room Air 11/14/24 09:16 Temperature 36.4 C 11/14/24 09:16 Pulse Rate 86 11/14/24 09:16 Respiratory Rate 16 11/14/24 09:16 Blood Pressure 104/62 11/14/24 09:16 Pulse Oximetry 98 11/14/24 09:16 Oxygen Delivery Room Air 11/14/24 09:16 Medical Decision Making Vital Signs Vital Signs: Vital Signs Temperature 36.4 C 11/14/24 09:16 Pulse Rate 86 11/14/24 09:16 Respiratory Rate 16 11/14/24 09:16 Blood Pressure 104/62 11/14/24 09:16 Pulse Oximetry 98 11/14/24 09:16 Oxygen Delivery Room Air 11/14/24 09:16 Temperature 36.4 C 11/14/24 09:16 Pulse Rate 86 11/14/24 09:16 Respiratory Rate 16 11/14/24 09:16 Blood Pressure 104/62 11/14/24 09:16 Pulse Oximetry 98 11/14/24 09:16 Oxygen Delivery Room Air 11/14/24 09:16 Lab Data Labs: Lab Results 11/14/24 Range/Units 09:29 POC Urine Color Dark POC Urine Clarity Cloudy POC Urine pH 7.0 POC Ur Specif [place] 1.025 POC Urine Protein Trace (Negative) POC Ur Glucose (UA) Negative (Negative) POC Urine Ketones Negative (Negative) POC Urine Blood Trace (Negative) POC Urine Nitrite Negative (Negative) POC Urine Bilirubin Negative (Negative) POC Urine Urobilinogen 0.2 POC U Leukocyte Esteras 3+ (Negative) Discharge Plan Discharge Clinical Impression: UTI (urinary tract infection) Patient Disposition: Home Condition: Stable Instructions: Antibiotic Form, Urinary Tract Infection in Women (DC) Patient Language: Brazilian Prescriptions: New nitrofurantoin monohyd/m-cryst [Macrobid] 100 mg capsule 100 mg PO Q12H 7 Days Qty: 14 0RF Rx Instructions: must administer with a meal/food phenazopyridine [Pyridium] 200 mg tablet 200 mg PO TID Qty: 6 0RF No Action budesonide-formoterol [Symbicort] 160-4.5 mcg/actuation HFA aerosol inhaler 2 puff INHALATION DAILY ibuprofen 800 mg tablet 800 mg PO TID PRN (Reason: pain) Qty: 15 0RF atorvastatin 40 mg tablet venlafaxine 75 mg capsule,extended release 24hr PO cetirizine 10 mg tablet venlafaxine 150 mg capsule,extended release 24hr PO ferrous sulfate [FeroSul] 325 mg (65 mg iron) tablet buspirone 10 mg tablet fluticasone propionate 50 mcg/actuation spray,suspension INTRANASAL quetiapine 50 mg tablet polyethylene glycol 3350 [Miralax] 17 gram/dose powder 17 g PO DAILY buspirone 5 mg tablet 5 mg PO BID venlafaxine 225 mg tablet extended release 24hr 225 mg PO DAILY ferrous sulfate 325 mg (65 mg iron) tablet,delayed release (DR/EC) 325 mg PO BID Follow-up/Referrals: Zeynep Lloyd DO [Physician] - Time of Disposition: 09:34
== END 2024-11-14 09:35 | disposition home or self-care (01) ==
PROVIDERS: Emergency Provider Nurse Practitioner
DX: N39.0 Urinary tract infection, site not specified (principal); J45.909 Unspecified asthma, uncomplicated; G90.A Postural orthostatic tachycardia syndrome [POTS]; F41.9 Anxiety disorder, unspecified; F32.A Depression, unspecified
CPT/HCPCS: 81003; 87086; 87186; 99213; G0463

== ENCOUNTER 2025-01-20 15:32 | Emergency (ER) | payer OTHER, SELFPAY ==
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
--- OUTSIDE RECORDS SUMMARY | 2025-01-20 15:34 | XMS_ITS | Clinical Summary ---
Author Organization [facility] Address [address] [place] [phone] Phone Care Team Providers Care Neurosurgeon Name Role Phone Unavailable Primary Care Provider Unavailabl e Encounters Date Type Department Care Team Description 01/13/2025 External Device Data [facility] ABSTRACTION Provider, Abstract 01/12/2025 External Device Data [facility] Provider, Abstract 12/23/2024 External Device Data [facility] Provider, Abstract 12/22/2024 External Device Data [facility] Provider, Abstract 12/08/2024 External Device Data [facility]STRACTION Provider, Abstract [...] Health Maintenance Due Date Last Done Comments HPV VACCINES (1 - 3-dose series) 01/29/2011 DTAP/TDAP/TD VACCINES (1 - Tdap) 01/29/2015 HEPATITIS B VACCINES (1 of 3 - 19+ 3-dose series) 01/09 CERVICAL CANCER SCREENING 01/29/2017 HPV/Cotest (21-29) 01/29/2017 PAP SMEAR 01/29/2017 INFLUENZA VACCINE (#1) 2025 Insurance [facility] MEDICAID
[2025-01-20 15:38] VITALS: BP 122/69; PULSE 96; RESP 20; TEMP 36.7; O2SAT 100
--- NOTE | 2025-01-20 15:38 | ED_ITS ---
HPI - Female Genitourinary General Chief complaint: Urogenital-Female Stated complaint: UTI Symptoms Time Seen by Provider: 01/20/25 15:40 Source: patient Mode of arrival: ambulatory Limitations: no limitations History of Present Illness HPI Narrative: Faustina is a 29-year-old female patient presenting to the clinic today with complaints of possible UTI x4 days. She reports that she is having some burning with urination and urinary frequency and urgency. Denies any back pain or abdominal pain. No nausea vomiting or diarrhea. Last menstrual period was 01/03/2025. No concern for . No concern for STIs. Denies any vaginal discharge or odor. Has not taken any medications for her symptoms. Related Data Home Medications ?Medication ?Instructions ?Recorded ?Confirmed ?Last Taken ?Type budesonide-formoterol HFA 160 2 puff inhalation DAILY 12/18/23 10/06/24 Unknown History mcg-4.5 mcg/actuation aerosol inhaler (Symbicort) atorvastatin 40 mg tablet mg 11/14/24 Unknown History buspirone 10 mg tablet mg 11/14/24 Unknown History cetirizine 10 mg tablet mg 11/14/24 Unknown History fluticasone propionate 50 intranasal 11/14/24 Unknown History mcg/actuation nasal spray,suspension quetiapine 50 mg tablet mg 11/14/24 Unknown History venlafaxine 150 mg mg PO 11/14/24 Unknown History capsule,extended release 24 hr venlafaxine 75 mg capsule,extended mg PO 11/14/24 Unknown History release 24 hr cariprazine 1.5 mg capsule mg 01/20/25 Unknown History (Vraylar) Allergies Allergy/AdvReac Type Severity Reaction Status Date / Time almond Allergy Severe Swelling Verified 01/20/25 15:45 of Lip/Tongue/Throat pecan nut Allergy Severe Swelling Verified 01/20/25 15:45 of Lip/Tongue/Throat codeine Allergy Unknown GI UPSET Verified 01/20/25 15:45 hydrocodone Allergy Unknown Vomiting Verified 01/20/25 15:45 adhesive tape Allergy Rash Verified 01/20/25 15:45 amoxicillin Allergy Swelling Verified 01/20/25 15:45 of Lip/Tongue/Throat coconut Allergy Difficulty Verified 01/20/25 15:45 Swallowing fentanyl Allergy vomiting, Verified 01/20/25 15:45 increase in bp iodine Allergy Rash Verified 01/20/25 15:45 latex Allergy Rash Verified 01/20/25 15:45 penicillin G Allergy Rash Verified 01/20/25 15:45 Penicillins Allergy Swelling Verified 01/20/25 15:45 of Lip/Tongue/Throat Review of Systems Review of Systems: Pertinent positives per HPI. Patient denies any fever, chills, rash, headache, visual changes, dizziness, cough, runny nose, sore throat, shortness of breath, chest pain, palpitations, nausea, vomiting, diarrhea, constipation, abdominal pain. [facility] Past Medical History Medical History History of miscarriage Migraine Anemia Asthma Seasonal allergies POTS (postural orthostatic tachycardia syndrome) Insomnia Fracture of right elbow Fracture of ankle, left, closed ADHD (attention deficit hyperactivity disorder) Subarachnoid hemorrhage Depression Anxiety Surgical History Surgical History History of laparoscopy History of delivery H/O elbow surgery Family History Family History Mother Depression Heart disease Hypertension Asthma Bipolar 1 disorder Heart attack Grandparent Malignant neoplasm of prostate Cancer Cerebrovascular accident Father Alcoholism Heart disease Other Patient's mother is Social History Social History Smoking status: Never smoker Second hand tobacco smoke exposure: No Alcohol intake: never Substance use: never Do You Feel Safe in your Home?: Yes Lack of Transportation: No Lack of Food: Never True Current Housing: Decline to Answer Concerned About Future Housing: No Difficulty Paying Gas/Electric Bills: No Difficulty Paying for Meds: No Currently Unemployed: No Education: High School Diploma/GED Difficulty w/ Childcare or Family Care: No Living arrangements: with family Occupation/Education: unemployed Gender identity (if verbalized by the patient): Female Sexual Orientation (if Verbalized by the Patient): Straight or Heterosexual Spiritual care concerns: No Comments At the time of my signature, I reviewed and agree with the nursing past medical, surgical, social, and family history. There is no relevant family history pertinent to the patient complaint. Course Course Emergency Course: Portions of this record may have been created with voice recognition software. Level of Care: Express Care Visit Vital Signs Vital signs: Vital Signs Temperature 36.7 C 01/20/25 15:38 Pulse Rate 96 01/20/25 15:38 Respiratory Rate 20 01/20/25 15:38 Blood Pressure 122/69 01/20/25 15:38 Pulse Oximetry 100 01/20/25 15:38 Oxygen Delivery Room Air 01/20/25 15:38 Temperature 36.7 C 01/20/25 15:38 Pulse Rate 96 01/20/25 15:38 Respiratory Rate 20 01/20/25 15:38 Blood Pressure 122/69 01/20/25 15:38 Pulse Oximetry 100 01/20/25 15:38 Oxygen Delivery Room Air 01/20/25 15:38 Vital signs reviewed MDM - Female Genitourinary MDM Narrative Medical decision making narrative: At the time of visit patient is resting comfortably on the exam table. Patient appears to be nontoxic. Complaints of possible UTI x4 days. She reports that she is having some burning with urination and urinary frequency and urgency. Denies any back pain or abdominal pain. No nausea vomiting or diarrhea. Last menstrual period was 01/03/2025. No concern for . No concern for STIs. Has not taken any medications for her symptoms. Denies any vaginal discharge or odor. Patient has normal abdominal exam. UA dip ordered. Labs: Urinalysis with positive for leukocytes, protein, and blood. We will send urine for culture. Plan: I suspect patient has UTI. Prescription for Bactrim DS 1 tab twice a day for 5 days was sent to the pharmacy. Supportive measures were discussed with the patient and they voiced understanding discharge instructions and agrees to treatment plan. Return precautions reviewed Differential Diagnosis Differential diagnosis: Likely urinary tract infection and cystitis Lab Data Labs: Lab Results 01/20/25 Range/Units 15:56 POC Urine Color Yellow POC Urine Clarity Cloudy POC Urine pH 6.5 POC Ur Specif [place] 1.030 POC Urine Protein 2+ (Negative) POC Ur Glucose (UA) Negative (Negative) POC Urine Ketones Negative (Negative) POC Urine Blood Trace (Negative) POC Urine Nitrite Negative (Negative) POC Urine Bilirubin Negative (Negative) POC Urine Urobilinogen 0.2 POC U Leukocyte Esteras 1+ (Negative) Discharge Plan Discharge Clinical Impression: UTI (urinary tract infection) Qualifiers: Urinary tract infection type: acute cystitis Hematuria presence: with hematuria Qualified Code(s): N30.01 - Acute cystitis with hematuria Patient Disposition: Home Condition: Stable Instructions: Antibiotic Form, Urinary Tract Infection in Women (ED) Additional Instructions: Urine positive for leukocytes, blood, and protein. We will send urine for culture. Take Bactrim as prescribed Increase fluids and stay well hydrated Wipe front to back. May use wet wipes. Avoid tub baths If sexually active- pee before and after intercourse. Wear cotton panties Avoid tight clothing up against the genitals Follow up with your PCP in 1 week if symptoms persist. Patient Language: Gu[place]an Prescriptions: New sulfamethoxazole-trimethoprim [Bactrim DS] 800-160 mg tablet 1 tablet PO Q12H 5 Days Qty: 10 0RF No Action budesonide-formoterol [Symbicort] 160-4.5 mcg/actuation HFA aerosol inhaler 2 puff INHALATION DAILY atorvastatin 40 mg tablet venlafaxine 75 mg capsule,extended release 24hr PO cetirizine 10 mg tablet venlafaxine 150 mg capsule,extended release 24hr PO buspirone 10 mg tablet fluticasone propionate 50 mcg/actuation spray,suspension INTRANASAL quetiapine 50 mg tablet Vraylar 1.5 mg capsule Follow-up/Referrals: PHYSICIAN NOT ON STAFF,NONSTAFF [Primary Care Provider] - Time of Disposition: 15:58 Quality NIHSS Nursing Documentation ED NIHSS nursing documentation: reviewed/agree
[2025-01-20 15:58] LABS: EDUAAPPEAR Cloudy; EDUABILI Negative (Negative); EDUABLOOD Trace (Negative); EDUACOLOR1 Yellow; EDUAGLUCOSE Negative (Negative); EDUAKETONE Negative (Negative); EDUALEUKO 1+ (Negative); EDUANITRATE Negative (Negative); EDUAPH 6.5; EDUAPROTEIN 2+ (Negative); EDUASPGRAVITY 1.030; EDUAUROBILI 0.2
== END 2025-01-20 16:04 | disposition home or self-care (01) ==
PROVIDERS: Emergency Provider Nurse Practitioner Family
DX: N30.01 Acute cystitis with hematuria (principal); J45.909 Unspecified asthma, uncomplicated; G90.A Postural orthostatic tachycardia syndrome [POTS]; F41.9 Anxiety disorder, unspecified; F32.A Depression, unspecified
CPT/HCPCS: 81003; 87086; 99213; G0463

== ENCOUNTER 2025-02-10 14:55 | Emergency (ER) | payer OTHER, SELFPAY ==
--- NOTE | 2025-02-10 14:58 | ED_ITS ---
HPI - Female Genitourinary General Chief complaint: Urogenital-Female Stated complaint: Urinary Problem Time Seen by Provider: 02/10/25 15:08 Source: patient and RN notes reviewed Mode of arrival: ambulatory Limitations: no limitations History of Present Illness HPI Narrative: 30-year-old female presents with concern for dysuria, frequency, urgency for 2 days. She was treated for UTI several weeks ago that was treated successfully. She denies fever, body aches, chills, sweats, back pain, abdominal pain, nausea, vomiting. MD elicited complaint: UTI Related Data Home Medications ?Medication ?Instructions ?Recorded ?Confirmed ?Last Taken ?Type budesonide-formoterol HFA 160 2 puff inhalation DAILY 12/18/23 10/06/24 Unknown History mcg-4.5 mcg/actuation aerosol inhaler (Symbicort) atorvastatin 40 mg tablet mg 11/14/24 Unknown History buspirone 10 mg tablet mg 11/14/24 Unknown History cetirizine 10 mg tablet mg 11/14/24 Unknown History fluticasone propionate 50 intranasal 11/14/24 Unknown History mcg/actuation nasal spray,suspension quetiapine 50 mg tablet mg 11/14/24 Unknown History venlafaxine 150 mg mg PO 11/14/24 Unknown Hist ory capsule,extended release 24 hr venlafaxine 75 mg capsule,extended mg PO 11/14/24 Unk nown History release 24 hr cariprazine 1.5 mg capsule mg 01/20/25 Unknown Histor y (Vraylar) Allergies Allergy/AdvReac Type Severity Reaction Status Date / Time almond Allergy Severe Swelling Verified 02/10/25 15:00 of Lip/Tongue/Throat pecan nut Allergy Severe Swelling Verified 02/10/25 15:00 of Lip/Tongue/Throat codeine Allergy Unknown GI UPSET Verified 02/10/25 15:00 hydrocodone Allergy Unknown Vomiting Verified 02/10/25 15:00 adhesive tape Allergy Rash Verified 02/10/25 15:00 amoxicillin Allergy Swelling Verified 02/10/25 15:00 of Lip/Tongue/Throat coconut Allergy Difficulty Verified 02/10/25 15:00 Swallowing fentanyl Allergy vomiting, Verified 02/10/25 15:00 increase in bp iodine Allergy Rash Verified 02/10/25 15:00 latex Allergy Rash Verified 02/10/25 15:00 penicillin G Allergy Rash Verified 02/10/25 15:00 Penicillins Allergy Swelling Verified 02/10/25 15:00 of Lip/Tongue/Throat Review of Systems Review of Systems: CONSTITUTIONAL: Denies malaise, chills, sweats, or fever. CARDIOVASCULAR: Denies chest pain, palpitations, or edema. RESPIRATORY: Denies cough or dyspnea. GASTROINTESTINAL: Denies abdominal pain, nausea, vomiting, diarrhea GENITOURINARY: Reports dysuria, frequency, urgency. Denies suprapubic pressure. Denies flank pain or hematuria. SKIN: Denies rash or itching. MUSCULOSKELETAL: Denies back pain or myalgia. All systems reviewed & are unremarkable except as noted in HPI and below PMFSH Past Medical History Medical History History of miscarriage Migraine Anemia Asthma Seasonal allergies POTS (postural orthostatic tachycardia syndrome) Insomnia Fracture of right elbow Fracture of ankle, left, closed ADHD (attention deficit hyperactivity disorder) Subarachnoid hemorrhage Depression Anxiety Surgical History Surgical History History of laparoscopy History of delivery H/O elbow surgery Family History Family History Mother Depression Heart disease Hypertension Asthma Bipolar 1 disorder Heart attack Grandparent Malignant neoplasm of prostate Cancer Cerebrovascular accident Father Alcoholism Heart disease Other Patient's mother is Social History Social History Smoking status: Never smoker Second hand tobacco smoke exposure: No Alcohol intake: never Substance use: never Do You Feel Safe in your Home?: Yes Lack of Transportation: No Lack of Food: Never True Current Housing: Decline to Answer Concerned About Future Housing: No Difficulty Paying Gas/Electric Bills: No Difficulty Paying for Meds: No Currently Unemployed: No Education: High School Diploma/GED Difficulty w/ Childcare or Family Care: No Living arrangements: with family Occupation/Education: unemployed Gender identity (if verbalized by the patient): Female Sexual Orientation (if Verbalized by the Patient): Straight or Heterosexual Spiritual care concerns: No Comments At time of signature, agree with nursing past medical, surgical, social and family history. There is no relevant family history pertinent to the presenting complaint Exam Narrative: GENERAL: Well-appearing, well-nourished, and in no acute distress. HEAD: Normocephalic. EYES: PERRLA, conjunctivae clear. NECK: Supple. No lymphadenopathy CHEST: Clear to auscultation. No respiratory distress. HEART: Regular rate and rhythm. ABDOMEN: Soft, nontender upon palpation, nondistended, no palpable or pulsatile masses, no guarding. No CVA tenderness SKIN: Warm, dry, no rash. NEURO: Alert and oriented x3. PSYCH: Normal mood and affect Course Course Emergency Course: Patient is aware of diagnosis, understands and agrees to treatment plan. Anticipatory guidance given. Patient agrees to follow-up as directed and is aware of reasons to seek care at the emergency department. Portions of this record may have been created with voice recognition software Level of Care: Express Care Visit Vital Signs Vital signs: Reviewed. MDM - Female Genitourinary MDM Narrative Medical decision making narrative: Exam findings and UA show no acute concerns or changes; patient is non-toxic appearing and is in no distress. Patient is appropriate for outpatient treatment and follow-up. Differential Diagnosis Differential diagnosis: Likely urinary tract infection and cystitis Critical Care Time Critical Care Time Critical Care Time: No Discharge Plan Discharge Clinical Impression: Urinary tract infection Patient Disposition: Home Condition: Stable Instructions: Antibiotic Form, Urinary Tract Infection in Women (ED) Additional Instructions: We will send a urine culture to the lab; if the culture identifies an organism that the prescribed antibiotic will not treat, you will receive a phone call from an urgent care staff member and an appropriate antibiotic will be prescribed. -Your symptoms should begin to improve within a day of starting antibiotics. But you should finish all the antibiotic pills you get. Otherwise your infection might come back. -Also recommend: increase water intake. Tylenol/ibuprofen as needed for pain or fever -Follow-up with your primary care provider for urine recheck or seek ER visit if condition worsens with high fever, nausea, vomiting and severe back pain. Patient Language: Azeri Prescriptions: New nitrofurantoin monohyd/m-cryst [Macrobid] 100 mg capsule 100 mg PO Q12H 5 Days Qty: 10 0RF Rx Instructions: must administer with a meal/food No Action budesonide-formoterol [Symbicort] 160-4.5 mcg/actuation HFA aerosol inhaler 2 puff INHALATION DAILY atorvastatin 40 mg tablet venlafaxine 75 mg capsule,extended release 24hr PO cetirizine 10 mg tablet venlafaxine 150 mg capsule,extended release 24hr PO buspirone 10 mg tablet fluticasone propionate 50 mcg/actuation spray,suspension INTRANASAL quetiapine 50 mg tablet Vraylar 1.5 mg capsule Follow-up/Referrals: UNKNOWN,DOCTOR [Primary Care Provider] Time of Disposition: 15:17
[2025-02-10 15:00] VITALS: BP 119/80; PULSE 100; RESP 20; TEMP 36.8; O2SAT 100
[2025-02-10 15:19] LABS: EDUAAPPEAR Cloudy; EDUABILI Negative (Negative); EDUABLOOD 2+ (Negative); EDUACOLOR1 Yellow; EDUAGLUCOSE Negative (Negative); EDUAKETONE Negative (Negative); EDUALEUKO 2+ (Negative); EDUANITRATE Negative (Negative); EDUAPH 6.0; EDUAPROTEIN 1+ (Negative); EDUASPGRAVITY 1.030; EDUAUROBILI 0.2
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
== END 2025-02-10 15:20 | disposition home or self-care (01) ==
PROVIDERS: Emergency Provider Nurse Practitioner
DX: N39.0 Urinary tract infection, site not specified (principal)
CPT/HCPCS: 81003; 87086; 87186; 99213; G0463

== ENCOUNTER 2025-02-26 11:44 | Emergency (ER) | payer OTHER, SELFPAY ==
[2025-02-26 11:56] VITALS: BP 134/80; PULSE 101; RESP 16; TEMP 37; O2SAT 100
[2025-02-26 12:12] LABS: EDSTREPNEGPOS1 Positive (Negative)
--- NOTE | 2025-02-26 12:15 | ED.URI ---
HPI - URI/Sore Throat General Chief Complaint: Upper Respiratory Infection Stated Complaint: throat Time Seen by Provider: 02/26/25 12:10 Source: patient and RN notes reviewed Mode of arrival: ambulatory Limitations: no limitations History of Present Illness HPI Narrative: Patient presents today with a 2 day history of sore throat and left ear pain. Denies cough, congestion, fever, or any additional symptoms. Currently rates her pain 8/10, which increases with swallowing. No OTC treatment prior to arrival. Related Data Home Medications ?Medication ?Instructions ?Recorded ?Confirmed ?Last Taken ?Type budesonide-formoterol HFA 160 2 puff inhalation DAILY 12/18/23 10/06/24 Unknown History mcg-4.5 mcg/actuation aerosol inhaler (Symbicort) atorvastatin 40 mg tablet mg 11/14/24 Unknown History buspirone 10 mg tablet mg 11/14/24 Unknown History cetirizine 10 mg tablet mg 11/14/24 Unknown History fluticasone propionate 50 intranasal 11/14/24 Unknown History mcg/actuation nasal spray,suspension quetiapine 50 mg tablet mg 11/14/24 Unknown History venlafaxine 150 mg mg PO 11/14/24 Unknown History capsule,extended release 24 hr venlafaxine 75 mg capsule,extended mg PO 11/14/24 Unknown History release 24 hr cariprazine 1.5 mg capsule mg 01/20/25 Unknown History (Vraylar) Allergies Allergy/AdvReac Type Severity Reaction Status Date / Time almond Allergy Severe Swelling Verified 02/26/25 12:05 of Lip/Tongue/Throat pecan nut Allergy Severe Swelling Verified 02/26/25 12:05 of Lip/Tongue/Throat codeine Allergy Unknown GI UPSET Verified 02/26/25 12:05 hydrocodone Allergy Unknown Vomiting Verified 02/26/25 12:05 adhesive tape Allergy Rash Verified 02/26/25 12:05 amoxicillin Allergy Swelling Verified 02/26/25 12:05 of Lip/Tongue/Throat coconut Allergy Difficulty Verified 02/26/25 12:05 Swallowing fentanyl Allergy vomiting, Verified 02/26/25 12:05 increase in bp iodine Allergy Rash Verified 02/26/25 12:05 latex Allergy Rash Verified 02/26/25 12:05 penicillin G Allergy Rash Verified 02/26/25 12:05 Penicillins Allergy Swelling Verified 02/26/25 12:05 of Lip/Tongue/Throat PMFSH Past Medical History Medical History History of miscarriage Migraine Anemia Asthma Seasonal allergies POTS (postural orthostatic tachycardia syndrome) Insomnia Fracture of right elbow Fracture of ankle, left, closed ADHD (attention deficit hyperactivity disorder) Subarachnoid hemorrhage Depression Anxiety Surgical History Surgical History History of laparoscopy History of delivery H/O elbow surgery Family History Family History Mother Depression Heart disease Hypertension Asthma Bipolar 1 disorder Heart attack Grandparent Malignant neoplasm of prostate Cancer Cerebrovascular accident Father Alcoholism Heart disease Other Patient's mother is Social History Social History Smoking status: Never smoker Second hand tobacco smoke exposure: No Alcohol intake: never Substance use: never Do You Feel Safe in your Home?: Yes Lack of Transportation: No Lack of Food: Never True Current Housing: Decline to Answer Concerned About Future Housing: No Difficulty Paying Gas/Electric Bills: No Difficulty Paying for Meds: No Currently Unemployed: No Education: High School Diploma/GED Difficulty w/ Childcare or Family Care: No Living arrangements: with family Occupation/Education: unemployed Gender identity (if verbalized by the patient): Female Sexual Orientation (if Verbalized by the Patient): Straight or Heterosexual Spiritual care concerns: No Comments At time of signature, I have reviewed and agree with nursing past medical, surgical, social and family history unless otherwise noted. Please see nursing chart for further information. There is no relevant family history pertinent to the presenting complaint Exam Narrative: GENERAL: Mildly ill-appearing, well-nourished, and in no acute distress. HEAD: Normocephalic, atraumatic. EYES: EOMI. No redness or drainage. Conjunctivae normal. ENT: Mucous membranes pink and moist. Nares clear. No rhinorrhea. TMs normal bilaterally. Throat mildly erythematous. 3+ tonsils bilaterally without exudate. Uvula midline. NECK: Normal AROM. Supple. No lymphadenopathy. CHEST: No respiratory distress. Clear to auscultation. HEART: Regular rate and rhythm. No murmur appreciated. EXTREMITIES: Normal range of motion. No edema. SKIN: Warm, dry, no rash. Capillary refill normal. Normal skin turgor. NEURO: No focal deficits. Alert and oriented x3. Gait steady. PSYCH: Normal affect. No signs of depression or anxiety. Course Course Level of Care: Express Care Visit Vital Signs Vital signs: Vital Signs Temperature 98.6 F 02/26/25 11:56 Pulse Rate 101 H 02/26/25 11:56 Respiratory Rate 16 02/26/25 11:56 Blood Pressure 134/80 02/26/25 11:56 Pulse Oximetry 100 02/26/25 11:56 Temperature 98.6 F 02/26/25 11:56 Pulse Rate 101 H 02/26/25 11:56 Respiratory Rate 16 02/26/25 11:56 Blood Pressure 134/80 02/26/25 11:56 Pulse Oximetry 100 02/26/25 11:56 Reviewed MDM - URI/Sore Throat MDM Narrative Medical decision making narrative: 30-year-old female patient with a 2 day history of sore throat and left ear pain. Denies any additional symptoms. No OTC treatment prior to arrival. Upon exam, she has not 3+ tonsils without exudate and is mildly ill appearing. Rapid strep positive. Prescription for Keflex sent to pharmacy. Patient has penicillin allergy, but has tolerated cephalosporins in the past per her report. Patient agrees with plan. Vital signs stable. Anticipatory guidance given. Differential Diagnosis Differential diagnosis: Likely upper respiratory infection, otitis media, viral infection, pharyngitis and other (Strep throat) Lab Data Attestation: I reviewed the patient's lab results. Labs: Lab Results 02/26/25 Range/Units 12:00 POC Grp A Strep Screen Positive (Negative) Critical Care Time Critical Care Time Critical Care Time: No Discharge Plan Discharge Clinical Impression: Strep throat Patient Disposition: Home Condition: Stable Instructions: Antibiotic Form, Strep Throat (DC) Additional Instructions: You have tested positive for strep throat. Please take the Keflex as prescribed until gone. You will be contagious for 24 hours after starting the medication. Take Tylenol or Ibuprofen for pain or fever, if able. Rest and stay hydrated. Follow up with your PCP in 3 days if symptoms are not improving. Go to the ER immediately if [] develops worsening symptoms such as shortness of breath, difficulty swallowing. Your blood pressure was elevated above 120/80 today at Urgent Care. This puts you above the threshold for follow up. Please schedule a followup visit with your personal physician as soon as possible, for further evaluation and treatment. Even blood pressure exceeding 120/80 may indicate pre-hypertension. Patient Language: Canadian Prescriptions: New cephalexin 250 mg/5 mL suspension for reconstitution 500 mg PO Q12H 10 Days Qty: 200 0RF No Action budesonide-formoterol [Symbicort] 160-4.5 mcg/actuation HFA aerosol inhaler 2 puff INHALATION DAILY atorvastatin 40 mg tablet venlafaxine 75 mg capsule,extended release 24hr PO cetirizine 10 mg tablet venlafaxine 150 mg capsule,extended release 24hr PO buspirone 10 mg tablet fluticasone propionate 50 mcg/actuation spray,suspension INTRANASAL quetiapine 50 mg tablet Vraylar 1.5 mg capsule nitrofurantoin monohyd/m-cryst [Macrobid] 100 mg capsule 100 mg PO Q12H 5 Days Qty: 10 0RF Rx Instructions: must administer with a meal/food sulfamethoxazole-trimethoprim [Bactrim DS] 800-160 mg tablet 1 tablet PO Q12H 7 Days Qty: 14 0RF Follow-up/Referrals: Monico,Omar Mancini MD [Primary Care Provider, Unknown] Time of Disposition: 12:20
== END 2025-02-26 12:22 | disposition home or self-care (01) ==
PROVIDERS: Emergency Provider Nurse Practitioner; PCP Orthopaedic Surgery Orthopaedic Trauma
DX: J02.0 Streptococcal pharyngitis (principal); J45.909 Unspecified asthma, uncomplicated; F41.9 Anxiety disorder, unspecified; F32.A Depression, unspecified
CPT/HCPCS: 87880; 99213; G0463

== ENCOUNTER 2025-03-07 18:31 | Emergency (ER) | payer OTHER, SELFPAY ==
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
--- NOTE | 2025-03-07 18:38 | ED.URI ---
HPI - URI/Sore Throat General Chief Complaint: Upper Respiratory Infection Stated Complaint: Sore Throat Time Seen by Provider: 03/07/25 18:40 History of Present Illness HPI Narrative: 30 y/o male presented for c/o sore throat and painful swallow. Onset 2 days. Pt was pos for strep on 02/26, and had approx 4 days of abx treatment before spilling the medication. Pt was taking liquid abx due to painful swallow. Says she was feeling better after starting the antibiotic so she did not seek further treatment, then the symptoms returned. denies n/v/d/f/c. Related Data Home Medications ?Medication ?Instructions ?Recorded ?Confirmed ?Last Taken ?Type budesonide-formoterol HFA 160 2 puff inhalation DAILY 12/18/23 10/06/24 Unknown History mcg-4.5 mcg/actuation aerosol inhaler (Symbicort) atorvastatin 40 mg tablet mg 11/14/24 Unknown History buspirone 10 mg tablet mg 11/14/24 Unknown History cetirizine 10 mg tablet mg 11/14/24 Unknown History fluticasone propionate 50 intranasal 11/14/24 Unknown History mcg/actuation nasal spray,suspension quetiapine 50 mg tablet mg 11/14/24 Unknown History venlafaxine 150 mg mg PO 11/14/24 Unknown History capsule,extended release 24 hr venlafaxine 75 mg capsule,extended mg PO 11/14/24 Unknown History release 24 hr cariprazine 1.5 mg capsule mg 01/20/25 Unknown History (Vraylar) Allergies Allergy/AdvReac Type Severity Reaction Status Date / Time almond Allergy Severe Swelling Verified 03/07/25 18:41 of Lip/Tongue/Throat pecan nut Allergy Severe Swelling Verified 03/07/25 18:41 of Lip/Tongue/Throat codeine Allergy Unknown GI UPSET Verified 03/07/25 18:41 hydrocodone Allergy Unknown Vomiting Verified 03/07/25 18:41 adhesive tape Allergy Rash Verified 03/07/25 18:41 amoxicillin Allergy Swelling Verified 03/07/25 18:41 of Lip/Tongue/Throat coconut Allergy Difficulty Verified 03/07/25 18:41 Swallowing fentanyl Allergy vomiting, Verified 03/07/25 18:41 increase in bp iodine Allergy Rash Verified 03/07/25 18:41 latex Allergy Rash Verified 03/07/25 18:41 penicillin G Allergy Rash Verified 03/07/25 18:41 Penicillins Allergy Swelling Verified 03/07/25 18:41 of Lip/Tongue/Throat Review of Systems Review of Systems: CONSTITUTIONAL: Denies body aches, fever, chills, or sweats. EYES: Denies visual changes, redness, or discharge. ENT: reports sore throat Denies rhinorrhea, congestion, or otalgia. CARDIOVASCULAR: Denies chest pain, palpitations, or edema. RESPIRATORY: Denies dyspnea. GASTROINTESTINAL: Denies abdominal pain, nausea, vomiting, or diarrhea. SKIN: Denies rash NEUROLOGIC: Denies headache [facility] Past Medical History Medical History History of miscarriage Migraine Anemia Asthma Seasonal allergies POTS (postural orthostatic tachycardia syndrome) Insomnia Fracture of right elbow Fracture of ankle, left, closed ADHD (attention deficit hyperactivity disorder) Subarachnoid hemorrhage Depression Anxiety Surgical History Surgical History History of laparoscopy History of delivery H/O elbow surgery Family History Family History Mother Depression Heart disease Hypertension Asthma Bipolar 1 disorder Heart attack Grandparent Malignant neoplasm of prostate Cancer Cerebrovascular accident Father Alcoholism Heart disease Other Patient's mother is Social History Social History Smoking status: Never smoker Second hand tobacco smoke exposure: No Alcohol intake: never Substance use: never Do You Feel Safe in your Home?: Yes Lack of Transportation: No Lack of Food: Never True Current Housing: Decline to Answer Concerned About Future Housing: No Difficulty Paying Gas/Electric Bills: No Difficulty Paying for Meds: No Currently Unemployed: No Education: High School Diploma/GED Difficulty w/ Childcare or Family Care: No Living arrangements: with family Occupation/Education: unemployed Gender identity (if verbalized by the patient): Female Sexual Orientation (if Verbalized by the Patient): Straight or Heterosexual Spiritual care concerns: No Exam Narrative: GENERAL: mildly Ill-appearing, no acute distress. EYES: conjunctivae clear ENT: Mucous membranes moist. TMs pearly hinds with normal light reflex bilaterally; no tragal tenderness. Oropharynx erythematous without lesions. Tonsils enlarged 3+ with exudate. No drooling, no hoarseness, no trismus, uvula midline. No tripod positioning, hot potato voice, or soft palate swelling. NECK: Supple. No lymphadenopathy CHEST: Clear to auscultation, breath sounds equal. No respiratory distress, speaks in full sentences. HEART: Regular rate and rhythm. No murmur heard. SKIN: Warm, dry, no rash. NEURO: Alert and oriented x3. Course Course Emergency Course: Patient is aware of diagnosis, understands and agrees to treatment plan. Anticipatory guidance given. Patient agrees to follow-up as directed and is aware of reasons to seek care at the emergency department. Portions of this record may have been created with voice recognition software Level of Care: Express Care Visit MDM - URI/Sore Throat MDM Narrative Medical decision making narrative: Pt was pos for strep on 02/26, and had approx 4 days of abx treatment before spilling the medication, per pt. Will resend abx along with prednisolone. Pt requesting liquid due to painful swallow.Advise supportive treatments. Patient is appropriate for outpatient treatment and follow-up. Differential Diagnosis Differential diagnosis: Likely upper respiratory infection, viral infection and pharyngitis Discharge Plan Discharge Clinical Impression: Pharyngitis Patient Disposition: Home Condition: Stable Instructions: Antibiotic Form, Strep Throat (ED) Additional Instructions: - Take the antibiotic as directed. Fever and sore throat typically resolve within one to three days. Most patients can return to work, after 12 to 24 hours of antibiotic therapy, provided you are fever free and otherwise well. -Eat and drink things that are easy to swallow, like soft foods, cool liquids, tea with honey, or popsicles . -Salt water gargles and/or may use topical anesthetic ( Chloraseptic spray) or lozenges to relieve dryness or throat pain -Alternate Tylenol and ibuprofen as needed for pain and fever as directed. -Frequent hand washing or hand financial reporting director is one of the best ways to prevent spread of infection. Throw away the toothbrush after 24hours of antibiotic. -Follow up with primary care provider in 2-3 days if condition is not improving -Go to the ER if you have trouble breathing, cannot drink enough fluids, have muffled voice or drooling, difficulty opening your mouth, or severe swelling. Patient Language: Uzbek Prescriptions: New cephalexin 250 mg/5 mL suspension for reconstitution 500 mg PO Q12H 10 Days Qty: 200 0RF prednisolone 15 mg/5 mL solution 60 mg PO QAM 4 Days Qty: 80 0RF No Action budesonide-formoterol [Symbicort] 160-4.5 mcg/actuation HFA aerosol inhaler 2 puff INHALATION DAILY atorvastatin 40 mg tablet venlafaxine 75 mg capsule,extended release 24hr PO cetirizine 10 mg tablet venlafaxine 150 mg capsule,extended release 24hr PO buspirone 10 mg tablet fluticasone propionate 50 mcg/actuation spray,suspension INTRANASAL quetiapine 50 mg tablet Vraylar 1.5 mg capsule Follow-up/Referrals: Monico,Omar Mancini MD [Primary Care Provider, Unknown] Time of Disposition: 18:48
[2025-03-07 18:39] VITALS: BP 141/76; PULSE 119; RESP 16; TEMP 37.1; O2SAT 98
== END 2025-03-07 18:53 | disposition home or self-care (01) ==
PROVIDERS: Emergency Provider Nurse Practitioner Family; PCP Orthopaedic Surgery Orthopaedic Trauma
DX: J02.9 Acute pharyngitis, unspecified (principal); J45.909 Unspecified asthma, uncomplicated; F41.9 Anxiety disorder, unspecified; F32.A Depression, unspecified
CPT/HCPCS: 99213; G0463

== ENCOUNTER 2025-03-31 08:41 | Emergency (ER) | payer OTHER, SELFPAY ==
--- OUTSIDE RECORDS SUMMARY | 2025-03-30 09:30 | XMS_ITS ---
Author Organization [facility] Address [address] [place] [address] Care Team Providers Care Marketing Development Manager Name Role Phone Bert Gómez Primary Care Provider Stephanie Novoa Unavailable [phone] REASON FOR VISIT 4 week f u Medications Medication SIG (Take, Route, Frequency, Duration) Notes Start Date End Date Status EpiPen 2-Garrett 0.3 MG/0.3ML 0.3 mg Injecti on subcutaneous; Duration: 30 days 08/20/2024 Unknown Cetirizine HCl 10 MG 1 tablet as needed Orally Once a day; Duration: 30 days 03/02/2024 Unknown Fludrocortisone Acetate 0.1 MG 1 tablet Orally Once a day Unknown Folic Acid 1 MG TAKE 1 TABLET BY [facility] EVERY DAY; Duration: 30 Unknown Famotidine 20 MG 1 tablet at bedtime as needed Orally Once a day; Duration: 30 days As needed HEARTBURN Unknown Ondansetron HCl 4 MG 1 tablet Orally every 8 hours As needed 12/18/2023 Unknown QUEtiapine Fumarate 50 MG 0.5 - [...] hrs As needed SHORT OF BREATH Unknown Vraylar 1.5 MG 1 capsule Orally Onc e a day; Duration: 30 days Active Fluticasone Propionate 50 MCG/ACT 2 SPRAYS DAILY EACH NOSTRIL Nasally at night Active busPIRone HCl 10 MG 1 tablet Orally Once a day; Duration: 30 days Active Vraylar 1.5 MG 1 capsule Orally Onc e a day; Duration: 30 days Active Symbicort 160-4.5 MCG/ACT INHALE 2 PUFFS BY MOUTH DAILY; Duration: 60 Active Venlafaxine HCl ER 75 MG 1 capsule with food (total 225 mg) Orally Once a day; Duration: 30 days Active QUEtiapine Fumarate 50 MG 0.5 - 1 tablet at bedtime Orally Once a day; Duration: 30 days As needed for sleep Active Venlafaxine HCl ER 150 MG 1 capsule with food (total 225 mg) Orally Once a day; Duration: 30 days Active Melatonin 5 MG 1-2 tablets at bedti me as needed with food Orally Once a day; Duration: 30 days Active Social History Sex Assigned At : Social History Observation Description Sex Assigned At Female Encounters Encounter Location Date Provider Diagnosis [address] [address] 03/30/2025 Stephanie Novoa PTSD (post-traumatic stress disorder) F43.10 ; MDD (major depressive disorder) F32.9 ; VIVIAN (generalized anxiety disorder) F41.1 ; Sleep disturbances G47.9 and Medication management Z79.899 Assessments Encounter Date Diagnosis (ICD Code) Assessment Notes Treatment Notes Treatment Clinical Notes Section Notes 03/30/2025 PTSD (post-traumatic stress disorder) (ICD-10 - F43.10) 03/30/2025 MDD (major depressive disorder) (ICD-10 - F32.9) Sertraline and citalopram not effective for depression and anxiety. 03/30/2025 VIVIAN (generalized anxiety disorder) (ICD-10 - F41.1) Take venlafaxine as prescribed. 03/30/2025 Sleep disturbances (ICD-10 - G47.9) 03/30/2025 Medication management (ICD-10 - Z79.899) May self-administer medications or be administered own oral medications per [place] protocols. Provided informed consent with understanding of side effects, adverse effects, risks and benefits as well as alternative treatments as previously discussed and with the above recommended medications & other aspects of the treatment program. Agrees to return sooner if symptoms worsen or suicidal or homicidal ideations occur. Labs monitored by PCP. Plan Of Treatment Medication Medication Name Sig Start Date Stop Date Notes Vraylar 1.5 MG 1 capsule Orally Onc e a day; Duration: 30 days busPIRone HCl 10 MG 1 tablet Orally Once a day; Duration: 30 days Venlafaxine HCl ER 75 MG 1 capsule with food (total 225 mg) Orally Once a day; Duration: 30 days QUEtiapine Fumarate 50 MG 0.5 - 1 tablet at bedtime Orally Once a day; Duration: 30 days Venlafaxine HCl ER 150 MG 1 capsule with food (total 225 mg) Orally Once a day; Duration: 30 days Melatonin 5 MG 1-2 tablets at bedti me as needed with food Orally Once a day; Duration: 30 days Treatment Notes Assessment Notes VIVIAN (generalized anxiety disorder) Take venlafaxine as prescribed. Medication management May self-administe r medications or be administered own oral medications per [facility] protocols. Provided informed consent with understanding of side effects, adverse effects, risks and benefits as well as alternative treatments as previously discussed and with the above recommended medications & other aspects of the treatment program. Agrees to return sooner if symptoms worsen or suicidal or homicidal ideations occur. Next Appt Details Follow Up: 1-4 Weeks, Reason : Did not stay, visit started but not completed, TH or in-person Provider Name:Bert Gómez , 04/05/2025 02:00:00 PM, [address], [place], [address], Progress Notes * Idalia DONATOYosefOB: [birth year] (30 yo F)Acc No.[id number]:03/30/2025 DNS Patient: Faustina TIRADO Provider: Blanca Novoa, JACINTA, EXPRESSIVE ART THERAPIST, PMHNP-BC :1995 A ge:30 Y S ex:Female Date:03/30/2025 Address:[facility] Pcp:Bert Gómez Subjective: * Chief Complaints: * 4 week f u * HPI: S ummary: Client reports that she is ill, and needs to reschedule appointment. Will refill her medication for now. * Medical History: * Surgical History: * Hospitalization/Major Diagno stic Procedure: * Medications: T akingMelatonin 5 MG Tablet 1-2 tablets at bedtime as needed with food Orally Once a day Venlafaxine HCl ER 150 MG Capsule Extended Release 24 Hour 1 capsule with food (total 225 mg) Orally Once a day Venlafaxine HCl ER 75 MG Capsule Extended Release 24 Hour 1 capsule with food (total 225 mg) Orally Once a day busPIRone HCl 10 MG Tablet 1 tablet Orally Once a day Fluticasone Propionate 50 MCG/ACT Suspension 2 SPRAYS DAILY EACH NOSTRIL Nasally at night Symbicort 160-4.5 MCG/ACT Aerosol INHALE 2 PUFFS BY MOUTH DAILY Vraylar 1.5 MG Capsule 1 capsule Orally Once a day QUEtiapine Fumarate 50 MG Tablet 0.5 - 1 tablet at bedtime Orally Once a day As needed for sleepTaking Melatonin 5 MG Tablet 1-2 tablets at bedtime as needed with food Orally Once a day Taking Venlafaxine HCl ER 150 MG Capsule Extended Release 24 Hour 1 capsule with food (total 225 mg) Orally Once a day Taking Venlafaxine HCl ER 75 MG Capsule Extended Release 24 Hour 1 capsule with food (total 225 mg) Orally Once a day Taking busPIRone HCl 10 MG Tablet 1 tablet Orally Once a day Taking Fluticasone Propionate 50 MCG/ACT Suspension 2 SPRAYS DAILY EACH NOSTRIL Nasally at night Taking Symbicort 160-4.5 MCG/ACT Aerosol INHALE 2 PUFFS BY MOUTH DAILY Taking Vraylar 1.5 MG Capsule 1 capsule Orally Once a day Taking QUEtiapine Fumarate 50 MG Tablet 0.5 - 1 tablet at bedtime Orally Once a day As needed for sleepUnknownOndansetron HCl 4 MG Tablet 1 tablet Orally every 8 hours As neededVentolin HFA 108 (90 Base) MCG/ACT Aerosol Solution 2 puffs Inhalation every 4 hrs As needed SHORT OF BREATHPrenatal (w/Iron & FA) 27- 0.8 MG Tablet 1 tablet Orally Once a day Ferrous Sulfate 325 (65 Fe) MG Tablet 1 tablet Orally Three times a Week Folic Acid 1 MG Tablet TAKE 1 TABLET BY MOUTH EVERY DAY Famotidine 20 MG Tablet 1 tablet at bedtime as needed Orally Once a day As needed HEARTBURNCetirizine HCl 10 MG Tablet 1 tablet as needed Orally Once a day EpiPen 2-Garrett 0.3 MG/0.3ML Solution Auto-injector 0.3 mg Injection subcutaneous Fludrocortisone Acetate 0.1 MG Tablet 1 tablet Orally Once a day Medication List reviewed and reconciled with the patientUnknown Ondansetron HCl 4 MG Tablet 1 tablet Orally every 8 hours As neededUnknown Ventolin HFA 108 (90 Base) MCG/ACT Aerosol Solution 2 puffs Inhalation every 4 hrs As needed SHORT OF BREATHUnknown (w/Iron & FA) 27-0.8 MG Tablet 1 tablet Orally Once a day Unknown Ferrous Sulfate 325 (65 Fe) MG Tablet 1 tablet Orally Three times a Week Unknown Folic Acid 1 MG Tablet TAKE 1 TABLET BY MOUTH EVERY DAY Unknown Famotidine 20 MG Tablet 1 tablet at bedtime as needed Orally Once a day As needed HEARTBURNUnknown Cetirizine HCl 10 MG Tablet 1 tablet as needed Orally Once a day Unknown EpiPen 2-Garrett 0.3 MG/0.3ML Solution Auto-injector 0.3 mg Injection subcutaneous Unknown Fludrocortisone Acetate 0.1 MG Tablet 1 tablet Orally Once a day Medication List reviewed and reconciled with the patient Objective: * Vitals: Assessment: * Assessment: 1. P TSD (post-traumatic stress disorder) - F43.10 2 . M DD (major depressive disorder) - F32.9 3 . G AD (generalized anxiety disorder) - F41.1 ?4. S leep disturbances - G47.9 5 . M edication management - Z79.899? Plan: * Treatment: 2. G AD (generalized anxiety disorder) Refill busPIRone HCl Tablet, 10 MG, 1 tablet, Orally, Once a day, 30 days, 30 Tablet. Notes: Take venlafaxine as prescribed. 3. S [...] or be administered own oral medications per [place] protocols. Provided informed consent with understanding of side effects, adverse effects, risks and benefits as well as alternative treatments as previously discussed and with the above recommended medications & other aspects of the treatment program. Agrees to return sooner if symptoms worsen or suicidal or homicidal ideations occur. Clinical Notes: Labs monitored by PCP. * Procedure Codes: * Follow Up: 1 -4 Weeks (Reason: Did not stay, visit started but not completed, TH or in-person) * * Sign off status: Completed true * Provider: Blanca Novoa, JACINTA, EXPRESSIVE ART THERAPIST, PMHNP-BC Date: Generated for Printing/Faxing/eTransmitting on: 09:10 AM CDT History and Physical Notes * HPI (History of Present Illness) Category Sub-Category Detail Notes Category Not es Summary Client reports that she is ill, and needs to reschedule appointment. Will refill her medication for now.
--- NOTE | 2025-03-31 08:42 | ED.HA ---
HPI - Headache General Chief Complaint: Headache Stated Complaint: head pain x 3 days Time Seen by Provider: 03/31/25 08:42 Source: patient Mode of arrival: ambulatory Limitations: no limitations History of Present Illness HPI Narrative: Faustina is a 30-year-old female patient presenting to the clinic today with complaints of headache and left-sided neck pain times 3 days. She reports she has taken ibuprofen and Tylenol for the headache without relief. Also has taken some Zyrtec thinking it may be allergy related. Rates pain a 03/19-stating it is the worse headache she has ever had. States the pain feels like a tight band around her head and she is having left-sided neck pain/difficulty turning her head side to side due to pain. She has also felt feverish and feels as though her neck is stiff. Does have some associated nausea without vomiting. No visual changes or dizziness. History of migraine headaches-normally takes ibuprofen 800 mg for this. States that this is not feel like her typical migraine headache. History of subarachnoid hemorrhage. Related Data Home Medications ?Medication ?Instructions ?Recorded ?Confirmed ?Last Taken ?Type budesonide-formoterol HFA 160 2 puff inhalation DAILY 12/18/23 03/11/25 Unknown History mcg-4.5 mcg/actuation aerosol inhaler (Symbicort) atorvastatin 40 mg tablet mg 11/14/24 03/11/25 Unknown History buspirone 10 mg tablet mg 11/14/24 03/11/25 Unknown History cetirizine 10 mg tablet mg 11/14/24 03/11/25 Unknown History fluticasone propionate 50 intranasal 11/14/24 03/11/25 Unknown History mcg/actuation nasal spray,suspension quetiapine 50 mg tablet mg 11/14/24 03/11/25 Unknown History venlafaxine 150 mg mg PO 11/14/24 03/11/25 Unknown History capsule,extended release 24 hr venlafaxine 75 mg capsule,extended mg PO 11/14/24 03/11/25 Unknown History release 24 hr cariprazine 1.5 mg capsule mg 01/20/25 03/11/25 Unknown History (Vraylar) famotidine 20 mg tablet mg 03/31/25 Unknown History Allergies Allergy/AdvReac Type Severity Reaction Status Date / Time almond Allergy Severe Swelling Verified 03/31/25 08:43 of Lip/Tongue/Throat pecan nut Allergy Severe Swelling Verified 03/31/25 08:43 of Lip/Tongue/Throat codeine Allergy Unknown GI UPSET Verified 03/31/25 08:43 hydrocodone Allergy Unknown Vomiting Verified 03/31/25 08:43 adhesive tape Allergy Rash Verified 03/31/25 08:43 amoxicillin Allergy Swelling Verified 03/31/25 08:43 of Lip/Tongue/Throat coconut Allergy Difficulty Verified 03/31/25 08:43 Swallowing fentanyl Allergy vomiting, Verified 03/31/25 08:43 increase in bp iodine Allergy Rash Verified 03/31/25 08:43 latex Allergy Rash Verified 03/31/25 08:43 penicillin G Allergy Rash Verified 03/31/25 08:43 Penicillins Allergy Swelling Verified 03/31/25 08:43 of Lip/Tongue/Throat Review of Systems Review of Systems: Pertinent positives per HPI. Patient denies any rash,visual changes, dizziness, cough, shortness of breath, chest pain, palpitations, nausea, vomiting, diarrhea, constipation, abdominal pain, or any urinary issues. [facility] Past Medical History Medical History History of miscarriage Migraine Anemia Asthma Seasonal allergies POTS (postural orthostatic tachycardia syndrome) Insomnia Fracture of right elbow Fracture of ankle, left, closed ADHD (attention deficit hyperactivity disorder) Subarachnoid hemorrhage Depression Anxiety Surgical History Surgical History History of laparoscopy History of delivery H/O elbow surgery Family History Family History Mother Depression Heart disease Hypertension Asthma Bipolar 1 disorder Heart attack Grandparent Malignant neoplasm of prostate Cancer Cerebrovascular accident Father Alcoholism Heart disease Other Patient's mother is Social History Social History (Updated 03/11/25 @ 09:59 by Federica Thomas CMA) Smoking status: Never smoker Second hand tobacco smoke exposure: No Alcohol intake: never Substance use: never Do You Feel Safe in your Home?: Yes Lack of Transportation: No Lack of Food: Never True Current Housing: I Have Housing Concerned About Future Housing: No Difficulty Paying Gas/Electric Bills: No Difficulty Paying for Meds: No Currently Unemployed: No Education: High School Diploma/GED Difficulty w/ Childcare or Family Care: No Living arrangements: with family Occupation/Education: unemployed Gender identity (if verbalized by the patient): Female Sexual Orientation (if Verbalized by the Patient): Straight or Heterosexual Spiritual care concerns: No Comments At the time of my signature, I reviewed and agree with the nursing past medical, surgical, social, and family history. There is no relevant family history pertinent to the patient complaint. Exam Narrative: General: Well-developed, obese, in no apparent distress Head: Normocephalic, atraumatic, frontal headache-tender to palpation- pressure/tightness Eyes: Pupils equally round and reactive to light bilaterally, EOM intact, sclera and conjunctive clear, no discharge, lids normal Ears: TMs intact and clear, ear canals clear, no drainage, grossly hearing normal. Nose: Nares patent, no discharge, no inflammation, no sinus tenderness. Mouth: Oropharynx without lesions or masses, good dentition, MMM. Tongue midline, even rise and fall of uvula Neck: Supple, trachea midline, no enlargement of anterior or posterior cervical nodes, no thyroid masses or goiter palpable. Cardio: Regular rate and rhythm, s1 and s2 normal, no murmur appreciated. Resp: Clear to auscultation bilaterally anteriorly and posteriorly, no rhonchi, rales, wheezing or rubs Musculoskeletal: No deformity, non-tender to palpation, positive Kernig sign, grossly normal range of motion, muscle strength strong and equal, peripheral pulse strong, no edema, no cyanosis, normal gait and station Neuro: Alert and oriented x4 with normal speech, no focal deficits, cranial nerves I through XII intact, muscle strength 5 out of 5, sensation intact bilaterally, negative Romberg test Course Course Emergency Course: Portions of this record may have been created with voice recognition software. Level of Care: Express Care Visit Vital Signs Vital signs: Vital signs reviewed Transfer Transfered to: [facility] Transportation: Other (Private car) Transfer rationale: Higher level of care-Worst SRIVASTAVA of life- left sided neck pain, tactile fever, nausea- history of subarachnoid hemorrhage Accepting physician: Dr. Sorto Transfer comments: Transfer via POV MDM - Headache MDM Narrative Medical decision making narrative: At the time of visit patient is resting comfortably on the exam table. Patient appears to be nontoxic. Complaints of headache and left-sided neck pain times 3 days. She reports she has taken ibuprofen and Tylenol for the headache without relief. Also has taken some Zyrtec thinking it may be allergy related. Rates pain a 10/10-stating it is the worse headache she has ever had. States the pain feels like a tight band/pressure around her head and she is having left-sided neck pain/difficulty turning her head side to side due to pain. She has also felt feverish and feels as though her neck is stiff. Does have some associated nausea without vomiting. No visual changes or dizziness. History of migraine headaches-normally takes ibuprofen 800 mg for this. States that this is not feel like her typical migraine headache. History of subarachnoid hemorrhage. On exam patient has headache over the frontal lobe with left-sided neck pain/tenderness, pain with turning her head side to side and pain with hyper extension and flexion of the neck. Headache worsens with raising her legs up while lying flat, TMs clear bilaterally, no nasal drainage or congestion, oral pharynx normal, trachea midline, even rise and fall the uvula, no cervical lymphadenopathy, lung sounds clear, heart rates regular rate rhythm. Heart rates 103 other was vitals are within normal limits. COVID and influenza testing was ordered. Labs: COVID and influenza testing was negative in the clinic today. Plan: Recommend transfer to the ED for further evaluation as patient is reporting this is the worse headache of her life. Headache is not being alleviated by Tylenol or Motrin and she rates it a 10/10 currently. Has associated nausea and neck pain-feels feverish- positive Kernigs sign. History of were subarachnoid hemorrhage. Patient would like to go to [facility] ER. Report called to Josephine VINES for continuity of care and Dr. Sorto accepts. Patient to go via POV. Differential Diagnosis Differential diagnosis: Likely migraine, tension headache, subarachnoid hemorrhage, headache, meningitis, sinusitis and other (sinus headache) Discharge Plan Discharge Clinical Impression: Neck pain on left side Acute intractable headache Qualifiers: Headache type: tension-type Qualified Code(s): G44.201 - Tension-type headache, unspecified, intractable Patient Disposition: Acute Care Hospital Condition: Stable Patient Language: Syriac Prescriptions: No Action budesonide-formoterol [Symbicort] 160-4.5 mcg/actuation HFA aerosol inhaler 2 puff INHALATION DAILY famotidine 20 mg tablet atorvastatin 40 mg tablet venlafaxine 75 mg capsule,extended release 24hr PO cetirizine 10 mg tablet venlafaxine 150 mg capsule,extended release 24hr PO buspirone 10 mg tablet fluticasone propionate 50 mcg/actuation spray,suspension INTRANASAL quetiapine 50 mg tablet Vraylar 1.5 mg capsule norelgestromin-ethin.estradiol [Xulane] 150-35 mcg/24 hr patch weekly 1 patch transdermal WEEKLY Qty: 9 1RF Rx Instructions: apply once weekly for 3 weeks of a 4-week cycle Follow-up/Referrals: Monico,Omar Mancini MD [Primary Care Provider, Unknown] Time of Disposition: 09:05 Quality NIHSS Nursing Documentation ED NIHSS nursing documentation: reviewed/agree
[2025-03-31 08:49] VITALS: BP 137/77; PULSE 103; RESP 20; TEMP 37.1; O2SAT 100
--- OUTSIDE RECORDS SUMMARY | 2025-03-31 09:11 | XMS_ITS | Clinical Summary ---
Author Organization [facility] Address [address] [place] [phone] Phone Care Team Providers Care [employer] Name Role Phone Unavailable Primary Care Provider Unavailabl e Encounters Date Type Department Care Team Description 03/09/2025 External Device Data [facility] ABSTRACTION Provider, Abstract 01/13/2025 External Device Data [facility] ABSTRACTION Provider, [...] 01/29/2017 HPV/Cotest (21-29) 01/29/2017 PAP SMEAR 01/29/2017 HPV VACCINES (1 - 3-dose SCDM series) 01/29/2023 INFLUENZA VACCINE (#1) [address] [place] [address] [address] PLAN MEDICAID
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
== END 2025-03-31 09:11 | disposition short-term general hospital (02) ==
PROVIDERS: Emergency Provider Nurse Practitioner Family; PCP Orthopaedic Surgery Orthopaedic Trauma
DX: M54.2 Cervicalgia (principal); G44.201 Tension-type headache, unspecified, intractable; J45.909 Unspecified asthma, uncomplicated; F41.9 Anxiety disorder, unspecified; F32.A Depression, unspecified; G90.A Postural orthostatic tachycardia syndrome [POTS]; Z86.79 Personal history of other diseases of the circulatory system
CPT/HCPCS: 99213; G0463